=== PATIENT | female | born 1945 | race Caucasian/White ===

== ENCOUNTER 2016-08-28 12:25 | Emergency (ER) | payer OTHER, MEDICAID ==
[2016-08-28 13:14] LABS: % IMMATURE GRANULYOCYTES 0.7 % (0.0-1.1); ABSOLUTE IMMATURE GRANULOCYTES 0.05 10^3/uL (0.00-0.10); ADD DIFF? NO; ADD MORPH? NO; ADD SCAN? NO; ATYPICAL LYMPHOCYTE FLAG 20 (0-99); FRAGMENT RBC FLAG 0 (0-99); HEMATOCRIT 41.4 % (38.0-47.0); HEMOGLOBIN 14.2 g/dL (12.6-16.3); LEFT SHIFT FLG 0 (0-99); LIPEMIA HEMOLYSIS FLAG 90 (0-99); MEAN CELL HEMOGLOBIN CONCENTR. 34.3 g/dL (32.4-36.7); MEAN CELL VOLUME 81.7 fL (81.5-99.8); MEAN PLATELET VOLUME 9.9 fL (8.7-11.7); PLATELET CLUMPS FLAG 0 (0-99); PLATELET COUNT 181 10^3/uL (150-400); RED BLOOD CELL COUNT 5.07 10^6/uL (4.18-5.33); RED CELL DISTRIBUTION WIDTH 15.2 % (11.5-15.2)
[2016-08-28 13:18] LABS: ANION GAP 8 mEq/L (8-16); CALCIUM 10.4 mg/dL (8.5-10.4); CARBON DIOXIDE 30 mEq/l (22-31); CHLORIDE 99 mEq/L (97-110); GLOMERULAR FILTRATION RATE 55; GLUCOSE 113 mg/dL (70-100); POTASSIUM 4.1 mEq/L (3.5-5.2); SODIUM 137 mEq/L (134-144)
[2016-08-28 13:30] LABS: COLOR YELLOW; LEUKOCYTE ESTERASE,URINE NEGATIVE (NEGATIVE); NITRITE,URINE NEGATIVE (NEGATIVE)
--- NOTE | 2016-08-28 13:31 | CPEKG ---
Heart Rate: 88 RR Interval: 682 QRSD Interval: 94 QT Interval: 400 QTC Interval: 484 QRS [place]: 15 EKG Severity - ABNORMAL ECG - EKG Impression: ATRIAL FIBRILLATION, V-RATE 64-122 EKG Impression: ANTERIOR INFARCT, AGE INDETERMINATE Electronically Signed By: Christ Mccoy 28-Aug-2016 14:45:22
--- NOTE | 2016-08-28 13:43 | EDPHY ---
H & P Time Seen by Provider: 08/28/16 13:01 HPI/ROS: Chief complaint. High blood pressure and feeling unwell HPI. 71-year-old female tells me that she had a headache 6 days ago the last all day and has resolved and not recurred. Today she had an episode of indigestion that she describes as some discomfort in the upper abdomen and felt like she had to go to the bathroom and . However subsequently during this episode she had pain going down both arms. She was short of breath. Her symptoms lasted 2 hours and have resolved. She has had no fever or cough. She has also noticed her blood pressure has been elevated for the past week. She has a history of atrial fibrillation and her med list show she has been she takes Eliquis. She also notes that she has been taking her blood pressure medication. She has no symptoms now ROS Constitutional. no fever/chills, no weakness Eyes. no problems with vision ENT. no sore throat, no nasal drainage Cardiovascular. Possibly low anterior chest pain or upper abdominal pain that radiated to both arms Respiratory. Shortness of breath Abdominal. no abdominal pain, no nausea/vomiting, no diarrhea . no problems urinating MS. no calf pain/swelling, no neck/back pain, no joint pain Skin. no rash Lymph. no swollen glands Neuro. no headache, no dizziness, no difficulty walking or with speech Past Medical/Surgical History: Past medical history is significant atrial fibrillation, diabetes, COPD, chronic pain, hypertension, Graves disease, GERD, depression, hypothyroid Social History: Single, lives alone, nonsmoker, no alcohol Smoking Status: Former smoker Physical Exam: General Appearance: Alert well-developed female mild distress vital signs show an initial blood pressure 181/106. On repeat her blood pressure is 152/102 Eyes: Pupils equal and round no pallor or injection. ENT, Mouth: Mucous membranes are moist. Respiratory: There are no retractions, lungs are clear to auscultation. Cardiovascular: Irregularly irregular rate and rhythm Gastrointestinal: Abdomen is soft and nontender, no masses, bowel sounds normal. Neurological: Awake and alert, sensory and motor exams grossly normal. Skin: Warm and dry, no rashes. Musculoskeletal: Neck is supple nontender. Extremities 2+ edema Psychiatric: Patient is oriented X 3, there is no agitation. Constitutional: Initial Vital Signs Temperature (C) 36.8 C 08/28/16 12:25 Heart Rate 68 08/28/16 12:25 Respiratory Rate 18 08/28/16 12:25 Blood Pressure 181/106 H 08/28/16 12:25 O2 Sat (%) 94 08/28/16 12:25 O2 Delivery Mode Room Air Allergies/Adverse Reactions: RADIOACTIVE IODINE Allergy (Severe, Uncoded 02/28/15 11:16) RED SKIN lidoderm Allergy (Uncoded 12/06/15 11:26) pravastatin Allergy (Uncoded 12/06/15 11:26) Home Medications: Medication Instructions Recorded Estradiol [Estrace Vaginal (*)] 42.5 gm VG 08/28/16 FLUoxetine 08/28/16 Famotidine 08/28/16 Fluticasone Nasal [Flonase Nasal 1 sprays NASAL DAILY 08/28/16 [place] (RX)] Furosemide 08/28/16 Glucophage 500 mg (*) 08/28/16 Hydrocodone/Acetaminophen 1 each PO 08/28/16 [Hydrocodon-Acetaminophen 5-325] Klonopin 08/28/16 Levothyroxine 08/28/16 Lisinopril 08/28/16 Metformin HCl 08/28/16 Omeprazole 08/28/16 Oxycontin 08/28/16 Proair Hfa Icu (*) 08/28/16 Senna Prompt Capsule 08/28/16 Medical Decision Making - Diagnostics EKG Interpretation: EKG interpreted by me shows atrial fibrillation with left axis deviation. There are diffuse T-wave flattening and slight depression. The ventricular response is 88 There appears to be more ST depression in lead 1 and V6 than previous EKG by comparison December of 2014 Imaging: Chest x-ray interpreted by me shows mild cardiomegaly and stable fibrotic change in the left lower lobe. No pneumonia Procedures: IV normal saline, monitor ED Course/Re-evaluation: Re-evaluation at 3:30 p.m. patient is without symptoms. Due to EKG changes and the discomfort going down both arms I am concerned about cardiac involvement and have recommended admission to the patient. She declines admission wants to be treated as an outpatient. She and I discussed risks of going home and that it is Wednesday and can't be followed up until Wednesday. We discussed the benefits of staying in the hospital for further cardiac evaluation. She expresses understanding and agreement and still wishes to go home. She is encouraged to return at any point over the weekend for any further symptoms Differential Diagnosis: It is unclear of what this patient had as far as indigestion. I am certainly concerned about acute coronary syndrome and again EKG changes and history suggestive of coronary artery disease. Objective finding shows atrial fibrillation with some ST depression in lateral leads. She does have a normal troponin. I considered pneumonia as well as pancreatitis as well as GERD - Data Points Laboratory Results: Laboratory Results 08/28/16 12:30 08/28/16 12:30 08/28/16 08/28/16 08/28/16 12:40 12:30 12:00 WBC 6.95 10^3/uL (3.80-9.50) RBC 5.07 10^6/uL (4.18-5.33) Hgb 14.2 g/dL (12.6-16.3) Hct 41.4 % (38.0-47.0) MCV 81.7 fL (81.5-99.8) MCH 28.0 pg (27.9-34.1) MCHC 34.3 g/dL (32.4-36.7) RDW 15.2 % (11.5-15.2) Plt Count 181 10^3/uL (150-400) MPV 9.9 fL (8.7-11.7) Neut % (Auto) 78.8 H % (39.3-74.2) Lymph % (Auto) 8.2 L % (15.0-45.0) [place] % (Auto) 12.2 % (4.5-13.0) Eos % (Auto) 0.0 L % (0.6-7.6) Baso % (Auto) 0.1 L % (0.3-1.7) Nucleat RBC Rel Count 0.0 % (0.0-0.2) Absolute Neuts (auto) 5.47 10^3/uL (1.70-6.50) Absolute Lymphs (auto) 0.57 L 10^3/uL (1.00-3.00) Absolute Monos (auto) 0.85 H 10^3/uL (0.30-0.80) Absolute Eos (auto) 0.00 L 10^3/uL (0.03-0.40) Absolute Basos (auto) 0.01 L 10^3/uL (0.02-0.10) Absolute Nucleated RBC 0.00 10^3/uL (0-0.01) Immature Gran % 0.7 % (0.0-1.1) Immature Gran # 0.05 10^3/uL (0.00-0.10) PT 14.8 SEC (12.0-15.0) INR 1.16 (0.83-1.16) APTT 38.7 H SEC (23.0-38.0) Sodium 137 mEq/L 138 mEq/L (134-144) (134-144) Potassium 4.1 mEq/L 3.9 mEq/L (3.5-5.2) (3.5-5.2) Chloride 99 mEq/L 98 mEq/L (97-110) (97-110) Carbon Dioxide 30 mEq/l 30 mEq/l (22-31) (22-31) Anion Gap 8 mEq/L 10 mEq/L (8-16) (8-16) BUN 23 mg/dL 23 mg/dL (7-23) (7-23) Creatinine 1.0 mg/dL 1.0 mg/dL (0.6-1.0) (0.6-1.0) Estimated GFR 55 55 Glucose 113 H mg/dL 116 H mg/dL (70-100) (70-100) Calcium 10.4 mg/dL 10.3 mg/dL (8.5-10.4) (8.5-10.4) Troponin I 0.012 ng/mL (0-0.034) NT-Pro-B Natriuret Pep 1090 H pg/mL (0-125) Lipase 66.0 IU/L (23-300) Urine Color YELLOW Urine Appearance HAZY Urine pH 7.0 (5.0-7.5) Ur Specific [place] 1.005 (1.002-1.030) Urine Protein 2+ H (NEGATIVE) Urine Ketones NEGATIVE (NEGATIVE) Urine Blood NEGATIVE (NEGATIVE) Urine Nitrate NEGATIVE (NEGATIVE) Urine Bilirubin NEGATIVE (NEGATIVE) Urine Urobilinogen NEGATIVE EU (0.2-1.0) Ur Leukocyte Esterase NEGATIVE (NEGATIVE) Urine RBC 1-3 /hpf (0-3) Urine WBC 1-3 /hpf (0-3) Ur Epithelial Cells 2+ H /lpf (NONE-1+) Urine Glucose NEGATIVE (NEGATIVE) Departure - Departure Disposition: Home, Routine, Self-Care Clinical Impression: Chest pain Qualifiers: Chest pain type: unspecified Qualifier Code: (R07.9) Chest pain, unspecified Condition: Good Instructions: Chest Pain (ED) Additional Instructions: Continue regular medications. Return for any further symptoms including chest or arm discomfort, trouble breathing over the weekend. Follow up with Dr. Nowak on Wednesday without fail Referrals: Vic Nowak MD [Primary Care Provider] - 2-3 days without fail
--- NOTE | 2016-08-28 14:51 | DX ---
PA and lateral chest x-ray 1344 hours. History: Chest pain and hypertension. Generalized malaise. Findings: Comparison to 2014. Heart size remains mildly enlarged. Pulmonary vasculature is mildly prominent centrally stable in fadia earance. There are some fibrotic streaks remaining at the left lung base. There is no new consolidati on, effusion, or pneumothorax. Osseous structures are unchanged. There is stable mild accentuation an terior kyphosis midthoracic spine. Impression: 1. No active cardiopulmonary disease seen. 2. Stable mild cardiomegaly. 3. Stable fibrotic change left base.
[2016-08-28 14:52] LABS: ANION GAP 10 mEq/L (8-16); CALCIUM 10.3 mg/dL (8.5-10.4); CARBON DIOXIDE 30 mEq/l (22-31); CHLORIDE 98 mEq/L (97-110); GLOMERULAR FILTRATION RATE 55; GLUCOSE 116 mg/dL (70-100); POTASSIUM 3.9 mEq/L (3.5-5.2); SODIUM 138 mEq/L (134-144)
[2016-08-28 14:53] LABS: INR 1.16 (0.83-1.16); PROTIME(PATIENT) 14.8 SEC (12.0-15.0)
[2016-08-28 14:54] LABS: APTT 38.7 SEC (23.0-38.0)
[2016-08-28 15:04] LABS: TROPONIN I 0.012 ng/mL (0-0.034)
[2016-08-28 15:58] VITALS: BP 154/93; PULSE 69; RESP 18; TEMP 98.4; O2SAT 92
== END 2016-08-28 15:56 | disposition home or self-care (01) ==
LOC: EDUNIT#
DX: R07.9 Chest pain, unspecified (principal); J44.9 Chronic obstructive pulmonary disease, unspecified; E11.9 Type 2 diabetes mellitus without complications; Z87.891 Personal history of nicotine dependence

== ENCOUNTER → 2016-11-04 | Outpatient (CLI) | payer OTHER, MEDICAID | LOC: BHFA 15:00 | PROVIDERS: ATTEND Internal Medicine Cardiovascular Disease | DX: I48.2 Chronic atrial fibrillation (principal); I10 Essential (primary) hypertension ==

== ENCOUNTER → 2016-11-23 | Outpatient (CLI) | payer OTHER, MEDICAID | LOC: BHFA 13:30 | PROVIDERS: ATTEND Internal Medicine Cardiovascular Disease | DX: R07.9 Chest pain, unspecified (principal); R06.09 Other forms of dyspnea | CPT/HCPCS: 78452; 93017; A9500; J2785 ==

== ENCOUNTER → 2016-11-24 | Outpatient (CLI) | payer OTHER, MEDICAID | LOC: BHFA 14:45 | PROVIDERS: ATTEND Internal Medicine | DX: I48.91 Unspecified atrial fibrillation (principal) ==

== ENCOUNTER → 2017-02-03 | Outpatient (CLI) | payer OTHER, MEDICAID | LOC: FIMAGING 12:55 | PROVIDERS: ATTEND Internal Medicine | DX: M16.12 Unilateral primary osteoarthritis, left hip (principal); M79.605 Pain in left leg ==

== ENCOUNTER → 2017-02-20 | Outpatient (CLI) | payer OTHER, MEDICAID | LOC: FIMAGING 13:17 | PROVIDERS: ATTEND Internal Medicine | DX: S76.012A Strain of muscle, fascia and tendon of left hip, initial encounter (principal); S76.312A Strain of muscle, fascia and tendon of the posterior muscle group at thigh level, left thigh, initial encounter; M16.0 Bilateral primary osteoarthritis of hip; M25.452 Effusion, left hip; M76.01 Gluteal tendinitis, right hip; M51.36 Other intervertebral disc degeneration, lumbar region; M47.896 Other spondylosis, lumbar region ==

== ENCOUNTER → 2017-03-19 | Outpatient (CLI) | payer OTHER, MEDICAID ==
[~2017-03-19] MED LIST: DEPO METHYLPREDNISOLONE 40 MG/ML SDV ONE; IOPAMIDOL (ISOVUE 370) 100 ML BTL IV ONE; LIDOCAINE 1% 300 MG/30 ML SDV ONE; ROPIVACAINE HCL 150 MG/30 ML INJ ONE
== END ==
LOC: FIMAGING 13:35
PROVIDERS: ATTEND Orthopaedic Surgery
DX: M25.552 Pain in left hip (principal)
CPT/HCPCS: 20610; 77002; J1030; J2795; Q9967

== ENCOUNTER 2017-07-21 08:04 | Inpatient (IN) | payer OTHER, MEDICAID ==
[~2017-07-21 08:04] MED LIST changes: -DEPO METHYLPREDNISOLONE 40 MG/ML SDV ONE; -IOPAMIDOL (ISOVUE 370) 100 ML BTL IV ONE; -LIDOCAINE 1% 300 MG/30 ML SDV ONE; +ROPIVACAINE 0.2% 80 MG, EPINEPHrine 0.2 MG, KETOROLAC TROMETHAMINE 30 MG in SYRINGE 0 ML IU ONE; -ROPIVACAINE HCL 150 MG/30 ML INJ ONE; +TRANEXAMIC ACID 3,000 MG in NS 50 ML IRR ONE
[2017-07-21] MEDS ORDERED: ceFAZolin 2 GM/SWFI 2 GM/20 ML SYR IVP ONE (08:46)
[2017-07-21] MEDS ORDERED: DEXAMETHASONE 4 MG/ML VIAL IVP ONE (08:46)
[2017-07-21] MEDS ORDERED: FAMOTIDINE 20 MG TAB PO ONE (08:46)
[2017-07-21] MEDS ORDERED: LR 1,000 ML IV ONE (09:07)
--- NOTE | 2017-07-21 09:09 | PDANEPAE ---
ANE History of Present Illness 72 year old female w/ PMHx of A. Fib, CVA w/ impaired speech, GERD presents for left total hip replacement. ANE Past Medical History - Cardiovascular History Hx Hypertension: Yes Hx Arrhythmias: Yes Hx Chest Pain: No Hx Coronary Artery / Peripheral Vascular Disease: No Hx CHF / Valvular Disease: No Hx Palpitations: No Cardiovascular History Comment: AFIB - on Eliquis but stopped 5 days ago. Bridged with lovenox. Last dose of lovenox 07/20/17 at 4pm. - Pulmonary History Hx COPD: No Hx Asthma/Reactive Airway Disease: Yes Hx Recent Upper Respiratory Infection: No Hx Oxygen in Use at Home: No Hx Sleep Apnea: Yes Sleep Apnea Screening Result - Last Documented: Positive - Neurologic History Hx Cerebrovascular Accident: Yes Hx Seizures: No Hx Dementia: No Neurologic History Comment: SPEACH - Endocrine History Hx Diabetes: Yes Hypothyroid: No Hyperthyroid: No Obesity: no - Renal History Hx Renal Disorders: No - Liver History Hx Hepatic Disorders: No - Neurological & Psychiatric Hx Hx Neurological and Psychiatric Disorders: Yes Neurological / Psychiatric History Comment: NEUROPATHY IN FEET - Cancer History Hx Cancer: No - Congenital Disorder History Hx Congenital Disorders: No - GI History Hx Gastrointestinal Disorders: Yes Gastrointestinal History Comment: REFLUX - Other Health History Other Health History: DRY SKIN,SWOLLEN LEGS - Chronic Pain History Chronic Pain: Yes - Surgical History Prior Surgeries: bilat knee replacements ANE Review of Systems Review of systems is: negative Review of Systems: - Exercise capacity Exercise capacity: <4 METS METS (RN): 3 METS ANE Patient History - Allergies Allergies/Adverse Reactions: RADIOACTIVE IODINE Allergy (Severe, Uncoded 02/28/15 11:16) RED SKIN lidoderm Allergy (Uncoded 12/06/15 11:26) pravastatin Allergy (Uncoded 12/06/15 11:26) - Home Medications Home medications: home medication list seen and reviewed Home Medications: Albuterol [Proventil Inhaler HFA (*)] 2 puffs IH Q6HRS PRN 06/25/17 [Last Taken 07/20/17] Apixaban [Eliquis] 5 mg PO BID 06/25/17 [Last Taken 07/16/17] Aspirin [Aspirin 81mg (*)] 81 mg PO DAILY 06/25/17 [Last Taken 07/16/17] Betamethasone/Propylene Glyc [Betamethasone Dp Aug 0.05% Oin] 15 gm TP HS PRN [Last Taken 2 Weeks Ago ~07/07/17] Digoxin [Lanoxin 125 mcg (RX)] 125 mcg PO DAILY10 06/25/17 [Last Taken 07/21/17 05:00] Diltiazem HCl [Cardizem Cd] 360 mg PO DAILY 06/25/17 [Last Taken 07/21/17 05:00] Docusate Sodium [Colace 100 MG (*)] 200 mg PO DAILY 06/25/17 [Last Taken ] Estradiol [Estrace Vaginal (*)] 1 fadia VG Q3D 06/25/17 [Last Taken 07/20/17] FLUoxetine [Prozac 20 MG (*)] 60 mg PO DAILY 06/25/17 [Last Taken 07/20/17] Famotidine [Pepcid 20 MG (*)] 20 mg PO BID 06/25/17 [Last Taken 07/20/17] Fluticasone Nasal [Flonase Nasal [place] (RX)] 2 sprays NASAL BID 06/25/17 [Last Taken 07/20/17] Fluticasone/Salmeter 250/50Mcg [Advair 250/50 (*)] 1 puffs IH BID 06/25/17 [ Last Taken 07/20/17] Furosemide [Lasix 80 MG (*)] 80 mg PO BID 06/25/17 [Last Taken 07/20/17] Herbals/Supplements -Info Only 1 ea PO DAILY 06/25/17 [Last Taken 07/16/17] Hydrocodone/Acetaminophen [[place] 7.5-325 Tablet] 1 each PO Q6HRS 06/25/17 [Last Taken 1 Week Ago ~07/14/17] Lansoprazole [Prevacid] 30 mg PO DAILY 06/25/17 [Last Taken 07/20/17] Levothyroxine [Synthroid 200 mcg (*)] 200 mcg PO DAILY06 06/25/17 [Last Taken 05:00] Lisinopril [Zestril 40 mg (*)] 40 mg PO DAILY 06/25/17 [Last Taken 07/21/17 05: 00] Risedronate Sodium [Atelvia] 35 mg PO DAILY 06/25/17 [Last Taken 07/20/17] Sennosides/Docusate Sodium [Senna-S Tablet] 2 each PO DAILY PRN 06/25/17 [Last Taken 2 Days Ago ~07/19/17] Triamcinolone 0.1% [Triamcinolone 0.1% Cream (*)] 1 fadia TP BID PRN 06/25/17 [ Last Taken 2 Weeks Ago ~07/07/17] Vitamin B Complex [B Complex] 1 each PO DAILY 06/25/17 [Last Taken 07/16/17] clonazePAM [Klonopin (*)] 0.25 mg PO Q4HRS 06/25/17 [Last Taken 07/20/17] metFORMIN SR [Glucophage XR 500 mg (*)] 1,000 mg PO BIDMEAL 06/25/17 [Last Taken 07/20/17] oxyCODONE HCL [Oxycontin] 60 mg PO BID 06/25/17 [Last Taken 07/20/17] rOPINIRole HCL [Requip] 0.25 mg PO BID 06/25/17 [Last Taken 07/20/17] Abilify 07/21/17 [Last Taken 07/20/17] - NPO status NPO Status: no food or drink >8 hours - Anes Hx Anes Hx: no prior problems - Smoking Hx Smoking Status: Former smoker Marijuana use: Yes - Alcohol Use Alcohol Use: None - Family Anes Hx Family Anes Hx: neg - N/A Family Hx Anesthesia Complications: none ANE Labs/Vital Signs - Labs Result Diagrams: 07/21/17 09:28 - Vital Signs Vital Signs: reviewed preoperatively; see RN documention for details Height: 160.02 cm Weight: 63.503 kg ANE Physical Exam - Airway Neck exam: FROM Mallampati Score: Class 2 Mouth exam: normal dental/mouth exam - Pulmonary Pulmonary: no respiratory distress - Cardiovascular Cardiovascular: irregularly irregular - ASA Status ASA Status: III ANE Anesthesia Plan Total IV Anesthesia: No
[2017-07-21] MEDS ORDERED: TRANEXAMIC ACID 3,000 MG/50 ML BAG IRR ONE (09:10)
[2017-07-21] MEDS ORDERED: VANCOMYCIN 1 GM VIAL ONE (09:10)
--- NOTE | 2017-07-21 09:31 | PDHPUP ---
History & Physical Update H&P update statement: This history and physical update is based on an assessment of the patient which was completed after admission or registration (within 24 hours), but prior to the surgery/procedure. H&P update: H&P reviewed & patient examined, no change in patient's condition since H&P completed
[2017-07-21] MEDS ORDERED: MIDAZOLAM 2 MG/2 ML VIAL IVP ONE (09:55)
[2017-07-21] MEDS ORDERED: MIDAZOLAM 2 MG/2 ML VIAL ONE (10:02)
[2017-07-21] MEDS ORDERED: PROPOFOL/EMULSION 500 MG/50 ML BOTTLE IV ONE (10:03)
[2017-07-21 10:09] LABS: ANION GAP 10 mEq/L (8-16); CALCIUM 9.5 mg/dL (8.5-10.4); CARBON DIOXIDE 24 mEq/l (22-31); CHLORIDE 104 mEq/L (97-110); CREATININE 0.9 mg/dL (0.6-1.0); GLOMERULAR FILTRATION RATE > 60; GLUCOSE 119 mg/dL (70-100); POTASSIUM 4.1 mEq/L (3.5-5.2); SODIUM 138 mEq/L (134-144)
[2017-07-21] MEDS ORDERED: ROCURONIUM 50 MG/5 ML VIAL ONE ×2 (10:22→11:04)
[2017-07-21] MEDS ORDERED: fentaNYL 100 MCG/2 ML INJ ONE ×3 (10:57→12:22)
[2017-07-21] MEDS ORDERED: ESMOLOL HCL 100 MG/10 ML VIAL IV ONE (11:01)
[2017-07-21] MEDS ORDERED: HYDROmorphONE/DILAUDID 2 MG/ML INJ ONE (11:06)
[2017-07-21] MEDS ORDERED: LABETALOL HCL 5 MG/ML 20 ML MDV IVP PRN (11:11)
[2017-07-21] MEDS ORDERED: LR 500 ML IV PRN (11:11)
[2017-07-21] MEDS ORDERED: ONDANSETRON 4 MG/2 ML VIAL IVP PRN ×2 (11:11→11:51)
[2017-07-21] MEDS ORDERED: NALOXONE HCL 0.4 MG/ML INJ IVP PRN (11:11)
[2017-07-21] MEDS ORDERED: KETAMINE 100 MG/10 ML SYR ONE (11:24)
[2017-07-21] MEDS ORDERED: ONDANSETRON 4 MG/2 ML VIAL ONE ×2 (11:24→12:19)
[2017-07-21] MEDS ORDERED: BISACODYL 10 MG SUPP PR PRN (11:51)
[2017-07-21] MEDS ORDERED: MAGNESIUM HYDROXIDE 30 ML UDCUP PO PRN (11:51)
[2017-07-21] MEDS ORDERED: PROMETHAZINE HCL 25 MG/ML INJ IVP PRN (11:51)
[2017-07-21] MEDS ORDERED: METOCLOPRAMIDE 10 MG/2 ML VIAL IVP PRN (11:51)
[2017-07-21] MEDS ORDERED: POLYETHYLENE GLYCOL 3350 17 GM PKT PO PRN (11:51)
[2017-07-21] MEDS ORDERED: PROMETHAZINE HCL 25 MG SUPPR PR PRN (11:51)
[2017-07-21] MEDS ORDERED: ONDANSETRON DISINTEGRATING 4 MG TAB PO PRN (11:51)
[2017-07-21] MEDS ORDERED: diphenhydrAMINE 25 MG CAP PO PRN (11:51)
[2017-07-21] MEDS ORDERED: LACTULOSE 20 GM/30 ML UDCUP PO PRN (11:51)
[2017-07-21] MEDS ORDERED: DIPHENOXYLATE/ATROPINE LOMOTIL 1 TAB PO PRN (11:51)
--- NOTE | 2017-07-21 11:51 | POSTOPPROG ---
Post Op Note Date of Operation: 07/21/17 Surgeon: Tanner Balderrama Glue Drier Operator: simeon balderrama Anesthesiologist: dr. villalobos Anesthesia: GET(General Endotracheal) Pre-op Diagnosis: left hip OA Post-op Diagnosis: same Indication: left hip pain due to OA that failed conservative measures Procedure: L SURYA ant approach Findings: severe hip OA Inf/Abcess present in the surg proc area at time of surgery?: No EBL: Greater than 1000
[2017-07-21] MEDS ORDERED: LR 1,000 ML IV SCH (12:00)
[2017-07-21] MEDS ORDERED: HYDROmorphONE/DILAUDID 1 MG/ML INJ ONE ×2 (12:01→12:51)
[2017-07-21] MEDS: HYDROmorphONE/DILAUDID 1 MG/ML INJ IVP PRN ×5 (12:02→13:04)
[2017-07-21] MEDS: fentaNYL 100 MCG/2 ML INJ IVP PRN ×4 (12:03→12:44)
[2017-07-21] MEDS ORDERED: LORazepam 2 MG/ML INJ IVP ONE (13:11)
[2017-07-21] MEDS ORDERED: ALBUTEROL 200 PUFFS/18 GM MDI IH PRN (13:15)
[2017-07-21] MEDS ORDERED: LORazepam 2 MG/ML INJ ONE (13:19)
[2017-07-21] MEDS ORDERED: D50W 25 GM/50 ML SYR IVP PRN (13:38)
[2017-07-21 14:53] LABS: HEMATOCRIT 30.5 % (38.0-47.0); MEAN CELL HEMOGLOBIN 27.6 pg (27.9-34.1); MEAN CELL HEMOGLOBIN CONCENTR. 32.8 g/dL (32.4-36.7); MEAN CELL VOLUME 84.3 fL (81.5-99.8); RED BLOOD CELL COUNT 3.62 10^6/uL (4.18-5.33); RED CELL DISTRIBUTION WIDTH 14.1 % (11.5-15.2)
[2017-07-21] MEDS: oxyCODONE IR 5 MG TAB PO PRN ×3 (15:00→22:08)
[2017-07-21] MEDS: CYCLOBENZAPRINE 10 MG TAB PO PRN ×2 (15:01→22:34)
[2017-07-21] MEDS: clonazePAM 0.5 MG TAB PO SCH ×3 (15:05→22:16)
[2017-07-21 15:29] LABS: ANION GAP 7 mEq/L (8-16); CALCIUM 9.2 mg/dL (8.5-10.4); CARBON DIOXIDE 26 mEq/l (22-31); CHLORIDE 103 mEq/L (97-110); CREATININE 0.9 mg/dL (0.6-1.0); GLOMERULAR FILTRATION RATE > 60; GLUCOSE 185 mg/dL (70-100); POTASSIUM 4.1 mEq/L (3.5-5.2); SODIUM 136 mEq/L (134-144)
--- NOTE | 2017-07-21 15:45 | GCON ---
[f rep st] CONSULTATION DATE OF CONSULTATION: 07/21/2017 REFERRING PHYSICIAN: Francesco Ann MD REASON FOR CONSULTATION: Management of chronic medical issues. HISTORY OF PRESENT ILLNESS: A 72-year-old female with multiple comorbidities, including permanent at rial fibrillation, diabetes, chronic pain (on opioids), hypertension, and TIAs, who presented for shanel ctive left hip arthroplasty today. She had an estimated blood loss of 1 L with surgery today. She t ook her Lovenox dose last night. She currently complains of 10/10 pain in the hip. Her baseline pain at home in her knee and hip is 1 0, and usually does not get any lower than that. Currently denies any chest pain, fevers, chills, or sweats. Mild shortness of breath, which is common for her at home. No dysuria. No diarrhea. REVIEW OF SYSTEMS: I completed a 10-point review of systems, negative except as noted in HPI. PAST MEDICAL HISTORY: 1. History of Klebsiella urinary tract infection. 2. Permanent atrial fibrillation. 3. Diabetes. 4. Chronic pain, on chronic opioids. 5. Hyperlipidemia. 6. Hypertension. 7. Asthma. 8. Depression. 9. Graves', status post radioactive iodine, now hypothyroid. 10. Chronic hypoxemic respiratory failure; afternoon and night CPAP. 11. History of TIA. 12. Diverticulitis. 13. Sleep apnea. 14. Migraines. 15. Pulmonary hypertension. 16. Mild MR. PAST SURGICAL HISTORY: 1. Carpal tunnel release. 2. Colon resection secondary to diverticulitis. 3. Bilateral TKA. 4. Oophorectomy. 5. Right rotator cuff repair. SOCIAL HISTORY: Lives in independent living at [facility]. Occasional marijuana. No tobacco or al cohol. FAMILY HISTORY: Father with several heart attacks. ALLERGIES: Radioactive iodine, Lidoderm, and pravastatin. HOME MEDICATIONS: Senna, oxycodone, OxyContin 60 mg b.i.d., Atelvia 35 mg daily, [place] 7.5/325 q.6 h ours as needed (not taken for several weeks), digoxin 125 mcg daily, herbal supplement, vitamin B,, t riamcinolone cream, Requip 0.25 mg b.i.d., levothyroxine 200 mcg daily, lisinopril 40 mg daily, aspir in 81 mg daily. Proventil as needed, metformin 1000 mg b.i.d., Prevacid 30 mg daily, Lasix 80 mg marylou ly, Flonase, Prozac 60 mg a day, Pepcid 20 mg b.i.d., Estrace vaginally every 3 days, diltiazem 360 m g daily, Eliquis 5 mg twice daily (held for surgery), Klonopin 0.25 mg q.4 hours as needed, docusate, Advair, and Abilify. PHYSICAL EXAMINATION: VITAL SIGNS: Temperature 36.4 blood pressure 142/83, heart rate in the 70s, r espirations 16, 95% on room air on 2 L. GENERAL: Lying in bed, fatigued, slightly pale, but in no a cute distress. HEENT: PERRLA. EOMI. Oropharynx clear. CV: Irregularly irregular. No murmurs, g allops, or rubs. Trace pedal edema. LUNGS: Expiratory wheezing throughout. ABDOMEN: Two abdomina l hernias. Nontender with palpation. Positive bowel sounds. : No [place]. MUSCULOSKELETAL: Left hip surgical incision dressed, without hematoma. No tenderness. Moving all 4 extremities. NEURO: 2 through 12 intact. PSYCH: Alert and oriented x3. Flat affect. LABORATORY DATA: CBC and BMP pending. EKG pending. Pelvic x-ray today: Good alignment of left SURYA . ASSESSMENT AND PLAN: 1. Status post left total hip arthroplasty: Had an EBL of 1000 cc. We will check an H and H, trans fuse if hemoglobin is less than 7. 2. Pain control: Per Orthopedics. 3. Permanent atrial fibrillation: Currently rate controlled on diltiazem. Resume this. Will resum e Eliquis in the morning. 4. Diabetes: Continue metformin as well as sliding scale insulin here. 5. Chronic pain: States her pain is anywhere from 8-10 at home, so will be difficult to manage here . Will continue her OxyContin. Pain management per Orthopedics. 6. Hyperlipidemia: Allergic to statin. 7. Hypertension: Resume lisinopril if creatinine is stable. 8. Asthma: Wheezing on exam today. Add DuoNeb. 9. Depression: Continue Prozac. Need to confirm Abilify dose. 10. History of Graves disease: Status post ablation. Continue Synthroid. 11. History of transient ischemic attack: Restart Eliquis tomorrow. 12. Moderate pulmonary hypertension: No overt overload here. Will resume Lasix if creatinine stabl e. 13. Obstructive sleep apnea: CPAP. 14. Chronic hypoxemic respiratory failure: On nocturnal oxygen. 15. History of diverticulitis: Status post resection. 16. Diet: Diabetic. 17. Deep vein thrombosis prophylaxis: Sequential compression devices. Resume Eliquis per Ortho herber orrow. Thank you for this consultation. Please call if any questions. We will follow along. /[id number]/MODL
--- NOTE | 2017-07-21 16:37 | POSTANESTH ---
Post Anesthetic Evaluation Cardiovascular Status: Normal, Stable, Similar to Pre-Op Cond Respiratory Status: Normal, Stable, Similar to Pre-op Cond. Level of Consciousness/Mental Status: Can Participate in Eval, Alert and Oriented Pain Control: Adequate, Prn Tx Ordered Nausea/Vomiting Control: Adequate, Prn Tx Ordered Complications Possibly Related to Anesthesia: None Noted
--- NOTE | 2017-07-21 18:09 | CPEKG ---
Heart Rate: 66 RR Interval: 909 QRSD Interval: 90 QT Interval: 300 QTC Interval: 315 QRS [place]: -13 T Wave [place]: 174 EKG Severity - ABNORMAL ECG - EKG Impression: ATRIAL FIBRILLATION, V-RATE 56-86 EKG Impression: PROBABLE LVH WITH SECONDARY REPOL ABNRM Electronically Signed By: Boaz Lane 22-Jul-2017 13:11:52
[2017-07-21] MEDS: INSULIN LISPRO 100 UNIT/ML SC SCH (18:26)
[2017-07-21] MEDS: ceFAZolin 2 GM/DEXTROSE 100 ML IV SCH (18:27)
[2017-07-21] MEDS: metFORMIN SR 500 MG TAB PO SCH (18:32)
[2017-07-21] MEDS: FLUTICASONE/SALMETER 250/50MCG DISKUS IH SCH (21:16)
[2017-07-21] MEDS: IPRATROPIUM/ALBUTEROL 3 ML DEYVIAL IH PRN (21:16)
[2017-07-21] MEDS: oxyCODONE CR 30 MG TAB PO SCH (22:09)
[2017-07-21] MEDS: SENNOSIDES/DOCUSATE SODIUM TAB PO SCH (22:10)
[2017-07-21] MEDS: FUROSEMIDE 80 MG TAB PO SCH (22:11)
[2017-07-21] MEDS: FAMOTIDINE 20 MG TAB PO SCH (22:16)
[2017-07-21] MEDS: FLUTICASONE NASAL 120 SPRAYS/16 GM MDI EACHNARE SCH (23:15)
[2017-07-22] MEDS: clonazePAM 0.5 MG TAB PO SCH ×8 (01:00→22:37)
[2017-07-22] MEDS: oxyCODONE IR 5 MG TAB PO PRN ×5 (01:05→18:32)
[2017-07-22] MEDS: ceFAZolin 2 GM/DEXTROSE 100 ML IV SCH (01:06)
[2017-07-22 05:13] LABS: HEMATOCRIT 23.7 % (38.0-47.0); HEMOGLOBIN 7.9 g/dL (12.6-16.3)
[2017-07-22 05:28] LABS: ANION GAP 8 mEq/L (8-16); CALCIUM 8.9 mg/dL (8.5-10.4); CARBON DIOXIDE 24 mEq/l (22-31); CHLORIDE 103 mEq/L (97-110); CREATININE 1.2 mg/dL (0.6-1.0); GLOMERULAR FILTRATION RATE 44; GLUCOSE 116 mg/dL (70-100); POTASSIUM 4.6 mEq/L (3.5-5.2); SODIUM 135 mEq/L (134-144)
[2017-07-22] MEDS: LEVOTHYROXINE 200 MCG TAB PO SCH (05:42)
--- NOTE | 2017-07-22 06:14 | GOP ---
[f rep st] OPERATIVE REPORT DATE OF OPERATION: 07/21/2017 SURGEON: Francesco Ann MD RESP THER: DON Dickinson. ANESTHESIA: Spinal. PREOPERATIVE DIAGNOSIS: Left hip osteoarthritis. POSTOPERATIVE DIAGNOSIS: Left hip osteoarthritis. PROCEDURE PERFORMED: Total hip arthroplasty with x-ray. FINDINGS: ESTIMATED BLOOD LOSS: 900 mL. INDICATIONS: The patient has progressively worsening arthritis of the hip which has failed medical m anagement. The patient understands the treatment options including continued non-operative care and has selected surgical intervention. The patient has decided to undergo total hip arthroplasty via th e direct anterior approach, understanding the risks of the procedure including, but not limited to, n eurovascular injury, infection, persistent pain, component wear and loosening, deep venous thrombosis , pulmonary embolism, limb length inequality, hip instability (including dislocation), and intra-oper ative fractures. DESCRIPTION OF PROCEDURE: After proper identification of the patient including verification and conner ing the surgical site, the patient was brought to the operating room and placed in the supine positio n. All bony prominences were well padded. Anesthesia was induced without complication and intraveno us prophylactic antibiotics were administered prior to skin incision. The operative leg was placed in the Trumpf Arch table extension and the well leg in a Yellofin leg ho lder. The patient was prepped and draped in the usual sterile fashion. The C-arm was draped for int ra-operative fluoroscopy to check acetabular position, femoral component position including leg lengt h and femoral offset. Attention was then drawn to surgical exposure of the hip. An incision was made with a #10 Bard Radha r blade starting 3 cm lateral and 3 cm distal to the anterior superior iliac spine measuring 8-10 cm and coursing distally toward the greater trochanter. The skin and subcutaneous tissues were divided sharply down to the fascia jenny. The fascia jenny was incised in line with the skin incision exposing the underlying tensor fascia jenny muscle. The muscle was bluntly elevated from the fascia and the f irst extracapsular Cobra retractor was placed laterally at the junction of the superior femoral neck and greater trochanter. The lateral femoral circumflex vessels were identified, cauterized, and divi ded with the Aquamantys bipolar cautery. The deep investing fascia of the TFL was divided to allow p denise mobilization of the muscle preventing damage during the retraction. The reflected head of the rectus femoris muscle was elevated off the anterior hip capsule and a medial Cobra retractor was plac ed just proximal to the lesser trochanter. The anterior capsulotomy was made sharply from the superolateral acetabulum to the saddle junction of the superior femoral neck and greater trochanter, then coursing inferomedial towards the lesser troc hanter. The retractors were then placed in the intracapsular position for femoral neck osteotomy. C orresponding to pre-operative templating, the osteotomy was made with the oscillating saw carefully p rotecting the greater trochanter and soft tissues. The femoral head was removed from the acetabulum with a corkscrew and confirmed to be severely arthritic with exposed bone, deformity and osteophytes. Similar findings were confirmed in the acetabulum. The Arch table extension was then placed in 40 degrees external rotation. Attention was then drawn to the acetabular preparation. After placement of the anterior and posterio r Cobra retractors outside the labrum and intracapsular, the circumferential labrum was removed sharp ly. The foveal contents were then removed and hemostasis obtained with cautery. The first reamer selected was sized using the removed femoral head. Reaming began with medialization and then commenced in 2 mm increments at 45 degrees of abduction and 15 degrees of anteversion using fluoroscopic navigation. Reaming ceased 1 mm less than the definitive acetabular component and livier esponded to the pre-operative templating. The final acetabular component was inserted using fluorosc opy to achieve proper orientation yielding excellent purchase and stability in the acetabulum. The f inal acetabular liner was then placed and its seating confirmed. Attention was then turned to the femur. The Arch table extension was placed in extension and adducti on, delivering the osteotomized femoral neck into the wound. A 2-pronged femoral elevator was placed at the calcar and another at the tip of the greater trochanter. The posterolateral capsule was rele ased with cautery allowing mobilization of the femur lateral and anterior for preparation. The exter nal rotators were visualized and preserved. A curette and rongeur were used to open the starting poi nt for broaching. Serial broaching started with the #0 broach and ended with the broach that exhibit ed excellent fit in the proximal femur. A change in pitch during mallet strikes was accompanied by t he inability to advance the broach any further. The trial reduction was performed and fluoroscopic n avigation was utilized to check limb length. Adjustments were made to equalize limb length according ly. After the final trials were accepted they were removed and the wound was copiously lavaged. The femo ral component was seated to the same depth as the final broach and the femoral head was impacted onto the clean trunnion. The hip was then reduced for the final time and once more fluoroscopy was used to check that limb length equality was achieved. The wound was irrigated and closed in layers, the fascia jenny with 2-0 Quill, the subcutaneous tissue with 2-0 Quill, and the skin with Dermabond. Sterile dressings were applied. Final sharps and spon ge counts were accurate. The patient was then transferred to a hospital bed and brought [facility] the [facility] in stable condition. IMPLANTS: Accolade II size 5 at 127. Acetabular component 52 mm Tritanium. Liner is Trident X3, 32 mm. The head is a Biolox Delta 32 mm, +0. /[id number]/[id number]
[2017-07-22] MEDS: APIXABAN 5 MG TAB PO SCH ×2 (07:44→21:14)
[2017-07-22] MEDS: oxyCODONE CR 30 MG TAB PO SCH ×2 (07:45→21:12)
[2017-07-22] MEDS: metFORMIN SR 500 MG TAB PO SCH ×2 (07:45→19:23)
[2017-07-22] MEDS: CYCLOBENZAPRINE 10 MG TAB PO PRN ×2 (07:46→18:32)
[2017-07-22] MEDS: FLUoxetine 20 MG CAP PO SCH (07:46)
[2017-07-22] MEDS: SENNOSIDES/DOCUSATE SODIUM TAB PO SCH ×2 (07:47→21:12)
[2017-07-22] MEDS: ARIPiprazole 2 MG TAB PO SCH (07:48)
[2017-07-22] MEDS: FUROSEMIDE 80 MG TAB PO SCH (07:48)
[2017-07-22] MEDS: DILTIAZEM CD 180 MG CAP PO SCH ×3 (07:49→11:32)
[2017-07-22] MEDS: FAMOTIDINE 20 MG TAB PO SCH ×2 (07:52→21:13)
[2017-07-22] MEDS: FLUTICASONE NASAL 120 SPRAYS/16 GM MDI EACHNARE SCH ×2 (08:01→21:33)
[2017-07-22] MEDS: LANSOPRAZOLE SUSP 30MG/10ML UDSYR (Adult) PO SCH (08:12)
[2017-07-22] MEDS: FLUTICASONE/SALMETER 250/50MCG DISKUS IH SCH ×2 (08:17→21:34)
[2017-07-22] MEDS: IPRATROPIUM/ALBUTEROL 3 ML DEYVIAL IH PRN (08:57)
[2017-07-22] MEDS ORDERED: LISINOPRIL 40 MG TAB PO SCH (09:00)
[2017-07-22] MEDS ORDERED: DILTIAZEM HCL 360 MG PO SCH (09:00)
[2017-07-22] MEDS: INSULIN LISPRO 100 UNIT/ML SC SCH ×3 (09:00→19:23)
[2017-07-22] MEDS ORDERED: RISEDRONATE SODIUM 35 MG PO SCH (09:00)
[2017-07-22] MEDS: DIGOXIN 125 MCG TAB PO SCH (11:26)
--- NOTE | 2017-07-22 11:32 | ASMTCMCOM ---
CM Note CM Note Notes: Pt with numerous comorbidities had planned total hip, pt would like to d/c to [facility]. [facility] ran pt insurance, pt only has Medicare part B (no part A) so pt has no SNF benefit. Pt would only be able to d/c to a SNF using Medicaid. Pt does have HCBS Medicaid and receives 3 hours of care 3 times a week at [facility]. [facility] mattress spring encaser Matilde Szymanski ([phone]) is out of the office and this CM left a voicemail on the coverage line [phone] so covering mattress spring encaser can determine if pt is eligible for increased HCBS hours or respite SNF days where there is a Medicaid bed available. [facility] accepts pt for HCBS Medicaid respite days and/or [facility] ULTC 100 process. At a Medicaid facility pt would be able to access skilled therapy using Medicare Part B. Discussed options with pt who states she may want to go home rather than a SNF Medicaid bed, states in this case she would be interested in skilled HHC. Pt reports she has no friends or family to assist her at home. Yesterday PT rec SNF. OT eval pending. Dispo planning: Awaiting call back from [facility] for more information on Medicaid options, will have to updated MD and see what pt choice is. Date Signed: 07/22/2017 11:32 AM Electronically Signed By:JEROMY Stevenson
[2017-07-22 13:05] LABS: HEMATOCRIT 25.3 % (38.0-47.0); HEMOGLOBIN 8.2 g/dL (12.6-16.3)
--- NOTE | 2017-07-22 14:07 | HOSPPROG ---
Hospitalist Progress Note Assessment/Plan: #Atrial fibrillation: rate-controlled on digoxin, diltiazem. Resume Eliquis #Acute blood loss anemia: H/H this morn 7.01/12. Repeat 04/16. #Hypotension: multifactorial. Hold ACEI and Lasix. Acute blood loss, pain meds contributing #Pulm HTN: monitoring fluid status. Restart Lasix once BP improved #HTN: hold PAUL and Lasix with LUIS CARLOS and low BP #Depression: SSRI #DM: SSI #LUIS CARLOS: due to blood loss, hypotension. Hold Lasix, Lisinopril #Hypothyroidism: LT4 #Left SURYA: working with PT. Pain control per ortho #Acute on chronic pain: post-surgical pain should improved. Cont Oxycontin #Mild MR: resume Lasix once Cr normalized #DVT ppx: Eliquis Subjective: less pain in hip today. Mild lightheadedness Objective: Vital Signs Temp Pulse Resp BP Pulse Ox 36.8 C 78 12 102/49 L 91 L 07/22/17 12:00 07/22/17 12:00 07/22/17 12:00 07/22/17 12:00 07/22/17 12:00 Laboratory Results 07/22/17 12:48 07/22/17 04:49 07/21/17 07/22/17 07/23/17 05:59 05:59 05:59 Intake Total 4804 Output Total 1900 Balance 2904 - Physical Exam Constitutional: no apparent distress Eyes: PERRL Ears, Nose, Mouth, Throat: moist mucous membranes, hearing normal Cardiovascular: regular rate and rhythym, no murmur, rub, or gallop Respiratory: no respiratory distress, no rales or rhonchi Gastrointestinal: normoactive bowel sounds Genitourinary: no bladder fullness Skin: warm Musculoskeletal: other (left hip surgical incision site dressed, CDI) Neurologic: CN II-XII Intact ICD10 Worksheet Patient Problems: Problems Problem Status Onset MRSA - Methicillin resistant Staphylococcus aureus infection Active Bronchitis Acute
--- NOTE | 2017-07-22 14:37 | ASMTCMCOM ---
CM Note CM Note Notes: Guillermina [phone] with [facility] reports pt has 30 Medicaid SNF respite days, Level 1 PASRR and accepting facility required; the soonest paperwork would be ready would be Wednesday. Spoke w pt about this update, pt is not interested in a Medicaid SNF. Pt decides she wants to return to [facility] and have continued services with HCBS. Today PT rec home vs home health care vs SNF and OT rec SNF. CM will continue to follow for d/c planning. Date Signed: 07/22/2017 02:37 PM Electronically Signed By:JEROMY Stevenson
--- NOTE | 2017-07-22 19:56 | SOAPPROG ---
SOAP Progress Note Assessment/Plan: Assessment: Martin is doing ok s/p L SURYA 1) pain management: acute on chronic pain, home med oxycontin 60mg BID and hydrocodone 3-4 tabs daily. Started patient on oxycodone IR postop and morphine IV. Will d/c IV morphine as patient requests it even though she is resting comfortably. Patient will need to demonstrate good pain control without IV pain meds before d/c. 2) anemia: H/H this am, 7.9, repeat today 8.10/17. asymptomatic. continue to monitor closely. patient had more blood loss than anticipated. Patient took lovenox Wednesday afternoon instead of Wednesday as instructed. 3) VTE ppx: resume eliquis 4) d/c planning: recommend SNF placement for pain management, and managing comorbidities. Prior to surgery, patient demonstrated difficulty following directions with medications despite numerous emails and phone calls clarifying instructions by both hospital staff and Dr. Ann's office. Concern about level of assistance if patient is d/c to [facility] with Home health at this time. 5) hypotension: appreciate hospitalist assistance 6) diabetes: per hospitalist Plan: 07/22/17 19:50 07/22/17 19:57 Subjective: Martin is doing ok. c/o severe pain at rest, but next sentence will say she feels better than anticipated and that she could go home versus a SNF postop. She denies lightheadeness, SOB, chest pain and N/V. Objective: Vital Signs Temp Pulse Resp BP Pulse Ox 36.8 C 78 12 102/49 L 91 L 07/22/17 12:00 07/22/17 12:00 07/22/17 12:00 07/22/17 12:00 07/22/17 12:00 Laboratory Results 07/22/17 12:48 07/22/17 04:49 07/21/17 07/22/17 07/23/17 05:59 05:59 05:59 Intake Total 4804 500 Output Total 1900 Balance 2904 500 LLE: incision dressing is clean and dry, NVI +pf/df ICD10 Worksheet Patient Problems: Problems Problem Status Onset MRSA - Methicillin resistant Staphylococcus aureus infection Active Bronchitis Acute
[2017-07-23] MEDS: oxyCODONE IR 5 MG TAB PO PRN ×3 (03:58→15:16)
[2017-07-23 05:23] LABS: ANION GAP 10 mEq/L (8-16); CARBON DIOXIDE 23 mEq/l (22-31); CHLORIDE 102 mEq/L (97-110); CREATININE 1.6 mg/dL (0.6-1.0); GLOMERULAR FILTRATION RATE 32; GLUCOSE 118 mg/dL (70-100); HEMATOCRIT 22.4 % (38.0-47.0); HEMOGLOBIN 7.4 g/dL (12.6-16.3); POTASSIUM 4.5 mEq/L (3.5-5.2); SODIUM 135 mEq/L (134-144)
[2017-07-23] MEDS: LEVOTHYROXINE 200 MCG TAB PO SCH (05:33)
[2017-07-23] MEDS: INSULIN LISPRO 100 UNIT/ML SC SCH ×3 (07:47→18:03)
[2017-07-23] MEDS: SENNOSIDES/DOCUSATE SODIUM TAB PO SCH ×2 (08:11→21:19)
[2017-07-23] MEDS: metFORMIN SR 500 MG TAB PO SCH ×2 (08:11→18:06)
[2017-07-23] MEDS: APIXABAN 5 MG TAB PO SCH ×2 (08:13→21:18)
[2017-07-23] MEDS: FLUoxetine 20 MG CAP PO SCH (08:13)
[2017-07-23] MEDS: oxyCODONE CR 30 MG TAB PO SCH ×2 (08:14→21:19)
[2017-07-23] MEDS: clonazePAM 0.5 MG TAB PO SCH ×2 (08:15→21:18)
[2017-07-23] MEDS: ARIPiprazole 2 MG TAB PO SCH (08:16)
[2017-07-23] MEDS: FAMOTIDINE 20 MG TAB PO SCH ×2 (08:16→21:18)
[2017-07-23] MEDS: LANSOPRAZOLE SUSP 30MG/10ML UDSYR (Adult) PO SCH (08:20)
[2017-07-23] MEDS: DILTIAZEM CD 180 MG CAP PO SCH (08:48)
[2017-07-23] MEDS: FLUTICASONE/SALMETER 250/50MCG DISKUS IH SCH ×2 (08:54→21:41)
[2017-07-23] MEDS ORDERED: FLU VACC QS 2017-18 (3YR+)/PF 0.5 ML SYR (FLUARIX QUAD) IM ONE (09:34)
[2017-07-23] MEDS: FLUTICASONE NASAL 120 SPRAYS/16 GM MDI EACHNARE SCH ×2 (10:24→21:18)
[2017-07-23] MEDS: CYCLOBENZAPRINE 10 MG TAB PO PRN (10:24)
[2017-07-23] MEDS: DIGOXIN 125 MCG TAB PO SCH (10:45)
--- NOTE | 2017-07-23 16:08 | SOAPPROG ---
SOAP Progress Note Assessment/Plan: Assessment: Martin is doing ok s/p L SURYA 1) pain management: acute on chronic pain, home med oxycontin 60mg BID and hydrocodone 3-4 tabs daily. Started patient on oxycodone IR postop. patient is using home narcotic pain meds at an increased dose compared to what is prescribed. 2) anemia: H/H 7.4/22. asymptomatic. continue to monitor closely. 3) VTE ppx: resume eliquis 4) d/c planning: recommend SNF placement for pain management, and managing comorbidities. Patient is taking more narcotic pain meds than prescribed at home. Patient is not safe for d/c to home. D/c to SNF once case management has coordinated facility that can accept patient. Appreciate case management assistance. 5) hypotension: appreciate hospitalist assistance 6) diabetes: per hospitalist Plan: 07/22/17 19:50 07/22/17 19:57 07/23/17 16:04 07/23/17 16:12 Subjective: Martin was sitting comfortably in a chair. patient complains of left thigh pain. patient states if she is d/c to home that she needs more narcotic pain meds as she has used more than she was prescribed. Objective: Vital Signs Temp Pulse Resp BP Pulse Ox 36.4 C 92 16 113/60 98 07/23/17 16:00 07/23/17 11:37 07/23/17 16:00 07/23/17 16:00 07/23/17 16:00 Laboratory Results 07/23/17 04:15 07/23/17 04:15 07/22/17 07/23/17 07/24/17 05:59 05:59 05:59 Intake Total 4804 1400 Output Total 1900 400 600 Balance 2904 1000 -600 LLE: incision dressing is clean and dry ICD10 Worksheet Patient Problems: Problems Problem Status Onset MRSA - Methicillin resistant Staphylococcus aureus infection Active Bronchitis Acute
--- NOTE | 2017-07-23 17:19 | ASMTCMCOM ---
CM Note CM Note Notes: PT/OT/MD continue to recommend SNF, pt refuses to consider SNF again today; declining to meet with Britta from [facility] and Ting from [facility]. Pt states her friends at [facility] will be able to assist her but this does not address the current safety concerns. This morning Britta with [facility] states now is unable to accept pt due to Medicaid respite status per the business office, this CM asked Britta to appeal with her business office and outcome is pending. New referrals sent to [facility], [facility], [facility] and [facility]. [facility] unable to accept, [facility] IS able to accept, pending referrals are [facility] and [facility]. Although pt continues to refuse SNF, [facility] was faxed Level 1 non-triggering PASRR to process pt SNF for Medicaid respite days admission in case pt changes her mind since the Medicaid SNF process takes several days. Note for following CM: Please confirm w [facility] they can accept pt under HCBS Medicaid respite days (vs. the ULTC-100 30 day Medicaid SNF process). D/c plan of care: Return to [facility] with [facility] if continues to refuse SNF. CM will continue to communicate with potential SNFs/[facility] for SNF options should pt reconsider SNF. Date Signed: 07/23/2017 05:18 PM Electronically Signed By:JEROMY Stevenson
--- NOTE | 2017-07-23 18:21 | HOSPPROG ---
Hospitalist Progress Note Assessment/Plan: 72 yo F w/ MMI including a fib, chronic pain and continuous narcotic use and dependency presenting for elective left SURYA #Atrial fibrillation: currently rate-controlled on digoxin, diltiazem. Resumed Eliquis. #Acute blood loss anemia: H/H slightly down today 7.4/22.4 from 8.2 and 25.3, asymptomatic, will tx if hgb < 7 or hct < 21, no e/o active bleeding. Suspect this is due to post op blood loss, h/h at baseline essentially wnl. # acute hypoxic respiratory failure: o2 as low as 76 on RA but sat's in the 90s on low flow o2. No significant respiratory sxs, will get cxr in am, suspect this is largely due to atelectasis and limited mobility overall. Continue IS. Doubt PE on AC #Hypotension: largely resolved, multifactorial. Holding ACEI and Lasix. Acute blood loss, pain meds contributing. #Pulm HTN: monitoring fluid status. Restart Lasix when BP and creatinine improved # luis carlos: presumably pre renal, will hold nsaid, metformin, paul, lasix as above. Will get urine studies and check PVR as well. #HTN: hold PAUL and Lasix with LUIS CARLOS and low BP #Depression: SSRI #DM: SSI, holding metformin as above #Hypothyroidism: LT4 #Left SURYA: working with PT. Pain control per ortho #Acute on chronic pain with continuous opiate use and dependency: continues to require higher doses than her already high home dose pain medications, working on weaning #Mild MR: resume Lasix once Cr normalized #DVT ppx: Eliquis Patient new to my care. Old records reviewed and summarized as above. Subjective: no significant overnight events, patient currently feeling weak but overall better than previously Objective: Vital Signs Temp Pulse Resp BP Pulse Ox 36.4 C 92 16 113/60 98 07/23/17 16:00 07/23/17 11:37 07/23/17 16:00 07/23/17 16:00 07/23/17 16:00 Laboratory Results 07/23/17 04:15 07/23/17 04:15 07/22/17 07/23/17 07/24/17 05:59 05:59 05:59 Intake Total 4804 1400 300 Output Total 1900 400 600 Balance 2904 1000 -300 awake alert anicteric pale rrr no mrg cta b soft nt nd no cce warm dry pale oriented somnolent ICD10 Worksheet Patient Problems: Problems Problem Status Onset MRSA - Methicillin resistant Staphylococcus aureus infection Active Bronchitis Acute
[2017-07-23] MEDS ORDERED: NS 1,000 ML IV ONE (18:32)
[2017-07-24] MEDS: CYCLOBENZAPRINE 10 MG TAB PO PRN (00:14)
[2017-07-24] MEDS: oxyCODONE IR 5 MG TAB PO PRN ×3 (00:14→09:38)
[2017-07-24 05:04] LABS: % IMMATURE GRANULYOCYTES 0.6 % (0.0-1.1); ABSOLUTE IMMATURE GRANULOCYTES 0.04 10^3/uL (0.00-0.10); ADD DIFF? NO; ADD MORPH? NO; ADD SCAN? NO; ATYPICAL LYMPHOCYTE FLAG 0 (0-99); FRAGMENT RBC FLAG 0 (0-99); HEMATOCRIT 21.4 % (38.0-47.0); HEMOGLOBIN 7.2 g/dL (12.6-16.3); LEFT SHIFT FLG 0 (0-99); LIPEMIA HEMOLYSIS FLAG 80 (0-99); MEAN CELL HEMOGLOBIN 28.9 pg (27.9-34.1); MEAN CELL HEMOGLOBIN CONCENTR. 33.6 g/dL (32.4-36.7); MEAN CELL VOLUME 85.9 fL (81.5-99.8); MEAN PLATELET VOLUME 10.8 fL (8.7-11.7); PLATELET CLUMPS FLAG 0 (0-99); PLATELET COUNT 135 10^3/uL (150-400); RED BLOOD CELL COUNT 2.49 10^6/uL (4.18-5.33); RED CELL DISTRIBUTION WIDTH 14.7 % (11.5-15.2)
[2017-07-24 05:17] LABS: ANION GAP 6 mEq/L (8-16); CALCIUM 9.2 mg/dL (8.5-10.4); CARBON DIOXIDE 26 mEq/l (22-31); CHLORIDE 103 mEq/L (97-110); CREATININE 1.5 mg/dL (0.6-1.0); GLOMERULAR FILTRATION RATE 34; GLUCOSE 118 mg/dL (70-100); POTASSIUM 5.6 mEq/L (3.5-5.2); SODIUM 135 mEq/L (134-144)
[2017-07-24] MEDS: LEVOTHYROXINE 200 MCG TAB PO SCH (06:20)
[2017-07-24] MEDS: FLUTICASONE/SALMETER 250/50MCG DISKUS IH SCH ×2 (07:57→22:05)
[2017-07-24] MEDS ORDERED: ESTRADIOL VG SCH (08:00)
[2017-07-24] MEDS: FAMOTIDINE 20 MG TAB PO SCH ×2 (10:53→20:04)
[2017-07-24] MEDS: DILTIAZEM CD 180 MG CAP PO SCH (10:53)
[2017-07-24] MEDS: ARIPiprazole 2 MG TAB PO SCH (10:53)
[2017-07-24] MEDS: DIGOXIN 125 MCG TAB PO SCH (10:54)
[2017-07-24] MEDS: FLUoxetine 20 MG CAP PO SCH (10:54)
[2017-07-24] MEDS: clonazePAM 0.5 MG TAB PO SCH ×2 (10:54→20:04)
[2017-07-24] MEDS: SENNOSIDES/DOCUSATE SODIUM TAB PO SCH ×2 (10:55→20:04)
[2017-07-24] MEDS: APIXABAN 5 MG TAB PO SCH ×2 (10:55→20:04)
[2017-07-24] MEDS: INSULIN LISPRO 100 UNIT/ML SC SCH ×3 (10:57→18:22)
[2017-07-24] MEDS: FLUTICASONE NASAL 120 SPRAYS/16 GM MDI EACHNARE SCH ×2 (10:57→20:03)
[2017-07-24] MEDS: oxyCODONE CR 30 MG TAB PO SCH ×2 (11:02→20:04)
[2017-07-24] MEDS: LANSOPRAZOLE SUSP 30MG/10ML UDSYR (Adult) PO SCH (11:25)
[2017-07-24 12:02] LABS: HEMATOCRIT 25.3 % (38.0-47.0); HEMOGLOBIN 8.4 g/dL (12.6-16.3)
--- NOTE | 2017-07-24 12:11 | HOSPPROG ---
Hospitalist Progress Note Assessment/Plan: 72 yo F w/ MMI including a fib, chronic pain and continuous narcotic use and dependency presenting for elective left SURYA # Atrial fibrillation: currently rate-controlled on digoxin, diltiazem. Resumed Eliquis. # Acute blood loss anemia: H/H down again this am but on recheck had improved. Will hold off on transfusion for now. # acute hypoxic respiratory failure: o2 as low as 76 on RA but sat's in the 90s on low flow o2. Personally reviewed cxr from today notable for bilateral pleural effusions and pulmonary edema likely 2/2 chf, will give IV lasix x 1 with caution given jacinto # Hypotension: largely resolved, multifactorial. Acute blood loss, pain meds contributing. # Pulm HTN: no significant lower extremity edema, continue to monitor volume status, giving lasix given pulm edema as above # jacinto: appears pre renal by urine studies, continue to hold nsaids, metformin, acei. Giving lasix x 1 as above. # HTN: continues to be mildly low # Depression: SSRI # DM: SSI, holding metformin as above # Hypothyroidism: LT4 # Left SURYA: working with PT. Pain control per ortho # Acute on chronic pain with continuous opiate use and dependency: continues to require higher doses than her already high home dose pain medications, working on weaning # Mild MR: resume Lasix once Cr normalized # DVT ppx: Eliquis IP status, unclear if she will be able to dc home versus more likely snf, cm involved Subjective: no significant overnight events, patient states she is feeling better today, pain is improved Objective: Vital Signs Temp Pulse Resp BP Pulse Ox 36.4 C 98 16 160/96 H 98 07/24/17 08:12 07/24/17 10:54 07/24/17 08:12 07/24/17 10:54 07/24/17 08:12 Laboratory Results 07/24/17 11:55 07/24/17 04:23 07/23/17 07/24/17 07/25/17 05:59 05:59 05:59 Intake Total 1400 300 Output Total 400 600 600 Balance 1000 -300 -600 awake alert anicteric pale rrr no mrg cta b soft nt nd no cce warm dry pale oriented somnolent ICD10 Worksheet Patient Problems: Problems Problem Status Onset MRSA - Methicillin resistant Staphylococcus aureus infection Active Bronchitis Acute
[2017-07-24] MEDS ORDERED: FUROSEMIDE 20 MG/2 ML VIAL IVP ONE (15:46)
--- NOTE | 2017-07-24 21:58 | SOAPPROG ---
SOAP Progress Note Assessment/Plan: Assessment: Martin is doing ok s/p L SURYA 1) pain management: acute on chronic pain, home med oxycontin 60mg BID and hydrocodone 3-4 tabs daily. stopped oxycodone IR and restarted hydrocodone. 2) anemia: 03/12this am. patient received transfusion ordered by hospitalist. now H/H 04/16. asymptomatic. continue to monitor closely. 3) VTE ppx: resume eliquis 4) d/c planning: recommend SNF placement for pain management, and managing comorbidities. Patient is not safe for d/c to home. D/c to SNF once case management has coordinated facility that can accept patient. Patient appears agreeable to SNF. Has difficulty concentrating on conversation. Appreciate case management assistance. appreciate hospitalist assistance, but please call if you would like to transfuse in the future Plan: 07/22/17 19:50 07/22/17 19:57 07/23/17 16:04 07/23/17 16:12 07/24/17 21:55 Subjective: Martin is resting comfortably in a chair eating lunch. Denies SOB, chest pain and N/V. Denies lightheadedness. when asked about pain level, patient reports excruciating pain. Objective: Vital Signs Temp Pulse Resp BP Pulse Ox 36.3 C 68 16 126/67 H 98 07/24/17 19:59 07/24/17 19:59 07/24/17 19:59 07/24/17 19:59 07/24/17 19:59 Laboratory Results 07/24/17 11:55 07/24/17 04:23 07/23/17 07/24/17 07/25/17 05:59 05:59 05:59 Intake Total 1400 300 800 Output Total 400 600 600 Balance 1000 -300 200 LLE: incision dressing is clean and dry, LLE 2+pitting edema ICD10 Worksheet Patient Problems: Problems Problem Status Onset MRSA - Methicillin resistant Staphylococcus aureus infection Active Bronchitis Acute
[2017-07-25] MEDS ORDERED: HYDROCODONE/APAP 5/325 TAB PO SCH
[2017-07-25] MEDS ORDERED: NON-FORMULARY NEW DRUG (Hydrocodone/Acetaminophen [Norco 7.5-325 Tablet] 1 EACH) PO SCH
[2017-07-25] MEDS: HYDROCODONE/APAP 5/325 TAB PO SCH ×4 (00:31→17:43)
[2017-07-25 05:30] LABS: ANION GAP 6 mEq/L (8-16); CALCIUM 9.5 mg/dL (8.5-10.4); CARBON DIOXIDE 28 mEq/l (22-31); CHLORIDE 102 mEq/L (97-110); CREATININE 1.3 mg/dL (0.6-1.0); GLOMERULAR FILTRATION RATE 40; GLUCOSE 110 mg/dL (70-100); SODIUM 136 mEq/L (134-144)
[2017-07-25] MEDS: LEVOTHYROXINE 200 MCG TAB PO SCH (05:57)
[2017-07-25] MEDS: IPRATROPIUM/ALBUTEROL 3 ML DEYVIAL IH PRN ×2 (06:13→22:03)
[2017-07-25] MEDS: FLUTICASONE/SALMETER 250/50MCG DISKUS IH SCH ×2 (07:45→22:01)
[2017-07-25] MEDS: oxyCODONE CR 30 MG TAB PO SCH ×2 (08:24→20:39)
[2017-07-25] MEDS: APIXABAN 5 MG TAB PO SCH ×2 (08:25→20:39)
[2017-07-25] MEDS: ARIPiprazole 2 MG TAB PO SCH (08:25)
[2017-07-25] MEDS: DILTIAZEM CD 180 MG CAP PO SCH (08:25)
[2017-07-25] MEDS: SENNOSIDES/DOCUSATE SODIUM TAB PO SCH ×2 (08:25→20:39)
[2017-07-25] MEDS: LANSOPRAZOLE SUSP 30MG/10ML UDSYR (Adult) PO SCH (08:26)
[2017-07-25] MEDS: FLUoxetine 20 MG CAP PO SCH (08:26)
[2017-07-25] MEDS: FAMOTIDINE 20 MG TAB PO SCH ×2 (08:26→20:39)
[2017-07-25] MEDS: DIGOXIN 125 MCG TAB PO SCH (08:29)
[2017-07-25] MEDS: FLUTICASONE NASAL 120 SPRAYS/16 GM MDI EACHNARE SCH ×3 (08:30→20:43)
[2017-07-25] MEDS: clonazePAM 0.5 MG TAB PO SCH ×2 (08:31→20:35)
[2017-07-25] MEDS: INSULIN LISPRO 100 UNIT/ML SC SCH ×3 (08:31→17:43)
[2017-07-25 09:39] LABS: % IMMATURE GRANULYOCYTES 0.4 % (0.0-1.1); ABSOLUTE IMMATURE GRANULOCYTES 0.02 10^3/uL (0.00-0.10); ADD DIFF? NO; ADD MORPH? NO; ADD SCAN? NO; ATYPICAL LYMPHOCYTE FLAG 0 (0-99); FRAGMENT RBC FLAG 0 (0-99); HEMATOCRIT 26.1 % (38.0-47.0); HEMOGLOBIN 8.5 g/dL (12.6-16.3); LEFT SHIFT FLG 0 (0-99); LIPEMIA HEMOLYSIS FLAG 80 (0-99); MEAN CELL HEMOGLOBIN 28.1 pg (27.9-34.1); MEAN CELL HEMOGLOBIN CONCENTR. 32.6 g/dL (32.4-36.7); MEAN CELL VOLUME 86.4 fL (81.5-99.8); MEAN PLATELET VOLUME 11.2 fL (8.7-11.7); PLATELET CLUMPS FLAG 0 (0-99); PLATELET COUNT 145 10^3/uL (150-400); RED BLOOD CELL COUNT 3.02 10^6/uL (4.18-5.33); RED CELL DISTRIBUTION WIDTH 14.8 % (11.5-15.2)
--- NOTE | 2017-07-25 10:03 | ASMTCMCOM ---
CM Note CM Note Notes: Spoke with Tray at [facility]. Patient should be able to go per respite provisions via medicaid. He will call [facility] for approval tomorrow. Plan SNF. CM to follow. Date Signed: 07/25/2017 10:03 AM Electronically Signed By:Tiara Hansen RN
--- NOTE | 2017-07-25 13:27 | ECHO ---
[email or web address] [address] [address] Main: [phone] Fax: Transthoracic Echocardiogram Name: KIMBERLI PICKARD MR#: [id number] Study Date: 07/25/2017 Study Time: 11:52 AM Date of : 1945 Age: 72 year(s) Height: 160 cm (63 in.) Weight: 63.5 kg (140 lb.) BSA: 1.66 m2 Gender: Female Examination: Echo Indication: Post hip replacement, Shortness of breath, question CHF, Atrial Fibrillation Image Quality: Contrast: Requested by: Alisha Schaefer BP: 147 mmHg/91 mmHg Heart Rate: Rhythm: Atrial fibrillation Indication: Post hip replacement, Shortness of breath, question CHF, Atrial Fibrillation Procedure Staff Field Care Coordinator: Donnie Beckwith Reading Physician: Kushal Prather Requesting Provider: Conclusions: Normal size left ventricle. Normal global systolic LV function. EF is 73 %. No regional wall motion abnormality. Normal size right ventricle. Normal RV function. The left atrium is severely dilated. The right atrium is mildly dilated. The pulmonary artery pressure is moderately increased. There is less than 50% respiratory excursion. RAP 15 mmHg. Measurements: Chambers Valvular Assessment AV/MV Valvular Assessment TV/PV Normal Normal Normal Name Value Range Name Value Range Name Value Range Ao [place] (MM): 3.3 cm (2.2 cm-3.7 AV Vmax: 1.89 m/s (1 m/s-1.7 TR Vmax: 2.66 mm/s ( - ) cm) m/s) TR PGmax: 28 mmHg ( - ) IVSd (2D): 1.0 cm (0.6 cm-1.1 AV maxP mmHg ( - ) syst. PAP: 33 mmHg ( - ) cm) LVOT Vmax: 0.87 m/s (0.7 m/s-1.1 PV Vmax: 0.81 m/s (0.6 m/s-0.9 LVDd (2D): 3.8 cm (3.9 cm-5.3 m/s) m/s) cm) MV E Vmax: 1.34 m/s ( - ) PV PGmax: 3 mmHg ( - ) LVDs (2D): 2.2 cm (2.1 cm-4 cm) LVPWd (2D): 1.1 cm ( - ) LVEF (2D): 73 (>=54 %) Continued Measurements: Chambers Valvular Assessment AV/MV Valvular Assessment TV/PV Patient: KIMBERLI PICKARD Study Date: 07/25/2017 Page 1 of 2 11:52 AM Name Value Name Value Name Value LADs Lon.7 cm MV E/E' Septal: 15.60 CVP (est.): 5 mmHg LA Area: 37.4 cm2 MV E/E' Lateral: 10.60 LA Volume: 146 ml LA Volume Index: 88.0 ml/m2 Additional Vessels Name Value Inferior Vena Cava: 2.5 cm Findings: Left Ventricle: Normal size left ventricle. Mild concentric LV hypertrophy. Normal global systolic LV function. EF is 73 %. No regional wall motion abnormality. Right Ventricle: Normal size right ventricle. Normal RV function. Left Atrium: The left atrium is severely dilated. Right Atrium: The right atrium is mildly dilated. Mitral Valve: Mild mitral valve leaflet calcification is present. Mild mitral annular calcification. Mild mitral valve regurgitation is present. Aortic Valve: The aortic valve is tri-leaflet. Moderate aortic cusp calcification is present. No aortic valve stenosis is present. Tricuspid Valve: The tricuspid valve appears normal. Trivial tricuspid valve regurgitation. The pulmonary artery pressure is moderately increased. Pulmonic Valve: The pulmonic valve is normal in appearance and function. Aorta: The aorta is normal. Normal size aortic root measuring 3.3 cm. IVC: There is less than 50% respiratory excursion. RAP 15 mmHg. Pericardium: No pericardial effusion. (No Signature Object) Patient: KIMBERLI PICKARD Study Date: 07/25/2017 Page 2 of 2 11:52 AM [id number]
[2017-07-25] MEDS: CYCLOBENZAPRINE 10 MG TAB PO PRN (14:34)
[2017-07-25] MEDS: FUROSEMIDE 20 MG/2 ML VIAL IVP SCH (15:20)
--- NOTE | 2017-07-25 15:40 | HOSPPROG ---
Hospitalist Progress Note Assessment/Plan: 72 yo F w/ MMI including a fib, chronic pain and continuous narcotic use and dependency presenting for elective left SURYA # Atrial fibrillation: currently rate-controlled on digoxin, diltiazem. Resumed Eliquis. # Acute blood loss anemia: H/H down again this am but on recheck had improved. Will hold off on transfusion for now. # acute hypoxic respiratory failure: o2 as low as 76 on RA but sat's in the 90s on low flow o2, secondary to bilateral pleural effusions and pulmonary edema likely 2/2 diastolic chf (EF on echo today wnl), gave lasix x 1 yesterday and renal function improved today so will increase to 20 IV BID (at home on 80 bid but have been holding for days) # Hypotension: largely resolved, multifactorial. Acute blood loss, pain meds contributing. # Pulm HTN: now with increasing lower extremity edema, continue to monitor volume status, giving lasix given pulm edema as above # jacinto: appears pre renal by urine studies, continue to hold nsaids, metformin, acei. Improved despite lasix yesterday and will increase as above. # HTN: continues to be mildly low # Depression: SSRI # DM: SSI, holding metformin as above # Hypothyroidism: LT4 # Left SURYA: working with PT. Pain control is adequate # Acute on chronic pain with continuous opiate use and dependency: continues to require higher doses than her already high home dose pain medications, working on weaning # Mild MR: resume Lasix once Cr normalized # DVT ppx: Eliquis IP status, unclear if she will be able to dc home versus more likely snf, cm involved, patient prefers to go home--may be ready for dc in coming 1-2 days Subjective: no significant overnight events, patient currently feeling better, she feels as if she will be ready for dc home in coming days Objective: Vital Signs Temp Pulse Resp BP Pulse Ox 36.7 C 87 16 147/91 H 94 07/25/17 08:06 07/25/17 08:06 07/25/17 08:06 07/25/17 08:06 07/25/17 11:47 Laboratory Results 07/25/17 04:20 07/25/17 04:20 07/24/17 07/25/17 07/26/17 05:59 05:59 05:59 Intake Total 300 800 Output Total 600 1600 Balance -300 -800 awake alert anicteric pale rrr no mrg cta b soft nt nd no cce warm dry pale oriented somnolent - Time Spent With Patient Time Spent with Patient: greater than 35 minutes Time Spent with Patient: Greater than 35 minutes spent on this patients care, greater than 50% of time spent counseling, educating, and coordinating care regarding the above mentioned plan. ICD10 Worksheet Patient Problems: Problems Problem Status Onset MRSA - Methicillin resistant Staphylococcus aureus infection Active Bronchitis Acute
[2017-07-26 00:18] VITALS: RESP 16
[2017-07-26] MEDS: HYDROCODONE/APAP 5/325 TAB PO SCH ×3 (00:18→14:05)
[2017-07-26 05:11] LABS: % IMMATURE GRANULYOCYTES 0.6 % (0.0-1.1); ABSOLUTE IMMATURE GRANULOCYTES 0.03 10^3/uL (0.00-0.10); ADD DIFF? NO; ADD MORPH? NO; ADD SCAN? NO; ATYPICAL LYMPHOCYTE FLAG 0 (0-99); FRAGMENT RBC FLAG 0 (0-99); HEMATOCRIT 25.4 % (38.0-47.0); HEMOGLOBIN 8.3 g/dL (12.6-16.3); LEFT SHIFT FLG 0 (0-99); LIPEMIA HEMOLYSIS FLAG 80 (0-99); MEAN CELL HEMOGLOBIN 27.9 pg (27.9-34.1); MEAN CELL HEMOGLOBIN CONCENTR. 32.7 g/dL (32.4-36.7); MEAN CELL VOLUME 85.2 fL (81.5-99.8); MEAN PLATELET VOLUME 10.8 fL (8.7-11.7); PLATELET CLUMPS FLAG 10 (0-99); PLATELET COUNT 162 10^3/uL (150-400); RED BLOOD CELL COUNT 2.98 10^6/uL (4.18-5.33); RED CELL DISTRIBUTION WIDTH 14.7 % (11.5-15.2)
[2017-07-26 05:31] LABS: POTASSIUM 4.8 mEq/L (3.5-5.2)
[2017-07-26 05:32] LABS: ANION GAP 8 mEq/L (8-16); CALCIUM 9.5 mg/dL (8.5-10.4); CARBON DIOXIDE 28 mEq/l (22-31); CHLORIDE 102 mEq/L (97-110); CREATININE 1.1 mg/dL (0.6-1.0); GLOMERULAR FILTRATION RATE 49; GLUCOSE 124 mg/dL (70-100); SODIUM 138 mEq/L (134-144)
[2017-07-26] MEDS: LEVOTHYROXINE 200 MCG TAB PO SCH (05:49)
[2017-07-26 07:56] VITALS: BP 143/81; PULSE 81; TEMP 99.1; O2SAT 97
--- NOTE | 2017-07-26 08:16 | SOAPPROG ---
SOAP Progress Note Assessment/Plan: Assessment: Martin is doing ok s/p L SURYA 1) pain management: acute on chronic pain, home med oxycontin 60mg BID and hydrocodone 3-4 tabs daily. stopped oxycodone IR and restarted hydrocodone. 2) anemia: stable. asymptomatic. continue to monitor closely. 3) VTE ppx: resume eliquis 4) d/c planning: discussed D/c plans with patient. She is afraid of being "locked up" if she goes to a SNF. Dr. Ann and myself do not think patient is safe to d/c to home and highly recommend SNF. Patient wanted a promise of length of stay if she goes to a SNF and I emphasized that I couldn't make promises of duration, but that it would be for a short term basis. Appreciate case management assistance. 5) LUIS CARLOS: improving. 6) lower extremity edema: improving with MACEY hose, elevation and lasix. appreciate hospitalist assistance, believe patient should be ready for d/c today to SNF. Plan: 07/22/17 19:50 07/22/17 19:57 07/23/17 16:04 07/23/17 16:12 07/24/17 21:55 07/26/17 08:12 Subjective: patient states pain issues, but resting comfortably. discussed d/c plans and recommendations with patient Objective: Vital Signs Temp Pulse Resp BP Pulse Ox 37.3 C 81 16 143/81 H 97 07/26/17 07:51 07/26/17 07:51 07/26/17 07:51 07/26/17 07:51 07/26/17 07:51 Laboratory Results 07/26/17 04:25 07/26/17 04:25 07/25/17 07/26/17 07/27/17 05:59 05:59 05:59 Intake Total 800 2200 Output Total 1600 3050 Balance -800 -850 LLE: incision dressing is clean and dry, mild ecchymosis surrounding incision as expected, 1+ edema ICD10 Worksheet Patient Problems: Problems Problem Status Onset MRSA - Methicillin resistant Staphylococcus aureus infection Active Bronchitis Acute
[2017-07-26] MEDS: FLUTICASONE/SALMETER 250/50MCG DISKUS IH SCH (08:50)
[2017-07-26] MEDS: IPRATROPIUM/ALBUTEROL 3 ML DEYVIAL IH PRN (08:50)
[2017-07-26] MEDS: FUROSEMIDE 20 MG/2 ML VIAL IVP SCH (10:34)
[2017-07-26] MEDS: FLUoxetine 20 MG CAP PO SCH (10:35)
[2017-07-26] MEDS: DIGOXIN 125 MCG TAB PO SCH (10:36)
[2017-07-26] MEDS: ARIPiprazole 2 MG TAB PO SCH (10:36)
[2017-07-26] MEDS: APIXABAN 5 MG TAB PO SCH (10:36)
[2017-07-26] MEDS: FAMOTIDINE 20 MG TAB PO SCH (10:36)
[2017-07-26] MEDS: clonazePAM 0.5 MG TAB PO SCH (10:37)
[2017-07-26] MEDS: DILTIAZEM CD 180 MG CAP PO SCH (10:38)
[2017-07-26] MEDS: FLUTICASONE NASAL 120 SPRAYS/16 GM MDI EACHNARE SCH (10:39)
[2017-07-26] MEDS: INSULIN LISPRO 100 UNIT/ML SC SCH ×2 (10:45→14:02)
[2017-07-26] MEDS: oxyCODONE CR 30 MG TAB PO SCH (10:45)
[2017-07-26] MEDS: SENNOSIDES/DOCUSATE SODIUM TAB PO SCH (11:24)
[2017-07-26] MEDS: LANSOPRAZOLE SUSP 30MG/10ML UDSYR (Adult) PO SCH (11:51)
--- NOTE | 2017-07-26 13:29 | PDIAF ---
- Diagnosis Diagnosis: s/o L SURYA Code Status: Full Code - Medication Management Discharge Medications: Medications to Continue on Transfer Albuterol [Proventil Inhaler HFA (*)] 2 puffs IH Q6HRS PRN 06/25/17 [Last Taken 07/20/17] Apixaban [Eliquis] 5 mg PO BID 06/25/17 [Last Taken 07/16/17] Betamethasone/Propylene Glyc [Betamethasone Dp Aug 0.05% Oin] 15 gm TP HS PRN [Last Taken 2 Weeks Ago ~07/07/17] Digoxin [Lanoxin 125 mcg (RX)] 125 mcg PO DAILY10 06/25/17 [Last Taken 07/21/17 05:00] Diltiazem HCl [Cardizem Cd] 360 mg PO DAILY 06/25/17 [Last Taken 07/21/17 05:00] Docusate Sodium [Colace 100 MG (*)] 200 mg PO DAILY 06/25/17 [Last Taken ] Estradiol [Estrace Vaginal (*)] 1 fadia VG Q3D 06/25/17 [Last Taken 07/20/17] FLUoxetine [Prozac 20 MG (*)] 60 mg PO DAILY 06/25/17 [Last Taken 07/20/17] Famotidine [Pepcid 20 MG (*)] 20 mg PO BID 06/25/17 [Last Taken 07/20/17] Fluticasone Nasal [Flonase Nasal [place]] 2 sprays NASAL BID 06/25/17 [Last Taken 07/20/17] Fluticasone/Salmeter 250/50Mcg [Advair 250/50 (*)] 1 puffs IH BID 06/25/17 [ Last Taken 07/20/17] Furosemide [Lasix 80 MG (*)] 80 mg PO BID 06/25/17 [Last Taken 07/20/17] Herbals/Supplements -Info Only 1 ea PO DAILY 06/25/17 [Last Taken 07/16/17] Hydrocodone/Acetaminophen [[place]no 7.5-325 Tablet] 1 each PO Q6HRS 06/25/17 [Last Taken 1 Week Ago ~07/14/17] Lansoprazole [Prevacid] 30 mg PO DAILY 06/25/17 [Last Taken 07/20/17] Levothyroxine [Synthroid 200 mcg (*)] 200 mcg PO DAILY06 06/25/17 [Last Taken 05:00] Lisinopril [Zestril 40 mg (*)] 40 mg PO DAILY 06/25/17 [Last Taken 07/21/17 05: 00] Risedronate Sodium [Atelvia] 35 mg PO DAILY 06/25/17 [Last Taken 07/20/17] Sennosides/Docusate Sodium [Senna-S Tablet] 2 each PO DAILY PRN 06/25/17 [Last Taken 2 Days Ago ~07/19/17] Triamcinolone 0.1% [Triamcinolone 0.1% Cream (*)] 1 fadia TP BID PRN 06/25/17 [ Last Taken 2 Weeks Ago ~07/07/17] Vitamin B Complex [B Complex] 1 each PO DAILY 06/25/17 [Last Taken 07/16/17] clonazePAM [Klonopin (*)] 0.25 mg PO Q4HRS 06/25/17 [Last Taken 07/20/17] metFORMIN SR [Glucophage XR 500 mg (*)] 1,000 mg PO BIDMEAL 06/25/17 [Last Taken 07/20/17] oxyCODONE HCL [Oxycontin] 60 mg PO BID 06/25/17 [Last Taken 07/20/17] rOPINIRole HCL [Requip 0.25mg (RX)] 0.25 mg PO BID 06/25/17 [Last Taken 07/20/17 ] ARIPiprazole [Abilify 2 mg (*)] 2 mg PO DAILY 07/21/17 [Last Taken 07/20/17] clonIDINE [Catapres (*)] 0.1 mg PO BID 07/21/17 [Last Taken Unknown] Insulin Lispro [humALOG LISPRO 100 units/ml (*)] 0 unit SC TIDMEAL unit [Last Taken Unknown] Sennosides/Docusate Sodium [Senokot-S] 1 - 2 tab PO BID tab 07/26/17 [Last Taken Unknown] Discharge Medications: Refer to the Discharge Home Medication list for PRN reason. - Orders Diet Recommendation: ADA 1800 consistent carb Diet Texture: Regular Texture Diet Wound Care Instructions: incision dressing should be waterproof. may shower, but do not immerse in water. remove incision dressing in two weeks Activity/Weight Bearing Restrictions: WBAT with FWW - Follow Up Care Current Providers and Referrals: Vic Nowak MD [Primary Care Provider] - Laura Ann PA [Physician National Sales] - 08/12/17 2:00 pm
--- NOTE | 2017-07-26 19:55 | HOSPPROG ---
Hospitalist Progress Note Assessment/Plan: Assessment/Plan: 72 yo F w/ elective left SURYA c/b acute hypoxic respiratory failure 2/2 pleural effusions and acute diastolic CHF exacerbation # Atrial fibrillation: currently rate-controlled on digoxin, diltiazem. Resumed Eliquis w/o bleed # Acute blood loss anemia: H/H stable this AM at 8.3, no additional transfusion indicated # Acute hypoxic respiratory failure: o2 as low as 76% on RA w/ objective tachypnea (RR 28) and symptomatic shortness of breath, requiring supplemental o2 for stabilization, secondary to bilateral pleural effusions and acute dCHF, NOT related to or due to her hip surgery - if requiring supp o2 at discharge, order home o2 # Acute pleural effusions and acute diastolic chf exacerbation: preserved EF on echo, effusions and pulm edema on CXR, requiring IV lasix, and adjusted back to home dosage of 80mg bid at discharge given that she appears euvolemic today # Hypotension: largely resolved, multifactorial. Acute blood loss, pain meds contributing. # Pulm HTN: now with increasing lower extremity edema, continue to monitor volume status, giving lasix given pulm edema as above # luis carlos: appears hypovolemic by urine studies, peaked Cr 1.6, downtrending w/ reintroduction of lasix, OK to resume home Rx at discharge w/ outpt lab monitoring through PCP # HTN: restart home Rx at discharge # Depression: SSRI # DM: SSI, OK to restart metformin at discharge, LUIS CARLOS resolved # Hypothyroidism: LT4 # Left SURYA: worked w/ PT today, patient would likely be safest to discharge to SNF given her multiple medical comorbidities, poor insight into her care requirements and fall risk - counseled patient that the safest discharge plan is SNF, and this is consistent with the recommendations from the primary ortho service - she understands that she is a fall risk at her apt within [facility], and she demonstrates the capacity to understand that this risk can lead to a worse outcome if she does experience a fall or a complication - consequently, I believe she has decisional capacity, but she also lacks insight into the complexities and limitations of medical care, and has some unrealistic expectations of the assistance she believes she will receive at if she does encounter mobility issues - the patient was able to verbalize that she is willing to personally accept the risks associated w/ discharging home against our medical advice to discharge to SNF # Acute on chronic pain with continuous opiate use and dependency: continues to require higher doses than her already high home dose pain medications, will require additional PRN Rxt at discharge, currently on oxy CR 60 bid + hydrocodone PRN I've discussed the above with Dr. Ann, and we are both in agreement that the patient would be safest to discharge to SNF for rehab prior to returning home. That said, she has the capacity to decide to be discharged home, and further discharge arrangements are at the discretion of the primary service. Subjective: reports pain well controlled, moving bowels Objective: Vital Signs Temp Pulse Resp BP Pulse Ox 37.3 C 81 16 143/81 H 97 07/26/17 07:51 07/26/17 10:38 07/26/17 07:51 07/26/17 10:38 07/26/17 07:51 Laboratory Results 07/26/17 04:25 07/26/17 04:25 07/25/17 07/26/17 07/27/17 05:59 05:59 05:59 Intake Total 800 2200 Output Total 1600 3050 1000 Balance -800 -850 -1000 - Time Spent With Patient Time Spent with Patient: greater than 35 minutes Time Spent with Patient: Greater than 35 minutes spent on this patients care, greater than 50% of time spent counseling, educating, and coordinating care regarding the above mentioned plan. - Pending Discharge Pending Discharge Within 24 Hours: Yes Pending Discharge Date: 07/27/17 Pending Discharge Time: 11:00 - Physical Exam Constitutional: no apparent distress, chronically ill appearing, No uncomfortable Cardiovascular: regular rate and rhythym, no murmur, rub, or gallop, edema ( trace bilat LE), No tachycardia Respiratory: inspiratory crackles (faint in bases), No reduced air movement, No expiratory wheeze, No bronchial breath sounds, No respiratory distress Gastrointestinal: normoactive bowel sounds, soft, non-tender abdomen, no palpable masses, No distension Neurologic: AAOx3, sensation intact bilaterally, weakness (mild 4/5 on proximal flexion LLE) Psychiatric: not encephalopathic, anxious, flat affect, No agitated ICD10 Worksheet Patient Problems: Problems Problem Status Onset MRSA - Methicillin resistant Staphylococcus aureus infection Active Bronchitis Acute Primary localized osteoarthritis of left hip Acute
--- NOTE | 2017-07-27 09:22 | ASDISCHSUM ---
Discharge Information Plan Status:SNF Medically Cleared to Leave: Discharge Date:07/26/2017 03:31 PM D/C Disposition:Detention Facility ADT D/C Disposition:Detention Facility Projected Discharge Date:07/26/2017 03:00 PM Transportation at D/C: Discharge Delay Reason: Follow-Up Date:07/26/2017 03:00 PM Discharge Slot: Final Diagnosis: Placement Information Referral Type:*Longterm/SNF Referral ID:[id number] Provider Name:[facility] Address 1:[address] Address 2: City:[place] Selection Factors: State:[place] Patient Contact Information Contact Name:SADIESALVATORE Relationship:Cousin Address: City: [facility] [facility] Phone: State/Zip Code: Email: Financial Information Financial Class: Primary Plan Desc:MEDICARE IP PART B ONLY Primary Plan Number:[id number] Secondary Plan Desc:[place] Secondary Plan Number:[id number] Assessment Information [facility] CM Progress Note CM Note CM Note Notes: Pt with numerous comorbidities had planned total hip, pt would like to d/c to [facility]. [facility] ran pt insurance, pt only has Medicare part B (no part A) so pt has no SNF benefit. Pt would only be able to d/c to a SNF using Medicaid. Pt does have HCBS Medicaid and receives 3 hours of care 3 times a week at [facility]. [facility] case resolution specialist Matilde Szymanski ([phone]) is out of the office and this CM left a voicemail on the coverage line [phone] so covering case resolution specialist can determine if pt is eligible for increased HCBS hours or respite SNF days where there is a Medicaid bed available. [facility] accepts pt for HCBS Medicaid respite days and/or [facility] ULTC 100 process. At a Medicaid facility pt would be able to access skilled therapy using Medicare Part B. Discussed options with pt who states she may want to go home rather than a SNF Medicaid bed, states in this case she would be interested in skilled HHC. Pt reports she has no friends or family to assist her at home. Yesterday PT rec SNF. OT curt pending. Dispo planning: Awaiting call back from [facility] for more information on Medicaid options, will have to updated MD and see what pt choice is. Date Signed: 07/22/2017 11:32 AM Electronically Signed By:JEROMY Stevenson [facility] CM Progress Note CM Note CM Note Notes: Guillermina [phone] with [facility] reports pt has 30 Medicaid SNF respite days, Level 1 PASRR and accepting facility required; the soonest paperwork would be ready would be Wednesday. Spoke w pt about this update, pt is not interested in a Medicaid SNF. Pt decides she wants to return to [facility] and have continued services with HCBS. Today PT rec home vs home health care vs SNF and OT rec SNF. CM will continue to follow for d/c planning. Date Signed: 07/22/2017 02:37 PM Electronically Signed By:JEROMY Stevenson [facility] CM Progress Note CM Note CM Note Notes: PT/OT/MD continue to recommend SNF, pt refuses to consider SNF again today; declining to meet with Britta from [facility] and Ting from [facility]. Pt states her friends at [facility] will be able to assist her but this does not address the current safety concerns. This morning Britta with [facility] now is unable to accept pt due to Medicaid respite status per the business office, this CM asked Britta to appeal with her business office and outcome is pending. New referrals sent to [facility], [facility], [facility] and [facility]. [facility] unable to accept, [facility] IS able to accept, pending referrals are [facility] and [facility]. Although pt continues to refuse SNF, [facility] was faxed Level 1 non-triggering PAS to process pt SNF for Medicaid respite days admission in case pt changes her mind since the Medicaid SNF process takes several days. Note for following CM: Please confirm w [facility] they can accept pt under HCBS Medicaid respite days (vs. the ULTC-100 30 day Medicaid SNF process). D/c plan of care: Return to [facility] with [facility] if continues to refuse SNF. CM will continue to communicate with potential SNFs/ACMI for SNF options should pt reconsider SNF. Date Signed: 07/23/2017 05:18 PM Electronically Signed By:JEROMY Stevenson [facility] Progress Note CM Note CM Note Notes: Spoke with Tray at [facility]. Patient should be able to go per respite provisions via medicaid. He will call [facility] for approval tomorrow. Plan SNF. CM to follow. Date Signed: 07/25/2017 10:03 AM Electronically Signed By:Tiara Hansen RN Case Management Discharge Plan Note Case Management Discharge Discharge Order Complete? Answers: Yes Patient to Obtain Answers: Other Notes: [facility] Medications Transportation Arranged Answers: Other Notes: [facility] van Transport will Pick (Date 07/26/2017 03:00 AM & Time) Faxed Final Orders Answers: Yes Agency/Facility Transfer Answers: Yes Report Printed & Faxed to Receiving Agency Family Notified Answers: No Notes: pt contacted friend Discharge Comments Notes: Pt will dc today to [facility]; she was apprehensive but able to meet w/Dr Ann today and now agreeable. Pt is hoping for a short stay at [facility] and she is aware that she may have roommate there and that she will receive therapy there.[facility] has rec'd approval paperwork and confirmation from Beatriz nolen/LATRICIA; I also rec'd confirmation from her. Spoke w/Khushboo from [facility] and they are ready to accept. Orders/info sent through [employer] and conf rec'd. Intervention Information Intervention Type:*IM-Signed Date of Service:07/26/2017 02:28 PM Patient Type:Inpatient Staff Member:Erika Saucedo Hours: Discipline: Severity: Comment:
== END 2017-07-26 15:31 | DRG 469 ==
LOC: F3N 08:04
PROVIDERS: ADMIT Orthopaedic Surgery; ATTEND Orthopaedic Surgery
PROC: 0SRB04Z Replacement of Left Hip Joint with Ceramic on Polyethylene Synthetic Substitute, Open Approach (ICD-10-PCS; principal; 2017-07-21 10:15)
DX: M16.12 Unilateral primary osteoarthritis, left hip (principal); D62 Acute posthemorrhagic anemia; N17.9 Acute kidney failure, unspecified; I95.9 Hypotension, unspecified; J96.21 Acute and chronic respiratory failure with hypoxia; I48.2 Chronic atrial fibrillation; E11.9 Type 2 diabetes mellitus without complications; G89.29 Other chronic pain; F11.20 Opioid dependence, uncomplicated; I10 Essential (primary) hypertension; E78.5 Hyperlipidemia, unspecified; E03.9 Hypothyroidism, unspecified; G47.33 Obstructive sleep apnea (adult) (pediatric); Z86.73 Personal history of transient ischemic attack (TIA), and cerebral infarction without residual deficits; Z87.440 Personal history of urinary (tract) infections; Z96.653 Presence of artificial knee joint, bilateral
CPT/HCPCS: 97110-GP; 97116-GP; 97161-GP; 97165-GO; 97530-GP; 97535-GO; G8978-GP-CJ; G8979-GP-CI; G8987-GO-CJ; G8988-GO-CI; J0171; J0690; J1100; J1170; J1815; J1885; J1940; J2060; J2250; J2405; J2704; J2795; J3010; J3370; P9016

== ENCOUNTER 2017-12-14 14:17 | Inpatient (IN) | payer OTHER, MEDICAID ==
--- NOTE | 2017-12-14 14:42 | CPEKG ---
Heart Rate: 69 RR Interval: 870 QRSD Interval: 98 QT Interval: 408 QTC Interval: 437 QRS [place]: 22 T Wave [place]: 227 EKG Severity - ABNORMAL ECG - EKG Impression: ATRIAL FIBRILLATION EKG Impression: PROBABLE ANTEROSEPTAL INFARCT, AGE INDETERM EKG Impression: REPOL ABNRM SUGGESTS ISCHEMIA, DIFFUSE LEADS EKG Impression: LATERAL LEADS ARE ALSO INVOLVED Electronically Signed By: Alisha Carroll 15-Dec-2017 00:53:59
[2017-12-14 15:38] LABS: PLATELET COUNT 288 10^3/uL (150-400)
--- NOTE | 2017-12-14 15:58 | EDPHY ---
HPI/HX/ROS/PE/MDM Narrative: CHIEF COMPLAINT: Cough and difficulty breathing HISTORY OF PRESENT ILLNESS: The patient is a 72 y/o female with a history of congestive heart failure complaining of a cough and difficulty breathing, onset 4 days ago. She was started on BuSpar for depression nine days ago. She had surgery on her eye a few days ago and hasn't been using her CPAP since then. She normally does not use oxygen but she had low O2 at arrival (83%). Her cough has been producing wet mucus. She reports associated decrease in pedal edema. She denies chest pain or associated nausea or vomiting. She denies recent illness or any other precipitating factors. No fever, chills, chest pain, palpitations, vomiting, diarrhea, urinary complaints, headache, lightheadedness. REVIEW OF SYSTEMS: Aside from elements discussed in the HPI, a comprehensive 10-point review of systems was reviewed and is negative. PAST MEDICAL HISTORY: Congestive heart failure, asthma, eye surgery, depression, abdominal hernias, reverse colostomy for diverticulitis SOCIAL HISTORY: Lives in [place], retired, medicare patient VITAL SIGNS: Reviewed by me GENERAL: Elderly, thin, tachypneic. HEENT: Atraumatic. Eyes: No icterus, no injection. Mouth: Slightly dry mucous membranes. No erythema or lesions. Neck: supple with no adenopathy. LUNGS: Wet rales bilaterally but worse on right to about fpc up the chest, soft rhonchi. No wheezes. CARDIAC: Irregular rate and rhythm, no rubs, murmurs or gallops. ABDOMEN: Midline scar and right upper quadrant horizontal scar, all old and well healed. 20 cm abdominal wall defect with hernia to the right of midline. 10 cm abdominal wall hernia to left lower quadrant. Soft, nontender, nondistended, bowel sounds normal. BACK: No CVA tenderness. EXTREMITIES: No trauma. No edema. Range of motion is normal throughout. NEURO: Alert and oriented, grossly nonfocal. SKIN: Warm and dry, no rash. PSYCHIATRIC: Normal mentation, no agitation. ED Course: 12-LEAD EKG: Please see the full report in [facility]. My interpretation: Atrial fibrillation, diffuse T-wave inversions, concerning for ischemia The patient has a history of congestive heart failure, and atrial fibrillation and presents with a 4 day history of cough and difficulty breathing. She denies recent illness or other precipitating factors. She denies chest pain or other associated symptoms. She recently began taking BuSpar for depression with success in treating symptoms. In addition, she had eye surgery recently. Her pO2 was 83% without oxygen when she arrived, prompting her to be placed on oxygen. Plan for CBC, Chem7, BNP, troponin, lactic acid, EKG, and chest X-ray. 5:00 PM- Her X-ray shows bilateral lower lobe pneumonia. Her BNP is elevated ( 4690) compared to a January 2017 (1690) comparison. Her EKG is also concerning for ischemia. Plan for admission for continuing care. 5:20 PM- Her medications indicate that she is taking digoxin but not diuretics. Plan for a digoxin level. She will be started on diuretics, doxycycline, and ceftriaxone. Dr. Baker will be the admitting physician. She will be admitted to the stepdown unit due to her need for oxygen (5L through nasal cannula with pO2 at 92). Sepsis Evaluation Note: The patient presents to the ED with potential infection identified as pneumonia. The patient did have evidence of sepsis with [respiratory rate greater than 20,] significant oxygen demands, and [WBC greater than 12,000]. Patient did not have evidence of severe sepsis. MDM: Differential diagnosis for the patient's shortness of breath was considered including but not limited to pulmonary infectious processes, COPD exacerbation, pulmonary emboli, pulmonary edema, congestive heart failure, and cardiac causes. - Data Points Imaging Results: Imaging Impressions Chest X-Ray 12/14/17 15:44 Impression: Chronic versus recurrent dominant right lower lobe pneumonia. Residual versus recurrent left lower lobe pneumonia. Imaging: Discussed imaging studies w/ electronic court recorder Radiologist, I viewed and interpreted images myself Laboratory Results: Laboratory Results 12/14/17 14:45 12/14/17 14:45 12/14/17 12/14/17 12/14/17 16:05 14:45 14:45 WBC RBC Hgb Hct MCV MCH MCHC RDW Plt Count MPV Neut % (Auto) Lymph % (Auto) [place] % (Auto) Eos % (Auto) Baso % (Auto) Nucleat RBC Rel Count Absolute Neuts (auto) Absolute Lymphs (auto) Absolute Monos (auto) Absolute Eos (auto) Absolute Basos (auto) Absolute Nucleated RBC Immature Gran % Immature Gran # PT INR APTT VBG Lactic Acid 1.1 mmol/L mmol/L (0.7-2.1) Sodium Potassium Chloride Carbon Dioxide Anion Gap BUN Creatinine Estimated GFR Glucose Calcium Total Bilirubin 0.6 mg/dL mg/dL (0.1-1.4) Troponin I NT-Pro-B Natriuret Pep Digoxin 0.8 ng/mL ng/mL (0.8-2.0) 12/14/17 12/14/17 12/14/17 14:45 14:45 14:45 WBC RBC Hgb Hct MCV MCH MCHC RDW Plt Count MPV Neut % (Auto) Lymph % (Auto) [place] % (Auto) Eos % (Auto) Baso % (Auto) Nucleat RBC Rel Count Absolute Neuts (auto) Absolute Lymphs (auto) Absolute Monos (auto) Absolute Eos (auto) Absolute Basos (auto) Absolute Nucleated RBC Immature Gran % Immature Gran # PT 21.8 SEC H SEC (12.0-15.0) INR 1.89 H (0.83-1.16) APTT 61.9 SEC H SEC (23.0-38.0) VBG Lactic Acid Sodium 133 mEq/L L mEq/L (135-145) Potassium 4.0 mEq/L mEq/L (3.5-5.2) Chloride 94 mEq/L L mEq/L (97-110) Carbon Dioxide 25 mEq/l mEq/l (22-31) Anion Gap 14 mEq/L mEq/L (8-16) BUN 55 mg/dL H mg/dL (7-23) Creatinine 1.2 mg/dL H mg/dL (0.6-1.0) Estimated GFR 44 Glucose 108 mg/dL H mg/dL (70-100) Calcium 9.3 mg/dL mg/dL (8.5-10.4) Total Bilirubin Troponin I 0.033 ng/mL ng/mL (0.000-0.034) NT-Pro-B Natriuret Pep 4760 pg/mL H pg/mL (0-125) Digoxin 12/14/17 14:45 WBC 21.37 10^3/uL H 10^3/uL (3.80-9.50) RBC 4.75 10^6/uL 10^6/uL (4.18-5.33) Hgb 11.6 g/dL L g/dL (12.6-16.3) Hct 36.2 % L % (38.0-47.0) MCV 76.2 fL L fL (81.5-99.8) MCH 24.4 pg L pg (27.9-34.1) MCHC 32.0 g/dL L g/dL (32.4-36.7) RDW 16.2 % H % (11.5-15.2) Plt Count 288 10^3/uL 10^3/uL (150-400) MPV 10.9 fL fL (8.7-11.7) Neut % (Auto) 88.5 % H % (39.3-74.2) Lymph % (Auto) 3.6 % L % (15.0-45.0) [place] % (Auto) 6.8 % % (4.5-13.0) Eos % (Auto) 0.0 % L % (0.6-7.6) Baso % (Auto) 0.2 % L % (0.3-1.7) Nucleat RBC Rel Count 0.0 % % (0.0-0.2) Absolute Neuts (auto) 18.90 10^3/uL H 10^3/uL (1.70-6.50) Absolute Lymphs (auto) 0.78 10^3/uL L 10^3/uL (1.00-3.00) Absolute Monos (auto) 1.45 10^3/uL H 10^3/uL (0.30-0.80) Absolute Eos (auto) 0.01 10^3/uL L 10^3/uL (0.03-0.40) Absolute Basos (auto) 0.04 10^3/uL 10^3/uL (0.02-0.10) Absolute Nucleated RBC 0.00 10^3/uL 10^3/uL (0-0.01) Immature Gran % 0.9 % % (0.0-1.1) Immature Gran # 0.19 10^3/uL H 10^3/uL (0.00-0.10) PT INR APTT VBG Lactic Acid Sodium Potassium Chloride Carbon Dioxide Anion Gap BUN Creatinine Estimated GFR Glucose Calcium Total Bilirubin Troponin I NT-Pro-B Natriuret Pep Digoxin Medications Given: Albuterol/Ipratropium (Duoneb) 3 ml IH QID RICHIE Stop: 06/12/18 20:59 Last Admin: 12/14/17 21:51 Dose: 3 ml Apixaban (Eliquis) 5 mg PO BID RICHIE Stop: 06/12/18 20:59 Last Admin: 12/14/17 21:12 Dose: Not Given Clonazepam (Klonopin) 0.5 mg PO HS RICHIE Stop: 06/12/18 20:59 Last Admin: 12/14/17 21:22 Dose: 0.5 mg Clonidine (Catapres) 0.1 mg PO BID RICHIE Stop: 06/12/18 20:59 Last Admin: 12/14/17 21:14 Dose: 0.1 mg Famotidine (Pepcid) 20 mg PO BID [facility] Stop: 06/12/18 20:59 Last Admin: 12/14/17 21:14 Dose: 20 mg Oxycodone HCl (Oxycontin) 60 mg PO BID [facility] Stop: 06/12/18 20:59 Last Admin: 12/14/17 21:15 Dose: 30 mg Prednisolone Acetate (Pred Forte 1%) 1 drops LEFTEYE QID RICHIE Stop: 06/12/18 20:59 Last Admin: 12/14/17 21:16 Dose: 1 dose Prednisone (Prednisone) 60 mg PO DAILY [facility] Stop: 06/12/18 20:44 Last Admin: 12/14/17 21:19 Dose: 60 mg Senna/Docusate Sodium (Senokot-S) 1 - 2 tab PO BID RICHIE Stop: 06/12/18 20:59 Last Admin: 12/14/17 21:16 Dose: 1 tab Discontinued Medications Albuterol/Ipratropium (Duoneb) 3 ml IH Q6HRS PRN PRN Reason: Short of Breath/Dyspnea Stop: 06/12/18 19:27 Last Admin: 12/14/17 19:29 Dose: 3 ml Apixaban (Eliquis) 5 mg PO EDNOW ONE Stop: 12/14/17 21:01 Last Admin: 12/14/17 18:23 Dose: 5 mg Doxycycline Hyclate (Doxycycline Hyclate) 100 mg PO ONCE ONE PRN Reason: Protocol Stop: 12/14/17 17:48 Last Admin: 12/14/17 17:54 Dose: 100 mg Furosemide (Lasix Injection) 20 mg IVP ONCE ONE Stop: 12/14/17 17:29 Last Admin: 12/14/17 17:38 Dose: 20 mg Furosemide (Lasix Injection) 40 mg IVP ONCE ONE Stop: 12/14/17 20:36 Last Admin: 12/14/17 21:13 Dose: 40 mg Ceftriaxone Sodium/Dextrose (Rocephin 1 Gm (Premix)) 50 mls @ 100 mls/hr IV EDNOW ONE PRN Reason: Protocol Stop: 12/14/17 17:54 Last Admin: 12/14/17 17:37 Dose: 50 mls Oxycodone HCl (Oxycontin) 30 mg PO ONCE ONE Stop: 12/14/17 19:09 Last Admin: 12/14/17 19:25 Dose: 30 mg General Time Seen by Provider: 12/14/17 15:41 Initial Vital Signs: Initial Vital Signs Temperature (C) 37.0 C 12/14/17 14:25 Heart Rate 70 12/14/17 14:25 Respiratory Rate 18 12/14/17 14:25 Blood Pressure 140/76 H 12/14/17 14:25 O2 Sat (%) 83 L 12/14/17 14:25 O2 Delivery Mode Nasal Cannula O2 (L/minute) 5 Allergies/Adverse Reactions: RADIOACTIVE IODINE Allergy (Severe, Uncoded 12/14/17 14:25) RED SKIN lidoderm Allergy (Uncoded 12/14/17 14:25) pravastatin Allergy (Uncoded 12/14/17 14:25) Home Medications: Medication Instructions Recorded Albuterol [Proventil Inhaler HFA 2 puffs IH Q6HRS PRN 06/25/17 (*)] Apixaban [Eliquis] 5 mg PO BID 06/25/17 Betamethasone/Propylene Glyc 15 gm TP HS PRN 06/25/17 [Betamethasone Dp Aug 0.05% Oin] Digoxin [Lanoxin 125 mcg (RX)] 125 mcg PO DAILY10 06/25/17 Diltiazem HCl [Cardizem Cd] 360 mg PO DAILY 06/25/17 Docusate Sodium [Colace 100 MG (*)] 200 mg PO DAILY 06/25/17 Estradiol [Estrace Vaginal (*)] 1 fadia VG Q3D 06/25/17 FLUoxetine [Prozac 20 MG (*)] 60 mg PO DAILY 06/25/17 Famotidine [Pepcid 20 MG (*)] 20 mg PO BID 06/25/17 Furosemide [Lasix 80 MG (*)] 80 mg PO BID 06/25/17 Herbals/Supplements -Info Only 1 ea PO DAILY 06/25/17 Hydrocodone/Acetaminophen [[place] 1 each PO Q6HRS PRN 06/25/17 7.5-325 Tablet] Levothyroxine [Synthroid 200 mcg 200 mcg PO DAILY06 06/25/17 (*)] Lisinopril [Zestril 40 mg (*)] 40 mg PO DAILY 06/25/17 Triamcinolone 0.1% [Triamcinolone 1 fadia TP BID PRN 06/25/17 0.1% Cream (*)] Vitamin B Complex [B Complex] 1 each PO DAILY 06/25/17 clonazePAM [Klonopin (*)] 0.25 mg PO BID PRN 06/25/17 metFORMIN SR [Glucophage XR 500 mg 1,000 mg PO 0800 06/25/17 (*)] oxyCODONE HCL [Oxycontin] 60 mg PO BID 06/25/17 ARIPiprazole [Abilify 2 mg (*)] 2 mg PO DAILY 07/21/17 clonIDINE [Catapres (*)] 0.1 mg PO BID 07/21/17 Sennosides/Docusate Sodium 1 - 2 tab PO BID tab 07/26/17 [Senokot-S] Loratadine [Claritin 10 mg] 10 mg PO DAILY 12/14/17 buPROPion SR [Wellbutrin 100mg SR 100 mg PO DAILY 12/14/17 (*)] clonazePAM [Klonopin (*)] 0.5 mg PO HS 12/14/17 prednisoLONE ACET 1% [Pred Forte 1 drops LEFTEYE QID 12/14/17 1% (*)] Departure - Departure Disposition: [facility] Clinical Impression: Cough, Shortness of breath Pneumonia Qualifiers: Pneumonia type: due to unspecified organism Laterality: bilateral Lung location : lower lobe of lung Qualified Code(s): J18.1 - Lobar pneumonia, unspecified organism CHF (congestive heart failure) Qualifiers: Heart failure type: unspecified Heart failure chronicity: acute on chronic Qualified Code(s): I50.9 - Heart failure, unspecified Condition: Serious Report Scribed for: Alisha Carroll Report Scribed by: Lara Tarango Date of Report: 12/14/17 Time of Report: 16:44 Physician Review and Approval Statement: Portions of this note were transcribed by a medical doctor md. I personally performed a history, physical exam, medical decision making, and confirmed accuracy of information the transcribed note.
[2017-12-14] MEDS ORDERED: FUROSEMIDE 20 MG/2 ML VIAL IVP ONE (17:28)
[2017-12-14 17:36] LABS: INR 1.89 (0.83-1.16); PROTIME(PATIENT) 21.8 SEC (12.0-15.0)
[2017-12-14] MEDS ORDERED: DOXYCYCLINE HYCLATE 100 MG CAP/TAB PO ONE (17:47)
[2017-12-14] MEDS ORDERED: DOXYCYCLINE HYCLATE 100 MG CAP/TAB ONE (17:52)
[2017-12-14] MEDS ORDERED: oxyCODONE CR 30 MG TAB PO ONE (19:08)
[2017-12-14] MEDS ORDERED: IPRATROPIUM/ALBUTEROL 3 ML DEYVIAL ONE (19:27)
[2017-12-14] MEDS ORDERED: IPRATROPIUM/ALBUTEROL 3 ML DEYVIAL IH PRN (19:28)
[2017-12-14] MEDS ORDERED: ONDANSETRON 4 MG/2 ML VIAL IVP PRN (20:22)
[2017-12-14] MEDS ORDERED: ONDANSETRON DISINTEGRATING 4 MG TAB PO PRN (20:22)
[2017-12-14] MEDS ORDERED: ACETAMINOPHEN 325 MG TAB PO PRN (20:22)
[2017-12-14] MEDS ORDERED: ALBUTEROL 60 PUFFS/8 GM MDI IH PRN (20:32)
[2017-12-14] MEDS ORDERED: HYDROCODONE/APAP 5/325 TAB PO PRN (20:32)
[2017-12-14] MEDS ORDERED: BETAMETHASONE AUGMENTED 0.05% TP PRN (20:32)
[2017-12-14] MEDS ORDERED: TRIAMCINOLONE 0.1% 15 GM CRTUBE TP PRN (20:32)
[2017-12-14] MEDS ORDERED: clonazePAM 0.5 MG TAB PO PRN (20:32)
[2017-12-14] MEDS ORDERED: FUROSEMIDE 40 MG/4 ML VIAL IVP ONE (20:35)
[2017-12-14] MEDS ORDERED: APIXABAN 5 MG TAB PO ONE (21:00)
[2017-12-14] MEDS: APIXABAN 5 MG TAB PO SCH (21:12)
[2017-12-14] MEDS ORDERED: D50W 25 GM/50 ML SYR IVP PRN (21:12)
[2017-12-14] MEDS: FAMOTIDINE 20 MG TAB PO SCH (21:14)
[2017-12-14] MEDS: oxyCODONE CR 30 MG TAB PO SCH (21:15)
[2017-12-14] MEDS: prednisoLONE ACET 1% 5 ML OPHT.BTL LEFTEYE SCH (21:16)
[2017-12-14] MEDS: SENNOSIDES/DOCUSATE SODIUM TAB PO SCH (21:16)
[2017-12-14] MEDS: predniSONE 20 MG TAB PO SCH (21:19)
[2017-12-14] MEDS: clonazePAM 0.5 MG TAB PO SCH (21:22)
[2017-12-14] MEDS: IPRATROPIUM/ALBUTEROL 3 ML DEYVIAL IH SCH (21:51)
--- NOTE | 2017-12-14 21:52 | GHP ---
[f rep st] HISTORY AND PHYSICAL DATE OF ADMISSION: 12/14/2017 HISTORY OF PRESENT ILLNESS: The patient is a pleasant 72-year-old female with a history of pulmonary hypertension, atrial fibrillation, who presents with increased work of breathing. She had an outpat ient glaucoma surgery done yesterday at [facility]. She was feeling well prior to that. To day, she reports she came to the emergency department, complaining she states she had cough and diffi culty breathing starting 4 days ago. She was started on BuSpar for depression and anxiety 9 days ago . She has not been using her CPAP since . She denies increased lower extremity swelling. She denies orthopnea. Her cough has been productive of a yellow/mckeon mucus. She has not had fever o r chills. She takes Lasix at home. REVIEW OF SYSTEMS: A complete 10-point review of systems conducted and negative except as noted in t he HPI. PAST MEDICAL HISTORY: 1. Atrial fibrillation on Eliquis, digoxin, diltiazem. 2. Diabetes. 3. Obstructive sleep apnea. 4. Chronic pain on continuous narcotics. 5. Hypertension. 6. Asthma. 7. Depression. 8. History of Graves disease. 9. She had a recent hip surgery. ALLERGIES: Radioactive iodine, sounds like she must have had a thyroid ablation, as well as Lidoderm and pravastatin. MEDICATIONS: Home medications are furosemide, metformin, albuterol, apixaban, aripiprazole, bupropio n, clonazepam, clonidine, digoxin, docusate, estradiol cream, famotidine, fluoxetine, hydrocodone, le vothyroxine, loratadine, oxycodone 60 b.i.d., prednisolone eye drops, senna, docusate, triamcinolone cream, vitamin B complex. SOCIAL HISTORY: No tobacco, no alcohol. Originally from [place]. FAMILY HISTORY: Parents . PHYSICAL EXAMINATION: VITAL SIGNS: Temp 37, blood pressure 140/76, pulse 70, breathing 18 times a m inute, 83% on room air. GENERAL: No acute distress. Increased work of breathing with rhonchorous br eath sounds. HEENT: Sclerae anicteric. Oropharynx clear. Eye exam is normal. LUNGS: Rhonchorous with increased work of breathing and wheezing bilaterally. There are diffuse crackles. HEART: S1, S2. Regular. There is JVD at the clavicle sitting at 45 degrees. ABDOMEN: Round, but soft, nonten irene, nondistended. LOWER EXTREMITIES: Show trace edema bilaterally. SKIN: Without rash. NEUROLOGI C: Exam is nonfocal. LABORATORY DATA: White count is 21, above her baseline. Hematocrit 36, MCV is 76, which is low for her. INR is 1.9. Venous lactate 1.1. Sodium 133, potassium 4.0, chloride 95, bicarb 25, BUN 55, cr eatinine 1.2. These numbers are bit low for her. BNP is 4760. Troponin 0.33. Bilirubin 0.6. UA is unremarkable. Tox screen: Digoxin level 0.8. Chest x-ray interpreted by me: Right lower lobe pneu monia. EKG shows sinus at 69 with normal axis and intervals. There is some T-wave inversion in 1, S T-depression in L, T-wave inversion in V5, V6. The lateral T-wave changes are not new compared with EKG of a couple years ago. I discussed the case Dr. Alisha Carroll. ASSESSMENT/PLAN: A 72-year-old female presents with increased work of breathing, wheezing, elevated BNP. 1. Acute hypoxemic respiratory failure. The patient has a viral syndrome as micro respiratory panel grew out human rhinovirus/enterovirus. She has a focal infiltrate. She was started on ceftriaxone and doxycycline. She also has significant bronchospasm and increased work of breathing so I will giv e her some scheduled DuoNebs and prednisone. 2. Volume status. The patient has elevated BUN and creatinine, but she also has an elevated BNP far higher than previous values. She is 4700. No other values are really much higher than 1100. I thi nk this is consistent with the acute on chronic pulmonary hypertension from a pulmonary process and/o r volume overload. JVD is noted as is lower extremity swelling. She has Lasix at home. Also noted is her elevated BUN and creatinine. She received some Lasix in the emergency department, had minimal urine output. I will give her 40 mg IV Lasix and follow. 3. Elevated BUN and creatinine as above. 4. Diabetes. Hold her metformin and put her on sliding scale. 5. Atrial fibrillation. Continue her medications. She is currently in sinus. 6. Recent eye surgery. We will use caution with bilevel support as this can raise intra-ocular pres sure. She had surgery which they poked a hole in her iris with the laser, so it is a relatively smal l surgery. It is noted that she is still on anticoagulation. 7. Prophylaxis: Therapeutically on anticoagulation. 8. Code: Full. 9. Disposition: Step-down status. /[id number]/MODL
[2017-12-15 05:45] LABS: PLATELET COUNT 212 10^3/uL (150-400)
[2017-12-15] MEDS: LEVOTHYROXINE 200 MCG TAB PO SCH (05:50)
[2017-12-15] MEDS: prednisoLONE ACET 1% 5 ML OPHT.BTL LEFTEYE SCH ×4 (05:51→21:40)
[2017-12-15] MEDS: IPRATROPIUM/ALBUTEROL 3 ML DEYVIAL IH SCH ×4 (06:13→21:09)
--- NOTE | 2017-12-15 07:12 | HOSPPROG ---
Hospitalist Progress Note Assessment/Plan: DIAGNOSES: -acute hypoxemic resp failure -acute R side CHF exacerbation -viral resp illness with human metapneumovirus; high suspicion for secondary bacterial pneumonia with elevated procalcitonin -new iron deficiency anemia, microcytic * Will need to begin replacement therapy for this * Also she should be assessed eventually when respirations are stable for the cause of this -VICENTA and pulmonary HTN * She stopped using her CPAP at home a couple days ago because she was worried that her mask would get into her I * high risk of this being worsened by her ongoing narcotic use particularly if not able to use cpap or bipap for eye -also hx of Asthma * Some wheezing now and likely has some asthma exacerbation -recent glaucoma surgery 2 days ago -Depression and anxiety, recently started on new med for these -DM2 on oral meds * Sugars in reasonable range so far but will need to watch closely particularly with her dose of steroid -chronic pain syndrome, chronic daily use of high-dose prescribed narcotics, oxycodone 120 mg daily * Very concerning with her history of sleep apnea * Hard to determine how often she uses her CPAP at home; at 1 point she told me that her machine was not working but on further discussion she admitted that she was worried about using it now because the mask might poke her in the I and she just had glaucoma procedure 2 days ago -HTN on medication -hx graves dz PLANS: -given the high procalcitonin will continue antibiotics for her pneumonia; follow cultures -continue bronchodilators and steroid -contact bili solution due to her metapneumo virus -continue lasix -I have asked our respiratory therapist to try and work with of right jauregui see if we can find something she is willing to wear here and use auto titrating device that she does not know her settings at home -minimize narcotic here, and would recommend attempting to wean off those in future as outpt due to VICENTA and pulmonary hypertension -begin iron supplements, will use IV due to recent data showing ineffectiveness of oral iron in chf patients -will need outpt gi w/u for iron defic once resp stable -follow sugars closely Seen by me on multidisciplinary rounds in addition hospitalist rounds today I reviewed in detail with Dr. 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, my review: Sinus rhythm 600 mL of net diuresis overnight Exam: alert oriented, somewhat depressed affect skin warm dry color ok resps mildly labored lungs severely and diffusely bronchitic BSs with expiratory wheeze heart regular, no murmur audible but breath sounds are very loud heart tones very quiet abd soft nondistended nontender, bowel sounds present limbs warm, still with edema though less than yesterday iv site ok Laboratory data: White blood cell count remains elevated 10,000 but is notably lower than yesterday Hemoglobin is down lower at 10.3 and remains microcytic which is new for her Creatinine unchanged at 1.2, electrolytes good Procalcitonin elevated at 1.55 Objective: Vital Signs Temp Pulse Resp BP Pulse Ox 37.2 C 88 18 129/63 H 94 12/15/17 00:00 12/15/17 06:17 12/15/17 06:17 12/15/17 04:00 12/15/17 04:00 Microbiology 12/14/17 17:45 Respiratory Panel (PCR) - Final Nasal, Sinus - Swab Human Rhinovirus/Enterovirus Laboratory Results 12/15/17 05:38 12/15/17 05:38 12/14/17 12/15/17 12/16/17 06:59 06:59 06:59 Intake Total 400 Output Total 1000 Balance -600 PT 21.8 SEC (12.0-15.0) H 12/14/17 14:45 INR 1.89 (0.83-1.16) H 12/14/17 14:45 - Time Spent With Patient Time Spent with Patient: greater than 35 minutes Time Spent with Patient: Greater than 35 minutes spent on this patients care, greater than 50% of time spent counseling, educating, and coordinating care regarding the above mentioned plan. ICD10 Worksheet Patient Problems: Problems Problem Status Onset CHF (congestive heart failure) Acute Cough Acute Pneumonia Acute Shortness of breath Acute chronic disease mgmt/transitional care Acute MRSA - Methicillin resistant Staphylococcus aureus infection Active Bronchitis Acute Primary localized osteoarthritis of left hip Acute
[2017-12-15] MEDS: INSULIN LISPRO 100 UNIT/ML SC SCH ×3 (07:56→17:57)
[2017-12-15] MEDS ORDERED: Herbals/Supplements -Info Only PO SCH (09:00)
[2017-12-15] MEDS: LISINOPRIL 40 MG TAB PO SCH (09:12)
[2017-12-15] MEDS: DILTIAZEM CD 180 MG CAP PO SCH (09:12)
[2017-12-15] MEDS: DOCUSATE SODIUM 100 MG CAP PO SCH (09:12)
[2017-12-15] MEDS: oxyCODONE CR 30 MG TAB PO SCH ×2 (09:12→21:38)
[2017-12-15] MEDS: predniSONE 20 MG TAB PO SCH (09:12)
[2017-12-15] MEDS: ARIPiprazole 2 MG TAB PO SCH (09:13)
[2017-12-15] MEDS: APIXABAN 5 MG TAB PO SCH ×2 (09:13→21:38)
[2017-12-15] MEDS: FAMOTIDINE 20 MG TAB PO SCH ×2 (09:13→21:38)
[2017-12-15] MEDS: CETIRIZINE 10 MG TAB PO SCH (09:13)
[2017-12-15] MEDS: VITAMIN B COMPLEX 1 EA CAP/TAB PO SCH (09:13)
[2017-12-15] MEDS: FLUoxetine 20 MG CAP PO SCH (09:13)
[2017-12-15] MEDS: DIGOXIN 125 MCG TAB PO SCH (09:13)
[2017-12-15] MEDS: SENNOSIDES/DOCUSATE SODIUM TAB PO SCH ×2 (09:14→21:38)
[2017-12-15] MEDS: DOXYCYCLINE INJ 100 MG in NS 250 ML IV SCH ×2 (09:37→21:38)
[2017-12-15] MEDS: buPROPion SR 100 MG TAB PO SCH (09:37)
--- NOTE | 2017-12-15 10:58 | WOCRNPDOC ---
[facility] Advanced Assessment Note - Skin Integrity Problem, Advanced Assess Perianal Dermatitis Dressing Type: Open to Air Erin Wound Tissue: Erythema, Weeping, Denuded Wound Bed Constitution: Red/Helix - Non Granular Tissue Site Measurement - Head-to-Toe Length X Width X Depth (cm): 8x10x0.1 Skin Integrity Problem Comment: No pressure, but moderate incontinence associated dermatitis with epithelial loss. Treat with MAD cream BID and keep area PAYAM. Discussed plan with patient and educated her on IAD cause and treatment. Kailyn MANCIA and Sirena ALEJANDRA in room. Wound care will sign off.
--- NOTE | 2017-12-15 11:54 | ASMTCASEMG ---
Living Arrangements What is your living Answers: Alone arrangement? Who do you live with? Type Of Residence What kind of residence do Answers: Apartment you live in? Discharge Plan Comments Coordination Status Comments Notes: Patient is a 72yo single female who was admitted for acute hypoxic respiratory failure, elevated BUN and creatinine levels, AFIB, recent eye surgery. Patient has a complicated medical picture with diabetes, afib, obstructive sleep apnea, hypertension, asthma, depression, chronic pain, and a hx of Graves disease. Therapies were ordered. PT recommends home care. Awaiting OT recommendations. Patient does live alone in a 4th story apartment , independent living. D/C plan TBD. CM will follow. Date Signed: 12/15/2017 11:53 AM Electronically Signed By:Sarai Forte LCSW
--- NOTE | 2017-12-15 14:33 | PDMN ---
Medical Necessity Medical necessity: est los>2mn for acute hypoxemic resp failure w/viral syndrome and focal infiltrate, bronchospasm and increased work of breathing, acute on chronic pulmonary htn r/t pulmonary process and/or volume overload, elevated BUN/creat; comorbid DM. AFIB, and recent eye surgery; admit for IV abx , nebs, prednisone, and IV Lasix; per order and H&P 12/14/17
--- NOTE | 2017-12-15 16:51 | GHP ---
[f rep st] HISTORY AND PHYSICAL DATE OF ADMISSION: 12/14/2017 REFERRING PHYSICIAN: Dharmesh Villanueva MD PULMONARY/CRITICAL CARE CONSULTATION REASON FOR REFERRAL: Evaluation and management of viral pneumonia. HISTORY OF PRESENT ILLNESS: The patient is a 72-year-old woman with a history of pulmonary hypertens ion, atrial fibrillation, and sleep apnea who was in her usual state of good health when about 4 days ago she started to have a cough and some increased dyspnea. The cough was productive of some yellow sputum. She denies any fevers or chills. Because of the increased dyspnea, she presented to the em ergency department last night, where she was found to be hypoxemic with an oxygen saturation of 83% o n room air. Chest x-ray suggested pneumonia. She was admitted to the hospital on empiric antibiotic s. She was also felt to be a bit fluid overloaded, so was diuresed. She states now her breathing fe els a little bit better, but she is still fairly dyspneic. She denies any chest pain, and has minima l cough. PAST MEDICAL AND SURGICAL HISTORY: 1. Atrial fibrillation, chronic. She is on Eliquis, digoxin, and diltiazem. 2. Diabetes. 3. Obstructive sleep apnea. The patient states that this was diagnosed years ago. She is on CPAP w ith oxygen. She has not had any followup for this in years and does not really have a doctor who is following it. 4. Hypertension. 5. History of asthma. 6. Depression. 7. Graves disease. 8. Outpatient glaucoma surgery on her right eye 2 days ago. MEDICATIONS: At time of admission include furosemide, metformin, albuterol, apixaban, aripiprazole, bupropion, clonazepam, clonidine, digoxin, famotidine, fluoxetine, hydrocodone, levothyroxine, lorata dine, oxycodone, prednisolone eyedrops, triamcinolone cream. ALLERGIES: Lidoderm and pravastatin. SOCIAL HISTORY: The patient denies smoking or alcohol. FAMILY HISTORY: Unremarkable. REVIEW OF SYSTEMS: A 10-point review of systems adds nothing to the History of Present Illness. PHYSICAL EXAMINATION: GENERAL: The patient is awake and alert. VITAL SIGNS: Her blood pressure is 141/66 with a heart rate of 93. She is afebrile. Oxygen saturations are 94% on 5 L. HEENT: Normo cephalic and atraumatic. No icterus. NECK: No JVD. Trachea is midline. CHEST: A few rales in th e right base. CARDIAC: Irregularly irregular without murmur. ABDOMEN: Soft, nontender. Bowel manuel nds are present. EXTREMITIES: No clubbing, cyanosis, or edema. NEUROLOGIC: The patient is awake a nd alert. There are no gross motor or sensory deficits. LABORATORY DATA: White blood count is 10.1, down from 21.4. Her hemoglobin is 10.3, down from 11.6. Her MCV is 76.6, platelet count is 212. An INR is 1.9. Chemistry group is remarkable for a creati nine of 1.2 with a BUN of 50. Glucose is 265. Iron is low at 19, and a total iron-binding capacity is also low at 254. BNP is 3230, down from 4760. Procalcitonin is 1.55. Lactate is 1.1. A chest x-ray shows a right lower lobe infiltrate and possible effusion. Images were reviewed by me. A blood culture is negative and respiratory panel is positive for rhinovirus/enterovirus. ASSESSMENT: Viral pneumonia. The patient presented with hypoxemia, pulmonary infiltrate, and PCR po sitive for enterovirus/rhinovirus. She also has a mildly elevated procalcitonin, but a normal lactat e. She has had hypoxemia, but her oxygen needs have been stable/somewhat improved over the last 24 h ours. Part of this could be due to the Lasix that was given by Dr. Baker. She also may have a comp onent of chronic congestive heart failure with the elevated BNP. Congestive heart failure. This is suggested by the chest x-ray findings, as well as the elevated BNP with a history of chronic atrial fibrillation. She has received a dose of Lasix and her BNP has com e down a bit. Obstructive sleep apnea. The severity of this is unknown. She usually uses continuous positive airw ay pressure and oxygen, but has not used this for a few days because of her eye surgery and concern t hat the mass could irritate her eye. It is not known whether her current settings are effective, as she has not had any recent followup. Microcytic anemia. This may be due to chronic blood loss and is currently stable, but will need outp atient followup. RECOMMENDATIONS: 1. Continue empiric antibiotics with ceftriaxone and doxycycline. 2. Hold on Lasix currently, reconsider depending on her apparent fluid status and renal function. 3. Diet and activity, as tolerated. 4. Follow hemoglobin. 5. The patient will need outpatient followup of her sleep apnea. I can arrange to see her in follow up in my office. /[id number]/MODL
[2017-12-15] MEDS: LIDO/ZINC OX/CLOTRIMAZOLE (MAD) 116 GM CREAM TP SCH ×2 (18:37→21:40)
[2017-12-15] MEDS: clonazePAM 0.5 MG TAB PO SCH (21:39)
[2017-12-16] MEDS: IPRATROPIUM/ALBUTEROL 3 ML DEYVIAL IH SCH ×4 (05:09→21:19)
[2017-12-16] MEDS: prednisoLONE ACET 1% 5 ML OPHT.BTL LEFTEYE SCH ×4 (05:30→20:42)
[2017-12-16] MEDS: LEVOTHYROXINE 200 MCG TAB PO SCH (05:30)
[2017-12-16 05:46] LABS: PLATELET COUNT 306 10^3/uL (150-400)
[2017-12-16] MEDS: DOCUSATE SODIUM 100 MG CAP PO SCH (09:47)
[2017-12-16] MEDS: VITAMIN B COMPLEX 1 EA CAP/TAB PO SCH (09:47)
[2017-12-16] MEDS: FAMOTIDINE 20 MG TAB PO SCH ×2 (09:47→20:37)
[2017-12-16] MEDS: oxyCODONE CR 30 MG TAB PO SCH ×2 (09:47→20:42)
[2017-12-16] MEDS: FLUoxetine 20 MG CAP PO SCH (09:47)
[2017-12-16] MEDS: SENNOSIDES/DOCUSATE SODIUM TAB PO SCH ×2 (09:47→20:41)
[2017-12-16] MEDS: DIGOXIN 125 MCG TAB PO SCH (09:47)
[2017-12-16] MEDS: DILTIAZEM CD 180 MG CAP PO SCH (09:47)
[2017-12-16] MEDS: CETIRIZINE 10 MG TAB PO SCH (09:48)
[2017-12-16] MEDS: APIXABAN 5 MG TAB PO SCH ×2 (09:48→20:38)
[2017-12-16] MEDS: predniSONE 20 MG TAB PO SCH (09:48)
[2017-12-16] MEDS: LISINOPRIL 40 MG TAB PO SCH (09:48)
[2017-12-16] MEDS: ARIPiprazole 2 MG TAB PO SCH (09:48)
[2017-12-16] MEDS: INSULIN LISPRO 100 UNIT/ML SC SCH ×3 (10:04→17:37)
[2017-12-16] MEDS: DOXYCYCLINE INJ 100 MG in NS 250 ML IV SCH ×2 (10:04→20:38)
[2017-12-16] MEDS: buPROPion SR 100 MG TAB PO SCH (10:30)
[2017-12-16] MEDS: FLUTICASONE/SALMETER 250/50MCG DISKUS IH SCH ×2 (11:21→21:19)
--- NOTE | 2017-12-16 15:08 | ECHO ---
[email or web address] [address] Main: [phone] Fax: Transthoracic Echocardiogram Name: KIMBERLI PICKARD MR#: [id number] Study Date: 12/15/2017 Study Time: 08:48 AM Date of : 1945 Age: 72 year(s) Height: 162.6 cm (64 in.) Weight: 60.78 kg (134 lb.) BSA: 1.65 m2 Gender: Female Examination: Echo Indication: CHF/ Image Quality: Contrast: Requested by: Sudeep Baker BP: 164 mmHg/66 mmHg Heart Rate: Rhythm: Indication: CHF/ Procedure Staff Equity Manager: Roseline Magallon RDCS Reading Physician: Orestes Goldberg MD Requesting Provider: Conclusions: Normal size left ventricle. Mild concentric LV hypertrophy. Normal global systolic LV function. The ejection fraction is estimated to be 65-70 %. The left atrium is moderately dilated. An agitated saline study was performed and was negative for intracardiac shunting. The right atrium is mildly dilated. Moderate mitral annular calcification. Mild mitral valve regurgitation is present. Moderate aortic cusp calcification is present. AV max PG is 17mmHG. AV mean PG is 8mmHG.. Mild tricuspid regurgitation is present. The pulmonary artery pressure is mild to moderately increased. No pericardial effusion. Measurements: Chambers Valvular Assessment AV/MV Valvular Assessment TV/PV Normal Normal Normal Name Value Range Name Value Range Name Value Range Ao Carolin (MM): 3.8 cm (2.2 cm-3.7 AV Vmax: 2.08 m/s (1 m/s-1.7 TR Vmax: 3.23 mm/s ( - ) cm) m/s) TR PGmax: 42 mmHg ( - ) IVSd (2D): 1.2 cm (0.6 cm-1.1 AV maxP mmHg ( - ) syst. PAP: 47 mmHg ( - ) cm) AV meanP mmHg ( - ) LVDd (2D): 3.8 cm (3.9 cm-5.3 LVOT Vmax: 0.98 m/s (0.7 m/s-1.1 cm) m/s) LVDs (2D): 2.5 cm (2.1 cm-4 SHYANNE (Vmax): 1.5 cm2 ( - ) cm) SHYANNE (VTI): 1.8 cm ( - ) LVPWd (2D): 0.5 cm ( - ) MV E Vmax: 1.00 m/s ( - ) LVOTd 2.0 cm 2.0 cm mm MV A Vmax: 0.47 m/s ( - ) LVEF (MOD4): 72 % (>=55 %) MV E/A: 2.13 ( - ) Patient: KIMBERLI PICKARD Study Date: 12/15/2017 Page 1 of 2 08:48 AM EF Range: 65-70 % Continued Measurements: Chambers Valvular Assessment AV/MV Valvular Assessment TV/PV Name Value Name Value Name Value LADs: 4.5 cm MV E/E' Septal: 13.30 CVP (est.): 5 mmHg LADs Lon.6 cm MV E/E' Lateral: 9.30 LA Area: 34.0 cm2 Additional Vessels Name Value Inferior Vena Cava: 2.3 cm Findings: Left Ventricle: Normal size left ventricle. Mild concentric LV hypertrophy. Normal global systolic LV function. The ejection fraction is estimated to be 65-70 %. No regional wall motion abnormality. Normal diastolic LV function. Right Ventricle: Normal size right ventricle. Left Atrium: The left atrium is moderately dilated. An agitated saline study was performed and was negative for intracardiac shunting. Right Atrium: The right atrium is mildly dilated. Mitral Valve: Moderate mitral annular calcification. Mild mitral valve regurgitation is present. Aortic Valve: Moderate aortic cusp calcification is present. AV max PG is 17mmHG. AV mean PG is 8mmHG.. Tricuspid Valve: The tricuspid valve is normal in appearance and function. Mild tricuspid regurgitation is present. The pulmonary artery pressure is mild to moderately increased. Pulmonic Valve: The pulmonic valve is normal in appearance and function. Aorta: The aorta is normal. Pericardium: No pericardial effusion. (No Signature Object) Patient: KIMBERLI PICKARD Study Date: 12/15/2017 Page 2 of 2 08:48 AM [id number]
[2017-12-16] MEDS: LIDO/ZINC OX/CLOTRIMAZOLE (MAD) 116 GM CREAM TP SCH ×2 (15:32→20:43)
--- NOTE | 2017-12-16 15:48 | PDINTPN ---
[facility] Progress Note Assessment/Plan: Assessment: Viral Pneumonia: Due to enterovirus. Afebrile. O2 needs stable. CXR looks better. On CTX for possible bacterial superinfection. Possible CHF: Suggested by elevated BNP, infiltrates. Iron Deficiency anemia: Hx asthma: No wheezing. On Advair, prednisone. VICENTA: On CPAP, but no follow-up. Plan: Fe replacement per Dr. Villanueva. Repeat Lasix, recheck BNP tomorrow. Will start to reduce prednisone Continue CTX Possibly transfer to floor. Outpatient follow-up of VICENTA. 12/16/17 15:54 Subjective: Feels breathing is a bit better. Still a sensation of cough, can't expectoration. Appetite good. Objective: Vital Signs Temp Pulse Resp BP Pulse Ox 36.4 C 93 19 121/102 H 93 12/16/17 12:00 12/16/17 12:00 12/16/17 12:00 12/16/17 12:00 12/16/17 12:00 Laboratory Results 12/16/17 05:25 12/16/17 05:25 12/15/17 12/16/17 12/17/17 05:59 05:59 05:59 Intake Total 400 1861 Output Total 1000 Balance -600 1861 PT 21.8 SEC (12.0-15.0) H 12/14/17 14:45 INR 1.89 (0.83-1.16) H 12/14/17 14:45 CXR: Improved RLL. Images reviewed by me. Physical Exam - Physical Exam General Appearance: alert, no apparent distress EENT: normal ENT inspection Neck: normal inspection Respiratory: crackles, rhonchi (right base) Cardiac/Chest: irregularly irregular, No edema Abdomen: normal bowel sounds, non-tender Skin: normal color, warm/dry Extremities: normal inspection Neuro/Psych: alert, normal mood/affect, oriented x 3 ICD10 Worksheet Patient Problems: Problems Problem Status Onset CHF (congestive heart failure) Acute Cough Acute Pneumonia Acute Shortness of breath Acute chronic disease mgmt/transitional care Acute MRSA - Methicillin resistant Staphylococcus aureus infection Active Bronchitis Acute Primary localized osteoarthritis of left hip Acute
[2017-12-16] MEDS ORDERED: FUROSEMIDE 20 MG/2 ML VIAL IVP ONE (15:56)
--- NOTE | 2017-12-16 16:23 | HOSPPROG ---
Hospitalist Progress Note Assessment/Plan: DIAGNOSES: -acute hypoxemic resp failure -acute R side CHF exacerbation -viral resp illness with human metapneumovirus; high suspicion for secondary bacterial pneumonia with elevated procalcitonin -chronic iron deficiency anemia, currently with microcytic anemia despite oral iron at home; this will aggravate her right-sided heart failure * Will need to begin IV replacement therapy for this * She has had GI assessments in the past without a specific cause found, taking iron replacement orally at home for years -VICENTA and pulmonary HTN * She stopped using her CPAP at home a couple days ago because she was worried that her mask would get into her I * high risk of this being worsened by her ongoing narcotic use particularly if not able to use cpap or bipap for eye -also hx of Asthma * Some wheezing now, suspect acute asthma exacerbation contributing to her current illness -recent glaucoma surgery 2 days ago -Depression and anxiety, recently started on new antidepressant med for these -DM2 on oral meds * Sugars in reasonable range so far but will need to watch closely particularly with her dose of steroid -chronic pain syndrome, chronic daily use of high-dose prescribed narcotics, oxycodone 120 mg daily * Very concerning with her history of sleep apnea * Hard to determine how often she uses her CPAP at home; at 1 point she told me that her machine was not working but on further discussion she admitted that she was worried about using it now because the mask might poke her in the I and she just had glaucoma procedure 2 days ago -chronic stable paroxysmal atrial fibrillation, rate controlled at this time -HTN on medication -hx graves dz PLANS: -given the high procalcitonin will continue antibiotics for her pneumonia; follow cultures -continue bronchodilators and steroid -contact bili solution due to her metapneumo virus -continue lasix -I have asked our respiratory therapist to try and work with of right jauregui see if we can find something she is willing to wear here and use auto titrating device that she does not know her settings at home -minimize narcotic here, and would recommend attempting to wean off those in future as outpt due to VICENTA and pulmonary hypertension -begin iron supplements, will use IV due to recent data showing ineffectiveness of oral iron in chf patients -will need outpt gi w/u for iron defic once resp stable -follow sugars closely Seen by me on multidisciplinary rounds in addition hospitalist rounds today I reviewed in detail with Dr. Jaime Cool today SUBJECTIVE: Little change in shortness of breath from yesterday Feels she is in a better mood today, still some cough No fevers Appetite okay OBJECTIVE Vitals reviewed: So far vitals stable without fever Child Center Assistant, my review: Rate controlled AFib Still requiring significant oxygen Exam: alert oriented, somewhat depressed affect skin warm dry color ok resps remain labored lungs still with diffuse wheezing and rhonchi heart irregular at this time abd soft nondistended nontender, bowel sounds present limbs warm, still with edema though less than yesterday iv site ok Laboratory data: White blood cell count further elevated 17,000 today, possibly due to steroid Hemoglobin is stable at 10.3 and remains microcytic Creatinine slightly improved 1.1, electrolytes good Chest x-ray done today, my review of images: She has some improvement in infiltrates in the lower lobes particularly right lower lobe compared to previous x-ray, some atelectasis is present Microbiology data: Rhino virus found on respiratory pathogen panel Blood cultures negative so far Objective: Vital Signs Temp Pulse Resp BP Pulse Ox 36.4 C 71 15 121/102 H 93 12/16/17 12:00 12/16/17 15:53 12/16/17 15:53 12/16/17 12:00 12/16/17 15:53 Laboratory Results 12/16/17 05:25 12/16/17 05:25 12/15/17 12/16/17 12/17/17 06:59 06:59 06:59 Intake Total 400 1861 Output Total 1000 Balance -600 1861 PT 21.8 SEC (12.0-15.0) H 12/14/17 14:45 INR 1.89 (0.83-1.16) H 12/14/17 14:45 - Time Spent With Patient Time Spent with Patient: greater than 35 minutes Time Spent with Patient: Greater than 35 minutes spent on this patients care, greater than 50% of time spent counseling, educating, and coordinating care regarding the above mentioned plan. ICD10 Worksheet Patient Problems: Problems Problem Status Onset CHF (congestive heart failure) Acute Cough Acute Pneumonia Acute Shortness of breath Acute chronic disease mgmt/transitional care Acute MRSA - Methicillin resistant Staphylococcus aureus infection Active Bronchitis Acute Primary localized osteoarthritis of left hip Acute
[2017-12-16] MEDS: clonazePAM 0.5 MG TAB PO SCH (20:37)
[2017-12-16] MEDS: FLUTICASONE NASAL 120 SPRAYS/16 GM MDI EACHNARE SCH (20:43)
[2017-12-17] MEDS: IPRATROPIUM/ALBUTEROL 3 ML DEYVIAL IH SCH ×4 (05:51→21:16)
[2017-12-17] MEDS: prednisoLONE ACET 1% 5 ML OPHT.BTL LEFTEYE SCH ×4 (06:06→20:00)
[2017-12-17] MEDS: LEVOTHYROXINE 200 MCG TAB PO SCH (06:06)
[2017-12-17] MEDS: SENNOSIDES/DOCUSATE SODIUM TAB PO SCH ×2 (09:03→20:01)
[2017-12-17] MEDS: oxyCODONE CR 30 MG TAB PO SCH ×2 (09:04→20:01)
[2017-12-17] MEDS: FAMOTIDINE 20 MG TAB PO SCH ×2 (09:04→20:02)
[2017-12-17] MEDS: FLUoxetine 20 MG CAP PO SCH (09:04)
[2017-12-17] MEDS: predniSONE 20 MG TAB PO SCH (09:04)
[2017-12-17] MEDS: APIXABAN 5 MG TAB PO SCH ×2 (09:04→20:01)
[2017-12-17] MEDS: buPROPion SR 100 MG TAB PO SCH (09:04)
[2017-12-17] MEDS: ARIPiprazole 2 MG TAB PO SCH (09:05)
[2017-12-17] MEDS: VITAMIN B COMPLEX 1 EA CAP/TAB PO SCH (09:05)
[2017-12-17] MEDS: DILTIAZEM CD 180 MG CAP PO SCH (09:05)
[2017-12-17] MEDS: LISINOPRIL 40 MG TAB PO SCH (09:05)
[2017-12-17] MEDS: DIGOXIN 125 MCG TAB PO SCH (09:05)
[2017-12-17] MEDS: CETIRIZINE 10 MG TAB PO SCH (09:06)
[2017-12-17] MEDS: LIDO/ZINC OX/CLOTRIMAZOLE (MAD) 116 GM CREAM TP SCH ×2 (09:09→20:11)
[2017-12-17] MEDS: FLUTICASONE NASAL 120 SPRAYS/16 GM MDI EACHNARE SCH ×2 (09:10→19:58)
[2017-12-17] MEDS: INSULIN LISPRO 100 UNIT/ML SC SCH ×3 (09:11→18:15)
[2017-12-17] MEDS: DOCUSATE SODIUM 100 MG CAP PO SCH (09:13)
[2017-12-17] MEDS: DOXYCYCLINE INJ 100 MG in NS 250 ML IV SCH (09:14)
[2017-12-17] MEDS: FLUTICASONE/SALMETER 250/50MCG DISKUS IH SCH ×2 (10:51→21:17)
[2017-12-17] MEDS: ESTRADIOL 42.5 GM CRTUBE VG SCH (12:16)
--- NOTE | 2017-12-17 18:08 | HOSPPROG ---
Hospitalist Progress Note Assessment/Plan: DIAGNOSES: -acute hypoxemic resp failure * Very gradual improvement so far, remains quite debilitated by this part of her illness -acute R side CHF exacerbation * Significantly better with diuresis so far -viral resp illness with human metapneumovirus; high suspicion for secondary bacterial pneumonia with elevated procalcitonin -new issue today severe hypertension onset this evening * Has had some very mild elevations in blood pressures prior to this but nothing like current numbers; no uncontrolled pain or other obvious cause * Will recheck and 0.5 hr, may need to add additional blood pressure medicine -chronic iron deficiency anemia, currently with microcytic anemia despite oral iron at home; this will aggravate her right-sided heart failure * Will need to begin IV replacement therapy for this * She has had GI assessments in the past without a specific cause found, taking iron replacement orally at home for years -VICENTA and pulmonary HTN * She stopped using her CPAP at home a couple days ago because she was worried that her mask would get into her I * high risk of this being worsened by her ongoing narcotic use particularly if not able to use cpap or bipap for eye -also hx of Asthma * Some wheezing now, suspect acute asthma exacerbation contributing to her current illness -recent glaucoma surgery 2 days ago -Depression and anxiety, recently started on new antidepressant med for these -DM2 on oral meds * Sugars in reasonable range so far but will need to watch closely particularly with her dose of steroid -chronic pain syndrome, chronic daily use of high-dose prescribed narcotics, oxycodone 120 mg daily * Very concerning with her history of sleep apnea * Hard to determine how often she uses her CPAP at home; at 1 point she told me that her machine was not working but on further discussion she admitted that she was worried about using it now because the mask might poke her in the I and she just had glaucoma procedure 2 days ago -chronic stable paroxysmal atrial fibrillation, rate controlled at this time -HTN on medication -hx graves dz PLANS: -recheck blood pressure half an hour than decide on potentially adding further treatment for that -given the high procalcitonin will continue antibiotics for her pneumonia; follow cultures -continue bronchodilators and steroid -contact bili solution due to her metapneumo virus -continue lasix -I have asked our respiratory therapist to try and work with CPAP mask see if we can find something she is willing to wear here and use auto titrating device that she does not know her settings at home -repeat chest x-ray Morning -in addition to current sliding scale insulin will add some standing orders for pre meal insulin schedule doses help with postprandial sugars, further adjustments as indicated -minimize narcotic here, and would recommend attempting to wean off those in future as outpt due to VICENTA and pulmonary hypertension -continue iron supplements, will use IV due to recent data showing ineffectiveness of oral iron in chf patients -continue to attempt to increase mobility as able Seen by me on multidisciplinary rounds in addition hospitalist rounds today I reviewed in detail with Dr. Jaime Cool today SUBJECTIVE: Today she admits to a slight improvement in shortness of breath but still short of breath at rest with walking has to stop every few feet with oxygen on Cough is better, no chest pain No fevers Appetite okay OBJECTIVE Vitals reviewed: Overnight last night and early today there was some occasional very mild hypertension. At this moment she has a diastolic recording of 117 with systolic and high 160s, vitals otherwise unchanged with no fever at this time Acute Care Physician, my review: Rate controlled AFib Still requiring significant oxygen Exam: alert oriented, affect a bit less depressed at this point skin warm dry color ok resps remain mildly labored lungs still with diffuse wheezing and rhonchi little change from yesterday heart irregular at this time abd soft nondistended nontender, bowel sounds present limbs warm, still with edema though less than yesterday iv site ok Laboratory data: Creatinine stable BUN actually improved but today Blood sugars quite variable now with morning sugars as low as 118 and some of the postprandial numbers as high as 300s, likely related to steroid Microbiology data: Rhino virus found on respiratory pathogen panel Blood cultures negative so far Objective: Vital Signs Temp Pulse Resp BP Pulse Ox 36.6 C 82 18 167/113 H 94 12/17/17 17:30 12/17/17 17:30 12/17/17 17:30 12/17/17 17:30 12/17/17 17:30 Laboratory Results 12/16/17 05:25 12/17/17 06:00 12/16/17 12/17/17 12/18/17 06:59 06:59 06:59 Intake Total 1861 2300 Balance 1861 2300 PT 21.8 SEC (12.0-15.0) H 12/14/17 14:45 INR 1.89 (0.83-1.16) H 12/14/17 14:45 - Time Spent With Patient Time Spent with Patient: greater than 35 minutes Time Spent with Patient: Greater than 35 minutes spent on this patients care, greater than 50% of time spent counseling, educating, and coordinating care regarding the above mentioned plan. ICD10 Worksheet Patient Problems: Problems Problem Status Onset CHF (congestive heart failure) Acute Cough Acute Pneumonia Acute Shortness of breath Acute chronic disease mgmt/transitional care Acute MRSA - Methicillin resistant Staphylococcus aureus infection Active Bronchitis Acute Primary localized osteoarthritis of left hip Acute
[2017-12-17] MEDS: DOXYCYCLINE HYCLATE 100 MG CAP/TAB PO SCH (20:02)
[2017-12-17] MEDS: clonazePAM 0.5 MG TAB PO SCH (20:02)
[2017-12-17] MEDS ORDERED: INSULIN LISPRO 100 UNIT/ML SC ONE (22:30)
[2017-12-18] MEDS: IPRATROPIUM/ALBUTEROL 3 ML DEYVIAL IH SCH ×4 (04:55→21:15)
[2017-12-18] MEDS: FLUTICASONE/SALMETER 250/50MCG DISKUS IH SCH ×2 (05:03→21:16)
[2017-12-18] MEDS: prednisoLONE ACET 1% 5 ML OPHT.BTL LEFTEYE SCH ×4 (05:39→19:45)
[2017-12-18] MEDS: LEVOTHYROXINE 200 MCG TAB PO SCH (05:39)
[2017-12-18] MEDS: FAMOTIDINE 20 MG TAB PO SCH ×2 (07:38→19:46)
[2017-12-18] MEDS: DOXYCYCLINE HYCLATE 100 MG CAP/TAB PO SCH ×2 (07:38→19:48)
[2017-12-18] MEDS: DILTIAZEM CD 180 MG CAP PO SCH (07:38)
[2017-12-18] MEDS: FLUoxetine 20 MG CAP PO SCH (07:38)
[2017-12-18] MEDS: oxyCODONE CR 30 MG TAB PO SCH ×2 (07:39→19:46)
[2017-12-18] MEDS: APIXABAN 5 MG TAB PO SCH ×2 (07:39→19:48)
[2017-12-18] MEDS: DOCUSATE SODIUM 100 MG CAP PO SCH (07:39)
[2017-12-18] MEDS: SENNOSIDES/DOCUSATE SODIUM TAB PO SCH ×2 (07:39→19:47)
[2017-12-18] MEDS: predniSONE 20 MG TAB PO SCH (07:40)
[2017-12-18] MEDS: CETIRIZINE 10 MG TAB PO SCH (07:40)
[2017-12-18] MEDS: VITAMIN B COMPLEX 1 EA CAP/TAB PO SCH (07:40)
[2017-12-18] MEDS: LISINOPRIL 40 MG TAB PO SCH (07:40)
[2017-12-18] MEDS: INSULIN LISPRO 100 UNIT/ML SC SCH ×5 (07:41→18:48)
[2017-12-18] MEDS: FLUTICASONE NASAL 120 SPRAYS/16 GM MDI EACHNARE SCH ×2 (07:41→19:45)
[2017-12-18] MEDS: buPROPion SR 100 MG TAB PO SCH (07:41)
[2017-12-18] MEDS: LIDO/ZINC OX/CLOTRIMAZOLE (MAD) 116 GM CREAM TP SCH ×2 (07:42→19:54)
[2017-12-18] MEDS: ARIPiprazole 2 MG TAB PO SCH (08:39)
[2017-12-18] MEDS: SODIUM FERRIC GLUCONAT/SUCROSE 125 MG in NS 100 ML IV SCH (08:39)
[2017-12-18] MEDS: DIGOXIN 125 MCG TAB PO SCH (12:28)
--- NOTE | 2017-12-18 16:00 | ASMTCMCOM ---
CM Note CM Note Notes: Spoke w/pt, she lives at [facility]. PT/OT recommend home care, pt states she has an RN from [facility] that comes for medication management. CM faxed referral to add PT/OT. DC Plan: Home care/ [facility] (RN/PT/OT) Date Signed: 12/18/2017 04:00 PM Electronically Signed By:Nola Grove RN
[2017-12-18] MEDS ORDERED: INSULIN LISPRO 100 UNIT/ML SC SCH (17:23)
--- NOTE | 2017-12-18 18:41 | HOSPPROG ---
Hospitalist Progress Note Assessment/Plan: DIAGNOSES: -acute hypoxemic resp failure * Very gradual improvement so far, remains quite debilitated by this part of her illness -acute R side CHF exacerbation * Significantly better with diuresis so far -viral resp illness with human metapneumovirus; high suspicion for secondary bacterial pneumonia with elevated procalcitonin -new issue today severe hypertension onset this evening * Has had some very mild elevations in blood pressures prior to this but nothing like current numbers; no uncontrolled pain or other obvious cause * Will recheck and 0.5 hr, may need to add additional blood pressure medicine -chronic iron deficiency anemia, currently with microcytic anemia despite oral iron at home; this will aggravate her right-sided heart failure * Will need to begin IV replacement therapy for this * She has had GI assessments in the past without a specific cause found, taking iron replacement orally at home for years -VICENTA and pulmonary HTN * She stopped using her CPAP at home a couple days ago because she was worried that her mask would get into her I * high risk of this being worsened by her ongoing narcotic use particularly if not able to use cpap or bipap for eye -also hx of Asthma * Some wheezing now, suspect acute asthma exacerbation contributing to her current illness -recent glaucoma surgery 2 days ago -Depression and anxiety, recently started on new antidepressant med for these -DM2 on oral meds * Sugars in reasonable range so far but will need to watch closely particularly with her dose of steroid -chronic pain syndrome, chronic daily use of high-dose prescribed narcotics, oxycodone 120 mg daily * Very concerning with her history of sleep apnea * Hard to determine how often she uses her CPAP at home; at 1 point she told me that her machine was not working but on further discussion she admitted that she was worried about using it now because the mask might poke her in the I and she just had glaucoma procedure 2 days ago -chronic stable paroxysmal atrial fibrillation, rate controlled at this time -HTN on medication -hx graves dz PLANS: -continue current antibiotics, bronchodilators, steroid -continue to increase ambulation as able -have increased her pre meal insulin further (she was declining a lot of the new pre meal insulin orders that I placed yesterday so far but I have reviewed this with her and she is accepting of our my recommendation that at this point) -continue usual chronic treatments for AFib at this time -has had 2 doses of IV iron, will continue oral iron -repeat labs in the morning -continue DVT prophylaxis SUBJECTIVE: Still extremely limited ambulation due to her dyspnea, perhaps feeling like she gets the bed Avante easier breath overall today Cough is better, no chest pain No fevers Appetite okay OBJECTIVE Vitals reviewed: Still some intermittent mild hypertension and some intermittent mild tachycardia, no fever Digital Advertising Specialist, my review: Rate controlled AFib Still requiring significant oxygen Exam: alert oriented, affect a bit less depressed at this point skin warm dry color ok resps remain mildly labored lungs moving air notably better today than yesterday but still with a prolonged expiration and some diffuse expiratory wheeze heart irregular at this time abd soft nondistended nontender, bowel sounds present limbs warm, still with edema though less than yesterday iv site ok Laboratory data: Creatinine stable BUN actually improved but today Blood sugars still good at fasting a.m. But still fairly high postprandial; she has been declining they recommended increasing meal insulin doses so far Microbiology data: Rhino virus found on respiratory pathogen panel Blood cultures negative so far, still preliminary status Chest x-ray done today, reviewed by me my interpretation: Little change, currently mostly showing hyperexpansion, some persisting bibasilar acute density of infiltrate, some atelectasis and probably some old scar Objective: Vital Signs Temp Pulse Resp BP Pulse Ox 36.4 C 71 16 162/91 H 95 12/18/17 15:38 12/18/17 16:37 12/18/17 16:37 12/18/17 15:38 12/18/17 16:37 Laboratory Results 12/16/17 05:25 12/17/17 06:00 12/17/17 12/18/17 12/19/17 06:59 06:59 06:59 Intake Total 2300 55 Balance 2300 55 PT 21.8 SEC (12.0-15.0) H 12/14/17 14:45 INR 1.89 (0.83-1.16) H 12/14/17 14:45 - Time Spent With Patient Time Spent with Patient: greater than 35 minutes Time Spent with Patient: Greater than 35 minutes spent on this patients care, greater than 50% of time spent counseling, educating, and coordinating care regarding the above mentioned plan. ICD10 Worksheet Patient Problems: Problems Problem Status Onset CHF (congestive heart failure) Acute Cough Acute Pneumonia Acute Shortness of breath Acute chronic disease mgmt/transitional care Acute MRSA - Methicillin resistant Staphylococcus aureus infection Active Bronchitis Acute Primary localized osteoarthritis of left hip Acute
[2017-12-18] MEDS: clonazePAM 0.5 MG TAB PO SCH (19:49)
[2017-12-19] MEDS: IPRATROPIUM/ALBUTEROL 3 ML DEYVIAL IH SCH ×4 (05:15→21:06)
[2017-12-19] MEDS: prednisoLONE ACET 1% 5 ML OPHT.BTL LEFTEYE SCH ×4 (05:16→19:34)
[2017-12-19] MEDS: LEVOTHYROXINE 200 MCG TAB PO SCH (05:16)
[2017-12-19] MEDS: FLUoxetine 20 MG CAP PO SCH (07:35)
[2017-12-19] MEDS: ARIPiprazole 2 MG TAB PO SCH (07:36)
[2017-12-19] MEDS: CETIRIZINE 10 MG TAB PO SCH (07:36)
[2017-12-19] MEDS: LISINOPRIL 40 MG TAB PO SCH (07:36)
[2017-12-19] MEDS: SENNOSIDES/DOCUSATE SODIUM TAB PO SCH ×2 (07:36→19:36)
[2017-12-19] MEDS: VITAMIN B COMPLEX 1 EA CAP/TAB PO SCH (07:36)
[2017-12-19] MEDS: DOXYCYCLINE HYCLATE 100 MG CAP/TAB PO SCH ×2 (07:36→19:37)
[2017-12-19] MEDS: oxyCODONE CR 30 MG TAB PO SCH ×2 (07:36→19:35)
[2017-12-19] MEDS: APIXABAN 5 MG TAB PO SCH ×2 (07:36→19:35)
[2017-12-19] MEDS: DILTIAZEM CD 180 MG CAP PO SCH (07:37)
[2017-12-19] MEDS: buPROPion SR 100 MG TAB PO SCH (07:37)
[2017-12-19] MEDS: DOCUSATE SODIUM 100 MG CAP PO SCH (07:37)
[2017-12-19] MEDS: FAMOTIDINE 20 MG TAB PO SCH ×2 (07:37→19:37)
[2017-12-19] MEDS: predniSONE 20 MG TAB PO SCH (07:37)
[2017-12-19] MEDS: INSULIN LISPRO 100 UNIT/ML SC SCH ×6 (07:38→17:32)
[2017-12-19] MEDS: LIDO/ZINC OX/CLOTRIMAZOLE (MAD) 116 GM CREAM TP SCH ×2 (07:39→19:37)
[2017-12-19] MEDS: FLUTICASONE NASAL 120 SPRAYS/16 GM MDI EACHNARE SCH ×2 (07:40→23:04)
--- NOTE | 2017-12-19 09:45 | WOCRNPDOC ---
WOCRN Advanced Assessment Note - Skin Integrity Problem, Advanced Assess Right Upper Thigh Dressing Type: Telfa, Other Other Dressing Type: Medipore tape Dressing Description: Clean/Dry, Intact Exudate Amount: None Integumentary Issue Intervention: Visualized Under Dressing Erin Wound Tissue: Intact Erin Wound Swelling: None Wound Bed Color: Brown Wound Bed Constitution: Scab Site Odor: None Site Measurement - Head-to-Toe Length X Width X Depth (cm): 0.4cmx0.7cmx scab Skin Integrity Problem Comment: Discrete scab noted to R upper thigh, no swelling or exudate observed. per patient, this is a biopsy site. Will have nursing apply Silvasorb and Allevyn to protect site. No need for wound care to follow this patient ongoing. Please reconsult as needed. Right First Toe Dressing Type: Other Other Dressing Type: Medipore tape Dressing Description: Clean/Dry, Intact Exudate Amount: None Integumentary Issue Intervention: Dressing Removed Erin Wound Tissue: Calloused Erin Wound Swelling: None Wound Bed Color: Brown Wound Bed Constitution: Scab Site Odor: None Site Measurement - Head-to-Toe Length X Width X Depth (cm): [id number] Skin Integrity Problem Comment: Intact scab noted to medial aspect of R great toe. Per patient this is also a biopsy site. Calloused skin periwound, otherwise no swelling or erythema. Will have nursing apply Povidone Iodine swab BID to keep scab intact/dry. No need for wound care to follow this patient ongoing. Please reconsult as needed.
[2017-12-19] MEDS: SODIUM FERRIC GLUCONAT/SUCROSE 125 MG in NS 100 ML IV SCH (09:47)
[2017-12-19] MEDS: FLUTICASONE/SALMETER 250/50MCG DISKUS IH SCH ×2 (10:26→19:37)
--- NOTE | 2017-12-19 10:33 | HOSPPROG ---
Hospitalist Progress Note Assessment/Plan: Patient is a 72-year-old female with a history of pulmonary hypertension, atrial fibrillation who presented the emergency room with increased work of breathing. Prior to admission she had a glaucoma surgery performed [facility] and had been feeling well prior to that. She also is complaining of cough that started 4 days prior to being admitted she has a CPAP at home in which she had not been using. Today is my 1st encounter with the patient. Chart reviewed. * acute hypoxemic respiratory failure -reviewed her most current chest xray *acute right sided heart failure -lasix resumed at half dose of home dose to see how she does * leukocytosis -likely elevation in white blood cell count due to prednisone * upper respiratory viral illness -noted to have human metapneumovirus -with an elevated procalcitonin there is a high suspicion she has a bacterial pneumonia -continue antibiotics * hypertension -bp elevated this morning * iron deficiency anemia -has been given IV iron * obstructive sleep apnea and pulmonary hypertension -she has stopped using her CPAP, it is important she continue this * asthma history * depression and anxiety -started on a new antidepressant * diabetes type 2 on oral medications -now added on insulin * chronic pain syndrome on high-dose narcotics, oxycodone 120 mg daily -this is concerning because this likely affects her breathing at night * chronic paroxysmal atrial fibrillation, rate controlled * history of Graves disease *Plan: patient lives alone, had an aid that helped her, but the patient isn't sure she is still available. Doubtful if Martin can give herself insulin. Will ask ST to do a cognitive evaluation Subjective: Martin is feeling tired and weak. Objective: Vital Signs Temp Pulse Resp BP Pulse Ox 36.9 C 80 20 166/98 H 98 12/19/17 07:24 12/19/17 09:29 12/19/17 07:24 12/19/17 09:29 12/19/17 07:24 Laboratory Results 12/16/17 05:25 12/17/17 06:00 12/18/17 12/19/17 12/20/17 05:59 05:59 05:59 Intake Total 55 Balance 55 PT 21.8 SEC (12.0-15.0) H 12/14/17 14:45 INR 1.89 (0.83-1.16) H 12/14/17 14:45 - Physical Exam Constitutional: not in pain, chronically ill appearing Eyes: PERRL Ears, Nose, Mouth, Throat: hearing normal Cardiovascular: regular rate and rhythym, edema (bilateral lower extremity) Respiratory: reduced air movement, rhonchi Gastrointestinal: normoactive bowel sounds, distension (abdomen) Skin: warm Musculoskeletal: generalized weakness Neurologic: AAOx3 Psychiatric: interacting appropriately, poor insight ICD10 Worksheet Patient Problems: Problems Problem Status Onset CHF (congestive heart failure) Acute Cough Acute Pneumonia Acute Shortness of breath Acute chronic disease mgmt/transitional care Acute MRSA - Methicillin resistant Staphylococcus aureus infection Active Bronchitis Acute Primary localized osteoarthritis of left hip Acute
[2017-12-19] MEDS: DIGOXIN 125 MCG TAB PO SCH (10:56)
[2017-12-19] MEDS: POLYETHYLENE GLYCOL 3350 17 GM PKT PO PRN ×2 (17:31→17:33)
[2017-12-19] MEDS: clonazePAM 0.5 MG TAB PO SCH (19:37)
[2017-12-20] MEDS: IPRATROPIUM/ALBUTEROL 3 ML DEYVIAL IH SCH ×4 (04:32→21:01)
[2017-12-20] MEDS: LEVOTHYROXINE 200 MCG TAB PO SCH (05:02)
[2017-12-20] MEDS: prednisoLONE ACET 1% 5 ML OPHT.BTL LEFTEYE SCH ×4 (05:02→22:34)
[2017-12-20 05:11] LABS: PLATELET COUNT 234 10^3/uL (150-400)
[2017-12-20] MEDS: INSULIN LISPRO 100 UNIT/ML SC SCH ×6 (08:18→17:11)
[2017-12-20] MEDS: oxyCODONE CR 30 MG TAB PO SCH ×2 (08:19→22:31)
[2017-12-20] MEDS: LISINOPRIL 40 MG TAB PO SCH (08:20)
[2017-12-20] MEDS: SENNOSIDES/DOCUSATE SODIUM TAB PO SCH ×2 (08:20→22:32)
[2017-12-20] MEDS: ARIPiprazole 2 MG TAB PO SCH (08:21)
[2017-12-20] MEDS: FLUoxetine 20 MG CAP PO SCH (08:21)
[2017-12-20] MEDS: APIXABAN 5 MG TAB PO SCH ×2 (08:21→22:32)
[2017-12-20] MEDS: DOCUSATE SODIUM 100 MG CAP PO SCH (08:22)
[2017-12-20] MEDS: predniSONE 20 MG TAB PO SCH (08:23)
[2017-12-20] MEDS: DOXYCYCLINE HYCLATE 100 MG CAP/TAB PO SCH ×2 (08:24→22:32)
[2017-12-20] MEDS: FUROSEMIDE 40 MG TAB PO SCH ×3 (08:25→22:38)
[2017-12-20] MEDS: DILTIAZEM CD 180 MG CAP PO SCH (08:25)
[2017-12-20] MEDS: VITAMIN B COMPLEX 1 EA CAP/TAB PO SCH (08:25)
[2017-12-20] MEDS: CETIRIZINE 10 MG TAB PO SCH (08:25)
[2017-12-20] MEDS: buPROPion SR 100 MG TAB PO SCH (08:26)
[2017-12-20] MEDS: LIDO/ZINC OX/CLOTRIMAZOLE (MAD) 116 GM CREAM TP SCH ×2 (08:40→22:35)
[2017-12-20] MEDS: FLUTICASONE NASAL 120 SPRAYS/16 GM MDI EACHNARE SCH ×2 (08:40→22:38)
[2017-12-20] MEDS: FAMOTIDINE 20 MG TAB PO SCH ×2 (08:41→22:32)
[2017-12-20] MEDS: FLUTICASONE/SALMETER 250/50MCG DISKUS IH SCH ×3 (09:00→21:03)
[2017-12-20] MEDS: SODIUM FERRIC GLUCONAT/SUCROSE 125 MG in NS 100 ML IV SCH (11:10)
[2017-12-20] MEDS: DIGOXIN 125 MCG TAB PO SCH (11:10)
[2017-12-20] MEDS: ESTRADIOL 42.5 GM CRTUBE VG SCH ×2 (11:11→17:04)
--- NOTE | 2017-12-20 14:00 | HOSPPROG ---
Hospitalist Progress Note Assessment/Plan: Patient is a 72-year-old female with a history of pulmonary hypertension, atrial fibrillation who presented the emergency room with increased work of breathing. Prior to admission she had a glaucoma surgery performed [facility] and had been feeling well prior to that. She also is complaining of cough that started 4 days prior to being admitted she has a CPAP at home in which she had not been using. * acute hypoxemic respiratory failure -reviewed her most current chest xray *acute right sided heart failure -lasix resumed -full dose of 80 mg bid to start tomorrow * leukocytosis -likely elevation in white blood cell count due to prednisone * upper respiratory viral illness -noted to have human metapneumovirus -with an elevated procalcitonin there is a high suspicion she has a bacterial pneumonia -has received full treatment w abx, dc today * hypertension -bp better but has been very high during her stay -spoke with her PCP, Dr Nowak. He would like a manager games to see her, she has had a elevated PTH of 250, has seen Dr Rowe in the past/spoke w nephrology and will see her during her stay * iron deficiency anemia -has been given IV iron * obstructive sleep apnea and pulmonary hypertension -she has stopped using her CPAP, it is important she continue this * asthma history * depression and anxiety -started on a new antidepressant -better * diabetes type 2 on oral medications -now added on insulin -will decrease prednisone -patient says she will not take insulin at home * chronic pain syndrome on high-dose narcotics, oxycodone 120 mg daily -this is concerning because this likely affects her breathing at night * chronic paroxysmal atrial fibrillation, rate controlled * history of Graves disease *Plan: reviewed speech therapy notes, appreciate their involvement. Appreciate nephrology seeing Martin. Martin said she will not go to a SNF and will only return home, Will try to optimize her medically prior to dc. Suspect, she will be discharged later this week. Subjective: Martin is feeling better today Objective: Vital Signs Temp Pulse Resp BP Pulse Ox 36.5 C 78 18 136/91 H 95 12/20/17 11:34 12/20/17 11:34 12/20/17 11:34 12/20/17 11:34 12/20/17 11:34 Microbiology 12/14/17 17:45 Blood Culture - Final Blood Laboratory Results 12/20/17 04:45 12/20/17 04:45 12/19/17 12/20/17 12/21/17 05:59 05:59 05:59 Intake Total 1000 Balance 1000 PT 21.8 SEC (12.0-15.0) H 12/14/17 14:45 INR 1.89 (0.83-1.16) H 12/14/17 14:45 - Physical Exam Constitutional: appears nourished, not in pain, chronically ill appearing Eyes: PERRL Ears, Nose, Mouth, Throat: hearing normal Cardiovascular: regular rate and rhythym Respiratory: no respiratory distress, no rales or rhonchi, reduced air movement Gastrointestinal: other (large and rounded, patient wouldn't let me evaluate her abdomen; says she has hernia's ) Skin: warm, No normal color (pale) Musculoskeletal: generalized weakness Neurologic: AAOx3 Psychiatric: interacting appropriately ICD10 Worksheet Patient Problems: Problems Problem Status Onset CHF (congestive heart failure) Acute Cough Acute Pneumonia Acute Shortness of breath Acute chronic disease mgmt/transitional care Acute MRSA - Methicillin resistant Staphylococcus aureus infection Active Bronchitis Acute Primary localized osteoarthritis of left hip Acute
[2017-12-20] MEDS: clonazePAM 0.5 MG TAB PO SCH (22:31)
[2017-12-21] MEDS: LEVOTHYROXINE 200 MCG TAB PO SCH (05:03)
[2017-12-21] MEDS: IPRATROPIUM/ALBUTEROL 3 ML DEYVIAL IH SCH ×4 (05:14→20:52)
[2017-12-21] MEDS: FLUTICASONE NASAL 120 SPRAYS/16 GM MDI EACHNARE SCH ×2 (05:25→19:39)
[2017-12-21] MEDS: prednisoLONE ACET 1% 5 ML OPHT.BTL LEFTEYE SCH ×4 (05:25→19:40)
[2017-12-21] MEDS: INSULIN LISPRO 100 UNIT/ML SC SCH ×6 (08:03→18:26)
[2017-12-21] MEDS: oxyCODONE CR 30 MG TAB PO SCH ×2 (08:30→19:34)
[2017-12-21] MEDS: SENNOSIDES/DOCUSATE SODIUM TAB PO SCH ×2 (08:31→19:34)
[2017-12-21] MEDS: buPROPion SR 100 MG TAB PO SCH (08:31)
[2017-12-21] MEDS: DOCUSATE SODIUM 100 MG CAP PO SCH (08:31)
[2017-12-21] MEDS: APIXABAN 5 MG TAB PO SCH ×2 (08:33→19:32)
[2017-12-21] MEDS: FAMOTIDINE 20 MG TAB PO SCH ×2 (08:33→19:34)
[2017-12-21] MEDS: LISINOPRIL 40 MG TAB PO SCH (08:33)
[2017-12-21] MEDS: VITAMIN B COMPLEX 1 EA CAP/TAB PO SCH (08:33)
[2017-12-21] MEDS: ARIPiprazole 2 MG TAB PO SCH (08:33)
[2017-12-21] MEDS: FUROSEMIDE 40 MG TAB PO SCH ×2 (08:33→13:56)
[2017-12-21] MEDS: DIGOXIN 125 MCG TAB PO SCH ×2 (08:33→08:40)
[2017-12-21] MEDS: predniSONE 20 MG TAB PO SCH (08:33)
[2017-12-21] MEDS: CETIRIZINE 10 MG TAB PO SCH (08:34)
[2017-12-21] MEDS: FLUoxetine 20 MG CAP PO SCH (08:34)
[2017-12-21] MEDS: LIDO/ZINC OX/CLOTRIMAZOLE (MAD) 116 GM CREAM TP SCH ×2 (08:42→19:39)
[2017-12-21] MEDS: DILTIAZEM CD 180 MG CAP PO SCH (08:42)
--- NOTE | 2017-12-21 09:17 | PDCONSULT ---
Loan Processing Supervisor Note: Nephrology Consult Note CC: Shortness of breath HPI: The patient is a 72 y/o F with a known h/o pulmonary HTN, atrial fibrillation,and chronic pain syndrome who presented to the ED on 12/14/17 for shortness of breath and cough. She was recently treated for PNA and had an outpatient surgery for glaucoma. She also c/o increased LE edema as well. She admits to not wearing her CPAP for sleep apnea. She was treated with increased doses of lasix and has improved throughout her hospitalization, however continues to have high BP's into the 200's systolic. Today, the patient states that she began to have extremely uncontrolled BP's about 1 year ago when she needed a hip replacement and was in a tremendous amount of pain. She saw Dr. Montez Rowe, sound printer, 4 years ago for some proteinuria, thought to be 2/ 2 to her pre-DM state, and she now takes metformin. She started lasix in July per cardiology and felt like it was working well initially and then stopped working. She has no issues with urination that she is aware. PMH: Atrial fibrillation, diabetes, VICENTA, chronic pain syndrome, HTN, asthma, depression, h/o Graves disease Allergies: Radioactive iodine, pravastatin, lidoderm Meds: Reviewed OCT. Social Hx: No use of ETOH or tobacco products. Family Hx: No h/o renal disease. Objective: Temp Pulse Resp BP Pulse Ox 36.4 C 73 20 186/87 H 92 12/21/17 07:40 12/21/17 07:40 12/21/17 07:40 12/21/17 07:40 12/21/17 07:40 O2 (L/minute) 2 Physical Exam: General: Ill-appearing, pale HEENT: EOMI, no trauma, MMM Neck: Supple, no thyromegaly Resp: Poor inspiratory effort, no wheezing, no crackles CV: Irregular, soft murmur, no rub Abdomen: Distended, hernia present, +BS Ext: 2-3+ edema to thighs Neuro: Non-focal Skin: No rashes noted Psych: Alert and oriented, appropriate, cooperative, somewhat depressed mood Labs: WBC 13.62 10^3/uL (3.80-9.50) H 12/20/17 04:45 RBC 3.78 10^6/uL (4.18-5.33) L 12/20/17 04:45 Hgb 9.1 g/dL (12.6-16.3) L 12/20/17 04:45 Hct 29.3 % (38.0-47.0) L 12/20/17 04:45 MCV 77.5 fL (81.5-99.8) L 12/20/17 04:45 MCH 24.1 pg (27.9-34.1) L 12/20/17 04:45 MCHC 31.1 g/dL (32.4-36.7) L 12/20/17 04:45 RDW 15.4 % (11.5-15.2) H 12/20/17 04:45 Plt Count 234 10^3/uL (150-400) 12/20/17 04:45 MPV 9.9 fL (8.7-11.7) 12/20/17 04:45 Neut % (Auto) Not Reported 12/20/17 04:45 Lymph % (Auto) Not Reported 12/20/17 04:45 [place] % (Auto) Not Reported 12/20/17 04:45 Eos % (Auto) Not Reported 12/20/17 04:45 Baso % (Auto) Not Reported 12/20/17 04:45 Nucleat RBC Rel Count 0.0 % (0.0-0.2) 12/20/17 04:45 Absolute Neuts (auto) Not Reported 12/20/17 04:45 Absolute Lymphs (auto) Not Reported 12/20/17 04:45 Absolute Monos (auto) Not Reported 12/20/17 04:45 Absolute Eos (auto) Not Reported 12/20/17 04:45 Absolute Basos (auto) Not Reported 12/20/17 04:45 Absolute Nucleated RBC 0.00 10^3/uL (0-0.01) 12/20/17 04:45 Immature Gran % Not Reported 12/20/17 04:45 Seg Neutrophils % 83 % 12/20/17 04:45 Band Neutrophils % 2 % 12/20/17 04:45 Lymphocytes % 6 % 12/20/17 04:45 Monocytes % 6 % 12/20/17 04:45 Metamyelocytes % 2 % 12/20/17 04:45 Myelocytes % 1 % 12/20/17 04:45 Immature Gran # Not Reported 12/20/17 04:45 Absolute Seg Neuts 11.30 10^/uL (1.70-6.50) H 12/20/17 04:45 Absolute Band Neuts 0.27 10^3/uL (0.00-0.70) 12/20/17 04:45 Absolute Lymphocytes 0.82 10^3/uL (1.00-3.00) L 12/20/17 04:45 Absolute Monocytes 0.82 10^3/uL (0.30-0.80) H 12/20/17 04:45 Absolute Metamyelocyte 0.27 10^3/mL (0.00-0.00) H 12/20/17 04:45 Absolute Myelocytes 0.14 10^3/mL (0.00-0.00) H 12/20/17 04:45 RBC/WBC/PLT Morphology NORMAL (NORMAL) 12/16/17 05:25 Toxic Granulation PRESENT H 12/20/17 04:45 Platelet Estimate ADEQUATE (ADEQ) 12/20/17 04:45 Hypochromasia 1+ H 12/20/17 04:45 Basophilic Stippling 1+ H 12/20/17 04:45 Microcytic Cells 1+ H 12/20/17 04:45 Smear Review By Roxanne PETERSEN MD 12/20/17 04:45 PT 21.8 SEC (12.0-15.0) H 12/14/17 14:45 INR 1.89 (0.83-1.16) H 12/14/17 14:45 APTT 61.9 SEC (23.0-38.0) H 12/14/17 14:45 VBG Lactic Acid 1.1 mmol/L (0.7-2.1) 12/14/17 16:05 Sodium 135 mEq/L (135-145) 12/20/17 04:45 Potassium 4.8 mEq/L (3.5-5.2) 12/20/17 04:45 Chloride 105 mEq/L (97-110) 12/20/17 04:45 Carbon Dioxide 27 mEq/l (22-31) 12/20/17 04:45 Anion Gap 3 mEq/L (8-16) L 12/20/17 04:45 BUN 27 mg/dL (7-23) H 12/20/17 04:45 Creatinine 0.8 mg/dL (0.6-1.0) 12/20/17 04:45 Estimated GFR > 60 12/20/17 04:45 Glucose 98 mg/dL (70-100) 12/20/17 04:45 POC Glucose 108 mg/dL (70-100) H 12/21/17 07:47 Calcium 9.2 mg/dL (8.5-10.4) 12/20/17 04:45 Iron 19.0 mcg/dL (37.0-170.0) L 12/15/17 05:38 TIBC 254 ug/dL (260-490) L 12/15/17 05:38 Iron Saturation 8 % (20-55) L 12/15/17 05:38 Ferritin 58.1 ng/mL (6.2-264.0) 12/15/17 05:38 Total Bilirubin 0.6 mg/dL (0.1-1.4) 12/14/17 14:45 Troponin I 0.023 ng/mL (0.000-0.034) 12/14/17 21:05 NT-Pro-B Natriuret Pep 4500 pg/mL (0-125) H 12/20/17 04:45 Procalcitonin 1.55 ng/mL (0.02-0.10) H 12/15/17 05:38 Urine Color YELLOW 12/14/17 22:20 Urine Appearance CLEAR 12/14/17 22:20 Urine pH 6.0 (5.0-7.5) 12/14/17 22:20 Ur Specific [place] 1.011 (1.002-1.030) 12/14/17 22:20 Urine Protein 2+ (NEGATIVE) H 12/14/17 22:20 Urine Ketones NEGATIVE (NEGATIVE) 12/14/17 22:20 Urine Blood NEGATIVE (NEGATIVE) 12/14/17 22:20 Urine Nitrate NEGATIVE (NEGATIVE) 12/14/17 22:20 Urine Bilirubin NEGATIVE (NEGATIVE) 12/14/17 22:20 Urine Urobilinogen NEGATIVE EU (0.2-1.0) 12/14/17 22:20 Ur Leukocyte Esterase NEGATIVE (NEGATIVE) 12/14/17 22:20 Urine RBC 1-3 /hpf (0-3) 12/14/17 22:20 Urine WBC 1-3 /hpf (0-3) 12/14/17 22:20 Ur Epithelial Cells TRACE /lpf (NONE-1+) 12/14/17 22:20 Urine Mucus TRACE /lpf (NONE-1+) 12/14/17 22:20 Urine Glucose NEGATIVE (NEGATIVE) 12/14/17 22:20 Digoxin 0.8 ng/mL (0.8-2.0) 12/14/17 14:45 Imaging: No renal US noted in system. A/P: The patient is a 72 y/o F with multiple medical issues who presented with SOB 2/2 to recent PNA, volume overload and uncontrolled HTN despite being on several medications. Etiology most likely pulmonary HTN with right sided CHF 2/ 2 to VICENTA. BP's appear controlled at times and may also have some rebound HTN 2/ 2 to use of clonidine vs other secondary causes as below. -currently on lasix 40mg, diltiazem 360mg, lasix 80mg BID, and clonidine .1mg BID -ordered renal US with doppler to screen for ADRIANNA -obtain renin:tri (not on BB) -consider adding metolazone to lasix as patient refuses to increase dose -monitor I/O's -consider weaning off clonidine -consider changing CCB to amlodipine as patient is already on digoxin for rate control -will quantify amount of proteinuria -will arrange f/u with Dr. Rowe as outpatient -please contact if further questions, #[phone]
[2017-12-21] MEDS: SODIUM FERRIC GLUCONAT/SUCROSE 125 MG in NS 100 ML IV SCH (10:18)
[2017-12-21] MEDS: FLUTICASONE/SALMETER 250/50MCG DISKUS IH SCH ×2 (10:39→19:39)
[2017-12-21] MEDS ORDERED: TRIAMCINOLONE 0.1% 15 GM CRTUBE TP PRN (11:00)
[2017-12-21] MEDS ORDERED: clonazePAM 0.5 MG TAB PO PRN (11:00)
--- NOTE | 2017-12-21 12:26 | ASMTCMCOM ---
CM Note CM Note Notes: CM spoke w/ Zayra, RN regarding d/c POC. Pt will have a renal ultrasound today. Pt is refusing SNF. Pt will d/c with [facility]. CM to follow. Plan: [facility]; PT, OT, RN Date Signed: 12/21/2017 12:26 PM Electronically Signed By:CRISTIAN Ascencio
--- NOTE | 2017-12-21 16:39 | HOSPPROG ---
Hospitalist Progress Note Assessment/Plan: Patient is a 72-year-old female with a history of pulmonary hypertension, atrial fibrillation who presented the emergency room with increased work of breathing. Prior to admission she had a glaucoma surgery performed [facility] and had been feeling well prior to that. She also is complaining of cough that started 4 days prior to being admitted she has a CPAP at home in which she had not been using. * acute hypoxemic respiratory failure -reviewed her most current chest xray *acute right sided heart failure -lasix resumed -full dose of 80 mg bid resumed, but patient wants to only take 40 mg bid * leukocytosis -likely elevation in white blood cell count due to prednisone * upper respiratory viral illness -noted to have human metapneumovirus -with an elevated procalcitonin there is a high suspicion she has a bacterial pneumonia -has received full treatment w abx * hypertension -bp better but has been very high during her stay -appreciate nephrology seeing her * iron deficiency anemia -has been given IV iron * obstructive sleep apnea and pulmonary hypertension -she has stopped using her CPAP, it is important she continue this * asthma history * depression and anxiety -started on a new antidepressant -better * diabetes type 2 on oral medications -now added on insulin -will decrease prednisone -patient says she will not take insulin at home * chronic pain syndrome on high-dose narcotics, oxycodone 120 mg daily -this is concerning because this likely affects her breathing at night * chronic paroxysmal atrial fibrillation, rate controlled * history of Graves disease -TSH is 0.067 *Plan: reivewed care w nephrology, to get an ultrasound to further evaluate. Subjective: Martin feels tired, has no complaints. Objective: Vital Signs Temp Pulse Resp BP Pulse Ox 36.8 C 76 16 162/82 H 97 12/21/17 16:00 12/21/17 16:00 12/21/17 16:00 12/21/17 16:00 12/21/17 16:00 Laboratory Results 12/20/17 04:45 12/20/17 04:45 12/20/17 12/21/17 12/22/17 05:59 05:59 05:59 Intake Total 1000 240 Balance 1000 240 PT 21.8 SEC (12.0-15.0) H 12/14/17 14:45 INR 1.89 (0.83-1.16) H 12/14/17 14:45 - Physical Exam Constitutional: appears nourished, not in pain, chronically ill appearing Eyes: PERRL Ears, Nose, Mouth, Throat: hearing normal Cardiovascular: regular rate and rhythym Respiratory: no respiratory distress Gastrointestinal: other (abdomen large and round) Skin: warm Musculoskeletal: generalized weakness Neurologic: AAOx3 Psychiatric: interacting appropriately, poor insight ICD10 Worksheet Patient Problems: Problems Problem Status Onset CHF (congestive heart failure) Acute Cough Acute Pneumonia Acute Shortness of breath Acute chronic disease mgmt/transitional care Acute MRSA - Methicillin resistant Staphylococcus aureus infection Active Bronchitis Acute Primary localized osteoarthritis of left hip Acute
[2017-12-21] MEDS: clonazePAM 0.5 MG TAB PO SCH (19:33)
[2017-12-22] MEDS: prednisoLONE ACET 1% 5 ML OPHT.BTL LEFTEYE SCH ×4 (05:36→21:00)
[2017-12-22] MEDS: LEVOTHYROXINE 200 MCG TAB PO SCH (05:36)
[2017-12-22] MEDS: IPRATROPIUM/ALBUTEROL 3 ML DEYVIAL IH SCH ×4 (05:40→21:12)
[2017-12-22] MEDS: FLUTICASONE/SALMETER 250/50MCG DISKUS IH SCH ×4 (05:43→21:23)
[2017-12-22] MEDS: DOCUSATE SODIUM 100 MG CAP PO SCH (07:26)
[2017-12-22] MEDS: SENNOSIDES/DOCUSATE SODIUM TAB PO SCH ×2 (07:26→20:58)
[2017-12-22] MEDS: DILTIAZEM CD 180 MG CAP PO SCH (07:27)
[2017-12-22] MEDS: FLUoxetine 20 MG CAP PO SCH (07:28)
[2017-12-22] MEDS: FAMOTIDINE 20 MG TAB PO SCH ×2 (07:29→20:57)
[2017-12-22] MEDS: APIXABAN 5 MG TAB PO SCH ×2 (07:29→20:58)
[2017-12-22] MEDS: FUROSEMIDE 40 MG TAB PO SCH ×2 (07:30→15:09)
[2017-12-22] MEDS: ARIPiprazole 2 MG TAB PO SCH (07:30)
[2017-12-22] MEDS: predniSONE 20 MG TAB PO SCH ×2 (07:31→10:28)
[2017-12-22] MEDS: CETIRIZINE 10 MG TAB PO SCH (07:31)
[2017-12-22] MEDS: VITAMIN B COMPLEX 1 EA CAP/TAB PO SCH (07:31)
[2017-12-22] MEDS: LISINOPRIL 40 MG TAB PO SCH (07:31)
[2017-12-22] MEDS: buPROPion SR 100 MG TAB PO SCH (07:32)
[2017-12-22] MEDS: METOLAZONE 2.5 MG TAB PO SCH (07:33)
[2017-12-22] MEDS: FLUTICASONE NASAL 120 SPRAYS/16 GM MDI EACHNARE SCH (07:36)
[2017-12-22] MEDS: INSULIN LISPRO 100 UNIT/ML SC SCH ×6 (07:36→18:13)
[2017-12-22] MEDS: SODIUM FERRIC GLUCONAT/SUCROSE 125 MG in NS 100 ML IV SCH (07:37)
[2017-12-22] MEDS: oxyCODONE CR 30 MG TAB PO SCH ×2 (07:49→20:56)
--- NOTE | 2017-12-22 08:31 | SOAPPROG ---
SOAP Progress Note Assessment/Plan: Assessment: #malignant HTN -renal u/s with dopplers NOT suggestive ADRIANNA -currently on lasix 80mg po bid, metolazone 2.5mg po daily, diltiazem 360mg po daily, clonidine 0.1mg po bid, lisinopril 40mg po daily -needs to use CPAP for VICENTA- I reviewed this with her and willing to try a smaller mask (was worried about recent eye surgery) -BP now running 150s-170s-- needs gradual lowering over next few weeks to ensure no loss autoregulation -has significant volume component likely pulm HTN/proteinuria realted and needs continued diuresis (lasix/metolazone), low Na diet, CPAP, compression stockings. I think this is most important issue to address first. Could then add hydralazine as next step. Would likely avoid norvasc given risk edema and while I would like to stop diltiazem in favor of labetalol, I think she would do better with once daily dosing of meds for compliance issues (and needs rate control for A fib). Minoxidil option but reflex tachycardia issue and would need bblocker which not clear she would do-- we can address if above regimen not successful. We can also consider adding in aldactone as well. -will check labs today - need to follow daily lytes given diuresis #proteinuria -suspect DM related- will check SPEP -continue lisinopril #rhinovirus #VICENTA, pulm HTN #A fib #aneia #DM2- sugars higher with presdnisone and tapering off I discussed with hospitalist Alda Garcia MD [facility] pager [phone] 12/22/17 09:46 Subjective: Feels ok- denies sob. Notes BP high for a long time- can run ~180s at home. Worried about her kidneys and nervous about diuretics- I reviewed this with her. Has not been using CPAP as was afraid mask would hurt her eye with surgery - willing to try smaller mask with RT tonight. Thinks "leg squeezers" helped. No n/v. Reviewed BP meds with her. Reviewed renal us results with her. Objective: Vital Signs Temp Pulse Resp BP Pulse Ox 36.8 C 76 15 174/96 H 99 12/22/17 07:41 12/22/17 07:41 12/22/17 07:41 12/22/17 07:41 12/22/17 07:41 Laboratory Results 12/20/17 04:45 12/20/17 04:45 12/21/17 12/22/17 12/23/17 05:59 05:59 05:59 Intake Total 240 500 Output Total 1000 Balance 240 -500 PT 21.8 SEC (12.0-15.0) H 12/14/17 14:45 INR 1.89 (0.83-1.16) H 12/14/17 14:45 Physical Exam - Physical Exam General Appearance: alert, no apparent distress, other (on O2 by NC, chronically ill) EENT: other (mmm) Neck: supple Cardiac/Chest: regular rate, rhythm Skin: warm/dry Extremities: other (++edema bilat le) Neuro/Psych: alert, oriented x 3 ICD10 Worksheet Patient Problems: Problems Problem Status Onset CHF (congestive heart failure) Acute Cough Acute Pneumonia Acute Shortness of breath Acute chronic disease mgmt/transitional care Acute MRSA - Methicillin resistant Staphylococcus aureus infection Active Bronchitis Acute Primary localized osteoarthritis of left hip Acute
--- NOTE | 2017-12-22 10:27 | HOSPPROG ---
Hospitalist Progress Note Assessment/Plan: Patient is a 72-year-old female with a history of pulmonary hypertension, atrial fibrillation who presented the emergency room with increased work of breathing. Prior to admission she had a glaucoma surgery performed [facility] and had been feeling well prior to that. She also is complaining of cough that started 4 days prior to being admitted she has a CPAP at home in which she had not been using. * acute hypoxemic respiratory failure -reviewed her most current chest xray *acute right sided heart failure -lasix resumed -full dose of 80 mg bid resumed * leukocytosis -likely elevation in white blood cell count due to prednisone * upper respiratory viral illness -noted to have human metapneumovirus -with an elevated procalcitonin there is a high suspicion she has a bacterial pneumonia -has received full treatment w abx * hypertension -bp better but has been very high during her stay -appreciate nephrology seeing her * iron deficiency anemia -has been given IV iron, dc after today * obstructive sleep apnea and pulmonary hypertension -she has stopped using her CPAP/she had eye surgery and it was causing pain to her left eye -have asked nursing to notify RT that she gets her oxygen equipment from [employer]-asked if they could refit her with a new mask she could wear * asthma history * depression and anxiety -started on a new antidepressant -better * diabetes type 2 on oral medications -now added on insulin -will decrease prednisone (starting prednisone 10 mg in the morning, this can be weaned off over next several days) -patient says she will not take insulin at home * chronic pain syndrome on high-dose narcotics, oxycodone 120 mg daily -this is concerning because this likely affects her breathing at night * chronic paroxysmal atrial fibrillation, rate controlled * history of Graves disease -TSH is 0.067 *Plan: reviewed care w nephrology, really appreciate their involvement, she needs more diuresis, Metolazone has been added to her regimen. She use to have a helper 3 days a week, no longer does. CM to look into this. She is refusing any SNF, she is ambulating well in the room. Subjective: Martin is feeling better today. Objective: Vital Signs Temp Pulse Resp BP Pulse Ox 36.8 C 76 15 174/96 H 99 12/22/17 07:41 12/22/17 07:41 12/22/17 07:41 12/22/17 07:41 12/22/17 07:41 Laboratory Results 12/20/17 04:45 12/21/17 12/22/17 12/23/17 05:59 05:59 05:59 Intake Total 240 500 140 Output Total 1000 700 Balance 240 -500 -560 PT 21.8 SEC (12.0-15.0) H 12/14/17 14:45 INR 1.89 (0.83-1.16) H 12/14/17 14:45 - Physical Exam Constitutional: appears nourished, not in pain, chronically ill appearing Eyes: PERRL Ears, Nose, Mouth, Throat: hearing normal Cardiovascular: regular rate and rhythym Respiratory: no respiratory distress, reduced air movement Gastrointestinal: normoactive bowel sounds, other (abd large rounded, has a large hernia) Skin: warm, No normal color (pale) Musculoskeletal: full muscle strength Neurologic: AAOx3 Psychiatric: interacting appropriately ICD10 Worksheet Patient Problems: Problems Problem Status Onset CHF (congestive heart failure) Acute Cough Acute Pneumonia Acute Shortness of breath Acute chronic disease mgmt/transitional care Acute MRSA - Methicillin resistant Staphylococcus aureus infection Active Bronchitis Acute Primary localized osteoarthritis of left hip Acute
[2017-12-22] MEDS: LIDO/ZINC OX/CLOTRIMAZOLE (MAD) 116 GM CREAM TP SCH ×2 (10:31→21:00)
--- NOTE | 2017-12-22 14:37 | ASMTCMCOM ---
CM Note CM Note Notes: Spoke with MANUFA[employer]ING [employer]ANT MANAGER, pt states the gal she had through [facility] has left town. She was there 3hrs/day 3 days/week, CM called [facility] ([phone]) and they are already planning on replacing that caregiver. CM inquired if they can increase the number of days that the pt gets care at least for the first week since she is a bit deconditioned from being in the hospital but CM needs to go through [facility]. Pt has a vision care associate Matilde Szymanski [phone], CM spoke with Fortino and she does not think that will be an issue but needs to speak with pt first to get consent. DC Plan: Home care/[facility] + [facility] [place] Date Signed: 12/22/2017 02:37 PM Electronically Signed By:Nola Grove RN
[2017-12-22] MEDS: clonazePAM 0.5 MG TAB PO SCH (20:56)
[2017-12-22] MEDS: POLYETHYLENE GLYCOL 3350 17 GM PKT PO PRN (21:14)
[2017-12-23] MEDS: FLUTICASONE NASAL 120 SPRAYS/16 GM MDI EACHNARE SCH ×3 (02:36→20:09)
[2017-12-23] MEDS: LEVOTHYROXINE 200 MCG TAB PO SCH (05:43)
[2017-12-23] MEDS: prednisoLONE ACET 1% 5 ML OPHT.BTL LEFTEYE SCH ×4 (05:43→20:09)
[2017-12-23] MEDS: IPRATROPIUM/ALBUTEROL 3 ML DEYVIAL IH SCH ×4 (05:50→20:42)
[2017-12-23] MEDS: FLUTICASONE/SALMETER 250/50MCG DISKUS IH SCH ×2 (05:51→20:43)
[2017-12-23] MEDS: buPROPion SR 100 MG TAB PO SCH (07:44)
[2017-12-23] MEDS: DILTIAZEM CD 180 MG CAP PO SCH (07:44)
[2017-12-23] MEDS: DOCUSATE SODIUM 100 MG CAP PO SCH (07:45)
[2017-12-23] MEDS: ARIPiprazole 2 MG TAB PO SCH (07:46)
[2017-12-23] MEDS: SENNOSIDES/DOCUSATE SODIUM TAB PO SCH ×2 (07:46→20:09)
[2017-12-23] MEDS: FLUoxetine 20 MG CAP PO SCH (07:47)
[2017-12-23] MEDS: VITAMIN B COMPLEX 1 EA CAP/TAB PO SCH (07:47)
[2017-12-23] MEDS: FAMOTIDINE 20 MG TAB PO SCH (07:47)
[2017-12-23] MEDS: APIXABAN 5 MG TAB PO SCH ×2 (07:48→20:09)
[2017-12-23] MEDS: CETIRIZINE 10 MG TAB PO SCH (07:48)
[2017-12-23] MEDS: oxyCODONE CR 30 MG TAB PO SCH ×2 (07:49→20:08)
[2017-12-23] MEDS: FUROSEMIDE 40 MG TAB PO SCH ×2 (07:49→14:12)
[2017-12-23] MEDS: predniSONE 20 MG TAB PO SCH (07:50)
[2017-12-23] MEDS: METOLAZONE 2.5 MG TAB PO SCH (07:51)
[2017-12-23] MEDS: LIDO/ZINC OX/CLOTRIMAZOLE (MAD) 116 GM CREAM TP SCH ×2 (07:51→20:09)
[2017-12-23] MEDS: LISINOPRIL 40 MG TAB PO SCH (07:51)
[2017-12-23] MEDS: INSULIN LISPRO 100 UNIT/ML SC SCH ×6 (07:53→18:08)
[2017-12-23] MEDS: ESTRADIOL 42.5 GM CRTUBE VG SCH (07:56)
--- NOTE | 2017-12-23 09:54 | SOAPPROG ---
SOAP Progress Note Assessment/Plan: Assessment/Plan: HTN: uncontrolled but improved overall, likely contributed to by volume overload. - Will continue current meds. - Will continue diuresis with Lasix and metolazone for now. Hypervolemia: in setting of CHF, pulmonary HTN and VICENTA, also has proteinuria. - Will continue Lasix and metolazone for now. - Will continue to monitor electrolytes closely. Proteinuria: likely secondary to DM, on full dose RAAS blockade. - SPEP pending. - Will plan to f/u as outpatient. Metabolic alkalosis: likely a contraction alkalosis from diuretics. - Will monitor for now. - Will consider changing diuretic regimen tomorrow to include acetazolamide if worsens. Subjective: No acute events overnight. Pt notes she has a headache this morning. Her breathing is improved overall but still feels a bit congested. Her swelling is improving although still present. Objective: Vital Signs Temp Pulse Resp BP Pulse Ox 36.6 C 77 20 173/100 H 98 12/23/17 08:00 12/23/17 08:00 12/23/17 08:00 12/23/17 08:00 12/23/17 08:00 Laboratory Results 12/20/17 04:45 12/23/17 04:35 12/22/17 12/23/17 12/24/17 05:59 05:59 05:59 Intake Total 500 1340 Output Total 1000 2850 Balance -500 -1510 PT 21.8 SEC (12.0-15.0) H 12/14/17 14:45 INR 1.89 (0.83-1.16) H 12/14/17 14:45 Eyes: EOMI, PERRL OP: Clear CV: RRR Resp: CTA bilat, nonlabored respirations on NC Abd: Soft, NT Ext: +2 edema BLE Neuro: CN II-XII grossly intact, no asterixis Psych: cooperative, appropriate mood and affect ICD10 Worksheet Patient Problems: Problems Problem Status Onset CHF (congestive heart failure) Acute Cough Acute Pneumonia Acute Shortness of breath Acute chronic disease mgmt/transitional care Acute MRSA - Methicillin resistant Staphylococcus aureus infection Active Bronchitis Acute Primary localized osteoarthritis of left hip Acute
[2017-12-23] MEDS: DIGOXIN 125 MCG TAB PO SCH (11:00)
--- NOTE | 2017-12-23 13:24 | HOSPPROG ---
Hospitalist Progress Note Assessment/Plan: Patient is a 72-year-old female with a history of pulmonary hypertension, atrial fibrillation who presented the emergency room with increased work of breathing. Prior to admission she had a glaucoma surgery performed [facility] and had been feeling well prior to that. She also is complaining of cough that started 4 days prior to being admitted she has a CPAP at home in which she had not been using. First encounter, chart reviewed. D/W CM. * acute hypoxemic respiratory failure -resolved -reviewed her most current chest xray *acute right sided heart failure -cont diuretics -lasix resumed -full dose of 80 mg bid resumed * leukocytosis -likely elevation in white blood cell count due to prednisone * upper respiratory viral illness -noted to have human metapneumovirus -with an elevated procalcitonin there is a high suspicion she has a bacterial pneumonia -has received full treatment w abx * hypertension -bp better but has been very high during her stay -appreciate nephrology seeing her * iron deficiency anemia -has been given IV iron * obstructive sleep apnea and pulmonary hypertension -she has stopped using her CPAP/she had eye surgery and it was causing pain to her left eye -RT to get her oxygen equipment from [facility]-asked if they could refit her with a new mask she could wear * asthma history * depression and anxiety -started on a new antidepressant -stable * diabetes type 2 on oral medications -now on insulin -will decrease prednisone 5mg (starting prednisone 10 mg in the morning, this can be weaned off over next several days) -patient says she will not take insulin at home * chronic pain syndrome on high-dose narcotics, oxycodone 120 mg daily -this is concerning because this likely affects her breathing at night * chronic paroxysmal atrial fibrillation, rate controlled * history of Graves disease -TSH is 0.067 *Plan: reviewed care w CM, really appreciate their involvement, cont diuresis, Metolazone has been added to her regimen. She use to have a helper 3 days a week, no longer does. She is refusing any SNF, she is ambulating well in the room. Subjective: Feels a bit weak. Breathing better. No pain currently. Objective: Vital Signs Temp Pulse Resp BP Pulse Ox 36.5 C 82 16 138/94 H 92 12/23/17 10:48 12/23/17 11:48 12/23/17 11:48 12/23/17 10:48 12/23/17 11:48 Laboratory Results 12/20/17 04:45 12/23/17 04:35 12/22/17 12/23/17 12/24/17 05:59 05:59 05:59 Intake Total 500 1340 Output Total 1000 2850 Balance -500 -1510 PT 21.8 SEC (12.0-15.0) H 12/14/17 14:45 INR 1.89 (0.83-1.16) H 12/14/17 14:45 - Physical Exam Constitutional: appears nourished, not in pain, chronically ill appearing Eyes: PERRL, anicteric sclera, EOMI Ears, Nose, Mouth, Throat: moist mucous membranes, hearing normal, ears appear normal Cardiovascular: regular rate and rhythym, No JVD, No edema Respiratory: no respiratory distress, no rales or rhonchi, reduced air movement Gastrointestinal: normoactive bowel sounds, soft, non-tender abdomen, No ascites Skin: warm, normal color, No mottled Musculoskeletal: normal joint ROM, no joint effusions, generalized weakness Neurologic: AAOx3 Psychiatric: not anxious, not encephalopathic, poor insight, poor judgement, poor memory ICD10 Worksheet Patient Problems: Problems Problem Status Onset chronic disease mgmt/transitional care Acute Pneumonia Acute CHF (congestive heart failure) Acute Cough Acute Shortness of breath Acute Primary localized osteoarthritis of left hip Acute MRSA - Methicillin resistant Staphylococcus aureus infection Active Bronchitis Acute
[2017-12-23] MEDS: clonazePAM 0.5 MG TAB PO SCH (20:08)
[2017-12-24] MEDS: LEVOTHYROXINE 200 MCG TAB PO SCH (05:00)
[2017-12-24] MEDS: IPRATROPIUM/ALBUTEROL 3 ML DEYVIAL IH SCH ×4 (06:15→21:44)
[2017-12-24] MEDS: prednisoLONE ACET 1% 5 ML OPHT.BTL LEFTEYE SCH ×4 (06:21→20:11)
[2017-12-24] MEDS: ARIPiprazole 2 MG TAB PO SCH (07:21)
[2017-12-24] MEDS: APIXABAN 5 MG TAB PO SCH ×2 (07:21→19:38)
[2017-12-24] MEDS: oxyCODONE CR 30 MG TAB PO SCH ×2 (07:21→19:38)
[2017-12-24] MEDS: SENNOSIDES/DOCUSATE SODIUM TAB PO SCH ×2 (07:22→19:39)
[2017-12-24] MEDS: predniSONE 5 MG TAB PO SCH (07:22)
[2017-12-24] MEDS: buPROPion SR 100 MG TAB PO SCH (07:23)
[2017-12-24] MEDS: DOCUSATE SODIUM 100 MG CAP PO SCH (07:24)
[2017-12-24] MEDS: FAMOTIDINE 20 MG TAB PO SCH (07:25)
[2017-12-24] MEDS: DILTIAZEM CD 180 MG CAP PO SCH (07:25)
[2017-12-24] MEDS: FUROSEMIDE 40 MG TAB PO SCH ×2 (07:26→15:53)
[2017-12-24] MEDS: CETIRIZINE 10 MG TAB PO SCH (07:26)
[2017-12-24] MEDS: METOLAZONE 2.5 MG TAB PO SCH (07:27)
[2017-12-24] MEDS: VITAMIN B COMPLEX 1 EA CAP/TAB PO SCH (07:27)
[2017-12-24] MEDS: LISINOPRIL 40 MG TAB PO SCH (07:27)
[2017-12-24] MEDS: FLUoxetine 20 MG CAP PO SCH (07:28)
[2017-12-24] MEDS: FLUTICASONE NASAL 120 SPRAYS/16 GM MDI EACHNARE SCH ×2 (07:29→20:11)
[2017-12-24] MEDS: LIDO/ZINC OX/CLOTRIMAZOLE (MAD) 116 GM CREAM TP SCH ×2 (07:30→20:13)
[2017-12-24] MEDS: INSULIN LISPRO 100 UNIT/ML SC SCH ×7 (07:54→18:31)
--- NOTE | 2017-12-24 09:37 | SOAPPROG ---
SOAP Progress Note Assessment/Plan: Assessment/Plan: HTN: uncontrolled but improved overall, likely contributed to by volume overload. - Will continue current meds. - Pt will need f/u with Dr. Rowe as outpatient, will arrange. Hypervolemia: in setting of CHF, pulmonary HTN and VICENTA, also has proteinuria. - Will continue Lasix and metolazone for now. - Will await labs this am before adjusting regimen. Proteinuria: likely secondary to DM, on full dose RAAS blockade. - SPEP pending. - Will plan to f/u as outpatient. Metabolic alkalosis: likely a contraction alkalosis from diuretics. - Will recheck labs today. - Will consider changing diuretic regimen to include acetazolamide if worsens. Subjective: No acute events overnight. Pt states her breathing is better but feels a bit congested with walking. She is working on cutting down her fluid intake. Objective: Vital Signs Temp Pulse Resp BP Pulse Ox 36.4 C 83 17 165/101 H 93 12/24/17 07:40 12/24/17 08:42 12/24/17 07:40 12/24/17 07:40 12/24/17 08:42 Laboratory Results 12/20/17 04:45 12/23/17 04:35 12/23/17 12/24/17 12/25/17 05:59 05:59 05:59 Intake Total 1340 450 Output Total 2850 1700 Balance -1510 -1250 PT 21.8 SEC (12.0-15.0) H 12/14/17 14:45 INR 1.89 (0.83-1.16) H 12/14/17 14:45 General: alert and oriented, no acute distress Eyes; EOMI, PERRL OP: Clear CV: RRR Resp: nonlabored respirations on NC Abd: Soft, NT/ND Ext: +2 edema BLE Neuro: CN II-XII grossly intact, no asterixis Psych: cooperative ICD10 Worksheet Patient Problems: Problems Problem Status Onset CHF (congestive heart failure) Acute Cough Acute Pneumonia Acute Shortness of breath Acute chronic disease mgmt/transitional care Acute MRSA - Methicillin resistant Staphylococcus aureus infection Active Bronchitis Acute Primary localized osteoarthritis of left hip Acute
[2017-12-24] MEDS: FLUTICASONE/SALMETER 250/50MCG DISKUS IH SCH ×2 (10:17→19:41)
[2017-12-24] MEDS: DIGOXIN 125 MCG TAB PO SCH (10:53)
--- NOTE | 2017-12-24 12:33 | HOSPPROG ---
Hospitalist Progress Note Assessment/Plan: Patient is a 72-year-old female with a history of pulmonary hypertension, atrial fibrillation who presented the emergency room with increased work of breathing. Prior to admission she had a glaucoma surgery performed [facility] and had been feeling well prior to that. She also is complaining of cough that started 4 days prior to being admitted she has a CPAP at home in which she had not been using. D/W Dr Bashir. * acute hypoxemic respiratory failure -resolved *acute right sided heart failure -cont diuretics - Would continue current dose of Lasix. - Would continue metolazone daily for another 4 days and then hold until labs reevaluated. - Would have BMP checked by PCP early next week. -lasix resumed - -full dose of 80 mg bid resumed * leukocytosis -likely elevation in white blood cell count due to prednisone * upper respiratory viral illness -noted to have human metapneumovirus -with an elevated procalcitonin there is a high suspicion she has a bacterial pneumonia -has received full treatment w abx * hypertension -bp better but has been very high during her stay -appreciate nephrology seeing her * iron deficiency anemia -has been given IV iron * obstructive sleep apnea and pulmonary hypertension -she has stopped using her CPAP/she had eye surgery and it was causing pain to her left eye -RT to get her oxygen equipment from [facility]-asked if they could refit her with a new mask she could wear * asthma history * depression and anxiety -started on a new antidepressant -stable * diabetes type 2 on oral medications -now on insulin -will decrease prednisone 5mg (starting prednisone 10 mg in the morning, this can be weaned off over next several days) -patient says she will not take insulin at home * chronic pain syndrome on high-dose narcotics, oxycodone 120 mg daily -this is concerning because this likely affects her breathing at night * chronic paroxysmal atrial fibrillation, rate controlled * history of Graves disease -TSH is 0.067 *Plan: reviewed care w CM, really appreciate their involvement, cont diuresis, Metolazone She use to have a helper 3 days a week, no longer does. She is refusing any SNF, she is ambulating well in the room. Plan for DC home in am with significant help Subjective: Up walking. Feels unable to go home. Objective: Vital Signs Temp Pulse Resp BP Pulse Ox 36.7 C 79 14 122/80 H 93 05/04/18 11:01 12/24/17 11:01 12/24/17 11:01 12/24/17 11:01 12/24/17 11:01 Laboratory Results 12/20/17 04:45 12/24/17 09:35 12/23/17 12/24/17 12/25/17 05:59 05:59 05:59 Intake Total 1340 450 Output Total 2850 1700 Balance -1510 -1250 PT 21.8 SEC (12.0-15.0) H 12/14/17 14:45 INR 1.89 (0.83-1.16) H 12/14/17 14:45 - Physical Exam Constitutional: appears nourished, chronically ill appearing Eyes: PERRL, anicteric sclera Ears, Nose, Mouth, Throat: moist mucous membranes, hearing normal, ears appear normal Cardiovascular: edema, No JVD Respiratory: no respiratory distress, no rales or rhonchi Gastrointestinal: No tenderness, No ascites Skin: warm, normal color Musculoskeletal: normal joint ROM, no joint effusions, generalized weakness Psychiatric: anxious, poor insight, poor judgement, poor memory ICD10 Worksheet Patient Problems: Problems Problem Status Onset chronic disease mgmt/transitional care Acute Pneumonia Acute CHF (congestive heart failure) Acute Cough Acute Shortness of breath Acute Primary localized osteoarthritis of left hip Acute MRSA - Methicillin resistant Staphylococcus aureus infection Active Bronchitis Acute
--- NOTE | 2017-12-24 15:41 | ASMTCMCOM ---
CM Note CM Note Notes: Met with pt regarding discharge plan, pt very anxious. CM arranged for [facility] caregiver Obdulia Luna [phone], be at pt's home at [facility] at 1:30-4:30pm. And a home health RN with [facility] will go on Wednesday. Spoke with Matilde Szymanski and LATRICIA, that pt will dc home on Wednesday. CM also left pt with brochure for [facility], she states she goes to the [facility] once a day for meals. CM to arrange transport through [facility]Medicaid WC transport. Pt continues to perseverate over CPAP mask that does not fit correctly, CM left message with Michelle Peters at [facility] and her PCP's office for them to look into it as well. DC Plan: Home care/ [facility] + [facility] Date Signed: 12/24/2017 03:40 PM Electronically Signed By:Nola Grove RN
--- NOTE | 2017-12-24 17:20 | ASMTCMCOM ---
CM Note CM Note Notes: Spoke w/RN, pt called [facility], they need an RX for Nasal Pillows- something not so close to eyes. Fax number . Pt stating she won't go until she has them which won't be until Wednesday. Date Signed: 12/24/2017 05:19 PM Electronically Signed By:Nola Grove RN
[2017-12-24] MEDS: clonazePAM 0.5 MG TAB PO SCH (19:38)
[2017-12-25] MEDS: LEVOTHYROXINE 200 MCG TAB PO SCH (05:02)
[2017-12-25] MEDS: prednisoLONE ACET 1% 5 ML OPHT.BTL LEFTEYE SCH ×2 (05:02→12:17)
[2017-12-25] MEDS: IPRATROPIUM/ALBUTEROL 3 ML DEYVIAL IH SCH ×2 (05:58→09:41)
[2017-12-25] MEDS: FLUoxetine 20 MG CAP PO SCH (07:26)
[2017-12-25] MEDS: oxyCODONE CR 30 MG TAB PO SCH (07:27)
[2017-12-25] MEDS: DILTIAZEM CD 180 MG CAP PO SCH (07:28)
[2017-12-25] MEDS: buPROPion SR 100 MG TAB PO SCH (07:28)
[2017-12-25] MEDS: METOLAZONE 2.5 MG TAB PO SCH (07:28)
[2017-12-25] MEDS: LISINOPRIL 40 MG TAB PO SCH (07:31)
[2017-12-25] MEDS: FUROSEMIDE 40 MG TAB PO SCH (07:31)
[2017-12-25] MEDS: VITAMIN B COMPLEX 1 EA CAP/TAB PO SCH (07:32)
[2017-12-25] MEDS: SENNOSIDES/DOCUSATE SODIUM TAB PO SCH (07:32)
[2017-12-25] MEDS: DOCUSATE SODIUM 100 MG CAP PO SCH (07:32)
[2017-12-25] MEDS: CETIRIZINE 10 MG TAB PO SCH (07:33)
[2017-12-25] MEDS: predniSONE 5 MG TAB PO SCH (07:33)
[2017-12-25] MEDS: APIXABAN 5 MG TAB PO SCH (07:33)
[2017-12-25] MEDS: ARIPiprazole 2 MG TAB PO SCH (07:34)
[2017-12-25] MEDS: FAMOTIDINE 20 MG TAB PO SCH (07:34)
[2017-12-25] MEDS: LIDO/ZINC OX/CLOTRIMAZOLE (MAD) 116 GM CREAM TP SCH (07:37)
[2017-12-25] MEDS: FLUTICASONE NASAL 120 SPRAYS/16 GM MDI EACHNARE SCH (07:37)
[2017-12-25] MEDS: INSULIN LISPRO 100 UNIT/ML SC SCH ×4 (08:46→12:33)
[2017-12-25] MEDS: FLUTICASONE/SALMETER 250/50MCG DISKUS IH SCH (09:41)
--- NOTE | 2017-12-25 09:41 | PDIAF ---
- Diagnosis Diagnosis: pna Code Status: Full Code - Medication Management Discharge Medications: Medications to Continue on Transfer Albuterol [Proventil Inhaler HFA (*)] 2 puffs IH Q6HRS PRN 06/25/17 [Last Taken 07/20/17] Apixaban [Eliquis] 5 mg PO BID 06/25/17 [Last Taken 12/14/17] Betamethasone/Propylene Glyc [Betamethasone Dp Aug 0.05% Oin] 15 gm TP HS PRN [Last Taken 2 Weeks Ago ~07/07/17] Digoxin [Lanoxin 125 mcg (RX)] 125 mcg PO DAILY10 06/25/17 [Last Taken 07/21/17 05:00] Diltiazem HCl [Cardizem Cd] 360 mg PO DAILY 06/25/17 [Last Taken 07/21/17 05:00] Docusate Sodium [Colace 100 MG (*)] 200 mg PO DAILY 06/25/17 [Last Taken ] Estradiol [Estrace Vaginal (*)] 1 fadia VG Q3D 06/25/17 [Last Taken 07/20/17] FLUoxetine [Prozac 20 MG (*)] 60 mg PO DAILY 06/25/17 [Last Taken 07/20/17] Famotidine [Pepcid 20 MG (*)] 20 mg PO BID 06/25/17 [Last Taken 07/20/17] Furosemide [Lasix 80 MG (*)] 80 mg PO BID 06/25/17 [Last Taken 07/20/17] Levothyroxine [Synthroid 200 mcg (*)] 200 mcg PO DAILY06 06/25/17 [Last Taken 05:00] Lisinopril [Zestril 40 mg (*)] 40 mg PO DAILY 06/25/17 [Last Taken 07/21/17 05: 00] Triamcinolone 0.1% [Triamcinolone 0.1% Cream (*)] 1 fadia TP BID PRN 06/25/17 [ Last Taken 2 Weeks Ago ~07/07/17] Vitamin B Complex [B Complex] 1 each PO DAILY 06/25/17 [Last Taken 07/16/17] clonazePAM [Klonopin (*)] 0.25 mg PO BID PRN 06/25/17 [Last Taken 07/20/17] metFORMIN SR [Glucophage XR 500 mg (*)] 1,000 mg PO 0800 06/25/17 [Last Taken ] oxyCODONE HCL [Oxycontin] 60 mg PO BID 06/25/17 [Last Taken 07/20/17] ARIPiprazole [Abilify 2 mg (*)] 2 mg PO DAILY 07/21/17 [Last Taken 07/20/17] clonIDINE [Catapres (*)] 0.1 mg PO BID 07/21/17 [Last Taken Unknown] Sennosides/Docusate Sodium [Senokot-S] 1 - 2 tab PO BID tab 07/26/17 [Last Taken Unknown] Loratadine [Claritin 10 mg] 10 mg PO DAILY 12/14/17 [Last Taken Unknown] buPROPion SR [Wellbutrin 100mg SR (*)] 100 mg PO DAILY 12/14/17 [Last Taken ] clonazePAM [Klonopin (*)] 0.5 mg PO HS 12/14/17 [Last Taken Unknown] prednisoLONE ACET 1% [Pred Forte 1% (*)] 1 drops LEFTEYE QID 12/14/17 [Last Taken 12/14/17] Advair 250/50 (*) 1 inh IH BID 12/16/17 [Last Taken Unknown] Acetaminophen [Tylenol 325mg (*)] 650 mg PO Q4HRS PRN tab 12/25/17 [Last Taken Unknown] Metolazone [Zaroxolyn] 2.5 mg PO DAILY #5 tab 12/25/17 [Last Taken Unknown] Polyethylene Glycol 3350 [Miralax 17 gm (*)] 17 gm PO BID PRN pkt 12/25/17 [ Last Taken Unknown] Discharge Medications: Refer to the Discharge Home Medication list for PRN reason. PICC Care - Routine: N/A - Orders Services needed: Home Care, Registered Nurse, Physical Therapy, Occupational Therapy Home Care Face to Face: I certify that this patient was under my care and that I had the required [id number] encounter meeting the encounter requirements on the discharge day. My findings support the fact that the patient is homebound as defined in Home Care Face to Face Continued: CMS Chapter 7 Medicare Benefits Manual 30.1.1 , The condition of the patient is such that there exists a normal inability to leave home and consequently, leaving home would require a considerable and taxing effort. Isolation Type: Droplet Isolation Diet Recommendation: no restrictions on diet - Labs/Radiology BMP Date: 12/29/17 - Follow Up Care Current Providers and Referrals: Vic Nowak MD [Primary Care Provider] - As per Instructions
[2017-12-25] MEDS: DIGOXIN 125 MCG TAB PO SCH (10:33)
[2017-12-25 11:41] VITALS: BP 117/74
--- NOTE | 2017-12-25 15:55 | GDS ---
[f rep st] DISCHARGE SUMMARY DISCHARGE DIAGNOSES: 1. Acute hypoxemic respiratory failure. 2. Acute right-sided heart failure. 3. Leukocytosis. 4. Upper respiratory viral illness. 5. Hypertension. 6. Iron-deficiency anemia. 7. Obstructive sleep apnea. 8. Asthma. 9. Depression with anxiety. 10. Diabetes type 2. 11. Chronic pain. 12. Chronic paroxysmal atrial fibrillation. CONSULTATIONS: Nephrology. STUDIES AND PROCEDURES DONE: Echocardiogram, abdominal ultrasound. PHYSICAL EXAM: GENERAL: The patient is alert. VITAL SIGNS: Afebrile at 37, pulse is 97, respirato ry rate 14, blood pressure is 117/74. She is saturating 95% on room air. I have seen and evaluated the patient on the day of discharge. HOSPITAL COURSE: 1. The patient is a 72-year-old female who presented to the hospital with shortness of breath. She was evaluated and diagnosed with acute hypoxemic respiratory failure. This is multifactorial and has resolved. 2. Acute right-sided heart failure. Diuretics have been initiated during this hospitalization. She was consulted on by Pulmonology as well as Nephrology. Her laboratory values remained stable, and s he is responding well to diuretic. She will continue diuretics in the outpatient setting. 3. Leukocytosis. This is in the setting of prednisone and is stable. 4. Human metapneumovirus. She has been treated with antibiotic therapy for suspected bilateral pneu monia. 5. Hypertension. Her blood pressure is still mildly elevated but improved since her admission to [facility]. This will be managed by her primary care physician. 6. Iron-deficiency anemia. She did receive IV iron during this hospital course and has been transit ioned to oral iron. 7. Obstructive sleep apnea with pulmonary hypertension. The patient has a history of use of CPAP. She has not been recently using her CPAP. We have contacted her [employer], who will provide her fittin g, as well as other needed mechanisms, for her CPAP. 8. Asthma history. 9. Depression, anxiety. Her medications have been continued. 10. Diabetes type 2. Medications are continued. 11. Chronic pain syndrome. 12. Chronic paroxysmal atrial fibrillation. 13. Graves disease. DISPOSITION: The patient will be discharged home with significant home health care. Case Management has worked diligently with this patient's disposition. She will follow up with her primary care ilda guerrier, Dr. Chi Nowak, as well as her college sports assistant, Dr. Montez Rowe. There are no pending alexia dies. DISCHARGE MEDICATIONS: Please refer to EMR form. I spent greater than 35 minutes in the care, coord ination, and management of this patient's disposition. /[id number]/MODL
--- NOTE | 2017-12-25 17:10 | ASDISCHSUM ---
Discharge Information Plan Status:Home with Home Health Medically Cleared to Leave: Discharge Date:12/25/2017 01:31 PM CM D/C Disposition: ADT D/C Disposition:[id number] Projected Discharge Date:12/25/2017 11:00 AM Transportation at D/C: Discharge Delay Reason: Follow-Up Date:12/25/2017 11:00 AM Discharge Slot: Final Diagnosis: Placement Information Referral Type:*Home Health Care Services Referral ID:[id number] Provider Name:[facility] Address 1:[address] Phone Number: Address 2: Fax Number: City:[place] Selection Factors: State:[place] Patient Contact Information Contact Name:REA Relationship:Cousin Address: City: [facility] Phone: [facility] Code: Email: Financial Information Financial Class:Medicare Primary Plan Desc:MEDICARE IP PART B ONLY Primary Plan Number:[id number] Secondary Plan Desc:[place] Secondary Plan Number:[id number] Assessment Information [facility] Initial CM Assessment Living Arrangements What is your living Answers: Alone arrangement? Who do you live with? Type Of Residence What kind of residence do Answers: Apartment you live in? Discharge Plan Comments Coordination Status Comments Notes: Patient is a 72yo single female who was admitted for acute hypoxic respiratory failure, elevated BUN and creatinine levels, AFIB, recent eye surgery. Patient has a complicated medical picture with diabetes, afib, obstructive sleep apnea, hypertension, asthma, depression, chronic pain, and a hx of Graves disease. Therapies were ordered. PT recommends home care. Awaiting OT recommendations. Patient does live alone in a 4th story apartment , independent living. D/C plan TBD. CM will follow. Date Signed: 12/15/2017 11:53 AM Electronically Signed By:Sarai Forte LCSW [facility] CM Progress Note CM Note CM Note Notes: Spoke w/pt, she lives at [facility]. PT/OT recommend home care, pt states she has an RN from [facility] that comes for medication management. CM faxed referral to add PT/OT. DC Plan: Home care/ [facility] (RN/PT/OT) Date Signed: 12/18/2017 04:00 PM Electronically Signed By:Nola Grove RN [facility] Progress Note CM Note CM Note Notes: CM spoke w/ Zayra, RN regarding d/c POC. Pt will have a renal ultrasound today. Pt is refusing SNF. Pt will d/c with [facility]. CM to follow. Plan: [facility]; PT OT, RN Date Signed: 12/21/2017 12:26 PM Electronically Signed By:CRISTIAN Ascencio [facility] CM Progress Note CM Note CM Note Notes: Spoke with [employer], pt states the gal she had through [facility] has left town. She was there 3hrs/day 3 days/week, CM called [facility] ([phone]) and they are already planning on replacing that caregiver. CM inquired if they can increase the number of days that the pt gets care at least for the first week since she is a bit deconditioned from being in the hospital but CM needs to go through [facility]. Pt has a health care facility administrator Matilde Szymanski [phone], CM spoke with [facility] and she does not think that will be an issue but needs to speak with pt first to get consent. DC Plan: Home care/[facility] + [facility] Date Signed: 12/22/2017 02:37 PM Electronically Signed By:Nola Grove RN [facility] CM Progress Note CM Note CM Note Notes: Met with pt regarding discharge plan, pt very anxious. CM arranged for [facility] caregiver Obdulia Luna [phone], be at pt's home at [facility] at 1:30-4:30pm. And a home health RN with [facility] will go on Wednesday. Spoke with Matilde Szymanski and [facility], that pt will dc home on Wednesday. CM also left pt with brochure for [facility], she states she goes to the [facility] [employer] once a day for meals. CM to arrange transport through [facility]/Medicaid WC transport. Pt continues to perseverate over CPAP mask that does not fit correctly, CM left message with Michelle Peters at [facility] and her PCP's office for them to look into it as well. DC Plan: Home care/ [facility] + [facility] Date Signed: 12/24/2017 03:40 PM Electronically Signed By:Nola Grove RN [facility] CM Progress Note CM Note CM Note Notes: Spoke w/RN, pt called [facility], they need an RX for Nasal Pillows- something not so close to eyes. Fax number . Pt stating she won't go until she has them which won't be until Wednesday. Date Signed: 12/24/2017 05:19 PM Electronically Signed By:Nola Grove RN Intervention Information Intervention Type:*IM-Signed Date of Service:12/24/2017 12:01 PM Patient Type:Inpatient Staff Member:Erika Saucedo Hours: Discipline: Severity: Comment:
== END 2017-12-25 13:31 | disposition home health service (06) | DRG 193 ==
LOC: F2N 20:19 → F3E 12-17 17:22
PROVIDERS: ADMIT Internal Medicine; ATTEND Internal Medicine
DX: J12.3 Human metapneumovirus pneumonia (principal); J96.01 Acute respiratory failure with hypoxia; J45.901 Unspecified asthma with (acute) exacerbation; I11.0 Hypertensive heart disease with heart failure; I50.811 Acute right heart failure; D50.9 Iron deficiency anemia, unspecified; G47.33 Obstructive sleep apnea (adult) (pediatric); F41.8 Other specified anxiety disorders; E11.9 Type 2 diabetes mellitus without complications; G89.4 Chronic pain syndrome; I48.2 Chronic atrial fibrillation; I48.0 Paroxysmal atrial fibrillation; I27.20 Pulmonary hypertension, unspecified; E05.00 Thyrotoxicosis with diffuse goiter without thyrotoxic crisis or storm; L30.9 Dermatitis, unspecified; Z79.01 Long term (current) use of anticoagulants; Z79.84 Long term (current) use of oral hypoglycemic drugs
CPT/HCPCS: 82088-90; 84244-90; 92523-GN; 96365; 97112-GP; 97116-GP; 97161-GP; 97166-GO; 97530-GO; 97530-GP; 97535-GO; G8978-GP-CI; G8979-GP-CI; G8987-GO-CJ; G8988-GO-CI; G8989-GO-CI; G9165-GN-CI; G9166-GN-CH; J0696; J1815; J1940; J2916; J7512

== ENCOUNTER 2018-01-02 20:14 | Inpatient (IN) | payer OTHER, MEDICAID ==
[2018-01-02] MEDS ORDERED: IPRATROPIUM/ALBUTEROL 3 ML DEYVIAL ONE (20:25)
--- NOTE | 2018-01-02 20:25 | CPEKG ---
Heart Rate: 60 RR Interval: 1000 QRSD Interval: 98 QT Interval: 420 QTC Interval: 420 QRS Midkiff: -2 T Wave Midkiff: 166 EKG Severity - ABNORMAL ECG - EKG Impression: ATRIAL FIBRILLATION EKG Impression: LVH WITH SECONDARY REPOLARIZATION ABNORMALITY Electronically Signed By: Kishor Higuera 02-Jan-2018 21:42:22
--- NOTE | 2018-01-02 20:25 | EDPHY ---
H & P Time Seen by Provider: 01/02/18 20:26 HPI/ROS: HPI: This is a 72-year-old female who presents with Chief Complaint: Shortness of breath Location: Chest Quality: Dyspnea Duration: Weeks Signs and Symptoms: + shortness of breath at rest, + shortness of breath on exertion, no cough, no chest pain, no palpitations, + mild chronic lower extremity edema, no wheezing, no orthopnea, no paroxysmal nocturnal dyspnea, no fever, no injury/trauma, no hemoptysis, no carpal pedal spasms Timing: Chronic Severity: Moderate Context: Patient presents from an assisted living center with complaints of shortness of breath at rest and on exertion has not improved since her discharge from the hospital on 12/25/2017. She was admitted for acute hypoxic respiratory failure secondary to acute right-sided heart failure, bilateral pneumonia secondary to human metapneumovirus, obstructive sleep apnea with pulmonary hypertension wear CPAP at night, chronic pain syndrome on chronic narcotic, chronic paroxysmal atrial fibrillation on Eliquis, asthma. Patient denies any fever/chest pain/lower extremity edema above her baseline/wheezing. Patient reports that she has been compliant with her medications including Lasix 80 mg twice daily and Eliquis. Patient reports that she has not used her inhaler today. She also reports that she has not had a bowel movement in several days and feels like she has impacted. Denies any nausea/vomiting/ abdominal pain. She does report abdominal bloating. At the end of the interview patient reports that she was in the hospital for 13 days recently and the nurses were so nice to her and she really enjoyed her stay. Modifying Factors: Regular home medication Comment: ROS: see HPI Constitutional: No fever, no chills, no weight loss Eyes: No blurred vision Respiratory: + shortness of breath, no cough Cardiovascular: No chest pain, no palpitations, no lower extremity edema Gastrointestinal: No nausea, no vomiting, no diarrhea Genitourinary: No dysuria Extremities: No myalgias Neurologic: No weakness, no numbness Skin: No rashes Hematologic: No bruising, no bleeding MEDICAL/SURGICAL/SOCIAL HISTORY: Medical/surgical history: Afib, DM, asthma, renal failure, hernias, bilat knee replacements, bilat carpal tunnel repair, Grave's disease, HTN, GERD, depression ,hypothyroidism Social history: Lives in assisted living facility. Retired. CONSTITUTIONAL: Chronically ill-appearing elderly white female, awake and alert , no obvious distress HEENT: Atraumatic and normocephalic, PERRL, EOMI. Nares patent; no rhinorrhea; no nasal mucosal edema. Tympanic membranes clear. Oropharynx clear, no exudate and moist pink mucosa. Airway patent. No lymphadenopathy. No meningismus. Cardiovascular: Normal S1/S2, regular rate, regular rhythm, without murmur rub or gallop. PULMONARY/CHEST: Symmetrical and nontender. Clear to auscultation bilaterally. Good air movement. No accessory muscle usage. ABDOMEN: Soft, nondistended, nontender, no rebound, no guarding, no peritoneal signs, no masses or organomegaly. No CVAT. Hypoactive bowel sounds heard x4. EXTREMITIES: 2/2 pulses, strength 5/5, no deformities, no clubbing, no cyanosis or edema. NEUROLOGICAL: no focal neuro deficits. GCS 15. SKIN: Warm and dry, no erythema. no rash. Good capillary refill. Source: Patient, Old records Exam Limitations: No limitations - Personal History Tetanus Vaccine Date: >10 YRS - Medical/Surgical History Hx Asthma: Yes Hx Chronic Respiratory Disease: No Hx Diabetes: Yes Hx Cardiac Disease: Yes Hx Renal Disease: Yes Hx Cirrhosis: No Hx Alcoholism: No Hx HIV/AIDS: No Hx Splenectomy or Spleen Trauma: No Other PMH: Afib, DM, asthma, renal failure, hernias, bilat knee replacements, bilat carpal tunnel repair, Grave's disease, HTN, GERD, depression, hypothyroidism, - Social History Smoking Status: Former smoker Constitutional: Initial Vital Signs Temperature (C) 36.6 C 01/02/18 20:16 Heart Rate 61 01/02/18 20:16 Respiratory Rate 16 01/02/18 20:16 Blood Pressure 117/65 01/02/18 20:16 O2 Sat (%) 93 01/02/18 20:16 Allergies/Adverse Reactions: RADIOACTIVE IODINE Allergy (Severe, Uncoded 12/14/17 14:25) RED SKIN lidoderm Allergy (Uncoded 12/14/17 14:25) pravastatin Allergy (Uncoded 12/14/17 14:25) Home Medications: Medication Instructions Recorded Albuterol [Proventil Inhaler HFA 2 puffs IH Q6HRS PRN 06/25/17 (*)] Apixaban [Eliquis] 5 mg PO BID 06/25/17 Betamethasone/Propylene Glyc 15 gm TP HS PRN 06/25/17 [Betamethasone Dp Aug 0.05% Oin] Digoxin [Lanoxin 125 mcg (RX)] 125 mcg PO DAILY10 06/25/17 Diltiazem HCl [Cardizem Cd] 360 mg PO DAILY 06/25/17 Docusate Sodium [Colace 100 MG (*)] 200 mg PO DAILY 06/25/17 Estradiol [Estrace Vaginal (*)] 1 fadia VG Q3D 06/25/17 FLUoxetine [Prozac 20 MG (*)] 60 mg PO DAILY 06/25/17 Famotidine [Pepcid 20 MG (*)] 20 mg PO BID 06/25/17 Furosemide [Lasix 80 MG (*)] 80 mg PO BID 06/25/17 Levothyroxine [Synthroid 200 mcg 200 mcg PO DAILY06 06/25/17 (*)] Lisinopril [Zestril 40 mg (*)] 40 mg PO DAILY 06/25/17 Triamcinolone 0.1% [Triamcinolone 1 fadia TP BID PRN 06/25/17 0.1% Cream (*)] Vitamin B Complex [B Complex] 1 each PO DAILY 06/25/17 clonazePAM [Klonopin (*)] 0.25 mg PO BID PRN 06/25/17 metFORMIN SR [Glucophage XR 500 mg 1,000 mg PO 0800 06/25/17 (*)] oxyCODONE HCL [Oxycontin] 60 mg PO BID 06/25/17 ARIPiprazole [Abilify 2 mg (*)] 2 mg PO DAILY 07/21/17 clonIDINE [Catapres (*)] 0.1 mg PO BID 07/21/17 Sennosides/Docusate Sodium 1 - 2 tab PO BID tab 07/26/17 [Senokot-S] Loratadine [Claritin 10 mg] 10 mg PO DAILY 12/14/17 buPROPion SR [Wellbutrin 100mg SR 100 mg PO DAILY 12/14/17 (*)] clonazePAM [Klonopin (*)] 0.5 mg PO HS 12/14/17 prednisoLONE ACET 1% [Pred Forte 1 drops LEFTEYE QID 12/14/17 1% (*)] Advair 250/50 (*) 1 inh IH BID 12/16/17 Acetaminophen [Tylenol 325mg (*)] 650 mg PO Q4HRS PRN tab 12/25/17 Ipratropium/Albuterol [Duoneb (*)] 3 ml IH TID #20 deyvial 12/25/17 Metolazone [Zaroxolyn] 2.5 mg PO DAILY #5 tab 12/25/17 Polyethylene Glycol 3350 [Miralax 17 gm PO BID PRN pkt 12/25/17 17 gm (*)] Medical Decision Making - Diagnostics Imaging Results: Imaging Impressions Chest X-Ray 01/02/18 00:00 Impression: 1. Stable mild cardiomegaly, with no evidence of congestive heart failure. 2. Mild peribronchial thickening, and interval resolution of right middle lobe and right lower lobe atelectasis/infiltrates, with some minimal residual linear diskoid subsegmental atelectasis versus linear scar in the left midlung. Abdomen X-Ray 01/02/18 20:25 Impression: Moderate constipation/obstipation. ED Course/Re-evaluation: Vital signs reviewed upon arrival. O2 sats 91-93% on room air. EKG shows chronic AFib; rate controlled; t wave depression Labs, chest x-ray two view and abdominal upright ordered Given DuoNeb and glycerin suppository. Labs reviewed. H&H 10.9/34.5-improved from prior hospitalization value. BUN/ creatinine is 95/2.3. Last creatinine was 0.9 on 12/25/2017. Patient clearly has acute kidney injury secondary to diuretic use. Acute abdomen series shows: 1. Stable mild cardiomegaly, with no evidence of congestive heart failure. 2. Mild peribronchial thickening, and interval resolution of right middle lobe and right lower lobe atelectasis/infiltrates, with some minimal residual linear diskoid subsegmental atelectasis versus linear scar in the left midlung. Moderate constipation/obstipation. 2124: ED decision to consult for admission for acute kidney injury secondary to diuresis. Spoke with hospitalist, Dr. Baker, who kindly agrees to admit patient for further care. This patient was seen under the supervision of my secondary supervising physician. I evaluated care for this patient independently. Discussed this patient with Dr. Higuera who did not see the patient. Differential Diagnosis: Shortness of breath including but not limited to pulmonary infectious process, COPD, asthma, pulmonary embolus and congestive heart failure. - Data Points Laboratory Results: Laboratory Results 01/02/18 20:25 01/02/18 20:25 01/02/18 01/02/18 01/02/18 20:25 20:25 20:25 WBC 7.99 10^3/uL 10^3/uL (3.80-9.50) RBC 4.29 10^6/uL 10^6/uL (4.18-5.33) Hgb 10.9 g/dL L g/dL (12.6-16.3) Hct 34.5 % L % (38.0-47.0) MCV 80.4 fL L fL (81.5-99.8) MCH 25.4 pg L pg (27.9-34.1) MCHC 31.6 g/dL L g/dL (32.4-36.7) RDW 18.3 % H % (11.5-15.2) Plt Count 223 10^3/uL 10^3/uL (150-400) MPV 10.5 fL fL (8.7-11.7) Neut % (Auto) 82.1 % H % (39.3-74.2) Lymph % (Auto) 7.5 % L % (15.0-45.0) [place] % (Auto) 9.5 % % (4.5-13.0) Eos % (Auto) 0.0 % L % (0.6-7.6) Baso % (Auto) 0.0 % L % (0.3-1.7) Nucleat RBC Rel Count 0.0 % % (0.0-0.2) Absolute Neuts (auto) 6.56 10^3/uL H 10^3/uL (1.70-6.50) Absolute Lymphs (auto) 0.60 10^3/uL L 10^3/uL (1.00-3.00) Absolute Monos (auto) 0.76 10^3/uL 10^3/uL (0.30-0.80) Absolute Eos (auto) 0.00 10^3/uL L 10^3/uL (0.03-0.40) Absolute Basos (auto) 0.00 10^3/uL L 10^3/uL (0.02-0.10) Absolute Nucleated RBC 0.00 10^3/uL 10^3/uL (0-0.01) Immature Gran % 0.9 % % (0.0-1.1) Immature Gran # 0.07 10^3/uL 10^3/uL (0.00-0.10) Sodium 132 mEq/L L mEq/L (135-145) Potassium 3.6 mEq/L mEq/L (3.5-5.2) Chloride 89 mEq/L L mEq/L (97-110) Carbon Dioxide 31 mEq/l mEq/l (22-31) Anion Gap 12 mEq/L mEq/L (8-16) BUN 95 mg/dL H mg/dL (7-23) Creatinine 2.3 mg/dL H mg/dL (0.6-1.0) Estimated GFR 21 Glucose 120 mg/dL H mg/dL (70-100) Calcium 9.3 mg/dL mg/dL (8.5-10.4) Troponin I 0.026 ng/mL ng/mL (0.000-0.034) NT-Pro-B Natriuret Pep 3740 pg/mL H pg/mL (0-125) Digoxin 1.3 ng/mL ng/mL (0.8-2.0) Departure - Departure Disposition: [facility] In[facility] Acute Clinical Impression: Acute kidney injury Diuretics causing adverse effect in therapeutic use Qualifiers: Encounter type: initial encounter Qualified Code(s): T50.2X5A - Adverse effect of carbonic-anhydrase inhibitors, benzothiadiazides and other diuretics, initial encounter Condition: Fair
[2018-01-02] MEDS ORDERED: GLYCERIN ADULT 1 EACH SUPP PR ONE (20:31)
[2018-01-02 20:37] LABS: PLATELET COUNT 223 10^3/uL (150-400)
[2018-01-02] MEDS ORDERED: NS 500 ML IV ONE (21:12)
[2018-01-02] MEDS ORDERED: ACETAMINOPHEN 325 MG TAB PO PRN (22:16)
[2018-01-02] MEDS ORDERED: ONDANSETRON DISINTEGRATING 4 MG TAB PO PRN (22:16)
[2018-01-02] MEDS ORDERED: ONDANSETRON 4 MG/2 ML VIAL IVP PRN (22:16)
[2018-01-02] MEDS ORDERED: ALBUTEROL 60 PUFFS/8 GM MDI IH PRN (22:19)
--- NOTE | 2018-01-02 22:43 | PDGENHP ---
History and Physical - Chief Complaint SOB, fatigue - History of Present Illness 72 yo F w/ dCHF, AF, asthma, HTN, chronic pain, and depression presents with SOB and fatigue. Patient was recently discharged from the hospital after treatment for CHF exacerbation and asthma exacerbation 2/2 metapneumovirus pneumonia. She was discharged on 12/25 on furosemide 80 mg PO BID and metolazone 2.5 mg MWF. She saw her PCP on but states that no blood work was obtained and the same dose of diuretics was continued. She presents today with ongoing, mild SOB and fatigue. In the ED she was found to have a significant LUIS CARLOS so she is being admitted for further management of this. History Information - Allergies/Home Medication List Allergies/Adverse Reactions: RADIOACTIVE IODINE Allergy (Severe, Uncoded 12/14/17 14:25) RED SKIN lidoderm Allergy (Uncoded 12/14/17 14:25) pravastatin Allergy (Uncoded 12/14/17 14:25) Home Medications: Albuterol [Proventil Inhaler HFA (*)] 2 puffs IH Q6HRS PRN 06/25/17 [Last Taken 07/20/17] Apixaban [Eliquis] 5 mg PO BID 06/25/17 [Last Taken 12/14/17] Betamethasone/Propylene Glyc [Betamethasone Dp Aug 0.05% Oin] 15 gm TP HS PRN [Last Taken 2 Weeks Ago ~07/07/17] Digoxin [Lanoxin 125 mcg (RX)] 125 mcg PO DAILY10 06/25/17 [Last Taken 07/21/17 05:00] Diltiazem HCl [Cardizem Cd] 360 mg PO DAILY 06/25/17 [Last Taken 07/21/17 05:00] Docusate Sodium [Colace 100 MG (*)] 200 mg PO DAILY 06/25/17 [Last Taken ] FLUoxetine [Prozac 20 MG (*)] 60 mg PO DAILY 06/25/17 [Last Taken 07/20/17] Famotidine [Pepcid 20 MG (*)] 20 mg PO BID 06/25/17 [Last Taken 07/20/17] Furosemide [Lasix 80 MG (*)] 80 mg PO BID 06/25/17 [Last Taken 07/20/17] Levothyroxine [Synthroid 200 mcg (*)] 200 mcg PO DAILY06 06/25/17 [Last Taken 05:00] Lisinopril [Zestril 40 mg (*)] 40 mg PO DAILY 06/25/17 [Last Taken 07/21/17 05: 00] Triamcinolone 0.1% [Triamcinolone 0.1% Cream (*)] 1 fadia TP BID PRN 06/25/17 [ Last Taken 2 Weeks Ago ~07/07/17] Vitamin B Complex [B Complex] 1 each PO DAILY 06/25/17 [Last Taken 07/16/17] clonazePAM [Klonopin (*)] 0.25 mg PO BID PRN 06/25/17 [Last Taken 07/20/17] oxyCODONE HCL [Oxycontin] 60 mg PO BID 06/25/17 [Last Taken 07/20/17] ARIPiprazole [Abilify 2 mg (*)] 2 mg PO DAILY 07/21/17 [Last Taken 07/20/17] clonIDINE [Catapres (*)] 0.1 mg PO BID 07/21/17 [Last Taken Unknown] Loratadine [Claritin 10 mg] 10 mg PO DAILY 12/14/17 [Last Taken Unknown] buPROPion SR [Wellbutrin 100mg SR (*)] 100 mg PO DAILY 12/14/17 [Last Taken ] clonazePAM [Klonopin (*)] 0.5 mg PO HS 12/14/17 [Last Taken Unknown] prednisoLONE ACET 1% [Pred Forte 1% (*)] 1 drops LEFTEYE QID 12/14/17 [Last Taken 12/14/17] Estrogens,Conjugated [Premarin Vaginal (*)] 1 fadia VG Q3D 01/02/18 [Last Taken Unknown] Fluticasone/Salmeter 250/50Mcg [Advair 250/50 (*)] 1 puffs IH BID 01/02/18 [ Last Taken Unknown] Ipratropium/Albuterol [Duoneb (*)] 3 ml IH TID PRN 01/02/18 [Last Taken Unknown] Metolazone [Zaroxolyn] 2.5 mg PO MWF 01/02/18 [Last Taken Unknown] metFORMIN HCL [Metformin HCl] 500 mg PO BID 01/02/18 [Last Taken Unknown] I have personally reviewed and updated: family history, medical history - Past Medical History atrial fibrillation, asthma, CHF, diabetes type 2, hypertension Additional medical history: Depression. Chronic pain - Surgical History Additional surgical history: Hip surgery - Family History Positive for: cancer - Social History Smoking Status: Former smoker Review of Systems Review of Systems: ROS: 10pt was reviewed & negative except for what was stated in HPI & below Physical Exam Physical Exam: Temp Pulse Resp BP Pulse Ox 36.6 C 62 16 134/62 H 95 01/02/18 20:16 01/02/18 21:45 01/02/18 21:45 01/02/18 21:45 01/02/18 21:45 Constitutional: no apparent distress, chronically ill appearing Eyes: PERRL, EOMI Ears, Nose, Mouth, Throat: moist mucous membranes, no oral mucosal ulcers Cardiovascular: regular rate and rhythym, systolic murmur, JVD (JVP visible at clavicle while sitting upright), edema (1+ b/l [place]) Respiratory: no respiratory distress, expiratory wheeze (Mild, diffuse) Gastrointestinal: normoactive bowel sounds, soft, non-tender abdomen Skin: warm, normal color Musculoskeletal: full muscle strength, no muscle tenderness Neurologic: AAOx3, CN II-XII Intact Psychiatric: interacting appropriately, not anxious, flat affect Lab Data & Imaging Review 01/02/18 20:25 01/02/18 20:25 WBC 7.99 10^3/uL (3.80-9.50) 01/02/18 20:25 RBC 4.29 10^6/uL (4.18-5.33) 01/02/18 20:25 Hgb 10.9 g/dL (12.6-16.3) L 01/02/18 20:25 Hct 34.5 % (38.0-47.0) L 01/02/18 20:25 MCV 80.4 fL (81.5-99.8) L 01/02/18 20:25 MCH 25.4 pg (27.9-34.1) L 01/02/18 20:25 MCHC 31.6 g/dL (32.4-36.7) L 01/02/18 20:25 RDW 18.3 % (11.5-15.2) H 01/02/18 20:25 Plt Count 223 10^3/uL (150-400) 01/02/18 20: MPV 10.5 fL (8.7-11.7) 01/02/18 20:25 Neut % (Auto) 82.1 % (39.3-74.2) H 01/02/18 20:25 Lymph % (Auto) 7.5 % (15.0-45.0) L 01/02/18 20:25 [place] % (Auto) 9.5 % (4.5-13.0) 01/02/18 20:25 Eos % (Auto) 0.0 % (0.6-7.6) L 01/02/18 20: Baso % (Auto) 0.0 % (0.3-1.7) L 01/02/18 20: Nucleat RBC Rel Count 0.0 % (0.0-0.2) 01/02/18 20: Absolute Neuts (auto) 6.56 10^3/uL (1.70-6.50) H 01/02/18 20:25 Absolute Lymphs (auto) 0.60 10^3/uL (1.00-3.00) L 01/02/18 20: Absolute Monos (auto) 0.76 10^3/uL (0.30-0.80) 01/02/18 20: Absolute Eos (auto) 0.00 10^3/uL (0.03-0.40) L 01/02/18 20: Absolute Basos (auto) 0.00 10^3/uL (0.02-0.10) L 01/02/18 20:25 Absolute Nucleated RBC 0.00 10^3/uL (0-0.01) 01/02/18: Immature Gran % 0.9 % (0.0-1.1) 01/02/18 20: Immature Gran # 0.07 10^3/uL (0.00-0.10) 01/02/18 20:25 Sodium 132 mEq/L (135-145) L 01/02/18 20:25 Potassium 3.6 mEq/L (3.5-5.2) 01/02/18 20:25 Chloride 89 mEq/L (97-110) L 01/02/18 20:25 Carbon Dioxide 31 mEq/l (22-31) 01/02/18 20:25 Anion Gap 12 mEq/L (8-16) 01/02/18 20:25 BUN 95 mg/dL (7-23) H 01/02/18 20:25 Creatinine 2.3 mg/dL (0.6-1.0) H 01/02/18 20:25 Estimated GFR 21 01/02/18 20:25 Glucose 120 mg/dL (70-100) H 01/02/18 20:25 Calcium 9.3 mg/dL (8.5-10.4) 01/02/18 20:25 Troponin I 0.026 ng/mL (0.000-0.034) 01/02/18 20:25 NT-Pro-B Natriuret Pep 3740 pg/mL (0-125) H 01/02/18 20:25 Digoxin 1.3 ng/mL (0.8-2.0) 01/02/18 20:25 Imaging Review: Imaging Impressions Chest X-Ray 01/02/18 00:00 Impression: 1. Stable mild cardiomegaly, with no evidence of congestive heart failure. 2. Mild peribronchial thickening, and interval resolution of right middle lobe and right lower lobe atelectasis/infiltrates, with some minimal residual linear diskoid subsegmental atelectasis versus linear scar in the left midlung. Abdomen X-Ray 01/02/18 20:25 Impression: Moderate constipation/obstipation. Visualized and Interpreted Chest x-ray results: Yes Chest X-Ray results: no infiltrate Visualized and Interpreted EKG results: Yes EKG Interpretation: Positive for: other (Afib, HR 60) Assessment & Plan Assessment: 72 yo F w dCHF, AF, HTN, asthma, chronic pain and depression presents with LUIS CARLOS 2 /2 high dose diuretics. Plan: 1. LUIS CARLOS - Presumed pre-renal azotemia in the setting of high dose diuretic therapy. She saw her PCP a few days prior to presentation but labs were not checked at that time. - S/p 500 mL NS, recheck BMP in the AM - Hold diuretics, PAUL, and metformin for now - Renally dose medications, avoid nephrotoxins 2. dCHF - Recently discharged after treatment for exacerbation. Her volume exam is improved from prior although she still has some LE edema, which she states is much less than before. She was discharged on furosemide 80 mg PO BID and metolazone 2.5 mg MWF. CXR shows no e/o pulmonary edema; BNP decreased compared to prior. - Hold diuretics for now noting above - Would restart lower dose after LUIS CARLOS resolves - Cardiac diet, daily weights, monitor I/Os 3. AF - On diltiazem, digoxin, and apixaban as an outpatient. Digoxin level within therapeutic range on admission at 1.3. ECG in rate controlled AF. - Continue rate control agents - I will dose reduce apixaban for now to 2.5 mg PO BID noting decreased GFR 4. HTN - On clonidine and lisinopril as outpatient. - Will hold lisinopril noting LUIS CARLOS - May require PRN agents if BP becomes elevated 5. T2DM - On metformin as outpatient; will hold this noting LUIS CARLOS and manage with sensitive scale SSI. 6. Asthma - I suspect her previous exacerbation has not completely resolved as she still displays some mild wheezing and subjective dyspnea. - Continue home inhalers - Albuterol and Duonebs available PRN - Will hold off on steroids for now noting coexisting DM 7. VICENTA - On nighttime CPAP 8. Chronic pain - Continue Oxycontin 60 mg PO BID. 9. Depression, anxiety - On multiple medications for this 10. Polypharmacy - On many centrally acting medications currently, high risk for adverse outcome. Diet - Cardiac Ppx - apixaban Code - Full Dispo - Admit under inpatient status
[2018-01-03] MEDS ORDERED: APIXABAN 5 MG TAB PO SCH (00:15)
[2018-01-03] MEDS: APIXABAN 5 MG TAB PO SCH ×2 (00:25→08:23)
[2018-01-03] MEDS: clonazePAM 0.5 MG TAB PO PRN ×2 (00:26→21:59)
[2018-01-03] MEDS: LEVOTHYROXINE 200 MCG TAB PO SCH (04:39)
[2018-01-03 05:09] LABS: PLATELET COUNT 192 10^3/uL (150-400)
[2018-01-03] MEDS: INSULIN LISPRO 100 UNIT/ML SC SCH ×3 (08:22→18:28)
[2018-01-03] MEDS: FLUoxetine 20 MG CAP PO SCH (08:24)
[2018-01-03] MEDS: DIGOXIN 125 MCG TAB PO SCH (08:24)
[2018-01-03] MEDS: ARIPiprazole 2 MG TAB PO SCH (08:24)
[2018-01-03] MEDS: buPROPion SR 100 MG TAB PO SCH (08:24)
[2018-01-03] MEDS: DILTIAZEM CD 180 MG CAP PO SCH (08:24)
[2018-01-03] MEDS: CETIRIZINE 10 MG TAB PO SCH (08:24)
[2018-01-03] MEDS: DOCUSATE SODIUM 100 MG CAP PO SCH (08:25)
[2018-01-03] MEDS: oxyCODONE CR 30 MG TAB PO SCH ×2 (08:25→22:05)
--- NOTE | 2018-01-03 08:53 | PDMN ---
Medical Necessity Medical necessity: Pt meets IP criteria per MD; est los >2 mn for eval/tx of acute kidney injury in the setting of high dose diuretic therapy; admit for further monitoring, med management & therapy; hx recent hospitalization for CHF exacerbation & pneumonia, AFIB, HTN, asthma, diabetes; per H&P & order 01/02/18
[2018-01-03] MEDS ORDERED: NON-FORMULARY NEW DRUG (Oxycodone Hcl [Oxycontin] 60 MG) PO SCH (09:00)
[2018-01-03] MEDS ORDERED: FAMOTIDINE 20 MG TAB PO SCH (09:00)
[2018-01-03] MEDS ORDERED: DILTIAZEM HCL 360 MG PO SCH (09:00)
[2018-01-03] MEDS ORDERED: NON-FORMULARY NEW DRUG (Loratadine [Claritin 10 Mg] 10 MG) PO SCH (09:00)
--- NOTE | 2018-01-03 10:02 | HOSPPROG ---
Hospitalist Progress Note Assessment/Plan: Martin Morgan is a 72-year-old female who has a history of diastolic congestive heart failure, atrial fibrillation, asthma, hypertension and chronic pain who presented with shortness of breath and fatigue. She was recently discharged for CHF exacerbation and asthma exacerbation. Today is my 1st encounter with the patient on this admission. Chart reviewed. * acute kidney injury -most likely pre renal azotemia in the setting of high-dose diuretics -renal function improved after getting fluids -will hold diuretics for now -avoid nephrotoxins * diastolic congestive heart failure -she usually is on furosemide 80 mg p.o. Twice daily and metolazone 2.5 mg Wednesday -BMP is improved -has ongoing lower extremity edema -get daily weights * atrial fibrillation -Eliquis dose decreased due to acute kidney injury * hypokalemia -will add potassium protocol * anemia * hypertension -lisinopril on hold due to the acute kidney injury -on clonidine -on her last admission it was difficult to control her blood pressure * type 2 diabetes -metformin on hold due to her acute kidney injury -on sliding scale * asthma -albuterol and duo nebs p.r.n. -had been on steroids on her last admission which caused uncontrolled glucoses * obstructive sleep apnea -CPAP * chronic pain -on OxyContin 60 mg twice daily * depression and anxiety * polypharmacy *plan: hold diuretic, recheck her labs in the morning. Will need diuretics resumed once kidney function improves. Suspect she needs a higher level of care. Subjective: Martin is feeling better today. Objective: Vital Signs Temp Pulse Resp BP Pulse Ox 37.1 C 65 18 135/84 H 97 01/03/18 07:14 01/03/18 08:24 01/03/18 07:14 01/03/18 08:24 01/03/18 07:14 Laboratory Results 01/03/18 04:38 01/03/18 04:38 01/02/18 01/03/18 01/04/18 05:59 05:59 05:59 Intake Total 100 Output Total 900 Balance 100 -900 - Physical Exam Constitutional: appears nourished, chronically ill appearing Eyes: PERRL Ears, Nose, Mouth, Throat: hearing normal Cardiovascular: regular rate and rhythym, edema (lower ext swelling is improved compared to when I cared for her earlier this month) Respiratory: no respiratory distress, expiratory wheeze Gastrointestinal: normoactive bowel sounds, other (large and round) Skin: warm, No normal color (pale) Musculoskeletal: generalized weakness Neurologic: AAOx3 Psychiatric: interacting appropriately ICD10 Worksheet Patient Problems: Problems Problem Status Onset Acute kidney injury Acute Diuretics causing adverse effect in therapeutic use Acute MRSA - Methicillin resistant Staphylococcus aureus infection Active Bronchitis Acute CHF (congestive heart failure) Acute Cough Acute Pneumonia Acute Primary localized osteoarthritis of left hip Acute Shortness of breath Acute chronic disease mgmt/transitional care Acute
[2018-01-03] MEDS ORDERED: PROTOCOL POTASSIUM 1 DOSE MISC PRN (10:09)
[2018-01-03] MEDS: FLUTICASONE/SALMETER 250/50MCG DISKUS IH SCH ×2 (10:13→21:40)
[2018-01-03] MEDS: IPRATROPIUM/ALBUTEROL 3 ML DEYVIAL IH PRN ×2 (10:13→21:40)
--- NOTE | 2018-01-03 14:39 | ASMTCMCOM ---
CM Note CM Note Notes: CM spoke w/ Guillermina, RN regarding d/c POC. CM met w/ pt for dispo planning. Pt reports that she is current w/ [facility] and has a CM, through [employer] (Matilde Szymanski, P#: [phone]). CM left pt a msg and requested a call back. Pt reports that she is also current w/ [facility]. Updates sent to [facility]. Pt is agreeable for CM to make a referral to [facility]. CM left a msg w/ Estephanie at [facility]. CM to follow. Plan: Celestine Navas, [facility] and [facility] outreach Date Signed: 01/03/2018 02:38 PM Electronically Signed By:CRISTIAN Ascencio
[2018-01-03] MEDS ORDERED: POTASSIUM CL 20 MEQ TAB PO ONE (15:00)
[2018-01-03] MEDS: APIXABAN 2.5 MG TAB PO SCH (22:05)
[2018-01-04] MEDS ORDERED: POTASSIUM CL 10 MEQ TAB PO ONE ×4 (01:10→20:15)
[2018-01-04] MEDS: LEVOTHYROXINE 200 MCG TAB PO SCH (05:17)
[2018-01-04] MEDS: oxyCODONE CR 30 MG TAB PO SCH ×2 (08:39→20:29)
[2018-01-04] MEDS: INSULIN LISPRO 100 UNIT/ML SC SCH ×3 (08:39→17:55)
[2018-01-04] MEDS: FLUoxetine 20 MG CAP PO SCH (08:40)
[2018-01-04] MEDS: DILTIAZEM CD 180 MG CAP PO SCH (08:40)
[2018-01-04] MEDS: APIXABAN 2.5 MG TAB PO SCH ×2 (08:41→20:29)
[2018-01-04] MEDS: CETIRIZINE 10 MG TAB PO SCH (08:41)
[2018-01-04] MEDS: buPROPion SR 100 MG TAB PO SCH (08:41)
[2018-01-04] MEDS: FAMOTIDINE 20 MG TAB PO SCH (08:42)
[2018-01-04] MEDS: ARIPiprazole 2 MG TAB PO SCH (08:42)
[2018-01-04] MEDS: DOCUSATE SODIUM 100 MG CAP PO SCH (08:42)
--- NOTE | 2018-01-04 08:46 | HOSPPROG ---
Hospitalist Progress Note Assessment/Plan: Martin Morgan is a 72-year-old female who has a history of diastolic congestive heart failure, atrial fibrillation, asthma, hypertension and chronic pain who presented with shortness of breath and fatigue. She was recently discharged for CHF exacerbation and asthma exacerbation. * acute kidney injury,improving -most likely pre renal azotemia in the setting of high-dose diuretics -renal function improved after getting fluids -will hold diuretics for now -avoid nephrotoxins * diastolic congestive heart failure -she usually is on furosemide 80 mg p.o. Twice daily and metolazone 2.5 mg Wednesday -BMP is improved -has ongoing lower extremity edema -get daily weights * atrial fibrillation -Eliquis dose decreased due to acute kidney injury * hypokalemia -will add potassium protocol * anemia * hypertension -lisinopril on hold due to the acute kidney injury -on clonidine -on her last admission it was difficult to control her blood pressure, on this admission has been well managed even w holding ACEI and diuretics * type 2 diabetes -metformin on hold due to her acute kidney injury -on sliding scale * asthma -albuterol and duo nebs p.r.n. -had been on steroids on her last admission which caused uncontrolled glucoses * obstructive sleep apnea -CPAP * chronic pain -on OxyContin 60 mg twice daily * depression and anxiety * polypharmacy *plan: Reviewed with Matrin my concern of sending her home, she needs close monitoring of her heart failure along with kidney function. She is willing to consider a SNF but had a poor experience at one. CM to talk with her and discuss her options. Subjective: Martin has no complaints. Objective: Vital Signs Temp Pulse Resp BP Pulse Ox 36.3 C 58 L 18 124/83 H 99 01/04/18 08:00 01/04/18 08:00 01/04/18 08:00 01/04/18 08:00 01/04/18 08:00 Laboratory Results 01/03/18 04:38 01/04/18 04:55 01/03/18 01/04/18 01/05/18 05:59 05:59 05:59 Intake Total 100 855 Output Total 2200 650 Balance 100 -1345 -650 - Physical Exam Constitutional: appears nourished, not in pain, chronically ill appearing Eyes: PERRL Ears, Nose, Mouth, Throat: hearing normal Cardiovascular: regular rate and rhythym Respiratory: no respiratory distress, reduced air movement, expiratory wheeze Skin: warm Musculoskeletal: generalized weakness Neurologic: AAOx3 Psychiatric: interacting appropriately, not anxious ICD10 Worksheet Patient Problems: Problems Problem Status Onset Acute kidney injury Acute Diuretics causing adverse effect in therapeutic use Acute MRSA - Methicillin resistant Staphylococcus aureus infection Active Bronchitis Acute CHF (congestive heart failure) Acute Cough Acute Pneumonia Acute Primary localized osteoarthritis of left hip Acute Shortness of breath Acute chronic disease mgmt/transitional care Acute
[2018-01-04] MEDS ORDERED: LACTULOSE 20 GM/30 ML UDCUP PO PRN (09:38)
[2018-01-04] MEDS ORDERED: BISACODYL 10 MG SUPP PR PRN (09:38)
[2018-01-04] MEDS: DIGOXIN 125 MCG TAB PO SCH (10:00)
[2018-01-04] MEDS: POLYETHYLENE GLYCOL 3350 17 GM PKT PO SCH (10:01)
[2018-01-04] MEDS: FLUTICASONE/SALMETER 250/50MCG DISKUS IH SCH ×2 (10:10→20:43)
[2018-01-04] MEDS: IPRATROPIUM/ALBUTEROL 3 ML DEYVIAL IH PRN ×2 (10:11→20:43)
--- NOTE | 2018-01-04 17:15 | ASMTCMCOM ---
CM Note CM Note Notes: CM spoke w/ Julieta V/[employer] and Melba RN regarding d/c POC. OT is recommending home w/ HC. OT is also recommending that pt transitions to a AL. CM met w/ pt and pts friend for dispo planning. CM informed pt of OTs recommendations. Pt is not interested in transitioning to AL. Pt is open to the idea of going to SNF. Pt would like a referral made to [facility], [facility], [facility] and [facility]. CM completed non triggering PASRR. CM to communicate to pt once SNFs have accepted. CM to follow. Plan: TBD Date Signed: 01/04/2018 03:13 PM Electronically Signed By:CRISTIAN Ascencio
[2018-01-04] MEDS: SENNOSIDES/DOCUSATE SODIUM TAB PO SCH (20:29)
[2018-01-04] MEDS ORDERED: POTASSIUM CL 20 MEQ TAB PO ONE (20:30)
[2018-01-05] MEDS: LEVOTHYROXINE 200 MCG TAB PO SCH (05:18)
[2018-01-05] MEDS: FLUoxetine 20 MG CAP PO SCH (08:23)
[2018-01-05] MEDS: oxyCODONE CR 30 MG TAB PO SCH ×2 (08:23→21:00)
[2018-01-05] MEDS: buPROPion SR 100 MG TAB PO SCH (08:24)
[2018-01-05] MEDS: CETIRIZINE 10 MG TAB PO SCH (08:28)
[2018-01-05] MEDS: APIXABAN 2.5 MG TAB PO SCH ×2 (08:28→21:01)
[2018-01-05] MEDS: ARIPiprazole 2 MG TAB PO SCH (08:28)
[2018-01-05] MEDS: FAMOTIDINE 20 MG TAB PO SCH (08:28)
[2018-01-05] MEDS: DOCUSATE SODIUM 100 MG CAP PO SCH (08:28)
[2018-01-05] MEDS: DILTIAZEM CD 180 MG CAP PO SCH (08:28)
[2018-01-05] MEDS: DIGOXIN 125 MCG TAB PO SCH (08:29)
[2018-01-05] MEDS: SENNOSIDES/DOCUSATE SODIUM TAB PO SCH ×2 (08:29→21:00)
[2018-01-05] MEDS: NS 500 ML IV ONE ×2 (08:29→09:06)
[2018-01-05] MEDS: INSULIN LISPRO 100 UNIT/ML SC SCH ×3 (09:02→18:30)
[2018-01-05] MEDS: POLYETHYLENE GLYCOL 3350 17 GM PKT PO SCH ×2 (09:06→12:45)
[2018-01-05] MEDS: FLUTICASONE/SALMETER 250/50MCG DISKUS IH SCH ×2 (10:45→20:24)
[2018-01-05] MEDS: IPRATROPIUM/ALBUTEROL 3 ML DEYVIAL IH PRN ×2 (10:46→20:24)
--- NOTE | 2018-01-05 12:59 | HOSPPROG ---
Hospitalist Progress Note Assessment/Plan: Martin Morgan is a 72-year-old female who has a history of diastolic congestive heart failure, atrial fibrillation, asthma, hypertension and chronic pain who presented with shortness of breath and fatigue. She was recently discharged for CHF exacerbation and asthma exacerbation. * acute kidney injury,improving -most likely pre renal azotemia in the setting of high-dose diuretics -renal function improved after getting fluids -will hold diuretics for now -avoid nephrotoxins * diastolic congestive heart failure -she usually is on furosemide 80 mg p.o. Twice daily and metolazone 2.5 mg Wednesday (all on hold for now) -BMP is improved -has ongoing lower extremity edema which is increasing today, ordered PAUL wrap -get daily weights * atrial fibrillation -Eliquis dose decreased due to acute kidney injury * hypokalemia -will add potassium protocol * anemia *hyponatremia -will follow * hypertension -lisinopril on hold due to the acute kidney injury -on clonidine -on her last admission it was difficult to control her blood pressure, on this admission has been well managed even w holding ACEI and diuretics * type 2 diabetes -metformin on hold due to her acute kidney injury -on sliding scale * asthma -albuterol and duo nebs p.r.n. -had been on steroids on her last admission which caused uncontrolled glucoses * obstructive sleep apnea -CPAP * chronic pain -on OxyContin 60 mg twice daily * depression and anxiety * polypharmacy *constipation -bowel protocol -soap suds enema today *plan: she is willing to go to a SNF for closer monitoring and could go to [facility]. Because of her coverage with Medicare, needs a 30 day commitment. Martin to further decide, suspect she will be re-admitted soon after dc if she goes home. She will need diuretics resumed once creat improves, would recommend half the dose of Lasix and resume metolazone. Subjective: Martin is c/o being constipated. Objective: Vital Signs Temp Pulse Resp BP Pulse Ox 36.6 C 81 16 148/93 H 92 01/04/18 22:00 01/05/18 10:46 01/05/18 10:46 01/05/18 08:00 01/05/18 10:46 Laboratory Results 01/03/18 04:38 01/05/18 04:49 01/04/18 01/05/18 01/06/18 05:59 05:59 05:59 Intake Total 857 6473 Output Total 4519 146 Balance -1345 1246 - Physical Exam Constitutional: not in pain, chronically ill appearing Eyes: PERRL Ears, Nose, Mouth, Throat: hearing normal Cardiovascular: regular rate and rhythym Respiratory: no respiratory distress, expiratory wheeze Skin: warm, No normal color (pale) Musculoskeletal: generalized weakness Neurologic: AAOx3 Psychiatric: interacting appropriately ICD10 Worksheet Patient Problems: Problems Problem Status Onset Acute kidney injury Acute Diuretics causing adverse effect in therapeutic use Acute MRSA - Methicillin resistant Staphylococcus aureus infection Active Bronchitis Acute CHF (congestive heart failure) Acute Cough Acute Pneumonia Acute Primary localized osteoarthritis of left hip Acute Shortness of breath Acute chronic disease mgmt/transitional care Acute
--- NOTE | 2018-01-05 16:20 | ASMTCMCOM ---
CM Note CM Note Notes: Chart reviewed for discharge planning purposes. Patient has been accepted to [facility]. Attempted to see patient and discuss the circumstances of a discharge to SNF requiring she stay for 30 days. She is unable to converse with me and she is indisposed at present. CM to follow. Plan: Potential dc to [facility] Date Signed: 01/05/2018 04:20 PM Electronically Signed By:Tiara Hansen RN
[2018-01-05] MEDS: clonazePAM 0.5 MG TAB PO PRN (21:07)
[2018-01-06] MEDS: IPRATROPIUM/ALBUTEROL 3 ML DEYVIAL IH PRN ×3 (02:02→21:01)
[2018-01-06] MEDS: LEVOTHYROXINE 200 MCG TAB PO SCH (07:44)
[2018-01-06] MEDS: buPROPion SR 100 MG TAB PO SCH (07:58)
[2018-01-06] MEDS: FLUoxetine 20 MG CAP PO SCH (07:58)
[2018-01-06] MEDS: oxyCODONE CR 30 MG TAB PO SCH ×2 (07:59→20:33)
[2018-01-06] MEDS: DOCUSATE SODIUM 100 MG CAP PO SCH (08:02)
[2018-01-06] MEDS: POLYETHYLENE GLYCOL 3350 17 GM PKT PO SCH (08:02)
[2018-01-06] MEDS: SENNOSIDES/DOCUSATE SODIUM TAB PO SCH ×2 (08:03→20:32)
[2018-01-06] MEDS: APIXABAN 2.5 MG TAB PO SCH ×2 (08:03→20:33)
[2018-01-06] MEDS: FAMOTIDINE 20 MG TAB PO SCH (08:03)
[2018-01-06] MEDS: ARIPiprazole 2 MG TAB PO SCH (08:03)
[2018-01-06] MEDS: DILTIAZEM CD 180 MG CAP PO SCH (08:03)
[2018-01-06] MEDS: CETIRIZINE 10 MG TAB PO SCH (08:03)
[2018-01-06] MEDS: INSULIN LISPRO 100 UNIT/ML SC SCH ×3 (08:11→18:01)
[2018-01-06] MEDS: FLUTICASONE/SALMETER 250/50MCG DISKUS IH SCH ×2 (10:02→21:01)
[2018-01-06] MEDS: DIGOXIN 125 MCG TAB PO SCH (10:47)
[2018-01-06] MEDS: clonazePAM 0.5 MG TAB PO PRN ×2 (12:37→20:32)
--- NOTE | 2018-01-06 14:12 | HOSPPROG ---
Hospitalist Progress Note Assessment/Plan: Martin Morgan is a 72-year-old female who has a history of diastolic congestive heart failure, atrial fibrillation, asthma, hypertension and chronic pain who presented with shortness of breath and fatigue. She was recently discharged for CHF exacerbation and asthma exacerbation. * acute kidney injury,improving -most likely pre renal azotemia in the setting of high-dose diuretics -renal function improved after getting fluids -will hold diuretics for now -avoid nephrotoxins * diastolic congestive heart failure -she usually is on furosemide 80 mg p.o. Twice daily and metolazone 2.5 mg Wednesday (all on hold for now) -BMP is improved -has ongoing lower extremity edema which is increasing today, ordered PAUL wrap -get daily weights * atrial fibrillation -Eliquis dose decreased due to acute kidney injury * hypokalemia -will add potassium protocol * anemia *hyponatremia -will follow * hypertension -lisinopril on hold due to the acute kidney injury -on clonidine -on her last admission it was difficult to control her blood pressure, on this admission has been well managed even w holding ACEI and diuretics * type 2 diabetes -metformin on hold due to her acute kidney injury -on sliding scale * asthma -albuterol and duo nebs p.r.n. -had been on steroids on her last admission which caused uncontrolled glucoses * obstructive sleep apnea -CPAP * chronic pain -on OxyContin 60 mg twice daily * depression and anxiety * polypharmacy *constipation -bowel protocol *plan: she is willing to go to a SNF for closer monitoring and could go to [facility]. Because of her coverage with Medicare, needs a 30 day commitment. Martin to further decide, suspect she will be re-admitted soon after dc if she goes home. She will need diuretics resumed once creat improves, would recommend half the dose of Lasix and resume metolazone. Subjective: Up in chair. Feels better today. No pain. Objective: Vital Signs Temp Pulse Resp BP Pulse Ox 36.7 C 67 12 159/98 H 96 01/06/18 08:00 01/06/18 12:49 01/06/18 08:00 01/06/18 12:49 01/06/18 08:00 Laboratory Results 01/03/18 04:38 01/06/18 04:50 0501/06/18 01/07/18 05:59 05:59 05:59 Intake Total 1896 100 Output Total 650 1100 Balance 1246 -1000 - Physical Exam Constitutional: appears nourished, chronically ill appearing Eyes: PERRL, anicteric sclera, EOMI Ears, Nose, Mouth, Throat: moist mucous membranes, hearing normal, ears appear normal Cardiovascular: No JVD, No edema Respiratory: no respiratory distress, reduced air movement Gastrointestinal: No tenderness, No ascites Skin: warm, normal color, No mottled Musculoskeletal: normal joint ROM, no joint effusions, generalized weakness Psychiatric: poor insight, poor judgement, poor memory, No thought process linear ICD10 Worksheet Patient Problems: Problems Problem Status Onset Acute kidney injury Acute Diuretics causing adverse effect in therapeutic use Acute chronic disease mgmt/transitional care Acute Pneumonia Acute CHF (congestive heart failure) Acute Cough Acute Shortness of breath Acute Primary localized osteoarthritis of left hip Acute MRSA - Methicillin resistant Staphylococcus aureus infection Active Bronchitis Acute
--- NOTE | 2018-01-06 14:28 | ASMTCMCOM ---
CM Note CM Note Notes: CM spoke w/pt re dc to snf, pt lives at [facility] and receives services through [facility] and [facility] but is increasingly unable to care for self, pt agreed to snf. She understands it will be about 25 days that she needs to stay there. Britta from will come in am to speak with pt. DC Plan: SNF Date Signed: 01/06/2018 02:27 PM Electronically Signed By:Nola Grove RN
[2018-01-07] MEDS: LEVOTHYROXINE 200 MCG TAB PO SCH (05:01)
[2018-01-07] MEDS: CETIRIZINE 10 MG TAB PO SCH (08:06)
[2018-01-07] MEDS: oxyCODONE CR 30 MG TAB PO SCH (08:06)
[2018-01-07] MEDS: DILTIAZEM CD 180 MG CAP PO SCH (08:06)
[2018-01-07] MEDS: buPROPion SR 100 MG TAB PO SCH (08:07)
[2018-01-07] MEDS: FLUoxetine 20 MG CAP PO SCH (08:07)
[2018-01-07] MEDS: ARIPiprazole 2 MG TAB PO SCH (08:07)
[2018-01-07] MEDS: APIXABAN 2.5 MG TAB PO SCH (08:08)
[2018-01-07] MEDS: FAMOTIDINE 20 MG TAB PO SCH (08:08)
[2018-01-07] MEDS: POLYETHYLENE GLYCOL 3350 17 GM PKT PO SCH (08:10)
[2018-01-07] MEDS: INSULIN LISPRO 100 UNIT/ML SC SCH ×2 (08:10→12:46)
[2018-01-07] MEDS: DOCUSATE SODIUM 100 MG CAP PO SCH (08:10)
[2018-01-07] MEDS: SENNOSIDES/DOCUSATE SODIUM TAB PO SCH (08:15)
[2018-01-07] MEDS: DIGOXIN 125 MCG TAB PO SCH (08:37)
[2018-01-07 08:44] VITALS: BP 140/86
--- NOTE | 2018-01-07 09:58 | PDIAF ---
- Diagnosis Diagnosis: weakness Code Status: Full Code - Medication Management Discharge Medications: Medications to Continue on Transfer Albuterol [Proventil Inhaler HFA (*)] 2 puffs IH Q6HRS PRN 06/25/17 [Last Taken 07/20/17] Apixaban [Eliquis] 5 mg PO BID 06/25/17 [Last Taken 12/14/17] Betamethasone/Propylene Glyc [Betamethasone Dp Aug 0.05% Oin] 15 gm TP HS PRN [Last Taken 2 Weeks Ago ~07/07/17] Digoxin [Lanoxin 125 mcg (RX)] 125 mcg PO DAILY10 06/25/17 [Last Taken 07/21/17 05:00] Diltiazem HCl [Cardizem Cd] 360 mg PO DAILY 06/25/17 [Last Taken 07/21/17 05:00] Docusate Sodium [Colace 100 MG (*)] 200 mg PO DAILY 06/25/17 [Last Taken ] FLUoxetine [Prozac 20 MG (*)] 60 mg PO DAILY 06/25/17 [Last Taken 07/20/17] Famotidine [Pepcid 20 MG (*)] 20 mg PO BID 06/25/17 [Last Taken 07/20/17] Furosemide [Lasix 80 MG (*)] 80 mg PO BID 06/25/17 [Last Taken 07/20/17] Levothyroxine [Synthroid 200 mcg (*)] 200 mcg PO DAILY06 06/25/17 [Last Taken 05:00] Triamcinolone 0.1% [Triamcinolone 0.1% Cream (*)] 1 fadia TP BID PRN 06/25/17 [ Last Taken 2 Weeks Ago ~07/07/17] Vitamin B Complex [B Complex] 1 each PO DAILY 06/25/17 [Last Taken 07/16/17] clonazePAM [Klonopin (*)] 0.25 mg PO BID PRN 06/25/17 [Last Taken 07/20/17] oxyCODONE HCL [Oxycontin] 60 mg PO BID 06/25/17 [Last Taken 07/20/17] ARIPiprazole [Abilify 2 mg (*)] 2 mg PO DAILY 11/29/17 [Last Taken 07/20/17] clonIDINE [Catapres (*)] 0.1 mg PO BID 07/21/17 [Last Taken Unknown] Sennosides/Docusate Sodium [Senokot-S] 1 - 2 tab PO BID tab 07/26/17 [Last Taken Unknown] Loratadine [Claritin 10 mg] 10 mg PO DAILY 12/14/17 [Last Taken Unknown] buPROPion SR [Wellbutrin 100mg SR (*)] 100 mg PO DAILY 12/14/17 [Last Taken ] prednisoLONE ACET 1% [Pred Forte 1% (*)] 1 drops LEFTEYE QID 12/14/17 [Last Taken 12/14/17] Polyethylene Glycol 3350 [Miralax 17 gm (*)] 17 gm PO BID PRN pkt 12/25/17 [ Last Taken Unknown] Estrogens,Conjugated [Premarin Vaginal (*)] 1 fadia VG Q3D 01/02/18 [Last Taken Unknown] Fluticasone/Salmeter 250/50Mcg [Advair 250/50 (*)] 1 puffs IH BID 01/02/18 [ Last Taken Unknown] Ipratropium/Albuterol [Duoneb (*)] 3 ml IH TID PRN 01/02/18 [Last Taken Unknown] Metolazone [Zaroxolyn] 2.5 mg PO MWF 01/02/18 [Last Taken Unknown] metFORMIN HCL [Metformin HCl] 500 mg PO BID 01/02/18 [Last Taken Unknown] Acetaminophen [Tylenol 325mg (*)] 650 mg PO Q4HRS PRN tab 01/07/18 [Last Taken Unknown] Discharge Medications: Refer to the Discharge Home Medication list for PRN reason. PICC Care - Routine: N/A - Orders Services needed: Registered Nurse, Physical Therapy, Occupational Therapy Isolation Type: None Diet Recommendation: no restrictions on diet - Labs/Radiology CMP Date: 01/11/18 - Follow Up Care Current Providers and Referrals: Vic Nowak MD [Primary Care Provider] -
--- NOTE | 2018-01-07 10:34 | ASMTLACE ---
LACE Length of stay for Answers: 4-6 days current admission Acuity / Level of Answers: Yes Care: Did the patient have an inpatient admission? Comorbidities - select Answers: Congestive heart failure all that apply Diabetes (uncontrolled or controlled) Opioid dependence / Chronic pain Other Notes: HTN # of Emergency department Answers: 1-2 visits in the last 6 months Social determinants Answers: Mental health diagnosis (anxiety, depression, pers onality disorders, etc.) Score: 19 Date Signed: 01/07/2018 10:33 AM Electronically Signed By:Nola Grove RN
--- NOTE | 2018-01-07 11:10 | PDIAF ---
- Diagnosis Diagnosis: weakness Code Status: Full Code - Medication Management Discharge Medications: Medications to Continue on Transfer Albuterol [Proventil Inhaler HFA (*)] 2 puffs IH Q6HRS PRN 06/25/17 [Last Taken 07/20/17] Apixaban [Eliquis] 5 mg PO BID 06/25/17 [Last Taken 12/14/17] Betamethasone/Propylene Glyc [Betamethasone Dp Aug 0.05% Oin] 15 gm TP HS PRN [Last Taken 2 Weeks Ago ~07/07/17] Digoxin [Lanoxin 125 mcg (RX)] 125 mcg PO DAILY10 06/25/17 [Last Taken 07/21/17 05:00] Diltiazem HCl [Cardizem Cd] 360 mg PO DAILY 06/25/17 [Last Taken 07/21/17 05:00] Docusate Sodium [Colace 100 MG (*)] 200 mg PO DAILY 06/25/17 [Last Taken ] FLUoxetine [Prozac 20 MG (*)] 60 mg PO DAILY 06/25/17 [Last Taken 07/20/17] Famotidine [Pepcid 20 MG (*)] 20 mg PO BID 06/25/17 [Last Taken 07/20/17] Furosemide [Lasix 80 MG (*)] 80 mg PO BID 06/25/17 [Last Taken 07/20/17] Levothyroxine [Synthroid 200 mcg (*)] 200 mcg PO DAILY06 06/25/17 [Last Taken 05:00] Triamcinolone 0.1% [Triamcinolone 0.1% Cream (*)] 1 fadia TP BID PRN 06/25/17 [ Last Taken 2 Weeks Ago ~07/07/17] Vitamin B Complex [B Complex] 1 each PO DAILY 06/25/17 [Last Taken 07/16/17] clonazePAM [Klonopin (*)] 0.25 mg PO BID PRN 06/25/17 [Last Taken 07/20/17] oxyCODONE HCL [Oxycontin] 60 mg PO BID 06/25/17 [Last Taken 07/20/17] ARIPiprazole [Abilify 2 mg (*)] 2 mg PO DAILY 11/29/17 [Last Taken 07/20/17] clonIDINE [Catapres (*)] 0.1 mg PO BID 07/21/17 [Last Taken Unknown] Sennosides/Docusate Sodium [Senokot-S] 1 - 2 tab PO BID tab 07/26/17 [Last Taken Unknown] Loratadine [Claritin 10 mg] 10 mg PO DAILY 12/14/17 [Last Taken Unknown] buPROPion SR [Wellbutrin 100mg SR (*)] 100 mg PO DAILY 12/14/17 [Last Taken ] prednisoLONE ACET 1% [Pred Forte 1% (*)] 1 drops LEFTEYE QID 12/14/17 [Last Taken 12/14/17] Polyethylene Glycol 3350 [Miralax 17 gm (*)] 17 gm PO BID PRN pkt 12/25/17 [ Last Taken Unknown] Estrogens,Conjugated [Premarin Vaginal (*)] 1 fadia VG Q3D 01/02/18 [Last Taken Unknown] Fluticasone/Salmeter 250/50Mcg [Advair 250/50 (*)] 1 puffs IH BID 01/02/18 [ Last Taken Unknown] Ipratropium/Albuterol [Duoneb (*)] 3 ml IH TID PRN 01/02/18 [Last Taken Unknown] Metolazone [Zaroxolyn] 2.5 mg PO MWF 01/02/18 [Last Taken Unknown] metFORMIN HCL [Metformin HCl] 500 mg PO BID 01/02/18 [Last Taken Unknown] Acetaminophen [Tylenol 325mg (*)] 650 mg PO Q4HRS PRN tab 01/07/18 [Last Taken Unknown] Discharge Medications: Refer to the Discharge Home Medication list for PRN reason. PICC Care - Routine: N/A - Orders Services needed: Home Care, Registered Nurse, Certified Solution Architect, Master Child Welfare Assistant, Physical Therapy, Occupational Therapy, Speech Language Pathologist Home Care Face to Face: I certify that this patient was under my care and that I had the required taat-cr-bidl encounter meeting the encounter requirements on the discharge day. My findings support the fact that the patient is homebound as defined in Home Care Face to Face Continued: CMS Chapter 7 Medicare Benefits Manual 30.1.1 , The condition of the patient is such that there exists a normal inability to leave home and consequently, leaving home would require a considerable and taxing effort. Isolation Type: None Diet Recommendation: no restrictions on diet - Labs/Radiology CMP Date: 01/11/18 - Follow Up Care Current Providers and Referrals: Vic Nowak MD [Primary Care Provider] -
[2018-01-07] MEDS: FLUTICASONE/SALMETER 250/50MCG DISKUS IH SCH (12:45)
--- NOTE | 2018-01-07 13:11 | ASMTCMCOM ---
CM Note CM Note Notes: Spoke w/pt this morning after Britta from [facility] here to speak with pt. Pt now states she will not go because she can't stay the 30 days required. SALOMÓN went in with Britta to discuss the matter with pt and to address concerns. Pt remains firm in her decision to not go to SNF. Pt is medically stable for discharge and will go home with current homecare services with [facility]. RN came to tell CM that pt was getting anxious and refusing to leave. CM went in with RN to talk to pt. Again CM and RN discussed the safest discharge was for her to go to rehab. The patient went on to express she couldn't because last time she went to SNF it was a terrible experience and she wouldn't go again. Pt also resistant to dc home w/homecare. CM and RN presented pt with choice and she agreed to dc home w/homecare and caregiver agencies. Then, RN came to tell CM that pt had talked with her home health RN July, and that July told pt that it was not true that she would have to stay 30 days. SALOMÓN callled home care agency and spoke with Emma and told her to educate RN on pt's insurance. She has Medicare part B only and Medicaid. Home health RN called SALOMÓN and said that patient was in a rehab in [place] after a hip surgery and she did not have to stay 30 days. SALOMÓN spoke with Altagracia who then relayed to RN that pt does not have rehab benefits under Medicare and will need to go to SNF under Medicaid and its requirements. SALOMÓN called [facility] where pt had been in July and spoke w/Khushboo, she states pt was there under her Medicaid benefit for 2 days and chose to leave. Discharge Plan: SALOMÓN confirmed with Noa at [facility] that Obdulia will come Wednesday at 10am and Eve (RN) from [facility] will see her Wednesday afternoon. Transportation back to pt's home arranged by BENNETT/Jordan at 12:30 Date Signed: 01/07/2018 01:10 PM Electronically Signed By:Nola Grove RN
--- NOTE | 2018-01-07 13:53 | GDS ---
[f rep st] DISCHARGE SUMMARY DISCHARGE DIAGNOSES: 1. Acute kidney injury. 2. Diastolic congestive heart failure. 3. Atrial fibrillation. 4. Hypokalemia. 5. Anemia. 6. Hypernatremia. 7. Hypertension. 8. Diabetes mellitus type 2. 9. Asthma. 10. Obstructive sleep apnea. 11. Chronic pain. 12. Depression, anxiety. 13. Polypharmacy. 14. Constipation. PHYSICAL EXAM: GENERAL: The patient is alert. VITAL SIGNS: Afebrile at 36.8, pulse 61, respirator y rate is 18, blood pressure is 140/86. She is saturating 96% on room air. I have seen and evaluated the patient on the day of discharge. HOSPITAL COURSE: The patient is a 72-year-old female who has recently been and out of the hospital s everal times as she is unable to really manage and care for herself. She is admitted the hospital an d evaluated and diagnosed with: 1. Acute kidney injury. This is in the setting of dehydration and diuretic use. The patient's diur etics will need to be continued to be adjusted. Her Lasix has been decreased from 80 mg twice daily to 40 mg twice daily, and she will follow up in the outpatient setting. 2. Diastolic congestive heart failure. Her condition is stable at this time. Her lisinopril has be en discontinued during this hospitalization and may need to be re-initiated in the outpatient setting . 3. Atrial fibrillation. She is rate controlled and on Eliquis. This dose has been decreased second coy to the patient's renal function. 4. Hypokalemia. Her potassium has been replaced. 5. Anemia. This is stable. 6. Hypernatremia. This is in the setting of hypovolemia and has improved. 7. Hypertension. Her blood pressure is well managed and her lisinopril will not be re-initiated. 8. Diabetes mellitus type 2. Metformin has been re-initiated prior to disposition. 9. Asthma. This is stable. 10. Obstructive sleep apnea. She has a CPAP. 11. Chronic pain. Her OxyContin has not been adjusted during this hospital course. She is taking 6 0 mg twice daily. 12. Depression and anxiety. She is at her baseline. 13. Polypharmacy. 14. Constipation. Bowel protocol as been initiated. DISPOSITION: The patient was initially intended to go to [facility] for further rehabilitation and m anagement. Physical therapy as well as occupational therapy feel that is appropriate for her to go t snf facility for rehab, however, the patient is refusing at this time in the light that she has to stay there for 30 days. She understands that it is unsafe for her to go home. However, she is making this choice. While she does have depression and anxiety she is not incompetent and rem ains to have decisional capacity at this time. I have expressed to her that it is our best recommend ation that she go to [facility] for rehabilitation, however, she is refusing. [facility] and [facility]. I have discussed this with Case Management. TIME SPENT WITH PATIENT: I have spent greater than 35 minutes in the care, coordination, and managem ent of this patient's complicated disposition. /[id number]/MODL
--- NOTE | 2018-01-07 14:03 | ASDISCHSUM ---
Discharge Information Plan Status:Home with Home Health Medically Cleared to Leave: Discharge Date:01/07/2018 01:07 PM CM D/C Disposition:Home Health Service ADT D/C Disposition:Home Health Service Projected Discharge Date:01/07/2018 11:00 AM Transportation at D/C:ALS/BLS Discharge Delay Reason: Follow-Up Date:01/07/2018 11:00 AM Discharge Slot: Final Diagnosis: Placement Information Referral Type:*Home Health Care Services Referral ID:[id number] Provider Name:[facility] Address 1:[address] Phone Number: Address 2: Fax Number: City:[place] Selection Factors: State:[place] Referral Type:*[facility]/SNF Referral ID:[id number] Provider Name: Address 1: Phone Number: Address 2: Fax Number: City: Selection Factors: State: Patient Contact Information Contact Name:LISSTORO Relationship:Cousin Address: City: Alternate Phone: State/Zip Code: Email: Financial Information Financial Class:Medicare Primary Plan Desc:MEDICARE IP PART B ONLY Primary Plan Number:[id number] Secondary Plan Desc:MEDICAID HEALTH FIRST [place] IP Secondary Plan Number:[id number] Assessment Information LACE LACE Length of stay for Answers: 4-6 days current admission Acuity / Level of Answers: Yes Care: Did the patient have an inpatient admission? Comorbidities - select Answers: Congestive heart failure all that apply Diabetes (uncontrolled or controlled) Opioid dependence / Chronic pain Other Notes: HTN # of Emergency department Answers: 1-2 visits in the last 6 months Social determinants Answers: Mental health diagnosis (anxiety, depression, pers onality disorders, etc.) Score: 19 Date Signed: 01/07/2018 10:33 AM Electronically Signed By:Nola Grove RN [facility] CM Progress Note CM Note CM Note Notes: CM spoke w/ BLANCHE Sarmiento regarding d/c POC. CM met w/ pt for dispo planning. Pt reports that she is current w/ [facility] and has a CM, through [facility] Medicaid (Matilde Stephon, P#: [phone]). CM left pt a msg and requested a call back. Pt reports that she is also current w/ [facility]. Updates sent to [facility]. Pt is agreeable for CM to make a referral to [facility]. CM left a msg w/ Estephanie at [facility]. CM to follow. Plan: [facility], [facility] and [facility] outreach Date Signed: 01/03/2018 02:38 PM Electronically Signed By:CRISTIAN Ascencio [facility] Progress Note CM Note CM Note Notes: CM spoke w/ KINSEY Rendon and BLANCHE Reilly regarding d/c POC. OT is recommending home w/ HC. OT is also recommending that pt transitions to a AL. CM met w/ pt and pts friend for dispo planning. CM informed pt of OTs recommendations. Pt is not interested in transitioning to AL. Pt is open to the idea of going to SNF. Pt would like a referral made to [facility], [facility] and [facility]. CM completed non triggering PASRR. CM to communicate to pt once SNFs have accepted. CM to follow. Plan: TBD Date Signed: 01/04/2018 03:13 PM Electronically Signed By:CRISTIAN Ascencio [facility] CM Progress Note CM Note CM Note Notes: Chart reviewed for discharge planning purposes. Patient has been accepted to [facility]. Attempted to see patient and discuss the circumstances of a discharge to SNF requiring she stay for 30 days. She is unable to converse with me and she is indisposed at present. CM to follow. Plan: Potential dc to [facility] Date Signed: 01/05/2018 04:20 PM Electronically Signed By:Tiara Hansen RN [facility] CM Progress Note CM Note CM Note Notes: CM spoke w/pt re dc to snf, pt lives at [facility] and receives services through [facility] but is increasingly unable to care for self, pt agreed to snf. She understands it will be about 25 days that she needs to stay there. Britta from will come in am to speak with pt. DC Plan: SNF Date Signed: 01/06/2018 02:27 PM Electronically Signed By:Nola Grove RN [facility] CM Progress Note CM Note CM Note Notes: Spoke w/pt this morning after Britta from [facility] here to speak with pt. Pt now states she will not go because she can't stay the 30 days required. CM went in with Britta to discuss the matter with pt and to address concerns. Pt remains firm in her decision to not go to SNF. Pt is medically stable for discharge and will go home with current homecare services with [facility]. RN came to tell CM that pt was getting anxious and refusing to leave. CM went in with RN to talk to pt. Again CM and RN discussed the safest discharge was for her to go to rehab. The patient went on to express she couldn't because last time she went to SNF it was a terrible experience and she wouldn't go again. Pt also resistant to dc home w/homecare. CM and RN presented pt with choice and she agreed to dc home w/homecare and caregiver agencies. Then, RN came to tell CM that pt had talked with her home health RN July, and that July told pt that it was not true that she would have to stay 30 days. CM callled home care agency and spoke with Emma and told her to educate RN on pt's insurance. She has Medicare part B only and Medicaid. Home health RN called and said that patient was in a rehab in [place] after a hip surgery and she did not have to stay 30 days. SALOMÓN spoke with Altagracia who then relayed to RN that pt does not have rehab benefits under Medicare and will need to go to SNF under Medicaid and its requirements. SALOMÓN called [facility] where pt had been in July and spoke w/Khushboo, she states pt was there under her Medicaid benefit for 2 days and chose to leave. Discharge Plan: SALOMÓN confirmed with Noa at [facility] that Obdulia will come Wednesday at 10am and Eve (RN) from [facility] will see her Wednesday afternoon. Transportation back to pt's home arranged by BENNETT/Jordan at 12:30 Date Signed: 01/07/2018 01:10 PM Electronically Signed By:Nola Grove RN Intervention Information
== END 2018-01-07 13:07 | disposition home health service (06) | DRG 683 ==
LOC: EDUNIT# → F3E 22:06
PROVIDERS: ADMIT Internal Medicine; ATTEND Internal Medicine
DX: N17.9 Acute kidney failure, unspecified (principal); E87.1 Hypo-osmolality and hyponatremia; T50.2X5A Adverse effect of carbonic-anhydrase inhibitors, benzothiadiazides and other diuretics, initial encounter; E87.6 Hypokalemia; G47.33 Obstructive sleep apnea (adult) (pediatric); I48.0 Paroxysmal atrial fibrillation; I50.30 Unspecified diastolic (congestive) heart failure; E11.9 Type 2 diabetes mellitus without complications; I10 Essential (primary) hypertension; G89.29 Other chronic pain; K59.00 Constipation, unspecified; J45.909 Unspecified asthma, uncomplicated; Z87.01 Personal history of pneumonia (recurrent); Z79.01 Long term (current) use of anticoagulants; Z87.891 Personal history of nicotine dependence
CPT/HCPCS: 97161-GP; 97165-GO; 97530-GO; 97535-GO; G8978-GP-CJ; G8979-GP-CI; G8987-GO-CJ; G8988-GO-CI; G8988-GO-CJ; G8989-GO-CI; J1815

== ENCOUNTER 2018-02-02 22:47 | Emergency (ER) | payer OTHER, MEDICAID ==
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
[2018-02-02 23:38] LABS: PLATELET COUNT 227 10^3/uL (150-400)
[2018-02-02 23:47] LABS: INR 1.36 (0.83-1.16); PROTIME(PATIENT) 16.9 SEC (12.0-15.0)
[2018-02-03 01:13] VITALS: BP 171/84
== END 2018-02-03 01:13 | disposition home or self-care (01) ==
LOC: EDUNIT#
DX: S00.93XA Contusion of unspecified part of head, initial encounter (principal); I11.0 Hypertensive heart disease with heart failure; I50.9 Heart failure, unspecified; E11.9 Type 2 diabetes mellitus without complications; J45.909 Unspecified asthma, uncomplicated; Z87.891 Personal history of nicotine dependence; Z79.01 Long term (current) use of anticoagulants; V40.1XXA Car passenger injured in collision with pedestrian or animal in nontraffic accident, initial encounter; Y92.410 Unspecified street and highway as the place of occurrence of the external cause; Y99.8 Other external cause status; Y93.89 Activity, other specified
CPT/HCPCS: G0390; L0172

== ENCOUNTER 2018-02-05 13:31 | Inpatient (IN) | payer OTHER, MEDICAID ==
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
[2018-02-05] MEDS ORDERED: HYDROCODONE/APAP 5/325 TAB PO ONE (13:46)
--- NOTE | 2018-02-05 13:51 | CPEKG ---
Heart Rate: 41 RR Interval: 1463 QRSD Interval: 112 QT Interval: 468 QTC Interval: 387 QRS [place]: 20 T Wave [place]: 190 EKG Severity - ABNORMAL ECG - EKG Impression: ATRIAL FIBRILLATION EKG Impression: NONSPECIFIC INTRAVENTRICULAR CONDUCTION DELAY EKG Impression: PROBABLE LVH WITH SECONDARY REPOL ABNRM Electronically Signed By: Alisha Carroll 05-Feb-2018 21:10:28
[2018-02-05 14:17] LABS: PLATELET COUNT 227 10^3/uL (150-400)
[2018-02-05] MEDS ORDERED: ALBUTEROL 60 PUFFS/8 GM MDI IH PRN (15:56)
[2018-02-05] MEDS ORDERED: BETAMETHASONE AUGMENTED 0.05% TP PRN (15:56)
[2018-02-05] MEDS ORDERED: TRIAMCINOLONE 0.1% 15 GM CRTUBE TP PRN (15:56)
[2018-02-05] MEDS ORDERED: prednisoLONE ACET 1% 5 ML OPHT.BTL LEFTEYE SCH (16:00)
[2018-02-05] MEDS ORDERED: ACETAMINOPHEN 325 MG TAB PO PRN (16:01)
[2018-02-05] MEDS ORDERED: ONDANSETRON 4 MG/2 ML VIAL IVP PRN (16:01)
[2018-02-05] MEDS ORDERED: ONDANSETRON DISINTEGRATING 4 MG TAB PO PRN (16:01)
[2018-02-05] MEDS ORDERED: D50W 25 GM/50 ML SYR IVP PRN (16:02)
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
--- NOTE | 2018-02-05 16:32 | ASMTLACE ---
MCKENNA Acuity / Level of Answers: No Care: Did the patient have an inpatient admission? Comorbidities - select Answers: Congestive heart failure all that apply History of falls # of Emergency department Answers: 3-4 visits in the last 6 months Social determinants Answers: Mental health diagnosis (anxiety, depression, pers onality disorders, etc.) Score: 11 Date Signed: 02/05/2018 04:31 PM Electronically Signed By:Lauren Reed RN
--- NOTE | 2018-02-05 17:05 | GHP ---
[f rep st] HISTORY AND PHYSICAL DATE OF ADMISSION: 02/05/2018 CHIEF COMPLAINT: Fall. HISTORY OF PRESENT ILLNESS: This is a 72-year-old female, with a history of diastolic CHF, who presents with a fall. She tells me that she woke up not feeling quite normal this morning. She describes this as a "different level of consciousness." She went out to lunch, then tripped over an irregularity in the linoleum and fell on her left side. She did not lose consciousness or have any other preceding symptoms. On her last admission, she was treated for overdiuresis, and her Lasix was decreased. She had presented with an acute kidney injury. Her creatinine had almost normalized on discharge. She weighs herself daily and tells me that her weights have not been changing. In the emergency department, she was found to be in atrial fibrillation, with rates around 40 beats per minute. She is on digoxin as well as diltiazem; however, she has not changed these doses any time recently. She denies any chest pain or shortness of breath. PAST MEDICAL/SURGICAL HISTORY: 1. Diastolic CHF. 2. Atrial fibrillation. 3. Hypertension. 4. Diabetes mellitus, type 2. 5. Asthma. 6. VICENTA, on CPAP. 7. Chronic pain, on continuous narcotics. 8. Depression. 9. Anxiety. MEDICATIONS: Please see medication reconciliation. ALLERGIES: 1. Iodine. 2. Lidoderm. 3. Pravastatin. SOCIAL HISTORY: She lives at home. She does not drink or smoke. FAMILY HISTORY: She tells me that multiple family members have coronary artery disease. REVIEW OF SYSTEMS: A 10-point review of systems was conducted and is negative, except per HPI. PHYSICAL EXAMINATION: VITAL SIGNS: Blood pressure 153/67, heart rate 45, respiration rate 15, saturating 97% on 2L, temperature 36.6. GENERAL: The patient is a pleasant female who is resting comfortably, in no acute distress. HEENT: Normocephalic, atraumatic. CARDIOVASCULAR: Bradycardic and irregularly irregular. There is a 2/6 systolic murmur. She has 1+ bilateral lower extremity edema. PULMONARY: Lungs clear to auscultation bilaterally. ABDOMEN: Soft, nontender, nondistended. SKIN: No rash. GENITOURINARY: No Mendoza. NEUROLOGIC: Alert and oriented x3. She is moving all extremities. PSYCHIATRIC: Flat affect. LABORATORY STUDIES/DATA: Basic metabolic panel shows a BUN of 59, creatinine of 1.0. Troponin is 0.04. TSH is pending. Digoxin level is 1.6. Hemoglobin is 11.4. This is her baseline. White count is 7.9. Platelets are 227,000. DATA: 1. I discussed this with Dr. Carroll. We will admit to the PCU. 2. I personally viewed and interpreted her electrocardiogram. This shows atrial fibrillation. Her rate on this is 41. She has ST depression in I, II, and L, as well as V5 and V6. This is unchanged from her prior. 3. CT of her chest shows no acute post-traumatic sequelae. 4. Cervical spine CT scan shows no acute fracture. She does have some degenerative changes. IMPRESSION AND PLAN: 1. Fall. I suspect that this is mechanical; however, I cannot rule out that this was caused by her bradycardia. She has no post-traumatic sequelae identified. 2. Bradycardia. She is significantly slower than she has been in the past. She has no reported changes to her diltiazem as well as her digoxin. She has a home nurse who fills her medications for her. Dr. Hu with cardiology has been consulted. Her blood pressure is currently stable, and she seems to be mentating at her baseline. I think it is reasonable to monitor her on telemetry , and hold digoxin as well as diltiazem. Further management will depend on her response to these measures. I will trend troponins as well. 3. Diastolic congestive heart failure. I will continue her diuretics. I believe that she is probably at her baseline. 4. Atrial fibrillation. She is anticoagulated on Eliquis. Continue this. Her rate is bradycardic now. We will hold her rate control medications. 5. Hypertension. Continue her metolazone and furosemide. 6. Hypothyroid. Check her TSH. 7. Diabetes mellitus. Follow her sugars and give her low-dose sliding-scale insulin. 8. Chronic pain, on continuous narcotics. Continue oxycodone. 9. Depression and anxiety. Continue Abilify, Wellbutrin, and Prozac. CODE STATUS: She would like to be FULL CODE. /[id number]/MODL MTDD
[2018-02-05] MEDS ORDERED: HYDROmorphONE/DILAUDID 1 MG/ML INJ IVP PRN (17:18)
[2018-02-05] MEDS: oxyCODONE IR 5 MG TAB PO PRN ×2 (17:59→19:00)
[2018-02-05] MEDS: INSULIN LISPRO 100 UNIT/ML SC SCH (18:22)
[2018-02-05] MEDS: HYDROCODONE/APAP 5/325 TAB PO PRN (19:56)
[2018-02-05] MEDS: clonazePAM 0.5 MG TAB PO PRN (19:56)
[2018-02-05] MEDS: APIXABAN 5 MG TAB PO SCH (19:56)
[2018-02-05] MEDS: IPRATROPIUM/ALBUTEROL 3 ML DEYVIAL IH PRN (20:54)
[2018-02-05] MEDS: FLUTICASONE/SALMETER 250/50MCG DISKUS IH SCH (20:55)
[2018-02-05] MEDS ORDERED: FUROSEMIDE 40 MG TAB PO SCH (21:00)
[2018-02-05] MEDS: FAMOTIDINE 20 MG TAB PO SCH (21:49)
[2018-02-05] MEDS: SENNOSIDES/DOCUSATE SODIUM TAB PO SCH (21:49)
[2018-02-05] MEDS: oxyCODONE CR 30 MG TAB PO SCH (21:49)
[2018-02-06] MEDS: oxyCODONE IR 5 MG TAB PO PRN ×5 (00:37→19:19)
[2018-02-06 04:42] LABS: PLATELET COUNT 229 10^3/uL (150-400)
[2018-02-06] MEDS: LEVOTHYROXINE 200 MCG TAB PO SCH (05:31)
[2018-02-06] MEDS: clonazePAM 0.5 MG TAB PO PRN (05:37)
[2018-02-06] MEDS: oxyCODONE CR 30 MG TAB PO SCH ×2 (08:14→21:10)
[2018-02-06] MEDS: VITAMIN B COMPLEX 1 EA CAP/TAB PO SCH (08:15)
[2018-02-06] MEDS: DOCUSATE SODIUM 100 MG CAP PO SCH (08:15)
[2018-02-06] MEDS: FLUoxetine 20 MG CAP PO SCH (08:15)
[2018-02-06] MEDS: APIXABAN 5 MG TAB PO SCH ×2 (08:15→21:09)
[2018-02-06] MEDS: buPROPion SR 100 MG TAB PO SCH (08:15)
[2018-02-06] MEDS: ARIPiprazole 2 MG TAB PO SCH (08:15)
[2018-02-06] MEDS: FUROSEMIDE 40 MG TAB PO SCH (08:15)
[2018-02-06] MEDS: FAMOTIDINE 20 MG TAB PO SCH ×2 (08:15→21:09)
[2018-02-06] MEDS: SENNOSIDES/DOCUSATE SODIUM TAB PO SCH ×2 (08:16→21:11)
[2018-02-06] MEDS: CETIRIZINE 10 MG TAB PO SCH (08:16)
[2018-02-06] MEDS: INSULIN LISPRO 100 UNIT/ML SC SCH ×3 (08:23→18:07)
[2018-02-06] MEDS ORDERED: VITAMIN B COMPLEX 1 EA CAP/TAB PO SCH (09:00)
[2018-02-06] MEDS: IPRATROPIUM/ALBUTEROL 3 ML DEYVIAL IH PRN (09:19)
[2018-02-06] MEDS: FLUTICASONE/SALMETER 250/50MCG DISKUS IH SCH ×2 (09:20→21:58)
--- NOTE | 2018-02-06 13:43 | HOSPPROG ---
Hospitalist Progress Note Assessment/Plan: 72 yo F with hx of afib, d CHf presenting s/p fall with slow a fib on arrival # fall: mechanical versus related to symptomatic bradycardia as next # bradycardia: appears to be slow a fib on ecg, reviewed ecg findings with cardiology who will consult, rate has improved overnight, continue to monitor on tele # chest pain: patient states it is better than yesterday but still present, reproducible with palpation, trops have been mildly elevated but flat, ecg as above, cardiology consult pending # chronic diastolic chf: appears euvolemic on exam # chronic issues: htn, hypothyroid # DM2: SSI, not on glucose controlling meds at home # chronic pain with continuous opiate use and dependency: at home on oxycontin 60 bid, will continue, pain out of control likely due to same # RAD: without e/o acute exacerbation, continue op BD regimen # psych issues: continue wellbutrin/abilify # IP status, will need > 48 hours for eval/mgmt of above Patient new to my care. Old records reviewed and summarized as above. Subjective: no significant overnight events, patient continues to complain of chest pain as well as left arm pain, she states it is improved from yesterday but still severe, does not want me to place my stethoscope on her chest Objective: Vital Signs Temp Pulse Resp BP Pulse Ox 36.8 C 85 20 185/113 H 92 02/06/18 11:18 02/06/18 11:18 02/06/18 11:18 02/06/18 11:18 02/06/18 11:18 Laboratory Results 02/06/18 03:50 02/06/18 03:50 02/05/18 02/06/18 02/07/18 05:59 05:59 05:59 Intake Total 650 Balance 650 awake alert nad anicteric op clear irreg irreg no mrg cta b soft nt nd no cce warm dry well perfused oriented anxious ICD10 Worksheet Patient Problems: Problems Problem Status Onset Afib Acute Bradycardia Acute CHF (congestive heart failure) Acute Fall Acute MRSA - Methicillin resistant Staphylococcus aureus infection Active Acute kidney injury Acute Bronchitis Acute Cough Acute Diuretics causing adverse effect in therapeutic use Acute Pneumonia Acute Primary localized osteoarthritis of left hip Acute Shortness of breath Acute chronic disease mgmt/transitional care Acute
--- NOTE | 2018-02-06 14:55 | PDMN ---
Medical Necessity Medical necessity: C/M review: est.> 2 MN LOS for eval and TX of acute bradycardia - appears to be slow atrial fibrillation on EKG, cheat pain - improved overnight but still present, left arm pain, requiring planned Cardiology consult, ongoing cardiac monitoring, pulse oximetry, acute inpt PT/OT , comorbid history of fall just prior to this admission - mechanical versus related to symptomatic bradycardia, chronic diastolic CHF, chronic - hypertension, hypothyroidism, type 2 diabetes, chronic pain with continuous opiate use and dependency, reactive airway disease, psych issues per 02/06/2018 Hospitalist progress note.
--- NOTE | 2018-02-06 18:30 | GCON ---
[f rep st] CONSULTATION REASON FOR CONSULT: Bradycardia. HISTORY OF PRESENT ILLNESS: This is a 72-year-old female with past history of diastolic heart failure, who presents with a fall. She woke up in the morning not feeling well, and had different level of consciousness. She went to lunch, and tripped over an irregular linoleum and fell on her left side. She did not lose consciousness. She did not have lightheadedness, dizziness, no nausea, vomiting preceding or after the fall. She did not have excessive diaphoresis. She has been on digoxin and diltiazem. Last admission, there was a fluctuation of her kidney levels, but since then it has been normal. She denies any chest pain, shortness of breath. PAST MEDICAL HISTORY: Diastolic heart failure. Atrial fibrillation. Hypertension. Diabetes type 2. Asthma. Obstructive sleep apnea, on CPAP. Chronic pain, on continuous narcotics. Depression, anxiety. MEDICATIONS: Medication list evaluated. ALLERGIES: Iodine, Lidoderm, statin. SOCIAL HISTORY: Lives at home. Does not drink or smoke. FAMILY HISTORY: Noncontributory. REVIEW OF SYSTEMS: Other than above, is negative. PHYSICAL EXAMINATION: VITAL SIGNS: Blood pressure at the time of my evaluation was 186/106, pulse of 77, heart rate 70, respiratory rate 15, saturation 97%. GENERAL: Patient is a pleasant female, resting comfortably in no acute distress. HEENT: Normocephalic, atraumatic. CHEST: Good air entry, bilaterally equal. No rales, rhonchi, rub. HEART: S1, S2 irregular. No S3. Systolic ejection murmur noted. ABDOMEN: Soft, nontender. No guarding or rigidity. Bowel sounds present. EXTREMITIES: No edema. No clubbing. LABORATORY STUDIES: Show creatinine of 1, BUN of 59. Troponin negative. EKG shows AFib. Previous EKG shows AFib with slow ventricular response. Current EKG shows AFib with normal ventricular response. IMPRESSION AND PLAN: 1. This is a 72-year-old female with atrial fibrillation, who is on Eliquis, who was on Diltiazem and digoxin. It appears that there was excessive accumulation of that leading to bradycardia. However, the patient's fall does not appear to be related to this, since she did not lose consciousness. However , at current point in time she is better off without the use of digoxin and calcium channel radha. If her heart rate goes up significantly (above 100bpm) , we can consider other alternatives. However, digoxin would not be the choice of atrioventricular holden agent in her case. 2. Hypertension: Continue metolazone and Lasix. However, she may need angiotensin-converting enzyme inhibitor in the future if her blood pressure continues to remain this high. 3. Diastolic heart failure: She is currently euvolemic, and no changes are needed. Thank you for letting us participate in the patient's care. Feel free to call us for questions. /[id number]/MODL MTDD
[2018-02-07] MEDS: HYDROCODONE/APAP 5/325 TAB PO PRN (01:10)
[2018-02-07] MEDS: clonazePAM 0.5 MG TAB PO PRN (02:14)
[2018-02-07] MEDS: LEVOTHYROXINE 200 MCG TAB PO SCH (07:02)
[2018-02-07] MEDS: oxyCODONE IR 5 MG TAB PO PRN ×2 (07:25→12:41)
[2018-02-07] MEDS: INSULIN LISPRO 100 UNIT/ML SC SCH ×2 (07:56→12:44)
[2018-02-07] MEDS ORDERED: METOLAZONE 2.5 MG TAB PO SCH (08:00)
[2018-02-07] MEDS: FLUTICASONE/SALMETER 250/50MCG DISKUS IH SCH (08:33)
[2018-02-07] MEDS: oxyCODONE CR 30 MG TAB PO SCH (08:52)
[2018-02-07] MEDS: buPROPion SR 100 MG TAB PO SCH (08:52)
[2018-02-07] MEDS: FAMOTIDINE 20 MG TAB PO SCH (08:52)
[2018-02-07] MEDS: CETIRIZINE 10 MG TAB PO SCH (08:53)
[2018-02-07] MEDS: VITAMIN B COMPLEX 1 EA CAP/TAB PO SCH (08:53)
[2018-02-07] MEDS: SENNOSIDES/DOCUSATE SODIUM TAB PO SCH (08:53)
[2018-02-07] MEDS: FUROSEMIDE 40 MG TAB PO SCH (08:53)
[2018-02-07] MEDS: FLUoxetine 20 MG CAP PO SCH (08:53)
[2018-02-07] MEDS: APIXABAN 5 MG TAB PO SCH (08:53)
[2018-02-07] MEDS: DOCUSATE SODIUM 100 MG CAP PO SCH (08:53)
[2018-02-07] MEDS: ARIPiprazole 2 MG TAB PO SCH (08:53)
[2018-02-07] MEDS ORDERED: LISINOPRIL 10 MG TAB PO SCH (09:00)
--- NOTE | 2018-02-07 09:25 | HOSPPROG ---
Hospitalist Progress Note Assessment/Plan: 72 yo F with hx of afib, d CHf presenting s/p fall with slow a fib on arrival # fall: mechanical versus related to symptomatic bradycardia as next # bradycardia: appears to be slow a fib on ecg, reviewed ecg findings with cardiology who will consult, rate has improved overnight, continue to monitor on tele # chest pain: patient states it is better than yesterday but still present, reproducible with palpation, trops have been mildly elevated but flat, ecg as above, cardiology consult pending # chronic diastolic chf: appears euvolemic on exam # chronic issues: htn, hypothyroid # DM2: SSI, not on glucose controlling meds at home # chronic pain with continuous opiate use and dependency: at home on oxycontin 60 bid, will continue, pain out of control likely due to same # RAD: without e/o acute exacerbation, continue op BD regimen # psych issues: continue wellbutrin/abilify # IP status, will need > 48 hours for eval/mgmt of above Patient new to my care. Old records reviewed and summarized as above. Objective: Vital Signs Temp Pulse Resp BP Pulse Ox 36.6 C 68 14 185/99 H 90 L 02/07/18 07:35 02/07/18 07:35 02/07/18 07:35 02/07/18 07:35 02/07/18 07:35 02/06/18 02/07/18 02/08/18 05:59 05:59 05:59 Intake Total 1170 Balance 1170 ICD10 Worksheet Patient Problems: Problems Problem Status Onset Acute kidney injury Acute Diuretics causing adverse effect in therapeutic use Acute Bradycardia Acute Afib Acute Fall Acute chronic disease mgmt/transitional care Acute Pneumonia Acute CHF (congestive heart failure) Acute Cough Acute Shortness of breath Acute Primary localized osteoarthritis of left hip Acute MRSA - Methicillin resistant Staphylococcus aureus infection Active Bronchitis Acute
[2018-02-07 11:38] VITALS: BP 158/89
--- NOTE | 2018-02-07 12:04 | PDIAF ---
- Diagnosis Code Status: Full Code - Medication Management Discharge Medications: Medications to Continue on Transfer Albuterol [Proventil Inhaler HFA (*)] 2 puffs IH Q6HRS PRN 06/25/17 [Last Taken 07/20/17] Apixaban [Eliquis] 5 mg PO BID 06/25/17 [Last Taken 12/14/17] Betamethasone/Propylene Glyc [Betamethasone Dp Aug 0.05% Oin] 15 gm TP HS PRN [Last Taken 2 Weeks Ago ~07/07/17] Docusate Sodium [Colace 100 MG (*)] 200 mg PO DAILY 06/25/17 [Last Taken ] FLUoxetine [Prozac 20 MG (*)] 60 mg PO DAILY 06/25/17 [Last Taken 07/20/17] Famotidine [Pepcid 20 MG (*)] 20 mg PO BID 06/25/17 [Last Taken 07/20/17] Levothyroxine [Synthroid 200 mcg (*)] 200 mcg PO DAILY06 06/25/17 [Last Taken 05:00] Triamcinolone 0.1% [Triamcinolone 0.1% Cream (*)] 1 fadia TP BID PRN 06/25/17 [ Last Taken 2 Weeks Ago ~07/07/17] Vitamin B Complex [B Complex] 1 each PO DAILY 06/25/17 [Last Taken 07/16/17] clonazePAM [Klonopin (*)] 0.25 mg PO BID PRN 06/25/17 [Last Taken 07/20/17] oxyCODONE HCL [Oxycontin] 60 mg PO BID 06/25/17 [Last Taken 07/20/17] ARIPiprazole [Abilify 2 mg (*)] 2 mg PO DAILY 07/21/17 [Last Taken 07/20/17] clonIDINE [Catapres (*)] 0.1 mg PO DAILY 07/21/17 [Last Taken Unknown] Sennosides/Docusate Sodium [Senokot-S] 1 - 2 tab PO BID tab 07/26/17 [Last Taken Unknown] Loratadine [Claritin 10 mg] 10 mg PO DAILY 12/14/17 [Last Taken Unknown] buPROPion SR [Wellbutrin 100mg SR (*)] 100 mg PO DAILY 12/14/17 [Last Taken ] Estrogens,Conjugated [Premarin Vaginal (*)] 1 fadia VG Q3D 01/02/18 [Last Taken Unknown] Fluticasone/Salmeter 250/50Mcg [Advair 250/50 (*)] 1 puffs IH BID 01/02/18 [ Last Taken Unknown] Ipratropium/Albuterol [Duoneb (*)] 3 ml IH TID PRN 01/02/18 [Last Taken Unknown] Metolazone [Zaroxolyn] 2.5 mg PO MWF 01/02/18 [Last Taken Unknown] Acetaminophen [Tylenol 325mg (*)] 650 mg PO Q4HRS PRN tab 01/07/18 [Last Taken Unknown] Furosemide [Lasix 40 MG (*)] 80 mg PO DAILY 02/05/18 [Last Taken Unknown] Lisinopril [Zestril 10 mg (*)] 10 mg PO DAILY #30 tab 02/07/18 [Last Taken Unknown] Discharge Medications: Refer to the Discharge Home Medication list for PRN reason. - Orders Services needed: Home Care, Registered Nurse, Physical Therapy, Occupational Therapy Home Care Face to Face: I certify that this patient was under my care and that I had the required [id number] encounter meeting the encounter requirements on the discharge day. My findings support the fact that the patient is homebound as defined in Home Care Face to Face Continued: CMS Chapter 7 Medicare Benefits Manual 30.1.1 , The condition of the patient is such that there exists a normal inability to leave home and consequently, leaving home would require a considerable and taxing effort. Isolation Type: None - Follow Up Care Current Providers and Referrals: Vic Nowak MD [Primary Care Provider] - As per Instructions Nir Siddiqui MD [Medical Doctor] -
[2018-02-08] MEDS ORDERED: ESTROGENS,CONJUGATED 30 GM CRTUBE VG SCH (08:00)
--- NOTE | 2018-02-08 10:41 | ASDISCHSUM ---
Discharge Information Plan Status:Home with Home Health Medically Cleared to Leave:02/07/2018 Discharge Date:02/07/2018 02:24 PM CM D/C Disposition:Home Health Service ADT D/C Disposition:Home Health Service Projected Discharge Date:02/07/2018 11:00 AM Transportation at D/C: Discharge Delay Reason: Follow-Up Date:02/07/2018 11:00 AM Discharge Slot: Final Diagnosis: Placement Information Referral Type:*Home Health Care Services Referral ID:[id number] Provider Name:[facility] Address 1:[address] Phone Number: Address 2: Fax Number: City:[place] Selection Factors: State:[place] Patient Contact Information Contact Name:REA Relationship:Cousin Address: City: [facility] Phone: [facility] Code: Email: Financial Information Financial Class:Medicare Primary Plan Desc:MEDICARE IP PART B ONLY Primary Plan Number:[id number] Secondary Plan Desc:MED[place] Secondary Plan Number:[id number] Assessment Information [facility] CM Progress Note CM Note CM Note Notes: Pt presented to the ED via EMS from [facility] where she lives in Independent Living. Pt had a mechanical fall after tripping on an uneven surface and landing on her left side. Pt was not using her walker at the time. Pt also stated she hit her left cheek and left knee. Pt admitted for chest contusion, bradycardia, a-fib. Pt d/c'd from [facility] 01/07/18. Pt had refused to go to a SNF (even though she was accepted at [facility]) at the time because she wouldn't stay the required amount of days. Pt also remains resistant to transferring to Assisted Living. Pt has also been to [facility] in the past but had an unpleasant experience and left after 2 days. Spoke w/pt and she states she has an RN from [facility] ([phone]) 1x/week to help fill up her medication dispenser and take her vitals. Pt also still receives assistance through [facility] ([phone]). Pt states she receives PT/OT through Legelena at the facility. Pt's CM through [facility] is Matildeabbie Szymanski ([phone]) and pt states she keeps in contact with her regularly. Pt had been referred to [facility] during last admission but patient states she never heard from [facility]. Pt's PCP is Dr Nowak at [facility] ([phone]) and pt mentioned she has been contacted by their RN Correctional Counselor, Beryl De Dios ([phone]). This CM offered to contact any friends/family but pt declined, stating "I don't have anybody." We talked about a friend, Chelsea, who is listed on her emergency contact (in addition to pt's cousin, Kieran) and patient still did not want anyone contacted at this time. This CM notified KIRSTEN, . [facility] and [facility] of pt admission. If pt still resistant to SNF placement, anticipate pt to DC home and resume skilled and non-skilled HHC services and continue PT/OT w/Jacob. CM to follow. Date Signed: 02/05/2018 04:20 PM Electronically Signed By:Lauren Reed RN LACE LACE Acuity / Level of Answers: No Care: Did the patient have an inpatient admission? Comorbidities - select Answers: Congestive heart failure all that apply History of falls # of Emergency department Answers: 3-4 visits in the last 6 months Social determinants Answers: Mental health diagnosis (anxiety, depression, pers onality disorders, etc.) Score: 11 Date Signed: 02/05/2018 04:31 PM Electronically Signed By:Lauren Reed RN Case Management Discharge Plan Note Case Management Discharge Discharge Order Complete? Answers: Yes Patient to Obtain Answers: Independently Medications Faxed Final Orders Answers: Yes Agency/Facility Transfer Answers: Yes Report Printed & Faxed to Receiving Agency Discharge Comments Notes: 02/07/2018 Case Management Note Faxed discharge orders to [facility]. Notified Matilde Szymanski at [facility] of d/c. Notified [facility] of d/c. Pt to resume all previously arranged services. See previous CM note for detals. Referred to [facility]. Date Signed: 02/07/2018 01:00 PM Electronically Signed By:Lisa Keys RN Intervention Information Intervention Type:Post Acute Communication Date of Service:02/05/2018 04:34 PM Patient Type:Observation Staff Member:BLANCHE Reed Sharon Hours:0.5 Discipline:Air Brush Operator Severity: Comment: Intervention Type:*PACHECO-Signed Date of Service:02/05/2018 04:36 PM Patient Type:Observation Staff Member:BLANCHE Reed Sharon Hours:0.25 Discipline:Air Brush Operator Severity: Comment:JUNIOR completed; copy provided to pt; o riginal to be placed in pt's chart. Intervention Type:*Occurence 72 Date of Service:02/08/2018 09:41 AM Patient Type:Inpatient Staff Member:BLANCHE Guy, Suzi Hours: Discipline: Severity: Comment:
== END 2018-02-07 14:24 | disposition home health service (06) | DRG 309 ==
LOC: EDUNIT# → F2W 16:05 → OBSVTOIN 02-06 13:52
PROVIDERS: ADMIT Student in an Organized Health Care Education/Training Program; ATTEND Student in an Organized Health Care Education/Training Program
DX: R00.1 Bradycardia, unspecified (principal); I11.0 Hypertensive heart disease with heart failure; I50.32 Chronic diastolic (congestive) heart failure; F11.20 Opioid dependence, uncomplicated; I48.91 Unspecified atrial fibrillation; W01.0XXA Fall on same level from slipping, tripping and stumbling without subsequent striking against object, initial encounter; E11.9 Type 2 diabetes mellitus without complications; J45.909 Unspecified asthma, uncomplicated; G47.33 Obstructive sleep apnea (adult) (pediatric); G89.29 Other chronic pain; E03.9 Hypothyroidism, unspecified; F41.8 Other specified anxiety disorders; Z79.01 Long term (current) use of anticoagulants
CPT/HCPCS: 84484-PO; 97116-GP; 97161-GP; 97165-GO; 97535-GO; G0378; G8978-GP-CI; G8978-GP-CJ; G8979-GP-CI; G8980-GP-CI; G8987-GO-CI; G8988-GO-CI

== ENCOUNTER → 2018-05-16 | Outpatient (CLI) | payer OTHER, MEDICAID | LOC: FIMAGING 11:06 | PROVIDERS: ATTEND Physician Assistant | DX: I51.7 Cardiomegaly (principal); M51.34 Other intervertebral disc degeneration, thoracic region; R22.40 Localized swelling, mass and lump, unspecified lower limb ==

== ENCOUNTER 2018-05-21 12:19 | Inpatient (IN) | payer OTHER, MEDICAID ==
--- NOTE | 2018-05-21 12:39 | EDPHY ---
HPI/HX/ROS/PE/MDM Narrative: CHIEF COMPLAINT: Dizziness, took extra diltiazem HISTORY OF PRESENT ILLNESS: The patient is a 73 y/o female with a history of diabetes, atrial fibrillation, and graves disease complaining of dizziness and difficulty focusing after taking an extra diltiazem this morning. She recently started taking diltiazem 4 days ago. She has a nurse that sorts her medicine into a dispensing machine but the nurse hasn't come since she began taking diltiazem. She awoke this morning and took a single diltiazem. She took another diltiazem when her machine dispensed her morning medications. She now feels that the room is spinning and she might faint. She has intermittent shortness of breath she feels is likely related to anxiety. She reports chest pain yesterday and took a marijuana edible before going to bed. She denies any recent falls or hitting her head. She got into an argument with her son yesterday and is upset by that. No fever, chills, palpitations, vomiting, diarrhea, urinary complaints, headache. REVIEW OF SYSTEMS: Aside from elements discussed in the HPI, a comprehensive 10-point review of systems was reviewed and is negative. 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 Heart rate in the 60s. GENERAL: Well-developed, well-nourished, somnolent but easily arousable. No respiratory distress. HEENT: Atraumatic. Eyes: 3mm pupil bilaterally. No icterus, no injection. Mouth : moist mucous membranes. No erythema or lesions. Neck: supple with no adenopathy. LUNGS: Clear to auscultation bilaterally, no wheezes, rhonchi or rales. CARDIAC: Irregularly irregular, no rubs, murmurs or gallops. ABDOMEN: Soft, nontender, nondistended, bowel sounds normal. Abdomen swollen but benign. BACK: No CVA tenderness. EXTREMITIES: No trauma. No edema. Range of motion is normal throughout. NEURO: Alert and oriented, grossly nonfocal. SKIN: Warm and dry, no rash. PSYCHIATRIC: Normal mentation, no agitation. ED Course: The patient presents with dizziness, fatigue, and difficulty concentrating after taking an extra diltiazem this morning. She also took a marijuana edible last night be fore bed. She was admitted here in January for slow atrial fibrillation. At that time, she was taken of of diltiazem and digoxin and was not supposed to go on them again unless her rate was over 100. EMS confirmed that she was missing a dose of diltiazem. On exam she is somnolent but easily arousable. Her rate was 61. Four days ago, she was directed to start taking diltiazem again. Patient states that her primary care physician had notice tachycardia and that that is why the diltiazem was restarted. Plan for EKG, head CT, CBC, basic metabolic panel, lipase, liver function and troponin. CT scan negative for acute processes. CBC unremarkable. Basic metabolic panel concerning for BUN at 107 and creatinine at 2.5. This is higher than she has previously documented. Troponin is negative. 2:00 PM - She continues to be somnolent and slightly bradycardic. She will be admitted for further treatment of unintentional overdose, renal insufficiency. Dr. Waldron will be the admitting physician. MDM: Differential diagnosis of the patient's dizziness was considered including but not limited to peripheral and central causes of vertigo, cardiac arrhythmias, cardiac ischemia, electrolyte disturbances, medication overdose, neurologic causes, orthostatic causes including dehydration, and blood loss. - Data Points Imaging Results: Imaging Impressions Chest X-Ray 05/21/18 13:19 Impression: 1. Cardiomegaly. 2. No definite congestive heart failure or pneumonia. Imaging: I viewed and interpreted images myself Laboratory Results: Laboratory Results 05/21/18 12:20 05/21/18 12:20 05/21/18 05/21/18 05/21/18 12:27 12:20 12:20 WBC 8.19 10^3/uL 10^3/uL (3.80-9.50) RBC 4.65 10^6/uL 10^6/uL (4.18-5.33) Hgb 11.1 g/dL L g/dL (12.6-16.3) Hct 36.2 % L % (38.0-47.0) MCV 77.8 fL L fL (81.5-99.8) MCH 23.9 pg L pg (27.9-34.1) MCHC 30.7 g/dL L g/dL (32.4-36.7) RDW 14.6 % % (11.5-15.2) Plt Count 248 10^3/uL 10^3/uL (150-400) MPV 11.2 fL fL (8.7-11.7) Neut % (Auto) 79.7 % H % (39.3-74.2) Lymph % (Auto) 7.9 % L % (15.0-45.0) [place] % (Auto) 11.8 % % (4.5-13.0) Eos % (Auto) 0.0 % L % (0.6-7.6) Baso % (Auto) 0.0 % L % (0.3-1.7) Nucleat RBC Rel Count 0.0 % % (0.0-0.2) Absolute Neuts (auto) 6.52 10^3/uL H 10^3/uL (1.70-6.50) Absolute Lymphs (auto) 0.65 10^3/uL L 10^3/uL (1.00-3.00) Absolute Monos (auto) 0.97 10^3/uL H 10^3/uL (0.30-0.80) Absolute Eos (auto) 0.00 10^3/uL L 10^3/uL (0.03-0.40) Absolute Basos (auto) 0.00 10^3/uL L 10^3/uL (0.02-0.10) Absolute Nucleated RBC 0.00 10^3/uL 10^3/uL (0-0.01) Immature Gran % 0.6 % % (0.0-1.1) Immature Gran # 0.05 10^3/uL 10^3/uL (0.00-0.10) Sodium 134 mEq/L L mEq/L (135-145) Potassium 3.9 mEq/L mEq/L (3.3-5.0) Chloride 95 mEq/L L mEq/L (97-110) Carbon Dioxide 26 mEq/l mEq/l (22-31) Anion Gap 13 mEq/L mEq/L (8-16) BUN 107 mg/dL H* mg/dL (7-23) Creatinine 2.5 mg/dL H mg/dL (0.6-1.0) Estimated GFR 19 Glucose 148 mg/dL H mg/dL (70-100) Calcium 10.0 mg/dL mg/dL (8.5-10.4) Total Bilirubin 0.3 mg/dL mg/dL (0.1-1.4) Conjugated Bilirubin 0.2 mg/dL mg/dL (0.0-0.5) Unconjugated Bilirubin 0.1 mg/dL mg/dL (0.0-1.1) AST 53 IU/L H IU/L (14-46) ALT 47 IU/L IU/L (9-52) Alkaline Phosphatase 72 IU/L IU/L (38-126) POC Troponin I 0.05 ng/mL ng/mL (0.00-0.08) Troponin I 0.021 ng/mL ng/mL (0.000-0.034) Total Protein 6.6 g/dL g/dL (6.3-8.2) Albumin 3.8 g/dL g/dL (3.5-5.0) Lipase 106 IU/L IU/L (23-300) Medications Given: Discontinued Medications Sodium Chloride (Ns) 1,000 mls @ 0 mls/hr IV ONCE ONE; Wide Open PRN Reason: Protocol Stop: 05/21/18 13:21 Last Admin: 05/21/18 13:45 Dose: 1,000 mls Point of Care Test Results: Chemistry 05/21/18 12:27 POC Troponin I 0.05 ng/mL ng/mL (0.00-0.08) General Initial Vital Signs: Initial Vital Signs Temperature (C) 36.5 C 05/21/18 12:24 Heart Rate 71 05/21/18 12:24 Respiratory Rate 18 05/21/18 12:24 Blood Pressure 96/56 L 05/21/18 12:24 O2 Sat (%) 93 05/21/18 12:24 O2 Delivery Mode Room Air Allergies/Adverse Reactions: RADIOACTIVE IODINE Allergy (Severe, Uncoded 02/05/18 13:43) RED SKIN lidoderm Allergy (Uncoded 02/05/18 13:43) pravastatin Allergy (Uncoded 02/05/18 13:43) Home Medications: Medication Instructions Recorded Albuterol [Proventil Inhaler HFA 2 puffs IH Q6HRS PRN 06/25/17 (*)] Apixaban [Eliquis] 5 mg PO BID 06/25/17 Betamethasone/Propylene Glyc 15 gm TP HS PRN 06/25/17 [Betamethasone Dp Aug 0.05% Oin] Docusate Sodium [Colace 100 MG (*)] 200 mg PO DAILY 06/25/17 FLUoxetine [Prozac 20 MG (*)] 40 mg PO DAILY 06/25/17 Famotidine [Pepcid 20 MG (*)] 20 mg PO BID 06/25/17 Levothyroxine [Synthroid 200 mcg 200 mcg PO DAILY06 06/25/17 (*)] Triamcinolone 0.1% [Triamcinolone 1 fadia TP BID PRN 06/25/17 0.1% Cream (*)] Vitamin B Complex [B Complex] 1 each PO DAILY 06/25/17 clonazePAM [Klonopin (*)] 0.25 mg PO BID PRN 06/25/17 oxyCODONE HCL [Oxycontin] 60 mg PO BID 06/25/17 ARIPiprazole [Abilify 2 mg (*)] 2 mg PO DAILY 07/21/17 clonIDINE [Catapres (*)] 0.1 mg PO DAILY 07/21/17 Loratadine [Claritin 10 mg] 10 mg PO DAILY PRN 12/14/17 Estrogens,Conjugated [Premarin 1 fadia VG Q3D 01/02/18 Vaginal (*)] Fluticasone/Salmeter 250/50Mcg 1 puffs IH BID 01/02/18 [Advair 250/50 (*)] Ipratropium/Albuterol [Duoneb (*)] 3 ml IH TID PRN 01/02/18 Metolazone [Zaroxolyn] 2.5 mg PO MWF@06 01/02/18 Acetaminophen [Tylenol 325mg (*)] 650 mg PO Q4HRS PRN tab 01/07/18 Furosemide [Lasix 40 MG (*)] 80 mg PO DAILY 02/05/18 Lisinopril [Zestril 10 mg (*)] 10 mg PO DAILY #30 tab 02/07/18 Diltiazem HCl [Cartia XT 240mg] 240 mg PO DAILY 05/21/18 Hydrocodone/Acetaminophen [[place] 1 each PO Q6 PRN 05/21/18 7.5-325 Tablet] Nystatin [Nyamyc] 1 fadia TP BID PRN 05/21/18 Sennosides/Docusate Sodium 1 - 2 tab PO BID PRN 05/21/18 [Senokot-S] buPROPion XL [Wellbutrin Xl] 450 mg PO DAILY 05/21/18 metFORMIN HCL [Glucophage 500 mg 500 mg PO BIDMEAL 05/21/18 (*)] Departure - Departure Disposition: [facility] Inpatient Acute Clinical Impression: Acute renal insufficiency, diltiazem toxicity, Somnolence, daytime, Bradycardia Condition: Fair Report Scribed for: Alisha Carroll Report Scribed by: Lara Tarango Date of Report: 05/21/18 Time of Report: 12:42 Physician Review and Approval Statement: Portions of this note were transcribed by a medical transcription. I personally performed a history, physical exam, medical decision making, and confirmed accuracy of information the transcribed note.
[2018-05-21] MEDS ORDERED: NS 1,000 ML IV ONE (13:20)
[2018-05-21 13:38] LABS: PLATELET COUNT 248 10^3/uL (150-400)
[2018-05-21] MEDS ORDERED: ACETAMINOPHEN 325 MG TAB PO PRN (14:19)
[2018-05-21] MEDS ORDERED: ONDANSETRON 4 MG/2 ML VIAL IVP PRN (14:19)
[2018-05-21] MEDS ORDERED: ONDANSETRON DISINTEGRATING 4 MG TAB PO PRN (14:19)
[2018-05-21] MEDS ORDERED: NS 1,000 ML IV SCH (14:30)
--- NOTE | 2018-05-21 15:18 | PDGENHP ---
History and Physical - Chief Complaint Dizziness - History of Present Illness Martin Morgan is a 73 yo F with a PMHx of A Fib, Depression, COPD, CHF, HTN, CKD who presents to [facility] for evaluation of dizziness. She reports that she took an extra dose of diltiazem this morning and began to feel lightheaded and dizzy. She felt that the room was spinning and she may pass out. She recently restarted the diltiazem 4 days ago after her PCP restarted her on it. She was admitted previously to [facility] for slow A Fib when this medication who discontinued. She denies any falls or LOC. She also denies any chest pain, shortness of breath, f/c, d/c, n/v. She reports that her legs have been less swollen lately with Lasix and Metolazone which her PCP manages. She reports that she has not had decreased urination recently but does have increased urination with her diuretic medication. History Information - Allergies/Home Medication List Allergies/Adverse Reactions: RADIOACTIVE IODINE Allergy (Severe, Uncoded 02/05/18 13:43) RED SKIN lidoderm Allergy (Uncoded 02/05/18 13:43) pravastatin Allergy (Uncoded 02/05/18 13:43) Home Medications: Albuterol [Proventil Inhaler HFA (*)] 2 puffs IH Q6HRS PRN 06/25/17 [Last Taken 07/20/17] Apixaban [Eliquis] 5 mg PO BID 06/25/17 [Last Taken 12/14/17] Betamethasone/Propylene Glyc [Betamethasone Dp Aug 0.05% Oin] 15 gm TP HS PRN [Last Taken 2 Weeks Ago ~07/07/17] Docusate Sodium [Colace 100 MG (*)] 200 mg PO DAILY 06/25/17 [Last Taken ] FLUoxetine [Prozac 20 MG (*)] 60 mg PO DAILY 06/25/17 [Last Taken 07/20/17] Famotidine [Pepcid 20 MG (*)] 20 mg PO BID 06/25/17 [Last Taken 07/20/17] Levothyroxine [Synthroid 200 mcg (*)] 200 mcg PO DAILY06 06/25/17 [Last Taken 05:00] Triamcinolone 0.1% [Triamcinolone 0.1% Cream (*)] 1 fadia TP BID PRN 06/25/17 [ Last Taken 2 Weeks Ago ~07/07/17] Vitamin B Complex [B Complex] 1 each PO DAILY 06/25/17 [Last Taken 07/16/17] clonazePAM [Klonopin (*)] 0.25 mg PO BID PRN 06/25/17 [Last Taken 07/20/17] oxyCODONE HCL [Oxycontin] 60 mg PO BID 06/25/17 [Last Taken 07/20/17] ARIPiprazole [Abilify 2 mg (*)] 2 mg PO DAILY 07/21/17 [Last Taken 07/20/17] clonIDINE [Catapres (*)] 0.1 mg PO DAILY 07/21/17 [Last Taken Unknown] Loratadine [Claritin 10 mg] 10 mg PO DAILY 12/14/17 [Last Taken Unknown] Estrogens,Conjugated [Premarin Vaginal (*)] 1 fadia VG Q3D 01/02/18 [Last Taken Unknown] Fluticasone/Salmeter 250/50Mcg [Advair 250/50 (*)] 1 puffs IH BID 01/02/18 [ Last Taken Unknown] Ipratropium/Albuterol [Duoneb (*)] 3 ml IH TID PRN 01/02/18 [Last Taken Unknown] Metolazone [Zaroxolyn] 2.5 mg PO MWF 01/02/18 [Last Taken Unknown] Furosemide [Lasix 40 MG (*)] 80 mg PO DAILY 02/05/18 [Last Taken Unknown] Diltiazem HCl [Cartia XT 240mg] 240 mg PO DAILY 05/21/18 [Last Taken 05/21/18] Hydrocodone/Acetaminophen [[place] 7.5-325 Tablet] 1 each PO 05/21/18 [Last Taken Unknown] Nystatin [Nyamyc] 1 fadia TP BID 05/21/18 [Last Taken Unknown] buPROPion XL [Wellbutrin Xl] 150 mg PO DAILY 05/21/18 [Last Taken Unknown] metFORMIN HCL [Glucophage 500 mg (*)] 500 mg PO BIDMEAL 05/21/18 [Last Taken Unknown] I have personally reviewed and updated: family history, medical history, social history, surgical history - Past Medical History atrial fibrillation, asthma, CHF, diabetes type 2, hypertension Additional medical history: Depression. Chronic pain - Surgical History Additional surgical history: Hip surgery - Family History Positive for: cancer - Social History Smoking Status: Former smoker Review of Systems Review of Systems: ROS: 10pt was reviewed & negative except for what was stated in HPI & below Physical Exam Physical Exam: Temp Pulse Resp BP Pulse Ox 36.7 C 71 14 119/69 95 05/21/18 15:05/21/18 15:05/21/18 15:05/21/18 15:05/21/18 15:09 Constitutional: no apparent distress Eyes: PERRL Ears, Nose, Mouth, Throat: moist mucous membranes Cardiovascular: irregularly irregular, edema Respiratory: no respiratory distress, clear to auscultation Gastrointestinal: soft, non-tender abdomen Genitourinary: no bladder tenderness Skin: warm, erythema Musculoskeletal: no muscle tenderness Neurologic: AAOx3 Psychiatric: interacting appropriately Lab Data & Imaging Review 05/21/18 12:20 05/21/18 12:20 WBC 8.19 10^3/uL (3.80-9.50) 05/21/18 12:20 RBC 4.65 10^6/uL (4.18-5.33) 05/21/18 12:20 Hgb 11.1 g/dL (12.6-16.3) L 05/21/18 12:20 Hct 36.2 % (38.0-47.0) L 05/21/18 12:20 MCV 77.8 fL (81.5-99.8) L 05/21/18 12:20 MCH 23.9 pg (27.9-34.1) L 05/21/18 12:20 MCHC 30.7 g/dL (32.4-36.7) L 05/21/18 12:20 RDW 14.6 % (11.5-15.2) 05/21/18 12:20 Plt Count 248 10^3/uL (150-400) 05/21/18 12:20 MPV 11.2 fL (8.7-11.7) 05/21/18 12:20 Neut % (Auto) 79.7 % (39.3-74.2) H 05/21/18 12:20 Lymph % (Auto) 7.9 % (15.0-45.0) L 05/21/18 12:20 [place] % (Auto) 11.8 % (4.5-13.0) 05/21/18 12:20 Eos % (Auto) 0.0 % (0.6-7.6) L 05/21/18 12:20 Baso % (Auto) 0.0 % (0.3-1.7) L 05/21/18 12:20 Nucleat RBC Rel Count 0.0 % (0.0-0.2) 05/21/18 12:20 Absolute Neuts (auto) 6.52 10^3/uL (1.70-6.50) H 05/21/18 12:20 Absolute Lymphs (auto) 0.65 10^3/uL (1.00-3.00) L 05/21/18 12:20 Absolute Monos (auto) 0.97 10^3/uL (0.30-0.80) H 05/21/18 12:20 Absolute Eos (auto) 0.00 10^3/uL (0.03-0.40) L 05/21/18 12:20 Absolute Basos (auto) 0.00 10^3/uL (0.02-0.10) L 05/21/18 12:20 Absolute Nucleated RBC 0.00 10^3/uL (0-0.01) 05/21/18 12:20 Immature Gran % 0.6 % (0.0-1.1) 05/21/18 12:20 Immature Gran # 0.05 10^3/uL (0.00-0.10) 05/21/18 12:20 Sodium 134 mEq/L (135-145) L 05/21/18 12:20 Potassium 3.9 mEq/L (3.3-5.0) 05/21/18 12:20 Chloride 95 mEq/L (97-110) L 05/21/18 12:20 Carbon Dioxide 26 mEq/l (22-31) 05/21/18 12:20 Anion Gap 13 mEq/L (8-16) 05/21/18 12:20 BUN 107 mg/dL (7-23) H* 05/21/18 12:20 Creatinine 2.5 mg/dL (0.6-1.0) H 05/21/18 12:20 Estimated GFR 19 05/21/18 12:20 Glucose 148 mg/dL (70-100) H 05/21/18 12:20 Calcium 10.0 mg/dL (8.5-10.4) 05/21/18 12:20 Total Bilirubin 0.3 mg/dL (0.1-1.4) 05/21/18 12:20 Conjugated Bilirubin 0.2 mg/dL (0.0-0.5) 05/21/18 12:20 Unconjugated Bilirubin 0.1 mg/dL (0.0-1.1) 05/21/18 12:20 AST 53 IU/L (14-46) H 05/21/18 12:20 ALT 47 IU/L (9-52) 05/21/18 12:20 Alkaline Phosphatase 72 IU/L (38-126) 05/21/18 12:20 POC Troponin I 0.05 ng/mL (0.00-0.08) 05/21/18 12:27 Troponin I 0.021 ng/mL (0.000-0.034) 05/21/18 12:20 Total Protein 6.6 g/dL (6.3-8.2) 05/21/18 12:20 Albumin 3.8 g/dL (3.5-5.0) 05/21/18 12:20 Lipase 106 IU/L (23-300) 05/21/18 12:20 Visualized and Interpreted Chest x-ray results: Yes Chest X-Ray results: no infiltrate Visualized and Interpreted EKG results: Yes EKG additional interpertation: A fib, hr 60s Assessment & Plan Assessment: Acute renal insufficiency (Acute) - BUN/Cr 107/2.5 on admission, appears Cr 1.7 05/16, 1.2 in 01/2018 - Does not appear fluid overloaded, electrolytes WNL - Will order urine studies including UA, FEUrea - Ordered Renal U/S - Will hold Lisinopril in setting of LUIS CARLOS - Continue hold home Lasix 80 mg, Metolazone for now - S/p 1 L NS in ED, will hold off on further IVF - Consider Nephrology consult in the AM if not improving Bradycardia (Acute) - 2/2 to extra dose of diltiazem this morning - HR 60's, BP low normal - Will hold Diltiazem for now - Continue to monitor on telemetry overnight CHF - Does not appear fluid overloaded on exam, CXR negative for edema - Will hold home Lasix and Metolazone for now, restart as tolerated A Fib - Management of bradycardia as above - Continue Elaquis - May restart diltiazem at lower dose prior to d/c COPD - Continue home Advair, Duonebs - No active exacerbation Depression - Continue home Wellbutrin, Abilify Hypothyroidism - Continue home Synthroid T2DM - Will hold home Metformin - Ordered SSI as IP FEN: PRN, s/p 1 L NS in ED CODE: FULL PPx: Home Elaquis Dispo: Admit to Medicine, pending clinical course
[2018-05-21] MEDS ORDERED: D50W 25 GM/50 ML SYR IVP PRN (15:33)
[2018-05-21] MEDS ORDERED: ALBUTEROL 60 PUFFS/8 GM MDI IH PRN (16:29)
[2018-05-21] MEDS ORDERED: BETAMETHASONE AUGMENTED 0.05% TP PRN (16:29)
[2018-05-21] MEDS: INSULIN LISPRO 100 UNIT/ML SC SCH (18:13)
[2018-05-21] MEDS ORDERED: HYDROCODONE/APAP 10/325 TAB PO PRN (19:11)
--- NOTE | 2018-05-21 19:58 | CPEKG ---
Test Reason : OPEN Blood Pressure : / mmHG Vent. Rate : 061 BPM Atrial Rate : 000 BPM P-R Int : 059 ms QRS Dur : 105 ms QT Int : 435 ms P-R-T Axes : 000 -07 021 degrees QTc Int : 439 ms Atrial fibrillation Left ventricular hypertrophy Anterior Q waves, possibly due to LVH Confirmed by Alisha Carroll ([id number]) on 05/21/2018 7:58:08 PM Referred By: Confirmed By:Alisha Carroll
[2018-05-21] MEDS: FLUTICASONE/SALMETER 250/50MCG DISKUS IH SCH (20:59)
[2018-05-21] MEDS: FAMOTIDINE 20 MG TAB PO SCH (20:59)
[2018-05-21] MEDS: APIXABAN 5 MG TAB PO SCH (20:59)
[2018-05-21] MEDS: clonazePAM 0.5 MG TAB PO PRN (21:06)
[2018-05-22] MEDS: LEVOTHYROXINE 200 MCG TAB PO SCH (06:12)
[2018-05-22] MEDS ORDERED: SENNOSIDES/DOCUSATE SODIUM TAB PO PRN (08:40)
[2018-05-22] MEDS ORDERED: TRIAMCINOLONE 0.1% 15 GM CRTUBE TP PRN (08:40)
[2018-05-22] MEDS ORDERED: IPRATROPIUM/ALBUTEROL 3 ML DEYVIAL IH PRN (08:40)
[2018-05-22] MEDS ORDERED: CETIRIZINE 10 MG TAB PO PRN (09:00)
[2018-05-22] MEDS: FLUTICASONE/SALMETER 250/50MCG DISKUS IH SCH ×2 (09:18→22:00)
[2018-05-22] MEDS: FAMOTIDINE 20 MG TAB PO SCH ×2 (09:41→21:01)
[2018-05-22] MEDS: DOCUSATE SODIUM 100 MG CAP PO SCH (09:41)
[2018-05-22] MEDS: oxyCODONE CR 30 MG TAB PO SCH ×2 (09:41→21:01)
[2018-05-22] MEDS: VITAMIN B COMPLEX 1 EA CAP/TAB PO SCH (09:41)
[2018-05-22] MEDS: FLUoxetine 20 MG CAP PO SCH (09:41)
[2018-05-22] MEDS: APIXABAN 5 MG TAB PO SCH (09:41)
[2018-05-22] MEDS: buPROPion XL 150 MG TAB PO SCH (09:42)
[2018-05-22] MEDS: ARIPiprazole 2 MG TAB PO SCH (09:42)
--- NOTE | 2018-05-22 09:50 | PDMN ---
Medical Necessity Medical necessity: Change to IP, as of 05/21/18, per & MCG [id number]; los >2 mn for ongoing management of acute renal insufficiency w/BUN of 107, Cr of 2.5, bradycardia & dizziness; admit for further workup/monitoring, possible Nephrology consult, med management & therapies; hx AFIB on AC, CHF, COPD, CKD, diabetes
[2018-05-22] MEDS: INSULIN LISPRO 100 UNIT/ML SC SCH ×3 (10:38→18:21)
--- NOTE | 2018-05-22 12:23 | HOSPPROG ---
Hospitalist Progress Note Assessment/Plan: 73-year-old with a history of AFib on Eliquis, depression and diastolic heart failure with chronic kidney disease presents for dizziness. She admits to taking an extra dose of diltiazem on the day of admission and began to feel lightheaded and dizzy. She has a history of AFib/sick sinus syndrome while on diltiazem and digoxin. Because of elevated AFib rates in the clinic her PCP did resume the diltiazem at a lower dose but not the digoxin. # dizziness likely related to her extra dose of diltiazem and anxiety. Symptoms resolved # acute on chronic renal failure. Recently increased doses of metolazone for edema, will give 1 L of fluid and then repeat creatinine in the a.m.. Given her edema I will resume her Lasix but hold the metolazone for now. * Resume Lasix * Follow-up creatinine * Consider resuming metolazone depending on her stay fluid status tomorrow * Recheck echocardiogram in a.m. # AFib with tachycardia. Likely contributing to her fluid overload. * Continue Dilt at a lower dose from previous * Monitor heart rate at rest and with exertion * If continues to have tachycardia on the diltiazem would consider follow-up with Cardiology. She was supposed to do this after her January hospitalization but never did follow-up. I reviewed Dr. Lagos is note from that hospitalization * Continue Eliquis at low dose given her renal function and weight # diastolic CHF with normal EF in November of this year. Repeat echo in a.m. # depression and anxiety, severe recent stresses related to relationship with her son and her birthday. * Continue medications # history of COPD # hypertension # chronic pain # back pain and left arm pain, with negative troponins. Will cycle troponins and follow. Given 2 days duration of her back pain and negative troponin makes likelihood of cardiac cause low Subjective: Patient new to me and chart reviewed. Feels pretty good but heart rate keeps increasing with any exertion. Feels bloated and swollen Objective: Vital Signs Temp Pulse Resp BP Pulse Ox 36.8 C 86 16 121/75 H 96 05/22/18 11:46 05/22/18 11:46 05/22/18 11:46 05/22/18 11:46 05/22/18 11:46 Laboratory Results 05/22/18 03:34 05/21/18 05/22/18 05/23/18 05:59 05:59 05:59 Intake Total 50 Output Total 1100 Balance 50 -1100 - Physical Exam Constitutional: chronically ill appearing, uncomfortable Eyes: PERRL, anicteric sclera Cardiovascular: irregularly irregular, tachycardia, edema Respiratory: no respiratory distress, clear to auscultation Gastrointestinal: soft, non-tender abdomen Genitourinary: no bladder fullness Skin: warm Musculoskeletal: generalized weakness Neurologic: AAOx3 Psychiatric: interacting appropriately ICD10 Worksheet Patient Problems: Problems Problem Status Onset Acute kidney injury Acute Diuretics causing adverse effect in therapeutic use Acute Bradycardia Acute Afib Acute Fall Acute Acute renal insufficiency Acute Somnolence, daytime Acute chronic disease mgmt/transitional care Acute Pneumonia Acute CHF (congestive heart failure) Acute Cough Acute Shortness of breath Acute Primary localized osteoarthritis of left hip Acute MRSA - Methicillin resistant Staphylococcus aureus infection Active Bronchitis Acute
--- NOTE | 2018-05-22 14:06 | ASMTCMCOM ---
CM Note CM Note Notes: Pt reviewed in rounds, she was admitted for dizziness after accidentally taking a second dose of diltiazem. Pt lives at [facility], she is independent with her ADLs, PT/OT recommend home. She has and RN who fills a medication machine. No needs anticipated, pt will dc back to [facility] when medically stable, CM available for any changes. DC Plan: Independent Date Signed: 05/22/2018 02:05 PM Electronically Signed By:Nola Grove RN
[2018-05-22] MEDS: FUROSEMIDE 40 MG TAB PO SCH (14:10)
[2018-05-22] MEDS: DILTIAZEM XR 240 MG CAP PO SCH (14:11)
[2018-05-22] MEDS: APIXABAN 2.5 MG TAB PO SCH (21:01)
[2018-05-22] MEDS: clonazePAM 0.5 MG TAB PO PRN (21:06)
[2018-05-23] MEDS: LEVOTHYROXINE 200 MCG TAB PO SCH (06:28)
[2018-05-23] MEDS: INSULIN LISPRO 100 UNIT/ML SC SCH ×2 (07:52→12:13)
[2018-05-23] MEDS: FLUoxetine 20 MG CAP PO SCH (08:01)
[2018-05-23] MEDS: DOCUSATE SODIUM 100 MG CAP PO SCH (08:02)
[2018-05-23] MEDS: buPROPion XL 150 MG TAB PO SCH (08:02)
[2018-05-23] MEDS: FUROSEMIDE 40 MG TAB PO SCH (08:02)
[2018-05-23] MEDS: FAMOTIDINE 20 MG TAB PO SCH (08:02)
[2018-05-23] MEDS: ARIPiprazole 2 MG TAB PO SCH (08:03)
[2018-05-23] MEDS: APIXABAN 2.5 MG TAB PO SCH (08:03)
[2018-05-23] MEDS: oxyCODONE CR 30 MG TAB PO SCH (08:03)
[2018-05-23] MEDS: DILTIAZEM XR 240 MG CAP PO SCH (08:03)
[2018-05-23] MEDS: VITAMIN B COMPLEX 1 EA CAP/TAB PO SCH (08:03)
[2018-05-23] MEDS: FLUTICASONE/SALMETER 250/50MCG DISKUS IH SCH (08:17)
--- NOTE | 2018-05-23 09:13 | CPEKG ---
Test Reason : OPEN Blood Pressure : / mmHG Vent. Rate : 089 BPM Atrial Rate : 000 BPM P-R Int : 201 ms QRS Dur : 101 ms QT Int : 372 ms P-R-T Axes : 000 026 053 degrees QTc Int : 453 ms Atrial fibrillation Anterior infarct, old Minimal ST depression, lateral leads When compared with ECG of minimal lateral ST depression now noted Confirmed by Kacey Dutta ([id number]) on 05/23/2018 9:13:10 AM Referred By: Confirmed By:Kacey Dutta
--- NOTE | 2018-05-23 11:47 | ECHO ---
[email or web address] [address] [address] Main: [phone] Fax: Transthoracic Echocardiogram Name: KIMBERLI PICKARD MR#: [id number] Study Date: 05/23/2018 Study Time: 07:35 AM Date of : 1945 Age: 73 year(s) Height: 157.5 cm (62 in.) Weight: 61.69 kg (136 lb.) BSA: 1.62 m2 Gender: Female Examination: Echo Indication: Chest Pain, edema Image Quality: Adequate Contrast: Requested by: Cherise Dalton BP: 121 mmHg/75 mmHg Heart Rate: Rhythm: Indication: Chest Pain, edema Procedure Staff Fisher Trot Line: Carina Butcher RDCS Reading Physician: Mohit Alvarado MD Requesting Provider: Conclusions: Normal size left ventricle. Normal global systolic LV function. The ejection fraction is visually estimated to be 60 %. No regional wall motion abnormality. The left atrium is severely dilated. The right atrium is moderately dilated. Mild mitral valve leaflet calcification is present. Mild mitral valve regurgitation is present. Moderate aortic cusp calcification is present. Mild aortic valve regurgitation is present. Mild to moderate tricuspid valve regurgitation. The pulmonary artery pressure is mildly increased. Right ventricular systolic pressure measures 44mmHg. Trivial pericardial effusion. The rhythm is atrial fibrillation.. Measurements: Chambers Valvular Assessment AV/MV Valvular Assessment TV/PV Normal Normal Normal Name Value Range Name Value Range Name Value Range Ao Carolin (2D): 2.9 cm (1.4 cm-2.6 AV Vmax: 1.45 m/s (1 m/s-1.7 TR Vmax: 3.11 mm/s ( - ) cm) m/s) TR PGmax: 39 mmHg ( - ) IVSd (2D): 1.3 cm (0.6 cm-1.1 AV maxP mmHg ( - ) syst. PAP: 44 mmHg ( - ) cm) AV meanP mmHg ( - ) PV Vmax: 0.91 m/s (0.6 m/s-0.9 LVDd (2D): 4.5 cm (3.9 cm-5.3 SHYANNE (VTI): 3.0 cm ( - ) m/s) cm) MV E Vmax: 0.92 m/s ( - ) PV PGmax: 3 mmHg ( - ) LVDs (2D): 3.3 cm (2.1 cm-4 MV PHT: 0.050 s ( - ) cm) MVA (PHT): 4.4 s ( - ) LVPWd (2D): 1.2 cm ( - ) LVOTd 2.3 cm 2.3 cm mm Patient: KIMBERLI PICKARD Study Date: 05/23/2018 Page 1 of 3 07:35 AM LVEF (BP): 53 % (>=55 %) Visual EF: 60 % RVDd(2D): 4.0 cm (1.9 cm-3.8 cmmm) Continued Measurements: Chambers Valvular Assessment AV/MV Valvular Assessment TV/PV Name Value Name Value Name Value LADs: 4.7 cm MV DecTime: 165 m/s CVP (est.): 5 mmHg LADs Lon.6 cm MV E' Septal: 0.09 m/s LA Area: 41.6 cm2 MV E/E' Septal: 10.40 LA Volume: 175 ml MV E/E' Lateral: 7.00 LA Volume Index: 108.0 ml/m2 RA Area: 26.5 cm2 Additional Vessels Name Value Ao Ascendin.5 cm Inferior Vena Cava: 1.3 cm Findings: Left Ventricle: Normal size left ventricle. No LV hypertrophy. Normal global systolic LV function. The ejection fraction is visually estimated to be 60 %. No regional wall motion abnormality. Unable to grade diastolic dysfunction due to a fib. Right Ventricle: Normal size right ventricle. Normal RV function. Left Atrium: The left atrium is severely dilated. Negative bubble study performed 12/15/2017. Right Atrium: The right atrium is moderately dilated. Mitral Valve: The mitral valve is normal in appearance and function. Mild mitral valve leaflet calcification is present. Mild mitral valve regurgitation is present. No mitral stenosis is present. Aortic Valve: The aortic valve is tri-leaflet. Moderate aortic cusp calcification is present. Mild aortic valve regurgitation is present. No aortic valve stenosis is present. Tricuspid Valve: The tricuspid valve is normal in appearance and function. Mild to moderate tricuspid valve regurgitation. The pulmonary artery pressure is mildly increased. Right ventricular systolic pressure measures 44mmHg. Pulmonic Valve: The pulmonic valve is normal in appearance and function. Mild pulmonic valve regurgitation is noted. Aorta: The aorta is normal. Normal size aortic root measuring 2.9 cm. Normal size ascending aorta measuring 3.5 cm. IVC: The IVC is normal sized. Pericardium: Trivial pericardial effusion. There is pericardial fat. Exam Comments: The rhythm is atrial fibrillation.. (No Signature Object) Patient: KIMBERLI PICKARD Study Date: 05/23/2018 Page 2 of 3 07:35 AM Patient: KIMBERLI PICKARD Study Date: 05/23/2018 Page 3 of 3 07:35 AM [id number]
[2018-05-23 11:50] VITALS: BP 121/62
--- NOTE | 2018-05-23 12:28 | ASMTLACE ---
LACE Length of stay for Answers: 1 day current admission Acuity / Level of Answers: Yes Care: Did the patient have an inpatient admission? Comorbidities - select Answers: Diabetes (uncontrolled or all that apply controlled) Other Notes: Atrial Fibrillation # of Emergency department Answers: 1-2 visits in the last 6 months Score: 7 Date Signed: 05/23/2018 12:27 PM Electronically Signed By:Lisa Keys RN
--- NOTE | 2018-05-23 12:49 | GDS ---
DIAGNOSES: 1. Atrial fibrillation with tachycardia. 2. Acute on chronic renal failure, back at baseline at the time of discharge, likely secondary from diuresis. 3. Dizziness related to extra dose of diltiazem and anxiety. 4. Diastolic heart failure with normal ejection fraction on recent echo. 5. Depression and anxiety. 6. History of chronic obstructive pulmonary disease. 7. Hypertension. 8. Chronic pain. PROCEDURES DONE: 1. Echocardiogram with normal EF, essentially unchanged from previous. 2. Head CT showing nothing acute. 3. Renal ultrasound, showing no hydro. HOSPITAL COURSE: The patient is a 73-year-old admitted after taking an extra dose of diltiazem. She became dizzy and came into the emergency department, where she was admitted with mild renal insuffic iency and swelling. She was given a bolus of IV fluids, and her diuretics were held, and over the co urse of her hospitalization, her kidney function came back to baseline with a creatinine of 1.7. Her dizziness resolved after the initial night's stay when the diltiazem was out of her system. I did r esume diltiazem at the dose of 260, which she was on as an outpatient. Her atrial fibrillation rate was not well controlled on this. She typically was 90-100 at rest and 120-130 with activity. I disc ussed this with Cardiology, and they recommended increasing her dose slightly, so I will increase it to 300 mg daily and have her follow up with [facility]. They can adjust her rate-controlled medic ations at that time. Of note, she was bradycardic previously on both diltiazem at 360 and digoxin. She otherwise feels well and wants to go home. Her swelling is stable, and her breathing is good. CONDITION ON DISCHARGE: Good. VITAL SIGNS: Heart rate is anywhere from 70-84 at rest, up to 120-13 0 with any exertion, blood pressure 121/62. She is 94% on room air. DISCHARGE MEDICATIONS: Please see discharge medication form. I did increase her diltiazem to 300 mg daily. I continued her on her usual Lasix dose and decreased her metolazone to 2.5 weekly instead o f twice a week (she was on Mondays, Wednesdays, Fridays for a week prior to admission with elevation of her creatinine). FOLLOWUP INSTRUCTION: She is to follow up with [facility] Rico or Dr. Nowak within a week for hosp ital followup. I also made her an appointment at [facility] on June 01 at 115. She needs to f ollow up at [facility]. Total time spent with patient on day of discharge and coordination of care is 35 minutes. /[id number]/MODL
--- NOTE | 2018-05-23 13:30 | PDIAF ---
- Diagnosis Diagnosis: afib Code Status: Full Code - Medication Management Discharge Medications: Medications to Continue on Transfer Albuterol [Proventil Inhaler HFA (*)] 2 puffs IH Q6HRS PRN 06/25/17 [Last Taken 07/20/17] Apixaban [Eliquis] 5 mg PO BID 06/25/17 [Last Taken 05/21/18 09:00] Betamethasone/Propylene Glyc [Betamethasone Dp Aug 0.05% Oin] 15 gm TP HS PRN [Last Taken 2 Weeks Ago ~07/07/17] Docusate Sodium [Colace 100 MG (*)] 200 mg PO DAILY 06/25/17 [Last Taken ] FLUoxetine [Prozac 20 MG (*)] 40 mg PO DAILY 06/25/17 [Last Taken 07/20/17] Famotidine [Pepcid 20 MG (*)] 20 mg PO BID 06/25/17 [Last Taken 05/21/18 09:00] Levothyroxine [Synthroid 200 mcg (*)] 200 mcg PO DAILY06 06/25/17 [Last Taken ] Triamcinolone 0.1% [Triamcinolone 0.1% Cream (*)] 1 fadia TP BID PRN 06/25/17 [ Last Taken 2 Weeks Ago ~07/07/17] Vitamin B Complex [B Complex] 1 each PO DAILY 06/25/17 [Last Taken 05/21/18] clonazePAM [Klonopin (*)] 0.25 mg PO BID PRN 06/25/17 [Last Taken 07/20/17] oxyCODONE HCL [Oxycontin] 60 mg PO BID 06/25/17 [Last Taken 05/21/18 09:00] ARIPiprazole [Abilify 2 mg (*)] 2 mg PO DAILY 07/21/17 [Last Taken 05/21/18] clonIDINE [Catapres (*)] 0.1 mg PO DAILY 07/21/17 [Last Taken 05/21/18] Loratadine [Claritin 10 mg] 10 mg PO DAILY PRN 12/14/17 [Last Taken Unknown] Estrogens,Conjugated [Premarin Vaginal (*)] 1 fadia VG Q3D 01/02/18 [Last Taken Unknown] Fluticasone/Salmeter 250/50Mcg [Advair 250/50 (*)] 1 puffs IH BID 01/02/18 [ Last Taken 05/21/18] Ipratropium/Albuterol [Duoneb (*)] 3 ml IH TID PRN 01/02/18 [Last Taken Unknown] Acetaminophen [Tylenol 325mg (*)] 650 mg PO Q4HRS PRN tab 01/07/18 [Last Taken Unknown] Furosemide [Lasix 40 MG (*)] 80 mg PO DAILY 02/05/18 [Last Taken 05/21/18] Lisinopril [Zestril 10 mg (*)] 10 mg PO DAILY #30 tab 02/07/18 [Last Taken 05/21] Hydrocodone/Acetaminophen [Astoria 7.5-325 Tablet] 1 each PO Q6 PRN 05/21/18 [ Last Taken Unknown] Nystatin [Nyamyc] 1 fadia TP BID PRN 05/21/18 [Last Taken Unknown] Sennosides/Docusate Sodium [Senokot-S] 1 - 2 tab PO BID PRN 05/21/18 [Last Taken 05/21/18 09:00] buPROPion XL [Wellbutrin 150mg XL] 450 mg PO DAILY 05/21/18 [Last Taken 05/21/18 ] metFORMIN HCL [Glucophage 500 mg (*)] 500 mg PO BIDMEAL 05/21/18 [Last Taken 09:00] Diltiazem HCl [Diltiazem 24Hr Cd] 300 mg PO DAILY #30 cap.er.24h 05/23/18 [Last Taken Unknown] Metolazone [Zaroxolyn] 2.5 mg PO MO #1 tab 05/23/18 [Last Taken Unknown] Discharge Medications: Refer to the Discharge Home Medication list for PRN reason. - Orders Services needed: Home Care, Registered Nurse Home Care Face to Face: I certify that this patient was under my care and that I had the required [id number] encounter meeting the encounter requirements on the discharge day. My findings support the fact that the patient is homebound as defined in Home Care Face to Face Continued: CMS Chapter 7 Medicare Benefits Manual 30.1.1 , The condition of the patient is such that there exists a normal inability to leave home and consequently, leaving home would require a considerable and taxing effort. Isolation Type: None Diet Recommendation: cardiac -low fat low salt Additional Instructions: Follow up with [facility] Rico or Dr. Nowak in a week Follow up with [facility] as scheduled. - Follow Up Care Current Providers and Referrals: Lexy Culp CNP [Certified Nurse Practioner] - 06/01/18 1:15 pm Patient,NotPresent [Unknown] - As per Instructions
--- NOTE | 2018-05-23 14:08 | ASMTDCNOTE ---
Case Management Discharge Discharge Order Complete? Answers: Yes Patient to Obtain Answers: Independently Medications Transportation Arranged Answers: Taxi - Self Pay Discharge Comments Notes: 05/23/2018 Case Management Note Pt to discharge back to [facility]. RN will resume medication management. Pt plans to resume assistance from [employer]. Pt self paying for taxi transport back to [place]. Date Signed: 05/23/2018 02:08 PM Electronically Signed By:Lisa Keys RN
--- NOTE | 2018-05-23 14:09 | ASDISCHSUM ---
Discharge Information Plan Status:Home with No Needs Medically Cleared to Leave:05/23/2018 Discharge Date:05/23/2018 02:07 PM D/C Disposition:Home, Routine, Self-Care ADT D/C Disposition:HHSNOTBCH Projected Discharge Date:05/23/2018 11:00 AM Transportation at D/C: Discharge Delay Reason: Follow-Up Date:05/23/2018 11:00 AM Discharge Slot: Final Diagnosis: Placement Information Referral Type:Assisted Living Residence Referral ID:[id number] Provider Name: Address 1: Phone Number: Address 2: Fax Number: City: Selection Factors: State: Patient Contact Information Contact Name:REA Relationship:Cousin Address: City: [facility] Phone: [facility] Code: Email: Financial Information Financial Class:Medicare Primary Plan Desc:MEDICARE IP PART B ONLY Primary Plan Number:[id number] Secondary Plan Desc:MEDICAID [place] Secondary Plan Number:[id number] Assessment Information LACE LACE Length of stay for Answers: 1 day current admission Acuity / Level of Answers: Yes Care: Did the patient have an inpatient admission? Comorbidities - select Answers: Diabetes (uncontrolled or all that apply controlled) Other Notes: Atrial Fibrillation # of Emergency department Answers: 1-2 visits in the last 6 months Score: 7 Date Signed: 05/23/2018 12:27 PM Electronically Signed By:Lisa Keys RN [facility] Progress Note CM Note CM Note Notes: Pt reviewed in rounds, she was admitted for dizziness after accidentally taking a second dose of diltiazem. Pt lives at [facility], she is independent with her ADLs, PT/OT recommend home. She has and RN who fills a medication machine. No needs anticipated, pt will dc back to [facility] when medically stable, CM available for any changes. DC Plan: Independent Date Signed: 05/22/2018 02:05 PM Electronically Signed By:Nola Grove RN Case Management Discharge Plan Note Case Management Discharge Discharge Order Complete? Answers: Yes Patient to Obtain Answers: Independently Medications Transportation Arranged Answers: Taxi - Self Pay Discharge Comments Notes: 05/23/2018 Case Management Note Pt to discharge back to [facility]. RN will resume medication management. Pt plans to resume assistance from [employer]. Pt self paying for taxi transport back to [place]. Date Signed: 05/23/2018 02:08 PM Electronically Signed By:Lisa Keys RN Intervention Information
== END 2018-05-23 14:07 | disposition home health service (06) | DRG 918 ==
LOC: EDUNIT# → OBSVTOIN 16:32 → F2W 16:35
PROVIDERS: ADMIT Internal Medicine; ATTEND Internal Medicine
DX: T46.1X1A Poisoning by calcium-channel blockers, accidental (unintentional), initial encounter (principal); R42 Dizziness and giddiness; N17.9 Acute kidney failure, unspecified; I13.0 Hypertensive heart and chronic kidney disease with heart failure and stage 1 through stage 4 chronic kidney disease, or unspecified chronic kidney disease; N18.9 Chronic kidney disease, unspecified; E11.22 Type 2 diabetes mellitus with diabetic chronic kidney disease; I50.30 Unspecified diastolic (congestive) heart failure; G89.29 Other chronic pain; J44.9 Chronic obstructive pulmonary disease, unspecified; I48.91 Unspecified atrial fibrillation; E07.9 Disorder of thyroid, unspecified; F41.9 Anxiety disorder, unspecified; Z87.891 Personal history of nicotine dependence
CPT/HCPCS: 84484-PO; 97116-GP; 97161-GP; 97165-GO; G8978-GP-CI; G8979-GP-CI; G8980-GP-CI; G8987-GO-CI; G8988-GO-CI; G8989-GO-CI; J2405

== ENCOUNTER → 2018-06-01 | Outpatient (CLI) | payer OTHER, MEDICAID | LOC: BHFA 13:15 | PROVIDERS: ATTEND Nurse Practitioner Adult Health | DX: I48.91 Unspecified atrial fibrillation (principal); I50.9 Heart failure, unspecified ==

== ENCOUNTER 2018-07-06 06:06 | Day surgery (SDC) | payer OTHER, MEDICAID ==
[2018-07-06] MEDS ORDERED: NS 1,000 ML IV SCH (06:57)
[2018-07-06] MEDS ORDERED: DIAZEPAM 5 MG TAB PO ONE (06:57)
[2018-07-06] MEDS ORDERED: NITROGLYCERIN 0.4 MG BTL SL PRN (06:57)
[2018-07-06] MEDS ORDERED: ACETAMINOPHEN 325 MG TAB PO PRN (06:57)
[2018-07-06 08:15] LABS: PLATELET COUNT 251 10^3/uL (150-400)
[2018-07-06 08:24] LABS: INR 1.11 (0.83-1.16); PROTIME(PATIENT) 14.5 SEC (12.0-15.0)
--- NOTE | 2018-07-06 08:44 | PDHPUP ---
History & Physical Update H&P update statement: This history and physical update is based on an assessment of the patient which was completed after admission or registration (within 24 hours), but prior to the surgery/procedure. H&P update: H&P reviewed & patient examined, no change in patient's condition since H&P completed (has gained 2lbs despite PO diuretic increase and still has YEAGER and leg edema.)
--- NOTE | 2018-07-06 08:45 | PDPROPOC ---
Sedation Plan of Care Sedation Plan of Care: mental status noted, patient educated of risks, benefits , alternatives, patient can tolerate sedation ASA Classification: ASA 3 Planned drugs: fentanyl, midazolam Mallampati Score: Class 2 Mallampati Reference Image: Patient passed 3-3-2 rule?: Yes
[2018-07-06] MEDS ORDERED: LIDOCAINE 1% 300 MG/30 ML SDV ONE ×2 (08:56→09:26)
[2018-07-06] MEDS ORDERED: MIDAZOLAM 2 MG/2 ML VIAL ONE (08:56)
[2018-07-06] MEDS ORDERED: fentaNYL 100 MCG/2 ML INJ ONE (08:56)
[2018-07-06] MEDS ORDERED: IOPAMIDOL (ISOVUE-370) 150 ML BTL IV ONE (08:57)
--- NOTE | 2018-07-06 09:58 | PDDXCAT ---
Diagnostic Cath Note - . Date: 07/06/18 Dairy Consultant: Other (salas rudolph) Indication: other (advanced diastolic CHF and CRI. YEAGER and edema.) - Procedure Access: left groin Procedure: right heart catheterization, other (RV biopsies x 3 off RV septum.) - Materials Right Heart Cath size: 7F Right Heart Cath materials: PWP catheter - Findings-Right Heart Catheterization RA: 8 RV: 37/0 PA: 39/17 (28) PAOP: 14 AO: 108/70 CO: 3.1 CI: 1.9 Complications: none Estimated blood loss: <50ml Closure method: manual pressure Assessment: chronic severe diastolic CHF, Compensated PCWP. Low CO/CI. Plan: 1)decrease diuretics slightly. 2)restart Eliquis tomorrow. 3)await RV biopsy final reports. Patient Problems: Problems Problem Status Onset 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
[2018-07-06] MEDS ORDERED: OXYCODONE/APAP 5/325 TAB PO PRN (10:07)
[2018-07-06] MEDS ORDERED: ONDANSETRON 4 MG/2 ML VIAL IVP PRN (10:07)
[2018-07-06] MEDS ORDERED: ATROPINE SULFATE 1 MG/10 ML SYR IVP PRN (10:07)
[2018-07-06] MEDS ORDERED: HYDROCODONE/APAP 5/325 TAB PO PRN (10:07)
--- NOTE | 2018-07-06 10:59 | CPIP ---
DATE OF PROCEDURE: 07/06/2018 PROCEDURE PERFORMED: Right heart catheterization via the right femoral vein with monitoring Welch-Staci z catheter hemodynamics and right ventricle biopsies x3 off the right ventricular septum. INDICATIONS: Severe diastolic heart failure and worsening renal insufficiency with dyspnea on exerti on and edema. CONSENT: Signed. Risks, benefits, and alternatives discussed with patient. She wishes to proceed. MEDICATIONS USED DURING PROCEDURE: Versed 1 mg IV, fentanyl 25 mcg IV, and 7 cc of 1% lidocaine. TECHNICAL DIFFICULTIES: None. DESCRIPTION OF PROCEDURE: The patient was brought to the collaborating supervising physician. After sterile prepping of the [facility] groin and adequate sedation, an 8-Martiniquais sheath was easily placed in the right femoral vein. A m onitoring Welch-Brain catheter was advanced through the right heart chambers into the left pulmonary ar durga for hemodynamic assessment. After this, the Welch-Brain catheter was removed and a long J-wire wa s inserted, and the 8-Martiniquais sheath was exchanged for an ajk-wo-apuvi biopsy sheath. The biopsy mackey th was advanced with Welch-Brain catheter support into the right ventricular apex. RV biopsies x3 were done under fluoroscopic and RV pressure guidance. The patient tolerated the procedure well. At the end of the case, the RV bioptome and [id number]-om-[id number] sheaths were removed with manual hemostasis. RIGHT HEART HEMODYNAMICS: The mean RA was 8, RV 37/0, PA pressure 39/17, with a mean pulmonary arter y pressure of 28. The mean pulmonary capillary wedge pressure was 14. The estimated arterial satura tion on room air was 95% and measured PA saturation 61.5%. The calculated cardiac output and cardiac index by Fabrice method were 3.1 and 1.9 L/minute respectively. RV biopsies x3 were taken along the right ventricular septum and were good sample quality. Pathology is pending at time of dictation. COMPLICATIONS: None. In particular, fluoroscopy at the end of the case demonstrated no change in he art size to suggest a rapidly accumulating pericardial effusion and no evidence of pneumothoraces. FINAL IMPRESSIONS: 1. Upper limits of normal pulmonary artery pressures. 2. Compensated pulmonary capillary wedge pressure. 3. Low cardiac output and cardiac index. 4. Right ventricle biopsies performed and final results pending. Note: The patient's home Demadex dose will be decreased from 100 mg each morning to 80 mg per day. She will resume her Eliquis tomorrow morning and follow up in Cardiology Clinic in 2 weeks to go over the biopsy results. /[id number]/MODL
== END 2018-07-06 13:12 | disposition home or self-care (01) ==
LOC: FCATH 06:06
PROVIDERS: ATTEND Internal Medicine Cardiovascular Disease
PROC: 02B Heart and Great Vessels, Excision (ICD-10-PCS; principal; 2018-07-06)
PROC: 4A023N6 Measurement of Cardiac Sampling and Pressure, Right Heart, Percutaneous Approach (ICD-10-PCS; principal; 2018-07-06)
DX: I13.0 Hypertensive heart and chronic kidney disease with heart failure and stage 1 through stage 4 chronic kidney disease, or unspecified chronic kidney disease (principal); I50.32 Chronic diastolic (congestive) heart failure; E11.22 Type 2 diabetes mellitus with diabetic chronic kidney disease; N18.9 Chronic kidney disease, unspecified; I48.2 Chronic atrial fibrillation; E78.00 Pure hypercholesterolemia, unspecified; G47.33 Obstructive sleep apnea (adult) (pediatric); I27.20 Pulmonary hypertension, unspecified; Z86.73 Personal history of transient ischemic attack (TIA), and cerebral infarction without residual deficits; Z79.01 Long term (current) use of anticoagulants
CPT/HCPCS: J1644; J2250; J3010; Q9967

== ENCOUNTER 2018-09-23 10:29 | Inpatient (IN) | payer OTHER, MEDICAID ==
--- NOTE | 2018-09-23 10:38 | EDPHY ---
H & P Time Seen by Provider: 09/23/18 10:36 HPI/ROS: CHIEF COMPLAINT: Hip injury HISTORY OF PRESENT ILLNESS: Patient says she lost her balance or slipped at home just before arrival. She was brought in by EMS after having sustained a left hip injury and unable to walk. Left hip pain started just after the fall, no syncope, worse with movement. She thinks she hit her head but does not have a headache right now. Denies weakness or numbness in the left foot. She has had a left hip replacement she says about a year ago. She received 60 mg IV ketamine in the field. REVIEW OF SYSTEMS: Eye: no change in vision ENT: no sore throat Cardiac: no chest pain or syncope Pulmonary: no cough or SOB Abdomen: no vomiting, diarrhea, abdominal pain Musculoskeletal: No back or neck pain Skin: no rash Neuro: no headache Constitutional: no fever : no urinary symptoms A comprehensive 10 point review of systems is otherwise negative aside from elements mentioned in the history of present illness. PAST MEDICAL HISTORY: Left hip replacement, AFib on Eliquis Social history: Not currently smoking General Appearance: Alert and conversant, cooperative. Eyes: No scleral icterus. ENT, Mouth: Normal mucous membranes. Respiratory: Normal respiratory effort, breath sounds equal, lungs are clear to auscultation. Cardiovascular: Regular rate and rhythm. Gastrointestinal: Abdomen is soft and non tender. Neurological: Alert, face symmetric, normal motor and sensory in extremities. Skin: No laceration or abrasion. Musculoskeletal: No midline spinal tenderness. Left hip has pain with rotation , no other extremity tenderness or deformity. Psychiatric: Not agitated. Emergency Department course/MDM: Head CT for head trauma anticoagulated on Eliquis, left hip x-ray. The labs reviewed and elevated BUN and creatinine. Likely needs IV fluids. Does not have cervical spine injury clinically. Negative head CT for trauma per Dr. Magaña. Admission for evaluation of acute kidney injury. Smoking Status: Former smoker Constitutional: Initial Vital Signs Temperature (C) 36.6 C 09/23/18 10:38 Heart Rate 77 09/23/18 10:38 Respiratory Rate 16 09/23/18 10:38 Blood Pressure 99/75 L 09/23/18 10:38 O2 Sat (%) 93 09/23/18 10:38 O2 Delivery Mode Room Air Allergies/Adverse Reactions: iodine Allergy (Severe, Verified 07/02/18 09:29) GRAVES DISEASE/RED SKIN lidocaine [From Lidoderm] Allergy (Verified 07/02/18 09:36) Rash pravastatin Allergy (Verified 07/02/18 09:36) CAN'T WALK Home Medications: Medication Instructions Recorded Albuterol [Proventil Inhaler HFA 2 puffs IH Q6HRS PRN 06/25/17 (*)] Betamethasone/Propylene Glyc 15 gm TP HS PRN 06/25/17 [Betamethasone Dp Aug 0.05% Oin] Docusate Sodium [Colace 100 MG (*)] 200 mg PO HS PRN 06/25/17 FLUoxetine [Prozac 20 MG (*)] 20 mg PO DAILY 06/25/17 Famotidine [Pepcid 20 MG (*)] 20 mg PO BID 06/25/17 Levothyroxine [Synthroid 200 mcg 200 mcg PO DAILY06 06/25/17 (*)] Triamcinolone 0.1% [Triamcinolone 1 fadia TP BID PRN 06/25/17 0.1% Cream (*)] clonazePAM [Klonopin (*)] 0.5 mg PO HS 06/25/17 ARIPiprazole [Abilify 2 mg (*)] 2 mg PO DAILY 07/21/17 clonIDINE [Catapres (*)] 0.1 mg PO HS 07/21/17 Loratadine [Claritin 10 mg] 10 mg PO DAILY 12/14/17 Fluticasone/Salmeter 250/50Mcg 1 puffs IH BID 01/02/18 [Advair 250/50 (*)] Ipratropium/Albuterol [Duoneb (*)] 3 ml IH TID 01/02/18 Acetaminophen [Tylenol 325mg (*)] 650 mg PO Q4HRS PRN tab 01/07/18 Hydrocodone/Acetaminophen [[place] 1 each PO Q6 PRN 05/21/18 7.5-325 Tablet] buPROPion XL [Wellbutrin 150mg XL] 150 mg PO DAILY 05/21/18 Aspirin EC [Aspirin EC 81 mg (*)] 81 mg PO DAILY 07/02/18 Bupropion HCl [Wellbutrin Xl] 300 mg PO DAILY 07/02/18 Calcium Citrate W/Vit D [Citracal 315 mg PO DAILY 07/02/18 + D (OTC)] Ergocalciferol [Vitamin D2 (*)] 50,000 unit PO MO 07/02/18 Estradiol [Estrace Vaginal (*)] 1 fadia VG Q3D 07/02/18 Herbals/Supplements -Info Only 1 ea PO DAILY 07/02/18 Metolazone [Zaroxolyn] 2.5 mg PO Q2D PRN 07/02/18 Polyethylene Glycol 3350 [Miralax 17 gm PO DAILY PRN 07/02/18 17 gm (*)] Spironolactone [Aldactone 25 MG 12.5 mg PO DAILY 07/02/18 (*)] Torsemide [Demadex] 60 mg PO DAILY 07/02/18 Apixaban [Eliquis] 2.5 mg PO BID 09/23/18 Cyanocobalamin [Vitamin B12 (*)] 1,000 mcg PO DAILY 09/23/18 Metoprolol Succinate Xr [Toprol Xl 25 mg PO DAILY 09/23/18 25 mg (*)] Metoprolol Succinate Xr [Toprol Xl 50 mg PO DAILY 09/23/18 50 mg (*)] Nystatin Powder [Mycostatin Powder 1 fadia TP BID PRN 09/23/18 (RX)] Pantoprazole Sodium [Protonix 40mg 40 mg PO DAILY PRN 09/23/18 (*)] Medical Decision Making - Diagnostics Imaging Results: Imaging Impressions Head CT 09/23/18 10:36 Impression: 1. No acute fracture or intracranial hemorrhage. Sensitivity is minimally diminished by motion artifact. 2. Atrophy and moderate periventricular white matter disease. Findings discussed with Emergency Department physician, Silvio Oscar on 09/23/2018 , 11:43. Hip X-Ray 09/23/18 10:36 Impression: 1. Left total hip replacement remains in good position and alignment. No fracture seen. 2. Calcified fibroid suspected left pelvis. Imaging: Discussed imaging studies w/ call center recruiter Radiologist Differential Diagnosis: Left hip pain differential after trauma considered including but not limited to prosthetic dislocation, pelvic fracture, femoral fracture, hip contusion or hematoma. Consult/Admit Bed Type: [place] [id number] - Data Points Laboratory Results: Laboratory Results 09/23/18 10:30 09/23/18 10:30 09/23/18 09/23/18 09/23/18 10:30 10:30 10:30 WBC 14.26 10^3/uL H 10^3/uL (3.80-9.50) RBC 4.00 10^6/uL L 10^6/uL (4.18-5.33) Hgb 9.0 g/dL L g/dL (12.6-16.3) Hct 29.4 % L % (38.0-47.0) MCV 73.5 fL L fL (81.5-99.8) MCH 22.5 pg L pg (27.9-34.1) MCHC 30.6 g/dL L g/dL (32.4-36.7) RDW 17.5 % H % (11.5-15.2) Plt Count 287 10^3/uL 10^3/uL (150-400) MPV 11.3 fL fL (8.7-11.7) Neut % (Auto) 87.2 % H % (39.3-74.2) Lymph % (Auto) 4.6 % L % (15.0-45.0) [place] % (Auto) 7.4 % % (4.5-13.0) Eos % (Auto) 0.0 % L % (0.6-7.6) Baso % (Auto) 0.1 % L % (0.3-1.7) Nucleat RBC Rel Count 0.0 % % (0.0-0.2) Absolute Neuts (auto) 12.44 10^3/uL H 10^3/uL (1.70-6.50) Absolute Lymphs (auto) 0.66 10^3/uL L 10^3/uL (1.00-3.00) Absolute Monos (auto) 1.05 10^3/uL H 10^3/uL (0.30-0.80) Absolute Eos (auto) 0.00 10^3/uL L 10^3/uL (0.03-0.40) Absolute Basos (auto) 0.01 10^3/uL L 10^3/uL (0.02-0.10) Absolute Nucleated RBC 0.00 10^3/uL 10^3/uL (0-0.01) Immature Gran % 0.7 % % (0.0-1.1) Immature Gran # 0.10 10^3/uL 10^3/uL (0.00-0.10) PT 16.5 SEC H SEC (12.0-15.0) INR 1.31 H (0.83-1.16) APTT 32.0 SEC SEC (23.0-38.0) Sodium 132 mEq/L L mEq/L (135-145) Potassium 5.8 mEq/L H mEq/L (3.5-5.2) Chloride 97 mEq/L mEq/L (97-110) Carbon Dioxide 24 mEq/l mEq/l (22-31) Anion Gap 11 mEq/L mEq/L (6-14) BUN 103 mg/dL H* mg/dL (7-23) Creatinine 2.3 mg/dL H mg/dL (0.6-1.0) Estimated GFR 21 Glucose 163 mg/dL H mg/dL (70-100) Calcium 9.9 mg/dL mg/dL (8.5-10.4) Medications Given: Discontinued Medications Hydrocodone Bitart/Acetaminophen ([place] 10/325) 1 tab PO ONCE ONE Stop: 09/23/18 14:01 Last Admin: 09/23/18 13:50 Dose: 1 tab Sodium Chloride (Ns) 1,000 mls @ 0 mls/hr IV EDNOW ONE; Wide Open PRN Reason: Protocol Stop: 09/23/18 12:14 Last Admin: 09/23/18 12:28 Dose: 1,000 mls Departure - Departure Disposition: [facility] Acute Clinical Impression: Acute kidney injury Contusion of left hip Qualifiers: Encounter type: initial encounter Qualified Code(s): S70.02XA - Contusion of left hip, initial encounter Condition: Fair
[2018-09-23 11:51] LABS: PLATELET COUNT 287 10^3/uL (150-400)
[2018-09-23 12:07] LABS: INR 1.31 (0.83-1.16); PROTIME(PATIENT) 16.5 SEC (12.0-15.0)
[2018-09-23] MEDS ORDERED: NS 1,000 ML IV ONE (12:13)
[2018-09-23] MEDS ORDERED: ONDANSETRON 4 MG/2 ML VIAL IVP PRN (13:07)
[2018-09-23] MEDS ORDERED: ONDANSETRON DISINTEGRATING 4 MG TAB PO PRN (13:07)
[2018-09-23] MEDS ORDERED: ACETAMINOPHEN 325 MG TAB PO PRN (13:07)
--- NOTE | 2018-09-23 13:24 | PDGENHP ---
History and Physical - Chief Complaint Mechanical fall with injury - History of Present Illness HPI: 73 y/o female presents via EMS after sustaining a mechanical fall with injury today. She was getting a plate of salad and when she turned, she must have lost her balance because she fell into a nearby wall, injuring her left hip and hitting her head. She does not believe she slipped. No prodromal indicators. Denies lightheadedness, palpitations, chest pains, nausea. Left hip x-ray reveal her left total hip replacement (2017) remains in good position and in alignment, no fracture noted. Head CT reveal no acute fracture or intracranial hemorrhage. She is being admitted for further work-up and monitoring. Past Medical History 1. Diastolic CHF 2. Atrial fibrillation 3. Hypertension 4. Diabetes Type II 5. Asthma 6. VICENTA, on CPAP 7. Chronic pain, on continuous narcotics 8. Depression 9. Anxiety Past Surgical History 1. Carpal tunnel release 2. Colon resection 3. Herniorrhaphy 4. Left and right knee replacement 5. Oophorectomy 6. Right rotator cuff repair Social 1. Lives independently at [facility] 2. Denies smoking cigarettes. Does smoke cannabis. Denies etoh. History Information - Allergies/Home Medication List Allergies/Adverse Reactions: iodine Allergy (Severe, Verified 07/02/18 09:29) GRAVES DISEASE/RED SKIN lidocaine [From Lidoderm] Allergy (Verified 07/02/18 09:36) Rash pravastatin Allergy (Verified 07/02/18 09:36) CAN'T WALK Home Medications: Albuterol [Proventil Inhaler HFA (*)] 2 puffs IH Q6HRS PRN 06/25/17 [Last Taken 07/20/17] Betamethasone/Propylene Glyc [Betamethasone Dp Aug 0.05% Oin] 15 gm TP HS PRN [Last Taken 2 Weeks Ago ~07/07/17] Docusate Sodium [Colace 100 MG (*)] 200 mg PO HS PRN 06/25/17 [Last Taken ] FLUoxetine [Prozac 20 MG (*)] 20 mg PO DAILY 06/25/17 [Last Taken 09/23/18] Famotidine [Pepcid 20 MG (*)] 20 mg PO BID 06/25/17 [Last Taken 09/23/18] Levothyroxine [Synthroid 200 mcg (*)] 200 mcg PO DAILY06 06/25/17 [Last Taken ] Triamcinolone 0.1% [Triamcinolone 0.1% Cream (*)] 1 fadia TP BID PRN 06/25/17 [ Last Taken 2 Weeks Ago ~07/07/17] clonazePAM [Klonopin (*)] 0.5 mg PO HS 06/25/17 [Last Taken 09/22/18] ARIPiprazole [Abilify 2 mg (*)] 2 mg PO DAILY 07/21/17 [Last Taken 09/23/18] clonIDINE [Catapres (*)] 0.1 mg PO HS 07/21/17 [Last Taken 09/22/18] Loratadine [Claritin 10 mg] 10 mg PO DAILY 12/14/17 [Last Taken 09/23/18] Fluticasone/Salmeter 250/50Mcg [Advair 250/50 (*)] 1 puffs IH BID 01/02/18 [ Last Taken 09/22/18 21:00] Ipratropium/Albuterol [Duoneb (*)] 3 ml IH TID 01/02/18 [Last Taken 09/22/18 21: 00] Hydrocodone/Acetaminophen [[place] 7.5-325 Tablet] 1 each PO Q6 PRN 05/21/18 [ Last Taken 09/22/18 21:00] buPROPion XL [Wellbutrin 150mg XL] 150 mg PO DAILY 05/21/18 [Last Taken 09/23/18 ] Aspirin EC [Aspirin EC 81 mg (*)] 81 mg PO DAILY 07/02/18 [Last Taken 09/23/18] Bupropion HCl [Wellbutrin Xl] 300 mg PO DAILY 07/02/18 [Last Taken 09/23/18] Calcium Citrate W/Vit D [Citracal + D (OTC)] 315 mg PO DAILY 07/02/18 [Last Taken 09/23/18] Ergocalciferol [Vitamin D2 (*)] 50,000 unit PO MO 07/02/18 [Last Taken 09/22/18] Estradiol [Estrace Vaginal (*)] 1 fadia VG Q3D 07/02/18 [Last Taken Unknown] Herbals/Supplements -Info Only 1 ea PO DAILY 07/02/18 [Last Taken Unknown] Metolazone [Zaroxolyn] 2.5 mg PO Q2D PRN 07/02/18 [Last Taken Unknown] Polyethylene Glycol 3350 [Miralax 17 gm (*)] 17 gm PO DAILY PRN 07/02/18 [Last Taken Unknown] Spironolactone [Aldactone 25 MG (*)] 12.5 mg PO DAILY 07/02/18 [Last Taken 09/23] Torsemide [Demadex] 60 mg PO DAILY 07/02/18 [Last Taken 09/23/18] Apixaban [Eliquis] 2.5 mg PO BID 09/23/18 [Last Taken 09/23/18] Cyanocobalamin [Vitamin B12 (*)] 1,000 mcg PO DAILY 09/23/18 [Last Taken ] Metoprolol Succinate Xr [Toprol Xl 25 mg (*)] 25 mg PO DAILY 09/23/18 [Last Taken 09/23/18] Metoprolol Succinate Xr [Toprol Xl 50 mg (*)] 50 mg PO DAILY 09/23/18 [Last Taken 09/23/18] Nystatin Powder [Mycostatin Powder (RX)] 1 fadia TP BID PRN 09/23/18 [Last Taken Unknown] Pantoprazole Sodium [Protonix 40mg (*)] 40 mg PO DAILY PRN 09/23/18 [Last Taken Unknown] I have personally reviewed and updated: family history, medical history, social history, surgical history - Past Medical History atrial fibrillation, asthma, CHF, diabetes type 2, hypertension Additional medical history: Depression. Chronic pain - Surgical History Additional surgical history: Hip surgery - Family History Positive for: cancer, vascular disease, hypertension - Social History Smoking Status: Former smoker Alcohol Use: None Drug Use: Marijuana Review of Systems Review of Systems: ROS: 10pt was reviewed & negative except for what was stated in HPI & below Constitutional: Reports: recent injury EENMT: Reports: no symptoms Cardiac: Reports: no symptoms Respiratory: Reports: no symptoms Gastrointestinal: Reports: no symptoms Genitourinary: Reports: no symptoms Muscolosketal: Reports: joint pain, joint swelling (L hip), muscle pain (Right hand), muscle stiffness Skin: Reports: no symptoms Neurological: Reports: depressed Hematologic/Lymphatic: Reports: no symptoms Immunologic/Allergy: Reports: other (See allergy list) Physical Exam Physical Exam: Lab data and imaging were reviewed WBC: 14.26 RBC/H/H: 4.0/9.0/29.4 INR: 1.31 Na: 132 K: 5.8 BUN/Creatinine: 103/2.[address] and Hip x-ray: see HPI Temp Pulse Resp BP Pulse Ox 36.9 C 88 16 105/78 94 09/23/18 13:03 09/23/18 13:03 09/23/18 13:03 09/23/18 13:03 09/23/18 13:03 Constitutional: no apparent distress, uncomfortable Eyes: PERRL, anicteric sclera, EOMI Ears, Nose, Mouth, Throat: moist mucous membranes, hearing normal, ears appear normal, no oral mucosal ulcers Cardiovascular: no murmur, rub, or gallop, irregularly irregular, edema (Non- pitting pedal edema) Peripheral Pulses: 2+: dorsalis-pedis (R) (Radial 2+), dorsalis-pedis (L) ( Radial 2+) Respiratory: expiratory wheeze Gastrointestinal: normoactive bowel sounds, soft, non-tender abdomen, no palpable masses Genitourinary: no bladder fullness, no bladder tenderness Skin: other (Left posterior hip mild ecchymosis) Musculoskeletal: joint effusion, joint tenderness, pain with ROM (Difficulty flexing left knee, painful. +DF/PF, able to wiggle toes. Moderately edema to left hip area.) Neurologic: AAOx3, sensation intact bilaterally, CN II-XII Intact Psychiatric: interacting appropriately, not anxious, not encephalopathic, thought process linear Lymph, Heme, Immunologic: no cervical LAD, no supraclavicular LAD Lab Data & Imaging Review 09/23/18 10:30 09/23/18 10:30 WBC 14.26 10^3/uL (3.80-9.50) H 09/23/18 10:30 RBC 4.00 10^6/uL (4.18-5.33) L 09/23/18 10:30 Hgb 9.0 g/dL (12.6-16.3) L 09/23/18 10:30 Hct 29.4 % (38.0-47.0) L 09/23/18 10:30 MCV 73.5 fL (81.5-99.8) L 09/23/18 10:30 MCH 22.5 pg (27.9-34.1) L 09/23/18 10:30 MCHC 30.6 g/dL (32.4-36.7) L 09/23/18 10:30 RDW 17.5 % (11.5-15.2) H 09/23/18 10:30 Plt Count 287 10^3/uL (150-400) 09/23/18 10:30 MPV 11.3 fL (8.7-11.7) 09/23/18 10:30 Neut % (Auto) 87.2 % (39.3-74.2) H 09/23/18 10:30 Lymph % (Auto) 4.6 % (15.0-45.0) L 09/23/18 10:30 Day % (Auto) 7.4 % (4.5-13.0) 09/23/18 10:30 Eos % (Auto) 0.0 % (0.6-7.6) L 09/23/18 10:30 Baso % (Auto) 0.1 % (0.3-1.7) L 09/23/18 10:30 Nucleat RBC Rel Count 0.0 % (0.0-0.2) 09/23/18 10:30 Absolute Neuts (auto) 12.44 10^3/uL (1.70-6.50) H 09/23/18 10:30 Absolute Lymphs (auto) 0.66 10^3/uL (1.00-3.00) L 09/23/18 10:30 Absolute Monos (auto) 1.05 10^3/uL (0.30-0.80) H 09/23/18 10:30 Absolute Eos (auto) 0.00 10^3/uL (0.03-0.40) L 09/23/18 10:30 Absolute Basos (auto) 0.01 10^3/uL (0.02-0.10) L 09/23/18 10:30 Absolute Nucleated RBC 0.00 10^3/uL (0-0.01) 09/23/18 10:30 Immature Gran % 0.7 % (0.0-1.1) 09/23/18 10:30 Immature Gran # 0.10 10^3/uL (0.00-0.10) 09/23/18 10:30 PT 16.5 SEC (12.0-15.0) H 09/23/18 10:30 INR 1.31 (0.83-1.16) H 09/23/18 10:30 APTT 32.0 SEC (23.0-38.0) 09/23/18 10:30 Sodium 132 mEq/L (135-145) L 09/23/18 10:30 Potassium 5.8 mEq/L (3.5-5.2) H 09/23/18 10:30 Chloride 97 mEq/L (97-110) 09/23/18 10:30 Carbon Dioxide 24 mEq/l (22-31) 09/23/18 10:30 Anion Gap 11 mEq/L (6-14) 09/23/18 10:30 BUN 103 mg/dL (7-23) H* 09/23/18 10:30 Creatinine 2.3 mg/dL (0.6-1.0) H 09/23/18 10:30 Estimated GFR 21 09/23/18 10:30 Glucose 163 mg/dL (70-100) H 09/23/18 10:30 Calcium 9.9 mg/dL (8.5-10.4) 09/23/18 10:30 Assessment & Plan Plan: 73 y/o female with mechanical fall and injury, occurring today. 1. Mechanical fall with injury: Hip x-ray unremarkable. -CT w/o IV contrast to evaluate; hip is moderately edematous compared to right hip. Pain is 7/10 after receiving ketamine 60 mg in the field. Will receive a one time dose of [place] until home medications have been verified by pharmacy -Ice pack to area -OT to evaluate and treat -Right hand x-rays pending as she is c/o tenderness and pain with ROM 2. Acute on chronic renal failure: BUN/Cr 103/2.3 on admission, appears Cr 1.7 , 1.2 in 01/2018. She does not appear to be fluid overloaded -Holding Lisinopril and diuretics in setting of LUIS CARLOS -S/p 1L NS in ED -Stat repeat BMP; may need additional IVF -Checking UA and FEUrea -Consider nephrology consult in the AM if not improving 3. Hyperkalemia: 5.8. Asymptomatic but concerning. -Stat EKG -STAT repeat BMP -Possible Kayexalate and/or additional IVF -Cont tele monitoring -Bowel Regimen 4. A-Fib -Continue eliquis and ASA 5. COPD -Continue home advair and duonebs 6. Depression -Continue home wellbutrin, abilify 7. Diabetes: will hold home metformin and initiate ISS while in the hospital. Glucose checks TID before meals. 8. Diastolic CHF: recently saw Dr. Wooten in July. Echo was in May 2018 with LVEF 60%, severe bi-atrial enlargement, mild AI and MR with estimated PAS 44mmHg. Her Diltiazem was stopped. Demadex was decreased to 60 mg. -Holding all diuretics until renal function improves -Does not appear to be fluid overloaded 9. Hypertension: currently hypotensive. -Holding diuretics and metoprolol. Diet: NPO for now until CT scan of left hip results. If no fracture, may advanced diet to Cardiac. VTE ppx: DESIREsVera Code: DNR Dispo: Admit to inpatient
[2018-09-23] MEDS ORDERED: D50W 25 GM/50 ML SYR IVP PRN (13:25)
[2018-09-23] MEDS ORDERED: MAGNESIUM HYDROXIDE 30 ML UDCUP PO PRN (13:26)
[2018-09-23] MEDS ORDERED: POLYETHYLENE GLYCOL 3350 17 GM PKT PO PRN (13:26)
[2018-09-23] MEDS ORDERED: LACTULOSE 20 GM/30 ML UDCUP PO PRN (13:26)
[2018-09-23] MEDS ORDERED: BISACODYL 10 MG SUPP PR PRN (13:26)
[2018-09-23] MEDS ORDERED: HYDROCODONE/APAP 10/325 TAB PO ONE ×2 (13:33→14:00)
[2018-09-23] MEDS ORDERED: TRIAMCINOLONE 0.1% 15 GM CRTUBE TP PRN (14:24)
[2018-09-23] MEDS ORDERED: NYSTATIN POWDER 15 GM BTL TP PRN (14:24)
[2018-09-23] MEDS ORDERED: ALBUTEROL 60 PUFFS/8 GM MDI IH PRN (14:24)
[2018-09-23] MEDS ORDERED: BETAMETHASONE AUGMENTED 0.05% TP PRN (14:24)
[2018-09-23] MEDS ORDERED: PANTOPRAZOLE SODIUM 40 MG TAB PO PRN (14:24)
[2018-09-23] MEDS: IPRATROPIUM/ALBUTEROL 3 ML DEYVIAL IH SCH ×2 (16:16→21:26)
[2018-09-23] MEDS: HYDROCODONE/APAP 10/325 TAB PO PRN ×2 (17:23→23:37)
[2018-09-23] MEDS: INSULIN LISPRO 100 UNIT/ML SC SCH (17:42)
[2018-09-23] MEDS: NS 1,000 ML IV SCH (18:00)
[2018-09-23] MEDS: HYDROmorphONE/DILAUDID 1 MG/ML INJ IVP PRN ×2 (18:00→21:50)
--- NOTE | 2018-09-23 18:12 | HOSPPROG ---
Hospitalist Progress Note Assessment/Plan: Patient seen and evaluated; discussed with Alisha Rocha FIELD TECHNICIAN - I agree with her note 73F with dCHF p/w apparent mechanical fall with L hip pain; recent increases in her outpatient diuretics. PE: significant L hip edema Labs: Scr 2.3, K 5.8->5.1 XR: no fx A: 1. mechanical fall 2. hip pain with no fx seen on xr 3. LUIS CARLOS on CKD with hyperK 4. chronic dCHF P: 1. check CT hip 2. check Ulytes; empiric slow IVF, recheck BMP at mdnt and in am 3. hold diuretics, BP meds - may need to restart BB if tachy Objective: Vital Signs Temp Pulse Resp BP Pulse Ox 36.4 C 98 18 99/63 L 100 09/23/18 16:31 09/23/18 16:31 09/23/18 16:31 09/23/18 17:26 09/23/18 16:31 Laboratory Results 09/23/18 14:25 09/22/18 09/23/18 09/24/18 05:59 05:59 05:59 Output Total 400 Balance -400 PT 16.5 SEC (12.0-15.0) H 09/23/18 10:30 INR 1.31 (0.83-1.16) H 09/23/18 10:30 ICD10 Worksheet Patient Problems: Problems Problem Status Onset Acute kidney injury Acute Diuretics causing adverse effect in therapeutic use Acute Bradycardia Acute Afib Acute Fall Acute Acute renal insufficiency Acute Somnolence, daytime Acute Contusion of left hip Acute chronic disease mgmt/transitional care Acute Pneumonia Acute CHF (congestive heart failure) Acute Cough Acute Shortness of breath Acute Primary localized osteoarthritis of left hip Acute MRSA - Methicillin resistant Staphylococcus aureus infection Active Bronchitis Acute
[2018-09-23] MEDS ORDERED: APIXABAN 2.5 MG TAB PO SCH (21:00)
[2018-09-23] MEDS: SENNOSIDES/DOCUSATE SODIUM TAB PO SCH (21:01)
[2018-09-23] MEDS: clonazePAM 0.5 MG TAB PO SCH (21:01)
[2018-09-23] MEDS: FLUTICASONE/SALMETER 250/50MCG DISKUS IH SCH (21:27)
[2018-09-24] MEDS: HYDROmorphONE/DILAUDID 1 MG/ML INJ IVP PRN ×3 (02:18→15:54)
[2018-09-24] MEDS: LEVOTHYROXINE 200 MCG TAB PO SCH (05:32)
[2018-09-24] MEDS: NS 1,000 ML IV SCH ×2 (05:32→22:22)
[2018-09-24] MEDS: HYDROCODONE/APAP 10/325 TAB PO PRN (05:53)
[2018-09-24] MEDS: FAMOTIDINE 20 MG TAB PO SCH (08:33)
[2018-09-24] MEDS: CYANO/VITAMIN B12 1000 MCG TAB PO SCH (08:33)
[2018-09-24] MEDS: SENNOSIDES/DOCUSATE SODIUM TAB PO SCH ×2 (08:33→19:37)
[2018-09-24] MEDS: CETIRIZINE 10 MG TAB PO SCH (08:33)
[2018-09-24] MEDS: buPROPion XL 150 MG TAB PO SCH (08:33)
[2018-09-24] MEDS: CALCIUM CARB W/VIT D 500 MG TAB PO SCH (08:33)
[2018-09-24] MEDS: ARIPiprazole 2 MG TAB PO SCH (08:33)
[2018-09-24] MEDS: ASPIRIN EC 81 MG TAB PO SCH (08:33)
[2018-09-24] MEDS: IPRATROPIUM/ALBUTEROL 3 ML DEYVIAL IH SCH ×3 (08:45→20:43)
[2018-09-24] MEDS: FLUTICASONE/SALMETER 250/50MCG DISKUS IH SCH ×2 (08:47→20:43)
[2018-09-24] MEDS: INSULIN LISPRO 100 UNIT/ML SC SCH ×3 (08:52→18:32)
[2018-09-24] MEDS ORDERED: NON-FORMULARY NEW DRUG (Bupropion Hcl [Wellbutrin Xl] 300 MG) PO SCH (09:00)
[2018-09-24 09:11] LABS: PLATELET COUNT 160 10^3/uL (150-400)
--- NOTE | 2018-09-24 09:49 | HOSPPROG ---
Hospitalist Progress Note Assessment/Plan: 73F with mechanical fall with large L hip hematoma # mechanical fall - possibly d/t overdiuresis - PT/OT # L hip hematoma - Dr Rosas to evaluate today - quite painful - change norco to oxy, sched apap, dilaudid IV # ABLA - transfuse 2U PRBC # LUIS CARLOS on CKD (baseline about 1.6) - slight improvement with IVF - continue volume expansion; hold diuretics # hyperK - resolved # hypoNa - hypovolemic # a-fib - hold eliquis with large hematoma - restart metop at low dose (25mg, home is 75mg) # hypotension - hold other BP meds, diuretics # dCHF - compensated - hold diuretics # DM2 - not on meds # COPD - inhalers Subjective: hip pain better than yesterday but still severe; we discussed a transfusion today; she has been see by Dr Valdes previously and likes this gen surg group Objective: Vital Signs Temp Pulse Resp BP Pulse Ox 36.3 C 105 H 22 H 99/53 L 92 09/24/18 08:00 09/24/18 08:50 09/24/18 08:50 09/24/18 08:00 09/24/18 08:50 Laboratory Results 09/24/18 07:30 09/24/18 04:14 09/23/18 09/24/18 09/25/18 05:59 05:59 05:59 Intake Total 1152 Output Total 1600 Balance -448 PT 16.5 SEC (12.0-15.0) H 09/23/18 10:30 INR 1.31 (0.83-1.16) H 09/23/18 10:[address] reviewed - Physical Exam Constitutional: appears nourished Cardiovascular: no murmur, rub, or gallop, irregularly irregular Respiratory: no respiratory distress, no rales or rhonchi, clear to auscultation Gastrointestinal: normoactive bowel sounds, soft, non-tender abdomen, no palpable masses Musculoskeletal: other (L hip edema with some ecchymosis) ICD10 Worksheet Patient Problems: Problems Problem Status Onset Acute kidney injury Acute Diuretics causing adverse effect in therapeutic use Acute Bradycardia Acute Afib Acute Fall Acute Acute renal insufficiency Acute Somnolence, daytime Acute Contusion of left hip Acute chronic disease mgmt/transitional care Acute Pneumonia Acute CHF (congestive heart failure) Acute Cough Acute Shortness of breath Acute Primary localized osteoarthritis of left hip Acute MRSA - Methicillin resistant Staphylococcus aureus infection Active Bronchitis Acute
[2018-09-24] MEDS: METOPROLOL TARTRATE 25 MG TAB PO SCH ×2 (10:53→19:38)
[2018-09-24] MEDS: FLUoxetine 20 MG CAP PO SCH (10:53)
--- NOTE | 2018-09-24 12:05 | SOAPPROG ---
SOAP Progress Note Assessment/Plan: Assessment: SEEN IN CONSULTATION FOR LARGE LEFT HIP HEMATOMA AFTER A FALL/ NO DRAINAGE OR SKIN NECROSIS ALSO LARGE VENTRAL HERNIA NO NEED FOR DRAINAGE AT THIS TIME UNLESS INCREASING SIZE OR UNCONTROLLABLE PAIN Plan:OBSERVATION 09/24/18 12:03 Objective: Vital Signs Temp Pulse Resp BP Pulse Ox 36.6 C 101 H 18 103/60 98 09/24/18 11:54 09/24/18 11:54 09/24/18 11:54 09/24/18 11:54 09/24/18 11:54 Laboratory Results 09/24/18 07:30 09/24/18 04:14 09/23/18 09/24/18 09/25/18 05:59 05:59 05:59 Intake Total 1152 Output Total 1600 Balance -448 PT 16.5 SEC (12.0-15.0) H 09/23/18 10:30 INR 1.31 (0.83-1.16) H 09/23/18 10:30 ICD10 Worksheet Patient Problems: Problems Problem Status Onset Acute kidney injury Acute Contusion of left hip Acute MRSA - Methicillin resistant Staphylococcus aureus infection Active Acute renal insufficiency Acute Afib Acute Bradycardia Acute Bronchitis Acute CHF (congestive heart failure) Acute Cough Acute Diuretics causing adverse effect in therapeutic use Acute Fall Acute Pneumonia Acute Primary localized osteoarthritis of left hip Acute Shortness of breath Acute Somnolence, daytime Acute chronic disease mgmt/transitional care Acute
[2018-09-24] MEDS: oxyCODONE IR 5 MG TAB PO PRN ×3 (13:04→19:36)
--- NOTE | 2018-09-24 15:32 | ASMTCMCOM ---
CM Note CM Note Notes: Pt's chart reviewed for d/c planning. Pt is a 73 y/o female who presented to the ED after sustaining a mechanical fall with injury. Her medical hx includes COPD, CHF, diabetes, htn, depression and anxiety. Pt lives independently at [facility]. PT/OT have been ordered. PT is recommending SNF Rehab. OT recommending home vs home care. CM will follow. D/C Plan: SNF rehab vs HHC Date Signed: 09/24/2018 03:32 PM Electronically Signed By:Linda Valentine
--- NOTE | 2018-09-24 15:33 | ASMTLACE ---
MCKENNA Acuity / Level of Answers: Yes Care: Did the patient have an inpatient admission? Comorbidities - select Answers: Congestive heart failure all that apply Diabetes (uncontrolled or controlled) History of falls Mild liver or renal disease Other Notes: AFIB # of Emergency department Answers: 1-2 visits in the last 6 months Social determinants Answers: Mental health diagnosis (anxiety, depression, pers onality disorders, etc.) Score: 16 Date Signed: 09/24/2018 03:33 PM Electronically Signed By:Linda Valentine
[2018-09-24] MEDS: ACETAMINOPHEN 500 MG TAB PO SCH ×2 (15:54→22:21)
[2018-09-24] MEDS: clonazePAM 0.5 MG TAB PO SCH (21:50)
[2018-09-25] MEDS: HYDROmorphONE/DILAUDID 1 MG/ML INJ IVP PRN (00:56)
[2018-09-25 04:43] LABS: PLATELET COUNT 130 10^3/uL (150-400)
[2018-09-25] MEDS ORDERED: METOPROLOL TARTRATE 25 MG TAB PO SCH (05:25)
[2018-09-25] MEDS: LEVOTHYROXINE 200 MCG TAB PO SCH (06:14)
[2018-09-25] MEDS: oxyCODONE IR 5 MG TAB PO PRN ×4 (06:14→21:43)
[2018-09-25] MEDS: ARIPiprazole 2 MG TAB PO SCH (08:52)
[2018-09-25] MEDS: buPROPion XL 150 MG TAB PO SCH (08:52)
[2018-09-25] MEDS: SENNOSIDES/DOCUSATE SODIUM TAB PO SCH ×2 (08:52→20:24)
[2018-09-25] MEDS: CALCIUM CARB W/VIT D 500 MG TAB PO SCH (08:52)
[2018-09-25] MEDS: FAMOTIDINE 20 MG TAB PO SCH (08:52)
[2018-09-25] MEDS: CETIRIZINE 10 MG TAB PO SCH (08:52)
[2018-09-25] MEDS: ASPIRIN EC 81 MG TAB PO SCH (08:52)
[2018-09-25] MEDS: FLUoxetine 20 MG CAP PO SCH (08:53)
[2018-09-25] MEDS: CYANO/VITAMIN B12 1000 MCG TAB PO SCH (08:53)
[2018-09-25] MEDS: ACETAMINOPHEN 500 MG TAB PO SCH ×3 (08:53→20:24)
[2018-09-25] MEDS: INSULIN LISPRO 100 UNIT/ML SC SCH ×3 (08:53→17:34)
[2018-09-25] MEDS: IPRATROPIUM/ALBUTEROL 3 ML DEYVIAL IH SCH ×3 (09:01→21:17)
[2018-09-25] MEDS: FLUTICASONE/SALMETER 250/50MCG DISKUS IH SCH ×2 (09:01→21:18)
--- NOTE | 2018-09-25 10:36 | CPEKG ---
Test Reason : OPEN Blood Pressure : / mmHG Vent. Rate : 085 BPM Atrial Rate : 000 BPM P-R Int : 166 ms QRS Dur : 095 ms QT Int : 381 ms P-R-T Axes : 000 002 065 degrees QTc Int : 453 ms Atrial fibrillation Ventricular premature complex Probable anteroseptal infarct, old Minimal ST depression, anterolateral leads Confirmed by Boaz Lane ([id number]) on 09/25/2018 10:36:31 AM Referred By: Sarabjit Jaimes Confirmed By:Boaz Lane
[2018-09-25] MEDS: NS 1,000 ML IV SCH (13:42)
--- NOTE | 2018-09-25 13:46 | SOAPPROG ---
SOAP Progress Note Assessment/Plan: Assessment: SEEN IN CONSULTATION FOR LARGE LEFT HIP HEMATOMA AFTER A FALL/ NO DRAINAGE OR SKIN NECROSIS ALSO LARGE VENTRAL HERNIA NO NEED FOR DRAINAGE AT THIS TIME UNLESS INCREASING SIZE OR UNCONTROLLABLE PAIN Plan:OBSERVATION 09/24/18 12:03 09/25/18 13:45 stable with minimal change in pain/ hct stable/ left hip hematoma slightly largeer and more ecchymotic/ hct stable hernia no change Objective: Vital Signs Temp Pulse Resp BP Pulse Ox 36.7 C 104 H 18 128/81 H 96 09/25/18 12:00 09/25/18 12:00 09/25/18 12:00 09/25/18 12:00 09/25/18 12:00 Laboratory Results 09/25/18 03:48 09/25/18 03:48 09/24/18 09/25/18 09/26/18 05:59 05:59 05:59 Intake Total 1152 1965 Output Total 1600 770 Balance -448 1195 PT 16.5 SEC (12.0-15.0) H 09/23/18 10:30 INR 1.31 (0.83-1.16) H 09/23/18 10:30 ICD10 Worksheet Patient Problems: Problems Problem Status Onset Acute kidney injury Acute Contusion of left hip Acute MRSA - Methicillin resistant Staphylococcus aureus infection Active Acute renal insufficiency Acute Afib Acute Bradycardia Acute Bronchitis Acute CHF (congestive heart failure) Acute Cough Acute Diuretics causing adverse effect in therapeutic use Acute Fall Acute Pneumonia Acute Primary localized osteoarthritis of left hip Acute Shortness of breath Acute Somnolence, daytime Acute chronic disease mgmt/transitional care Acute
[2018-09-25] MEDS ORDERED: METOPROLOL SUCCINATE XR 50 MG TAB PO ONE (16:28)
--- NOTE | 2018-09-25 16:53 | HOSPPROG ---
Hospitalist Progress Note Assessment/Plan: 73F with mechanical fall with large L hip hematoma # mechanical fall - possibly d/t overdiuresis - PT/OT # L hip hematoma - likely non-op but enlarged today - quite painful - cont oxy, sched apap, stop dilaudid IV # ABLA - transfuse 2U PRBC # LUIS CARLOS on CKD (baseline about 1.6) - at baseline today # hyperK - resolved # hypoNa - hypovolemic # a-fib - [id number] - need to continue to hold eliquis with enlarging hematoma - restart metop at home dose # hypotension - will need to restart diuretics and clonidine soon # dCHF - compensated - cont to hold diuretics # DM2? - not on meds # COPD - inhalers Subjective: asking to be discharged; L hip still painful Objective: Vital Signs Temp Pulse Resp BP Pulse Ox 36.7 C 90 18 135/93 H 98 09/25/18 15:33 09/25/18 15:59 09/25/18 15:59 09/25/18 15:33 09/25/18 15:59 Laboratory Results 09/25/18 03:48 09/25/18 03:48 09/24/18 09/25/18 09/26/18 05:59 05:59 05:59 Intake Total 1152 1965 Output Total 1600 770 800 Balance -448 1195 -800 PT 16.5 SEC (12.0-15.0) H 09/23/18 10:30 INR 1.31 (0.83-1.16) H 09/23/18 10:30 - Physical Exam Constitutional: no apparent distress, appears nourished Cardiovascular: irregularly irregular, tachycardia Respiratory: no respiratory distress, no rales or rhonchi, clear to auscultation Gastrointestinal: normoactive bowel sounds, soft, non-tender abdomen, no palpable masses Musculoskeletal: other (L hip with significant ecchymosis and edema) ICD10 Worksheet Patient Problems: Problems Problem Status Onset Acute kidney injury Acute Diuretics causing adverse effect in therapeutic use Acute Bradycardia Acute Afib Acute Fall Acute Acute renal insufficiency Acute Somnolence, daytime Acute Contusion of left hip Acute chronic disease mgmt/transitional care Acute Pneumonia Acute CHF (congestive heart failure) Acute Cough Acute Shortness of breath Acute Primary localized osteoarthritis of left hip Acute MRSA - Methicillin resistant Staphylococcus aureus infection Active Bronchitis Acute
[2018-09-25] MEDS: clonazePAM 0.5 MG TAB PO SCH (20:24)
[2018-09-26 04:38] LABS: PLATELET COUNT 121 10^3/uL (150-400)
[2018-09-26] MEDS ORDERED: FUROSEMIDE 20 MG/2 ML VIAL IVP ONE ×4 (05:12→12:15)
[2018-09-26] MEDS: LEVOTHYROXINE 200 MCG TAB PO SCH (05:38)
[2018-09-26] MEDS: NS 1,000 ML IV SCH (05:39)
[2018-09-26] MEDS: oxyCODONE IR 5 MG TAB PO PRN ×4 (05:54→17:19)
[2018-09-26] MEDS: INSULIN LISPRO 100 UNIT/ML SC SCH ×3 (08:00→18:28)
[2018-09-26] MEDS ORDERED: ESTRADIOL 42.5 GM CRTUBE VG SCH (08:00)
[2018-09-26] MEDS: buPROPion XL 150 MG TAB PO SCH (08:20)
[2018-09-26] MEDS: METOPROLOL SUCCINATE XR 50 MG TAB PO SCH (08:21)
[2018-09-26] MEDS: CALCIUM CARB W/VIT D 500 MG TAB PO SCH (08:21)
[2018-09-26] MEDS: ARIPiprazole 2 MG TAB PO SCH (08:22)
[2018-09-26] MEDS: FLUoxetine 20 MG CAP PO SCH (08:22)
[2018-09-26] MEDS: SENNOSIDES/DOCUSATE SODIUM TAB PO SCH ×2 (08:22→20:43)
[2018-09-26] MEDS: CYANO/VITAMIN B12 1000 MCG TAB PO SCH (08:23)
[2018-09-26] MEDS: CETIRIZINE 10 MG TAB PO SCH (08:23)
[2018-09-26] MEDS: FAMOTIDINE 20 MG TAB PO SCH (08:23)
[2018-09-26] MEDS: ASPIRIN EC 81 MG TAB PO SCH (08:24)
[2018-09-26] MEDS: ACETAMINOPHEN 500 MG TAB PO SCH ×3 (08:24→22:19)
--- NOTE | 2018-09-26 08:55 | HOSPPROG ---
Hospitalist Progress Note Assessment/Plan: 73F with mechanical fall with large L hip hematoma. Has required 4 units of packed red blood cells. # mechanical fall - possibly d/t overdiuresis - PT/OT, currently recommending SNF # L hip hematoma - likely non-op but quite large; Dr. Rosas following - quite painful - cont oxy, sched apap, stop dilaudid IV # ABLA - s/p 4U PRBC # LUIS CARLOS on CKD (baseline about 1.6) - at baseline today # hyperK - worse again today, will give lasix after transfusions - will check Q6 today in follow after Lasix # hypoNa - hypovolemic # a-fib - [id number] - need to continue to hold eliquis with enlarging hematoma despite CVA risk - tachycardic today, follow after she gets metoprolol and transfusions # hypotension - will need to restart diuretics and clonidine at some point # dCHF - significant weight gain, some edema; will likely need to restart home diuretics tomorrow, may need more aggressive diuresis # DM2? - not on meds # COPD - inhalers # dispo - may need snf; lives at [facility] Subjective: Still complains of left hip pain, but better; eating well; no bowel movement for a few days Objective: Vital Signs Temp Pulse Resp BP Pulse Ox 36.9 C 94 20 118/68 97 09/26/18 04:00 09/26/18 04:00 09/26/18 04:00 09/26/18 04:00 09/26/18 04:00 Laboratory Results 09/26/18 03:34 09/26/18 03:34 09/25/18 09/26/18 09/27/18 05:59 05:59 05:59 Intake Total 1965 2100 Output Total 770 1450 Balance 1195 650 PT 16.5 SEC (12.0-15.0) H 09/23/18 10:30 INR 1.31 (0.83-1.16) H 09/23/18 10:30 High risk given ongoing need for transfusions and tachycardia - Physical Exam Constitutional: no apparent distress, appears nourished Cardiovascular: irregularly irregular, tachycardia, No systolic murmur, No diastolic murmur Respiratory: no respiratory distress, no rales or rhonchi, clear to auscultation Gastrointestinal: normoactive bowel sounds, soft, non-tender abdomen, no palpable masses Musculoskeletal: other (Left hip with significant edema, ecchymosis and tender to palpation) ICD10 Worksheet Patient Problems: Problems Problem Status Onset Acute kidney injury Acute Diuretics causing adverse effect in therapeutic use Acute Bradycardia Acute Afib Acute Fall Acute Acute renal insufficiency Acute Somnolence, daytime Acute Contusion of left hip Acute chronic disease mgmt/transitional care Acute Pneumonia Acute CHF (congestive heart failure) Acute Cough Acute Shortness of breath Acute Primary localized osteoarthritis of left hip Acute MRSA - Methicillin resistant Staphylococcus aureus infection Active Bronchitis Acute
[2018-09-26] MEDS ORDERED: ERGOCALCIFEROL 50,000 I.UNIT CAP PO SCH (09:00)
[2018-09-26] MEDS: IPRATROPIUM/ALBUTEROL 3 ML DEYVIAL IH SCH ×2 (09:47→14:42)
[2018-09-26] MEDS: FLUTICASONE/SALMETER 250/50MCG DISKUS IH SCH ×2 (09:47→21:31)
--- NOTE | 2018-09-26 10:30 | SOAPPROG ---
SOAP Progress Note Assessment/Plan: Assessment/Plan: 73 Y F s/p fall on eliquis c hip hematoma. also VH. Pain controlled. H&H largely stable compared to yesterday. Hematoma c ecchymosis. No skin necrosis. Pain tolerable. No sign of infection or drainage. Continue to plan for conservative management with observation unless too painful. Also can further eval VH in outpatient setting. 09/26/18 10:29 Objective: Vital Signs Temp Pulse Resp BP Pulse Ox 36.9 C 101 H 24 H 118/68 99 09/26/18 04:00 09/26/18 10:02 09/26/18 10:02 09/26/18 04:00 09/26/18 10:02 Laboratory Results 09/26/18 03:34 09/26/18 03:34 09/25/18 09/26/18 09/27/18 05:59 05:59 05:59 Intake Total 1965 2100 Output Total 770 1450 Balance 1195 650 PT 16.5 SEC (12.0-15.0) H 09/23/18 10:30 INR 1.31 (0.83-1.16) H 09/23/18 10:30 ICD10 Worksheet Patient Problems: Problems Problem Status Onset Acute kidney injury Acute Contusion of left hip Acute MRSA - Methicillin resistant Staphylococcus aureus infection Active Acute renal insufficiency Acute Afib Acute Bradycardia Acute Bronchitis Acute CHF (congestive heart failure) Acute Cough Acute Diuretics causing adverse effect in therapeutic use Acute Fall Acute Pneumonia Acute Primary localized osteoarthritis of left hip Acute Shortness of breath Acute Somnolence, daytime Acute chronic disease mgmt/transitional care Acute
--- NOTE | 2018-09-26 16:11 | ASMTCMCOM ---
CM Note CM Note Notes: Patient plan of care reviewed with Dr. Jaimes. 73 year old female with multiple co-morbities s/p mechanical fall with profound hematoma of left hip requiring 4 units of PRBC, Per therapies SNF recommendation is prevelant however patient adamantly refusing and will not discuss possibility with CM at this time. Plan: SNF or Home with [facility] Date Signed: 09/26/2018 04:10 PM Electronically Signed By:Tiara Hansen RN
[2018-09-26] MEDS: clonazePAM 0.5 MG TAB PO SCH (20:43)
[2018-09-27] MEDS: oxyCODONE IR 5 MG TAB PO PRN ×4 (04:36→22:03)
[2018-09-27] MEDS: IPRATROPIUM/ALBUTEROL 3 ML DEYVIAL IH SCH ×4 (05:14→20:40)
[2018-09-27 05:18] LABS: PLATELET COUNT 138 10^3/uL (150-400)
[2018-09-27] MEDS: LEVOTHYROXINE 200 MCG TAB PO SCH (05:39)
[2018-09-27] MEDS: buPROPion XL 150 MG TAB PO SCH (08:34)
[2018-09-27] MEDS: METOPROLOL SUCCINATE XR 50 MG TAB PO SCH (08:34)
[2018-09-27] MEDS: ARIPiprazole 2 MG TAB PO SCH (08:35)
[2018-09-27] MEDS: FLUoxetine 20 MG CAP PO SCH (08:35)
[2018-09-27] MEDS: CYANO/VITAMIN B12 1000 MCG TAB PO SCH (08:35)
[2018-09-27] MEDS: CALCIUM CARB W/VIT D 500 MG TAB PO SCH (08:35)
[2018-09-27] MEDS: FAMOTIDINE 20 MG TAB PO SCH (08:35)
[2018-09-27] MEDS: CETIRIZINE 10 MG TAB PO SCH (08:35)
[2018-09-27] MEDS: ASPIRIN EC 81 MG TAB PO SCH (08:36)
[2018-09-27] MEDS: SENNOSIDES/DOCUSATE SODIUM TAB PO SCH ×2 (08:43→20:55)
[2018-09-27] MEDS: INSULIN LISPRO 100 UNIT/ML SC SCH ×3 (08:43→16:53)
[2018-09-27] MEDS: ACETAMINOPHEN 500 MG TAB PO SCH ×4 (08:43→22:03)
[2018-09-27] MEDS: FLUTICASONE/SALMETER 250/50MCG DISKUS IH SCH ×2 (10:02→20:40)
--- NOTE | 2018-09-27 13:49 | HOSPPROG ---
Hospitalist Progress Note Assessment/Plan: #Mechanical fall - she prefers home PT over SNF #Chronic Diastolic CHF - significant weight gain in hospital, some edema -restart Demadex today to ensure lytes stable (Metolazone, Aldactone on hold) #Mild hyperK: improved on repeat, telemetry -holding Aldactone #L hip hematoma -total of 4 units # ABLA - s/p 4U PRBC (2 on 09/26) # LUIS CARLOS on CKD : Cr. stable 1.2 (baseline about 1.6) #Hyponatremia: initially hypovolemic, now volume overload #Atrial fibrillation [id number] -holding Eliquis with hematoma despite CVA risk #hypotension - resolved. #HTN: readd clonidine when needed # DM2? - not on meds # COPD - inhalers #Diet: cardiac #Disp: may be able to DC tomorrow if labs stable, with home care Subjective: pain at hematoma site less painful today Objective: Vital Signs Temp Pulse Resp BP Pulse Ox 36.6 C 117 H 16 149/87 H 99 09/27/18 11:04 09/27/18 11:04 09/27/18 11:04 09/27/18 11:04 09/27/18 11:04 Laboratory Results 09/27/18 03:34 09/27/18 12:50 09/26/18 09/27/18 09/28/18 05:59 05:59 05:59 Intake Total 2100 950 Output Total 1450 1650 150 Balance 650 -700 -150 PT 16.5 SEC (12.0-15.0) H 09/23/18 10:30 INR 1.31 (0.83-1.16) H 09/23/18 10:30 - Time Spent With Patient Time Spent with Patient: greater than 35 minutes Time Spent with Patient: Greater than 35 minutes spent on this patients care, greater than 50% of time spent counseling, educating, and coordinating care regarding the above mentioned plan. - Physical Exam Constitutional: other (ill-appearing) Ears, Nose, Mouth, Throat: moist mucous membranes Cardiovascular: regular rate and rhythym, edema (+1 leg edema) Respiratory: No inspiratory crackles Gastrointestinal: normoactive bowel sounds, soft, non-tender abdomen Genitourinary: No dodson in urethra Musculoskeletal: generalized weakness, other (left hip/thigh/buttock met) Neurologic: AAOx3, CN II-XII Intact Psychiatric: interacting appropriately ICD10 Worksheet Patient Problems: Problems Problem Status Onset MRSA - Methicillin resistant Staphylococcus aureus infection Active Acute kidney injury Acute Acute renal insufficiency Acute Afib Acute Bradycardia Acute Bronchitis Acute CHF (congestive heart failure) Acute Contusion of left hip Acute Cough Acute Diuretics causing adverse effect in therapeutic use Acute Fall Acute Pneumonia Acute Primary localized osteoarthritis of left hip Acute Shortness of breath Acute Somnolence, daytime Acute chronic disease mgmt/transitional care Acute
[2018-09-27] MEDS ORDERED: SPIRONOLACTONE 25 MG TAB PO SCH (14:45)
[2018-09-27] MEDS: TORSEMIDE 20 MG TAB PO SCH (15:01)
--- NOTE | 2018-09-27 16:20 | ASMTCMCOM ---
CM Note CM Note Notes: Pts case discussed in tx rounds. Pt reports that she is not interested in SNF at this time. CM called [facility] to inquire if she has a caser shoe parts. Pt reports that her nurse is Eve and her number is [phone]. CM called and left a msg. Pt reports that she is current w/ [facility]. CM to follow. Plan: [facility] with HH Date Signed: 09/27/2018 04:19 PM Electronically Signed By:CRISTIAN Ascencio
[2018-09-27] MEDS: clonazePAM 0.5 MG TAB PO SCH (20:55)
[2018-09-28] MEDS: LEVOTHYROXINE 200 MCG TAB PO SCH (06:08)
[2018-09-28] MEDS: INSULIN LISPRO 100 UNIT/ML SC SCH ×2 (07:40→12:18)
[2018-09-28] MEDS: buPROPion XL 150 MG TAB PO SCH (08:50)
[2018-09-28] MEDS: TORSEMIDE 20 MG TAB PO SCH (08:51)
[2018-09-28] MEDS: ASPIRIN EC 81 MG TAB PO SCH (08:52)
[2018-09-28] MEDS: CETIRIZINE 10 MG TAB PO SCH (08:52)
[2018-09-28] MEDS: FLUoxetine 20 MG CAP PO SCH (08:52)
[2018-09-28] MEDS: SENNOSIDES/DOCUSATE SODIUM TAB PO SCH (08:52)
[2018-09-28] MEDS: ARIPiprazole 2 MG TAB PO SCH (08:52)
[2018-09-28] MEDS: FAMOTIDINE 20 MG TAB PO SCH (08:53)
[2018-09-28] MEDS: CALCIUM CARB W/VIT D 500 MG TAB PO SCH (08:53)
[2018-09-28] MEDS: CYANO/VITAMIN B12 1000 MCG TAB PO SCH (08:53)
[2018-09-28] MEDS: METOPROLOL SUCCINATE XR 50 MG TAB PO SCH (08:53)
[2018-09-28] MEDS: ACETAMINOPHEN 500 MG TAB PO SCH (08:54)
[2018-09-28] MEDS: oxyCODONE IR 5 MG TAB PO PRN (08:55)
[2018-09-28] MEDS: IPRATROPIUM/ALBUTEROL 3 ML DEYVIAL IH SCH (09:27)
[2018-09-28] MEDS: FLUTICASONE/SALMETER 250/50MCG DISKUS IH SCH (09:27)
--- NOTE | 2018-09-28 10:18 | PDIAF ---
- Diagnosis Diagnosis: Mechanical fall, diastolic HF Code Status: Do Not Resuscitate - Medication Management Discharge Medications: electronically signed and located in the Home Medication List. - Orders Services needed: Registered Nurse, Physical Therapy, Occupational Therapy Isolation Type: None - Follow Up Care Current Providers and Referrals: Micheal Rosas MD [Medical Doctor] - (1-2 weeks) Patient,NotPresent [Unknown] - As per Instructions
--- NOTE | 2018-09-28 11:30 | ASDISCHSUM ---
Discharge Information Plan Status:Home with Home Health Medically Cleared to Leave:09/27/2018 Discharge Date:09/27/2018 CM D/C Disposition: ADT D/C Disposition: Projected Discharge Date:09/28/2018 11:00 AM Transportation at D/C: Discharge Delay Reason: Follow-Up Date:09/28/2018 11:00 AM Discharge Slot: Final Diagnosis: Placement Information Referral Type:*Home Health Care Services Referral ID:[id number] Provider Name:[facility] Address 1:[address] Phone Number: Address 2: Fax Number: City:[place] Selection Factors: State:[place] Patient Contact Information Contact Name:REA Relationship:Cousin Address: City: [facility] Phone: [facility] Code: Email: Financial Information Financial Class:Medicare Primary Plan Desc:MEDICARE IP PART B ONLY Primary Plan Number:[id number] Secondary Plan Desc:[place] Secondary Plan Number:[id number] Assessment Information LACE LACE Acuity / Level of Answers: Yes Care: Did the patient have an inpatient admission? Comorbidities - select Answers: Congestive heart failure all that apply Diabetes (uncontrolled or controlled) History of falls Mild liver or renal disease Other Notes: AFIB # of Emergency department Answers: 1-2 visits in the last 6 months Social determinants Answers: Mental health diagnosis (anxiety, depression, pers onality disorders, etc.) Score: 16 Date Signed: 09/24/2018 03:33 PM Electronically Signed By:Linda Valentine [facility] CM Progress Note CM Note CM Note Notes: Pt's chart reviewed for d/c planning. Pt is a 73 y/o female who presented to the ED after sustaining a mechanical fall with injury. Her medical hx includes COPD, CHF, diabetes, htn, depression and anxiety. Pt lives independently at [facility]. PT/OT have been ordered. PT is recommending SNF Rehab. OT recommending home vs home care. CM will follow. D/C Plan: SNF rehab vs HHC Date Signed: 09/24/2018 03:32 PM Electronically Signed By:Linda Valentine [facility] CM Progress Note CM Note CM Note Notes: Patient plan of care reviewed with Dr. Jaimes. 73 year old female with multiple co-morbities s/p mechanical fall with profound hematoma of left hip requiring 4 units of PRBC, Per therapies SNF recommendation is prevelant however patient adamantly refusing and will not discuss possibility with CM at this time. Plan: SNF or Home with HHC Date Signed: 09/26/2018 04:10 PM Electronically Signed By:Tiara Hansen RN [facility] CM Progress Note CM Note CM Note Notes: Pts case discussed in tx rounds. Pt reports that she is not interested in SNF at this time. CM called [facility] to inquire if she has a watch caser. Pt reports that her nurse is Eve and her number is [phone]. CM called and left a msg. Pt reports that she is current w/ [facility]. CM to follow. Plan: [facility] with HH Date Signed: 09/27/2018 04:19 PM Electronically Signed By:CRISTIAN Ascencio Case Management Discharge Plan Note Case Management Discharge Discharge Order Complete? Answers: Yes Patient to Obtain Answers: Independently Medications Transportation Arranged Answers: [facility] W/C Transport will Pick (Date 09/28/2018 12:30 PM & Time) EMTALA Complete Answers: No Case Management Transport Answers: Yes Form Complete Faxed Final Orders Answers: Yes Agency/Facility Transfer Answers: Yes Report Printed & Faxed to Receiving Agency Family Notified Answers: No Discharge Comments Notes: Pts case discussed w/ Dr. Waldron. has an [facility] watch caser and her name is Matilde Szymanski (P#: [phone]). CM notified Matilde that pt is being d/c'd. Pt is current w/ [facility]. DC orders sent. CM called [facility] to set up a w/c transport. notified Dharmesh Lino of the d/c. available for changes. Plan: [facility]; PT, OT, RN Intervention Information
[2018-09-28 11:41] VITALS: BP 135/99
--- NOTE | 2018-09-28 15:21 | PDDCSUM ---
Discharge Summary Discharge Summary: Date of Admission: 09/23/2018 Date of Discharge: 09/28/2018 Consults: Procedures: Followup: Hospital Course Problem List: #Mechanical fall - PT/OT consulted, patient prefers home PT over SNF #L hip hematoma -S/p total of 4 units PRBCs -Holding home Eliquis #Chronic Diastolic CHF - significant weight gain in hospital, some edema -restarted home Demadex and Aldactone with improvement #Mild hyperK: improved on repeat, telemetry # ABLA - s/p 4U PRBC (2 on 09/26), H/H remains stable upon discharge # LUIS CARLOS on CKD : Cr. stable 1.2 on day of discharge (baseline about 1.6) #Hyponatremia: initially hypovolemic, then volume overload - Na 132 at time of discharge #Atrial fibrillation [id number] -holding Eliquis with hematoma despite CVA risk as above #hypotension - resolved. #HTN: restarted clonidine when needed # DM2? - not on meds # COPD - inhalers Time spent on discharge was >35 minutes with >50% of time spent on patient education and counseling.
== END 2018-09-28 12:22 | disposition home health service (06) | DRG 605 ==
LOC: EDUNIT# → F2W 13:15
PROVIDERS: ADMIT Student in an Organized Health Care Education/Training Program; ATTEND Student in an Organized Health Care Education/Training Program
PROC: 30233N1 Transfusion of Nonautologous Red Blood Cells into Peripheral Vein, Percutaneous Approach (ICD-10-PCS; principal; 2018-09-24)
DX: S70.02XA Contusion of left hip, initial encounter (principal); N17.9 Acute kidney failure, unspecified; E87.1 Hypo-osmolality and hyponatremia; D62 Acute posthemorrhagic anemia; I13.0 Hypertensive heart and chronic kidney disease with heart failure and stage 1 through stage 4 chronic kidney disease, or unspecified chronic kidney disease; I50.32 Chronic diastolic (congestive) heart failure; N18.9 Chronic kidney disease, unspecified; E86.9 Volume depletion, unspecified; W19.XXXA Unspecified fall, initial encounter; Y92.128 Other place in nursing home as the place of occurrence of the external cause; E87.5 Hyperkalemia; I48.91 Unspecified atrial fibrillation; E11.9 Type 2 diabetes mellitus without complications; J44.9 Chronic obstructive pulmonary disease, unspecified; G47.33 Obstructive sleep apnea (adult) (pediatric); K43.9 Ventral hernia without obstruction or gangrene; Z66 Do not resuscitate; Z96.642 Presence of left artificial hip joint; Z79.01 Long term (current) use of anticoagulants; Z79.84 Long term (current) use of oral hypoglycemic drugs
CPT/HCPCS: 97116-GP; 97162-GP; 97165-GO; 97535-GO; J1170; J1815; J1940; J2405; P9016; P9021

== ENCOUNTER 2018-10-06 13:49 | Inpatient (IN) | payer MEDICAID, OTHER ==
[2018-10-06 14:19] LABS: PLATELET COUNT 341 10^3/uL (150-400)
[2018-10-06 14:29] LABS: INR 1.22 (0.83-1.16); PROTIME(PATIENT) 15.6 SEC (12.0-15.0)
[2018-10-06] MEDS ORDERED: HYDROmorphONE/DILAUDID 2 MG/ML INJ IVP ONE (14:51)
--- NOTE | 2018-10-06 15:00 | EDPHY ---
H & P Stated Complaint: [facility] FALL Time Seen by Provider: 10/06/18 13:52 HPI/ROS: CHIEF COMPLAINT: Fall onto left hip HISTORY OF PRESENT ILLNESS: 73-year-old female was admitted to the hospital beginning of September after a fall onto her left hip with a resultant soft tissue hematoma. Patient is on Eliquis. She was also noted to have acute kidney injury at that time. Her hospital stay was complicated by acute blood loss anemia requiring for unit transfusion. Patient was discharged on September 28. Today, the patient states that she rolled over in her bed and slipped out, landing onto her left hip. This occurred around 5:00 a.m. In the morning. She was able to crawl to a chair and then get back in bed. She now is reporting progressively worsening pain in the left hip as well as progressively worsening swelling. Patient denies any head injury, no pre-existing chest pain or shortness of breath. No syncope. No palpitations. No vomiting or diarrhea. No urinary complaints. REVIEW OF SYSTEMS: A comprehensive 10 system review of systems was reviewed and is otherwise negative aside from elements mentioned in the history of present illness and medical decision making. PAST MEDICAL HISTORY: Acute kidney injury, congestive heart failure, atrial fibrillation, on Eliquis. SOCIAL HISTORY: Currently lives at [facility]. Patient's [id number] , a cousin, who is on the [facility], Kieran Hawk called to inquire about the patient's status. His #[phone] VITAL SIGNS Reviewed by me. GENERAL: Well-developed, well-nourished, complaining of pain in her hip.. HEENT: Atraumatic. Eyes: No icterus, no injection. Mouth: Dry mucous membranes. No erythema or lesions. Neck: supple with no adenopathy. LUNGS: Clear to auscultation bilaterally, no wheezes, rhonchi or rales. CARDIAC: Irregularly irregular. ABDOMEN: Soft, patient has a midline hernia for which she wears a brace. Abdomen is nontender, nondistended. BACK: No CVA tenderness. EXTREMITIES: There is a large, tense, firm, tender hematoma over the left hip. Patient also has ecchymosis extending across the sacrum. Ecchymosis also extends down the patient's femur, and onto the tib-fib. Limited range of motion secondary to pain. NEURO: Alert and oriented, grossly nonfocal. SKIN: Warm and dry, no rash. PSYCHIATRIC: Normal mentation, no agitation. - Personal History Current Tetanus/Diphtheria Vaccine: Yes Current Tetanus Diphtheria and Acellular Pertussis (TDAP): Yes Tetanus Vaccine Date: >10 YRS - Medical/Surgical History Hx Asthma: Yes Hx Chronic Respiratory Disease: No Hx Diabetes: Yes Hx Cardiac Disease: Yes Hx Renal Disease: Yes Hx Cirrhosis: No Hx Alcoholism: No Hx HIV/AIDS: No Hx Splenectomy or Spleen Trauma: No Other PMH: Afib, DM2, asthma, renal failure, abdominal hernias, bilat knee replacements, ronny hip replacement, bilat carpal tunnel repair, Grave's disease, HTN, GERD, depression,hypothyroidism, VICENTA, - Social History Smoking Status: Former smoker Constitutional: Initial Vital Signs Temperature (C) 36.5 C 10/06/18 13:58 Heart Rate 103 H 10/06/18 13:58 Respiratory Rate 18 10/06/18 13:58 Blood Pressure 157/101 H 10/06/18 13:58 O2 Sat (%) 99 10/06/18 13:58 O2 Delivery Mode Nasal Cannula O2 (L/minute) 2 Allergies/Adverse Reactions: iodine Allergy (Severe, Verified 07/02/18 09:29) GRAVES DISEASE/RED SKIN lidocaine [From Lidoderm] Allergy (Verified 07/02/18 09:36) Rash pravastatin Allergy (Verified 07/02/18 09:36) CAN'T WALK Home Medications: Medication Instructions Recorded Albuterol [Proventil Inhaler HFA 2 puffs IH Q6HRS PRN 06/25/17 (*)] Betamethasone/Propylene Glyc 15 gm TP HS PRN 06/25/17 [Betamethasone Dp Aug 0.05% Oin] Docusate Sodium [Colace 100 MG (*)] 200 mg PO HS PRN 06/25/17 FLUoxetine [Prozac 20 MG (*)] 20 mg PO DAILY 06/25/17 Famotidine [Pepcid 20 MG (*)] 20 mg PO BID 06/25/17 Levothyroxine [Synthroid 200 mcg 200 mcg PO DAILY06 06/25/17 (*)] Triamcinolone 0.1% [Triamcinolone 1 fadia TP BID PRN 06/25/17 0.1% Cream (*)] clonazePAM [Klonopin (*)] 0.5 mg PO HS 06/25/17 ARIPiprazole [Abilify 2 mg (*)] 2 mg PO DAILY 07/21/17 clonIDINE [Catapres (*)] 0.1 mg PO HS 07/21/17 Loratadine [Claritin 10 mg] 10 mg PO DAILY 12/14/17 Fluticasone/Salmeter 250/50Mcg 1 puffs IH BID 01/02/18 [Advair 250/50 (*)] Ipratropium/Albuterol [Duoneb (*)] 3 ml IH TID 01/02/18 Acetaminophen [Tylenol 325mg (*)] 650 mg PO Q4HRS PRN tab 01/07/18 Hydrocodone/Acetaminophen [[place] 1 each PO Q6 PRN 05/21/18 7.5-325 Tablet] buPROPion XL [Wellbutrin 150mg XL] 150 mg PO DAILY 05/21/18 Aspirin EC [Aspirin EC 81 mg (*)] 81 mg PO DAILY 07/02/18 Bupropion HCl [Wellbutrin Xl] 300 mg PO DAILY 07/02/18 Calcium Citrate W/Vit D [Citracal 315 mg PO DAILY 07/02/18 + D] Ergocalciferol [Vitamin D2 (*)] 50,000 unit PO MO 07/02/18 Estradiol [Estrace Vaginal (*)] 1 fadia VG Q3D 07/02/18 Herbals/Supplements -Info Only 1 ea PO DAILY 07/02/18 Metolazone [Zaroxolyn] 2.5 mg PO Q2D PRN 07/02/18 Polyethylene Glycol 3350 [Miralax 17 gm PO DAILY PRN 07/02/18 17 gm (*)] Spironolactone [Aldactone 25 MG 12.5 mg PO DAILY 07/02/18 (*)] Torsemide [Demadex] 60 mg PO DAILY 07/02/18 Cyanocobalamin [Vitamin B12 (*)] 1,000 mcg PO DAILY 09/23/18 Metoprolol Succinate Xr [Toprol Xl 50 mg PO DAILY 09/23/18 50 mg (*)] Nystatin Powder [Mycostatin Powder] 1 fadia TP BID PRN 09/23/18 Pantoprazole Sodium [Protonix 40mg 40 mg PO DAILY PRN 09/23/18 (*)] Medical Decision Making - Diagnostics EKG Interpretation: 12-LEAD EKG: Please see the full report in [facility]. My interpretation: Atrial fibrillation Imaging Results: Imaging Impressions Hip X-Ray 10/06/18 14:01 Impression: Nothing acute identified. ED Course/Re-evaluation: Patient's CBC demonstrates hemoglobin and hematocrit of 12 and 39. Pelvis and left hip x-ray do not demonstrate any acute fracture. Patient did have a CT scan of the extremity without contrast given her creatinine of 1.6 in her history of acute kidney injury. She will be admitted to the hospital for hematoma, leg pain, inability to ambulate. Course was also discussed with Dr. Pablo Pat/as well as Dr. Kushal Ann, concerning the possibility the patient has Madisyn-Lavalia lesion. They will provide orthopedic consultation. Differential Diagnosis: Differential diagnoses for the patient's symptom complex was considered including but not limited to hematoma, contusion, fracture, dislocation. Consult/Admit Bed Type: Dr. Chi, med surg - Data Points Laboratory Results: Laboratory Results 10/06/18 14:00 10/06/18 14:00 10/06/18 10/06/18 10/06/18 14:07 14:00 14:00 WBC RBC Hgb Hct MCV MCH MCHC RDW Plt Count MPV Neut % (Auto) Lymph % (Auto) [place] % (Auto) Eos % (Auto) Baso % (Auto) Nucleat RBC Rel Count Absolute Neuts (auto) Absolute Lymphs (auto) Absolute Monos (auto) Absolute Eos (auto) Absolute Basos (auto) Absolute Nucleated RBC Immature Gran % Immature Gran # Platelet Estimate Polychromasia Hypochromasia Microcytic Cells Oval Macrocytes PT 15.6 SEC H SEC (12.0-15.0) INR 1.22 H (0.83-1.16) Sodium 136 mEq/L mEq/L (135-145) Potassium 4.6 mEq/L mEq/L (3.5-5.2) Chloride 103 mEq/L mEq/L (97-110) Carbon Dioxide 24 mEq/l mEq/l (22-31) Anion Gap 9 mEq/L mEq/L (6-14) BUN 48 mg/dL H mg/dL (7-23) Creatinine 1.6 mg/dL H mg/dL (0.6-1.0) Estimated GFR 32 Glucose 117 mg/dL H mg/dL (70-100) Calcium 10.2 mg/dL mg/dL (8.5-10.4) POC Troponin I 0.02 ng/mL ng/mL (0.00-0.08) 10/06/18 14:00 WBC 14.48 10^3/uL H 10^3/uL (3.80-9.50) RBC 4.62 10^6/uL 10^6/uL (4.18-5.33) Hgb 12.0 g/dL L g/dL (12.6-16.3) Hct 39.6 % % (38.0-47.0) MCV 85.7 fL fL (81.5-99.8) MCH 26.0 pg L pg (27.9-34.1) MCHC 30.3 g/dL L g/dL (32.4-36.7) RDW 23.4 % H % (11.5-15.2) Plt Count 341 10^3/uL 10^3/uL (150-400) MPV 10.7 fL fL (8.7-11.7) Neut % (Auto) 84.9 % H % (39.3-74.2) Lymph % (Auto) 4.6 % L % (15.0-45.0) [place] % (Auto) 9.5 % % (4.5-13.0) Eos % (Auto) 0.1 % L % (0.6-7.6) Baso % (Auto) 0.1 % L % (0.3-1.7) Nucleat RBC Rel Count 0.0 % % (0.0-0.2) Absolute Neuts (auto) 12.29 10^3/uL H 10^3/uL (1.70-6.50) Absolute Lymphs (auto) 0.66 10^3/uL L 10^3/uL (1.00-3.00) Absolute Monos (auto) 1.38 10^3/uL H 10^3/uL (0.30-0.80) Absolute Eos (auto) 0.01 10^3/uL L 10^3/uL (0.03-0.40) Absolute Basos (auto) 0.02 10^3/uL 10^3/uL (0.02-0.10) Absolute Nucleated RBC 0.00 10^3/uL 10^3/uL (0-0.01) Immature Gran % 0.8 % % (0.0-1.1) Immature Gran # 0.12 10^3/uL H 10^3/uL (0.00-0.10) Platelet Estimate ADEQUATE (ADEQ) Polychromasia 1+ H Hypochromasia 1+ H Microcytic Cells 1+ H Oval Macrocytes 1+ H PT INR Sodium Potassium Chloride Carbon Dioxide Anion Gap BUN Creatinine Estimated GFR Glucose Calcium POC Troponin I Medications Given: Discontinued Medications Hydromorphone HCl (Dilaudid) 0.5 mg IVP EDNOW ONE Stop: 10/06/18 14:52 Last Admin: 10/06/18 14:56 Dose: 0.5 mg Point of Care Test Results: Chemistry 10/06/18 14:07 POC Troponin I 0.02 ng/mL ng/mL (0.00-0.08) Departure - Departure Disposition: [facility] Inpatient Acute Clinical Impression: Hematoma, Unable to ambulate Contusion of left hip Qualifiers: Encounter type: initial encounter Qualified Code(s): S70.02XA - Contusion of left hip, initial encounter Condition: Good
--- NOTE | 2018-10-06 17:53 | SOAPPROG ---
SOAP Progress Note Assessment/Plan: Assessment: left hip/thigh hematoma Plan: recommend IR for aspiration and possible drain placement recommend against surgery at this time give concerns for infection in hip arthroplasty and recurrent bleeding ice compression wbat see full consult 10/06/18 17:51 Objective: Vital Signs Temp Pulse Resp BP Pulse Ox 36.5 C 91 16 163/97 H 94 10/06/18 17:29 10/06/18 17:29 10/06/18 17:29 10/06/18 17:29 10/06/18 17:29 PT 15.6 SEC (12.0-15.0) H 10/06/18 14:00 INR 1.22 (0.83-1.16) H 10/06/18 14:00 ICD10 Worksheet Patient Problems: Problems Problem Status Onset Contusion of left hip Acute Hematoma Acute Unable to ambulate Acute 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
--- NOTE | 2018-10-06 18:43 | GCON ---
[f rep st] CONSULTATION EMERGENCY ROOM CONSULT NOTE DATE OF CONSULTATION: 10/06/2018 CHIEF COMPLAINT: Left hip hematoma. HISTORY: This 73-year-old female had a left total hip arthroplasty about 2 years ago. She was recently admitted in early September and discharged on September 28 with a hematoma in the left hip from a fall complicated by blood- loss anemia. She had been improving until today when she fell out of bed, landing on her left hip. She is now complaining of worse pain and swelling in the left hip. She was seen in the ER and admitted for a left hip enlarging hematoma. Now, she complains of pain in left hip, excruciating pain and difficulty walking. REVIEW OF SYSTEMS: 10-point review of systems is reviewed and is otherwise negative other than above. PAST MEDICAL HISTORY: Acute kidney injury, congestive heart failure, atrial fibrillation, and she is on Eliquis for this. SOCIAL HISTORY: She lives at [facility]. ALLERGIES: Iodine, lidocaine, pravastatin. MEDICATIONS: Please see inpatient medication list. PAST SURGICAL HISTORY: A left total hip arthroplasty. PHYSICAL EXAMINATION: GENERAL: She is alert. She is oriented. She is appropriate. She does appear in mild distress. HEENT: Head is normocephalic and atraumatic. Eyes are equal and reactive. Mouth shows moist mucous membranes. LUNGS: Clear. HEART: Regular rhythm. ABDOMEN: Soft. BACK: Nontender. EXTREMITIES: Her upper extremities, she moves well. No areas of tenderness. Lower extremities with large, fairly tense hematoma over the left hip. She has ecchymosis over the sacrum and she has ecchymosis down the femur. Her knee is less tender. Her ankle is not tender. Her right lower extremity shows no gross tenderness. Good range of motion. Neurovascularly, she is intact. IMAGING: Her x-rays and CT scan show a hematoma above the fascia, overlying the left total hip arthroplasty. Her hip arthroplasty looks intact and appears stable. ASSESSMENT: Left thigh hematoma. PLAN: I discussed the nature of her condition and treatment options. I would not recommend surgery at this time. I would be concerned for opening this lesion up and creating a tract and a nidus for infection to infect her left total hip arthroplasty. Also, this would create a potential space and significant potential recurrence and bleeding into this area. Recommended considering Interventional Radiology for aspiration and potential drainage of this. Recommend ice and compression on this area. We will follow her along and see how she does clinically with this. I also did consult with Dr. Fine, who examined the x-rays, and he agrees there is nothing acute or wrong with the total hip arthroplasty. She can be weightbearing as tolerated. /[id number]/MODL MTDD
[2018-10-06] MEDS ORDERED: ACETAMINOPHEN 325 MG TAB PO PRN (19:18)
[2018-10-06] MEDS ORDERED: ONDANSETRON DISINTEGRATING 4 MG TAB PO PRN (19:18)
[2018-10-06] MEDS ORDERED: ONDANSETRON 4 MG/2 ML VIAL IVP PRN (19:18)
[2018-10-06] MEDS ORDERED: ALBUTEROL 60 PUFFS/8 GM MDI IH PRN (19:22)
[2018-10-06] MEDS ORDERED: BETAMETHASONE AUGMENTED 0.05% TP PRN (19:22)
[2018-10-06] MEDS ORDERED: POLYETHYLENE GLYCOL 3350 17 GM PKT PO PRN (19:22)
--- NOTE | 2018-10-06 19:38 | PDGENHP ---
<Anju Rocha - Last Filed: 10/06/18 20:02> History and Physical - Chief Complaint Mechanical fall - History of Present Illness HPI: This is is a 73 y/o female presenting to the emergency room after sustaining a fall to her left hip which had been replaced in 2017. Today, she rolled out of bed and landed on the hip. She tells me her top mattress is too big and curves over the edge so she misjudged where the edge of her bed was and rolled out. Denies lightheadedness, chest pains, palpitations, fever, chills. She has been recently admitted to [facility] in early September for falling onto her left hip and subsequently had a large hematoma and LUIS CARLOS. Her stay in the hospital was further complicated by acute blood loss anemia that required a transfusion. Today after sustaining another trauma to her left hip, a large hematoma is present and the pain is so significant, it is difficult for her to put weight on it. Pain is rated 5/10. She is being admitted for treatment. Past Medical History 1. Diastolic CHF 2. Atrial fibrillation 3. HTN 4. DM II 5. Asthma 6. VICENTA, on CPAP 7. Chronic pain, on continuous narcotics 8. Depression 9. Anxiety Past Surgical History 1. Carpal tunnel release 2. Colon resection 3. Herniorrhaphy 4. Left and right knee replacement 5. Oophorectomy 6. Right rotator cuff repair Social 1. Lives independently at [facility] 2. Denies smoking cigarettes. Does smoke cannabis. Casimiro etoh. History Information - Allergies/Home Medication List Allergies/Adverse Reactions: iodine Allergy (Severe, Verified 07/02/18 09:29) GRAVES DISEASE/RED SKIN lidocaine [From Lidoderm] Allergy (Verified 10/06/18 17:28) Rash pravastatin Allergy (Verified 07/02/18 09:36) CAN'T WALK Home Medications: Albuterol [Proventil Inhaler HFA (*)] 2 puffs IH Q6HRS PRN 06/25/17 [Last Taken 07/20/17] Betamethasone/Propylene Glyc [Betamethasone Dp Aug 0.05% Oin] 15 gm TP HS PRN [Last Taken 2 Weeks Ago ~07/07/17] Docusate Sodium [Colace 100 MG (*)] 200 mg PO HS PRN 06/25/17 [Last Taken ] FLUoxetine [Prozac 20 MG (*)] 20 mg PO DAILY 06/25/17 [Last Taken 09/23/18] Famotidine [Pepcid 20 MG (*)] 20 mg PO BID 06/25/17 [Last Taken 09/23/18] Levothyroxine [Synthroid 200 mcg (*)] 200 mcg PO DAILY06 06/25/17 [Last Taken ] Triamcinolone 0.1% [Triamcinolone 0.1% Cream (*)] 1 fadia TP BID PRN 06/25/17 [ Last Taken 2 Weeks Ago ~07/07/17] clonazePAM [Klonopin (*)] 0.5 mg PO HS 06/25/17 [Last Taken 09/22/18] ARIPiprazole [Abilify 2 mg (*)] 2 mg PO DAILY 07/21/17 [Last Taken 09/23/18] clonIDINE [Catapres (*)] 0.1 mg PO HS 07/21/17 [Last Taken 09/22/18] Loratadine [Claritin 10 mg] 10 mg PO DAILY 12/14/17 [Last Taken 09/23/18] Fluticasone/Salmeter 250/50Mcg [Advair 250/50 (*)] 1 puffs IH BID 01/02/18 [ Last Taken 09/22/18 21:00] Hydrocodone/Acetaminophen [Nichols 7.5-325 Tablet] 1 each PO Q6 PRN 05/21/18 [ Last Taken 09/22/18 21:00] buPROPion XL [Wellbutrin 150mg XL] 150 mg PO DAILY 05/21/18 [Last Taken 09/23/18 ] Aspirin EC [Aspirin EC 81 mg (*)] 81 mg PO DAILY 07/02/18 [Last Taken 09/23/18] Bupropion HCl [Wellbutrin Xl] 300 mg PO DAILY 07/02/18 [Last Taken 09/23/18] Calcium Citrate W/Vit D [Citracal + D] 315 mg PO DAILY 07/02/18 [Last Taken 09/10] Ergocalciferol [Vitamin D2 (*)] 50,000 unit PO MO 07/02/18 [Last Taken 09/22/18] Estradiol [Estrace Vaginal (*)] 1 fadia VG Q3D 07/02/18 [Last Taken Unknown] Herbals/Supplements -Info Only 1 ea PO DAILY 07/02/18 [Last Taken Unknown] Metolazone [Zaroxolyn] 2.5 - 5 mg PO Q2D PRN 07/02/18 [Last Taken Unknown] Polyethylene Glycol 3350 [Miralax 17 gm (*)] 17 gm PO BID PRN 07/02/18 [Last Taken Unknown] Spironolactone [Aldactone 25 MG (*)] 12.5 mg PO DAILY 07/02/18 [Last Taken 09/23] Cyanocobalamin [Vitamin B12 (*)] 1,000 mcg PO DAILY 09/23/18 [Last Taken ] Metoprolol Succinate Xr [Toprol Xl 50 mg (*)] 50 mg PO DAILY 09/23/18 [Last Taken 09/23/18] Nystatin Powder [Mycostatin Powder] 1 fadia TP BID PRN 09/23/18 [Last Taken Unknown] Pantoprazole Sodium [Protonix 40mg (*)] 40 mg PO DAILY 09/23/18 [Last Taken Unknown] Albuterol [Proventil Neb] 3 ml IH TID 10/06/18 [Last Taken Unknown] Apixaban [Eliquis] 2.5 mg PO BID 10/06/18 [Last Taken Unknown] Fluticasone Nasal [Flonase Nasal [place] (RX)] 2 sprays NASAL BID 10/06/18 [Last Taken Unknown] Torsemide [Demadex] 60 mg PO DAILY10 10/06/18 [Last Taken Unknown] I have personally reviewed and updated: family history, medical history, social history, surgical history - Past Medical History atrial fibrillation, asthma, CHF, diabetes type 2, hypertension Additional medical history: Depression. Chronic pain - Surgical History Additional surgical history: Hip surgery - Family History Positive for: cancer, vascular disease, hypertension - Social History Smoking Status: Former smoker Alcohol Use: None Drug Use: Marijuana Review of Systems Review of Systems: ROS: 10pt was reviewed & negative except for what was stated in HPI & below Physical Exam Physical Exam: Lab data and imaging were reviewed. Case discussed with admitting physician, Dr. Sirena Chi. WBC: 14.48 RBC/H/H: 4.62/12/39.6 INR: 1.22 BUN/Cr: 48/1.6 Hip x-ray/CT: Large hematoma within the subq space over the left greater trochanter, at risk for potential Casas-Pat lesion. Decreasing subq edema and hemorrhage within the proximal left thigh from the prior exam. Left hip hardware w/o complication or fracture. Temp Pulse Resp BP Pulse Ox 36.4 C 97 10 L 165/107 H 100 10/06/18 18:02 10/06/18 18:02 10/06/18 18:02 10/06/18 18:02 10/06/18 18:02 O2 (L/minute) 3 Constitutional: no apparent distress, appears nourished, uncomfortable Eyes: PERRL, anicteric sclera, EOMI Ears, Nose, Mouth, Throat: moist mucous membranes, hearing normal, ears appear normal, no oral mucosal ulcers Cardiovascular: regular rate and rhythym, no murmur, rub, or gallop, tachycardia Peripheral Pulses: 1+: dorsalis-pedis (R) (Radial 2+), dorsalis-pedis (L) ( Radial 2+) Respiratory: no respiratory distress, no rales or rhonchi, clear to auscultation Gastrointestinal: normoactive bowel sounds, soft, non-tender abdomen, no palpable masses Genitourinary: no bladder fullness, no bladder tenderness Skin: other (Significant hematoma spanning from lateral left side of leg, hip, and sacrum area) Musculoskeletal: joint effusion, joint tenderness, pain with ROM Neurologic: AAOx3, sensation intact bilaterally, CN II-XII Intact Psychiatric: interacting appropriately, not anxious, not encephalopathic, thought process linear Lymph, Heme, Immunologic: no cervical LAD, no supraclavicular LAD Lab Data & Imaging Review 10/06/18 19:45 10/06/18 14:00 WBC 14.48 10^3/uL (3.80-9.50) H 10/06/18 14:00 RBC 4.62 10^6/uL (4.18-5.33) 10/06/18 14:00 Hgb 12.0 g/dL (12.6-16.3) L 10/06/18 14:00 Hct 39.6 % (38.0-47.0) 10/06/18 14:00 MCV 85.7 fL (81.5-99.8) 10/06/18 14:00 MCH 26.0 pg (27.9-34.1) L 10/06/18 14:00 MCHC 30.3 g/dL (32.4-36.7) L 10/06/18 14:00 RDW 23.4 % (11.5-15.2) H 10/06/18 14:00 Plt Count 341 10^3/uL (150-400) 10/06/18 14:00 MPV 10.7 fL (8.7-11.7) 10/06/18 14:00 Neut % (Auto) 84.9 % (39.3-74.2) H 10/06/18 14:00 Lymph % (Auto) 4.6 % (15.0-45.0) L 10/06/18 14:00 [place] % (Auto) 9.5 % (4.5-13.0) 10/06/18 14:00 Eos % (Auto) 0.1 % (0.6-7.6) L 10/06/18 14:00 Baso % (Auto) 0.1 % (0.3-1.7) L 10/06/18 14:00 Nucleat RBC Rel Count 0.0 % (0.0-0.2) 10/06/18 14:00 Absolute Neuts (auto) 12.29 10^3/uL (1.70-6.50) H 10/06/18 14:00 Absolute Lymphs (auto) 0.66 10^3/uL (1.00-3.00) L 10/06/18 14:00 Absolute Monos (auto) 1.38 10^3/uL (0.30-0.80) H 10/06/18 14:00 Absolute Eos (auto) 0.01 10^3/uL (0.03-0.40) L 10/06/18 14:00 Absolute Basos (auto) 0.02 10^3/uL (0.02-0.10) 10/06/18 14:00 Absolute Nucleated RBC 0.00 10^3/uL (0-0.01) 10/06/18 14:00 Immature Gran % 0.8 % (0.0-1.1) 10/06/18 14:00 Immature Gran # 0.12 10^3/uL (0.00-0.10) H 10/06/18 14:00 Platelet Estimate ADEQUATE (ADEQ) 10/06/18 14:00 Polychromasia 1+ H 10/06/18 14:00 Hypochromasia 1+ H 10/06/18 14:00 Microcytic Cells 1+ H 10/06/18 14:00 Oval Macrocytes 1+ H 10/06/18 14:00 PT 15.6 SEC (12.0-15.0) H 10/06/18 14:00 INR 1.22 (0.83-1.16) H 10/06/18 14:00 Sodium 136 mEq/L (135-145) 10/06/18 14:00 Potassium 4.6 mEq/L (3.5-5.2) 10/06/18 14:00 Chloride 103 mEq/L (97-110) 10/06/18 14:00 Carbon Dioxide 24 mEq/l (22-31) 10/06/18 14:00 Anion Gap 9 mEq/L (6-14) 10/06/18 14:00 BUN 48 mg/dL (7-23) H 10/06/18 14:00 Creatinine 1.6 mg/dL (0.6-1.0) H 10/06/18 14:00 Estimated GFR 32 10/06/18 14:00 Glucose 117 mg/dL (70-100) H 10/06/18 14:00 Calcium 10.2 mg/dL (8.5-10.4) 10/06/18 14:00 POC Troponin I 0.02 ng/mL (0.00-0.08) 10/06/18 14:07 Patient ABO/Rh B POSITIVE 10/06/18 16:35 Antibody Screen NEGATIVE 10/06/18 16:35 Crossmatch IS Only See Detail 10/06/18 16:35 Assessment & Plan Plan: 73 y/o female sustained mechanical fall and injury to left hip with significant hematoma. 1. Left hip contusion: This is her second assault to her left hip. Her prior visit was complicated with acute blood loss and required transfusion. Per Dr. Pat, she is at risk for Casas-Pat lesion. -Ortho consulted and Dr. Pat evaluated pt. Read his note for further detail but to summarize: no surgery with concerns of introducing infection and/or blood into the joint space. -Would consider IR for possible aspiration and drain placement in AM -WBAT -Pain management PO/IVP PRN -Ice packs/compression with PAUL dressing/SCDs -Tranfuse 2U RBCs -Cycle H/H Q6H x 3 2. Mild LUIS CARLOS on CKD: BUN/Cr 48/1.6. She does not appear to be fluid overloaded. Holding diuretics for now. 3. A-Fib: holding eliquis for now. INR is 1.22. Continue ASA. 4. Diastolic CHF: Holding all diuretics until renal function improves. Does not appear to be fluid overloaded. 5. Hypertension: 165/107 BP currently. Continue metoprolol. 6. Diabetes: ISS while in hospital.Glucose checks TID before meals. Diet: Cardiac VTE ppx: SCDs Code: DNR Dispo: Admit to inpatient <Sirena Chi - Last Filed: 10/06/18 23:16> History and Physical - History of Present Illness Review of Systems Review of Systems: Physical Exam Physical Exam: Temp Pulse Resp BP Pulse Ox 36.4 C 83 18 171/109 H 92 10/06/18 20:00 10/06/18 20:43 10/06/18 20:43 10/06/18 20:00 10/06/18 20:43 O2 (L/minute) 1 Lab Data & Imaging Review 10/06/18 19:45 10/06/18 14:00 WBC 14.48 10^3/uL (3.80-9.50) H 10/06/18 14:00 RBC 4.62 10^6/uL (4.18-5.33) 10/06/18 14:00 Hgb 11.4 g/dL (12.6-16.3) L 10/06/18 19:45 Hct 37.1 % (38.0-47.0) L 10/06/18 19:45 MCV 85.7 fL (81.5-99.8) 10/06/18 14:00 MCH 26.0 pg (27.9-34.1) L 10/06/18 14:00 MCHC 30.3 g/dL (32.4-36.7) L 10/06/18 14:00 RDW 23.4 % (11.5-15.2) H 10/06/18 14:00 Plt Count 341 10^3/uL (150-400) 10/06/18 14:00 MPV 10.7 fL (8.7-11.7) 10/06/18 14:00 Neut % (Auto) 84.9 % (39.3-74.2) H 10/06/18 14:00 Lymph % (Auto) 4.6 % (15.0-45.0) L 10/06/18 14:00 [place] % (Auto) 9.5 % (4.5-13.0) 10/06/18 14:00 Eos % (Auto) 0.1 % (0.6-7.6) L 10/06/18 14:00 Baso % (Auto) 0.1 % (0.3-1.7) L 10/06/18 14:00 Nucleat RBC Rel Count 0.0 % (0.0-0.2) 10/06/18 14:00 Absolute Neuts (auto) 12.29 10^3/uL (1.70-6.50) H 10/06/18 14:00 Absolute Lymphs (auto) 0.66 10^3/uL (1.00-3.00) L 10/06/18 14:00 Absolute Monos (auto) 1.38 10^3/uL (0.30-0.80) H 10/06/18 14:00 Absolute Eos (auto) 0.01 10^3/uL (0.03-0.40) L 10/06/18 14:00 Absolute Basos (auto) 0.02 10^3/uL (0.02-0.10) 10/06/18 14:00 Absolute Nucleated RBC 0.00 10^3/uL (0-0.01) 10/06/18 14:00 Immature Gran % 0.8 % (0.0-1.1) 10/06/18 14:00 Immature Gran # 0.12 10^3/uL (0.00-0.10) H 10/06/18 14:00 Platelet Estimate ADEQUATE (ADEQ) 10/06/18 14:00 Polychromasia 1+ H 10/06/18 14:00 Hypochromasia 1+ H 10/06/18 14:00 Microcytic Cells 1+ H 10/06/18 14:00 Oval Macrocytes 1+ H 10/06/18 14:00 PT 15.6 SEC (12.0-15.0) H 10/06/18 14:00 INR 1.22 (0.83-1.16) H 10/06/18 14:00 Sodium 136 mEq/L (135-145) 10/06/18 14:00 Potassium 4.6 mEq/L (3.5-5.2) 10/06/18 14:00 Chloride 103 mEq/L (97-110) 10/06/18 14:00 Carbon Dioxide 24 mEq/l (22-31) 10/06/18 14:00 Anion Gap 9 mEq/L (6-14) 10/06/18 14:00 BUN 48 mg/dL (7-23) H 10/06/18 14:00 Creatinine 1.6 mg/dL (0.6-1.0) H 10/06/18 14:00 Estimated GFR 32 10/06/18 14:00 Glucose 117 mg/dL (70-100) H 10/06/18 14:00 POC Glucose 171 mg/dL (70-100) H 10/06/18 21:16 Calcium 10.2 mg/dL (8.5-10.4) 10/06/18 14:00 POC Troponin I 0.02 ng/mL (0.00-0.08) 10/06/18 14:07 Patient ABO/Rh B POSITIVE 10/06/18 16:35 Antibody Screen NEGATIVE 10/06/18 16:35 Crossmatch IS Only See Detail 10/06/18 16:35 Assessment & Plan Assessment: Contusion of left hip (Acute) Hematoma (Acute) Unable to ambulate (Acute) Plan: Chart reviewed. Case discussed with Alsiha Rocha NP. Agree with assessment and plan as outlined above.
[2018-10-06] MEDS ORDERED: D50W 25 GM/50 ML SYR IVP PRN (20:01)
[2018-10-06] MEDS: HYDROCODONE/APAP 10/325 TAB PO PRN (20:03)
[2018-10-06] MEDS: ALBUTEROL 3 ML DEYVIAL IH SCH (20:41)
[2018-10-06] MEDS: FLUTICASONE/SALMETER 250/50MCG DISKUS IH SCH (20:41)
[2018-10-06] MEDS: TRIAMCINOLONE 0.1% 15 GM CRTUBE TP PRN (20:50)
[2018-10-06] MEDS: FLUTICASONE NASAL 120 SPRAYS/16 GM MDI EACHNARE SCH (20:50)
[2018-10-06] MEDS: HYDROmorphONE/DILAUDID 1 MG/ML INJ IVP PRN (20:51)
[2018-10-06] MEDS: FAMOTIDINE 20 MG TAB PO SCH (20:51)
[2018-10-06] MEDS: clonazePAM 0.5 MG TAB PO SCH (20:51)
[2018-10-07] MEDS: HYDROCODONE/APAP 10/325 TAB PO PRN ×3 (03:23→21:10)
[2018-10-07 04:39] LABS: PLATELET COUNT 255 10^3/uL (150-400)
[2018-10-07] MEDS: HYDROmorphONE/DILAUDID 1 MG/ML INJ IVP PRN ×3 (05:51→16:50)
[2018-10-07] MEDS ORDERED: LEVOTHYROXINE 200 MCG TAB PO SCH (06:00)
[2018-10-07] MEDS: TRIAMCINOLONE 0.1% 15 GM CRTUBE TP PRN ×3 (08:24→21:15)
[2018-10-07] MEDS: CALCIUM CARB W/VIT D 500 MG TAB PO SCH (08:30)
[2018-10-07] MEDS: FLUoxetine 20 MG CAP PO SCH (08:30)
[2018-10-07] MEDS: ASPIRIN EC 81 MG TAB PO SCH (08:31)
[2018-10-07] MEDS: CETIRIZINE 10 MG TAB PO SCH (08:31)
[2018-10-07] MEDS: CYANO/VITAMIN B12 1000 MCG TAB PO SCH (08:31)
[2018-10-07] MEDS: PANTOPRAZOLE SODIUM 40 MG TAB PO SCH (08:31)
[2018-10-07] MEDS: buPROPion XL 150 MG TAB PO SCH (08:31)
[2018-10-07] MEDS: INSULIN LISPRO 100 UNIT/ML SC SCH ×3 (08:31→18:37)
[2018-10-07] MEDS: METOPROLOL SUCCINATE XR 50 MG TAB PO SCH (08:33)
[2018-10-07] MEDS: FLUTICASONE NASAL 120 SPRAYS/16 GM MDI EACHNARE SCH ×2 (08:37→21:12)
[2018-10-07] MEDS: ARIPiprazole 2 MG TAB PO SCH (08:44)
[2018-10-07] MEDS ORDERED: NON-FORMULARY NEW DRUG (Bupropion Hcl [Wellbutrin Xl] 300 MG) PO SCH (09:00)
[2018-10-07] MEDS: ALBUTEROL 3 ML DEYVIAL IH SCH ×3 (09:12→21:20)
[2018-10-07] MEDS: FLUTICASONE/SALMETER 250/50MCG DISKUS IH SCH ×2 (09:14→21:20)
--- NOTE | 2018-10-07 10:15 | PDMN ---
Medical Necessity Medical necessity: Pt meets IP criteria as of 10/06/2018 per and JILL LINARES ( Musculoskeletal Disease GRG); est los > 2 mn for ongoing tx and management of L hip contusion with blood loss anemia s/p fall with severe pain causing an inability to ambulate and complete ADL's at baseline, this is pt's second fall onto this hip in the last month; requiring pain management, IR consultation for possible aspiration/drain placement, blood transfusion, serial labs, and management of other conditions including LUIS CARLOS on CKD, afib, CHF, HTN and DM II.
--- NOTE | 2018-10-07 11:23 | SOAPPROG ---
SOAP Progress Note Assessment/Plan: Assessment: left hip/thigh hematoma Plan: recommend IR for aspiration and possible drain placement recommend against surgery at this time give concerns for infection in hip arthroplasty and recurrent bleeding ice compression wbat hematoma is similar in size clinically Subjective: pain over left trochanter Objective: Vital Signs Temp Pulse Resp BP Pulse Ox 36.5 C 102 H 20 132/110 H 95 10/07/18 11:12 10/07/18 11:12 10/07/18 11:12 10/07/18 11:12 10/07/18 11:12 Laboratory Results 10/07/18 07:55 10/07/18 02:54 10/06/18 10/07/18 10/08/18 05:59 05:59 05:59 Intake Total 750 Output Total 350 Balance 750 -350 PT 15.6 SEC (12.0-15.0) H 10/06/18 14:00 INR 1.22 (0.83-1.16) H 10/06/18 14:00 hematoma similar in size, moderately tender ICD10 Worksheet Patient Problems: Problems Problem Status Onset Contusion of left hip Acute Hematoma Acute Unable to ambulate Acute 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
--- NOTE | 2018-10-07 16:53 | HOSPPROG ---
Hospitalist Progress Note Assessment/Plan: #Mechanical Fall #Left Hip Hematoma #Acute on chronic Anemia -Hgb is stable. Hematoma has not expanded #LUIS CARLOS #dCHF #Afib #chronic AC #DMII Plan: we discussed options for IR aspiration and drain placement. The pt does not want this and wants to hold off Hematoma has not expanded. Will hold transfusion at this time. No transfusion has been given during this hospitalization Provide 1 L of NS Check urine studies Hold Pradaxa Hold Diuretic for now Pain mgm home meds cont inpatient care Subjective: some hip pain. Does not want IR intervention Objective: Vital Signs Temp Pulse Resp BP Pulse Ox 36.6 C 91 15 149/93 H 90 L 10/07/18 15:11 10/07/18 16:01 10/07/18 16:01 10/07/18 15:11 10/07/18 16:01 Laboratory Results 10/07/18 07:55 10/07/18 02:54 10/06/18 10/07/18 10/08/18 05:59 05:59 05:59 Intake Total 750 Output Total 350 Balance 750 -350 PT 15.6 SEC (12.0-15.0) H 10/06/18 14:00 INR 1.22 (0.83-1.16) H 10/06/18 14:00 - Physical Exam Constitutional: no apparent distress Eyes: PERRL, EOMI Ears, Nose, Mouth, Throat: moist mucous membranes, hearing normal Cardiovascular: regular rate and rhythym, No edema Respiratory: no respiratory distress, no rales or rhonchi, clear to auscultation Gastrointestinal: normoactive bowel sounds, soft, non-tender abdomen Skin: warm Musculoskeletal: generalized weakness Neurologic: AAOx3 Psychiatric: interacting appropriately, not anxious, not encephalopathic Lymph, Heme, Immunologic: No petechiae ICD10 Worksheet Patient Problems: Problems Problem Status Onset Contusion of left hip Acute Hematoma Acute Unable to ambulate Acute 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
[2018-10-07] MEDS ORDERED: NS 1,000 ML IV SCH (17:00)
--- NOTE | 2018-10-07 17:18 | ASMTCMCOM ---
CM Note CM Note Notes: 10/07/2018 Case Management Note Met w/pt to discuss d/c needs. Pt admitted after second fall with left hip hematoma making ambulation painful. PT recommending SNF. Pt lives independently at [facility]. Matilde Szymanski is dependency case manager [phone]. Pt has [facility] 3 x/week for 3 hour visits. Explained to pt that was not enough support given recent falls. [facility] provides OT and PT and 1 meal a day. Left for Matilde. After lengthy discussion pt agreed to referrals to [facility] and [facility]. Case Management d/c poc: SNF rehab pending acceptance. Case Management to follow. Date Signed: 10/07/2018 05:17 PM Electronically Signed By:Lisa Keys RN
--- NOTE | 2018-10-07 17:41 | ASMTCMCOM ---
CM Note CM Note Notes: 10/07/2018 Case Management Note Spoke with Matilde Szymanski. Pt has home health care through [facility]. RN only for med management. Case Management to send referral to increase services. Pt emergency contact is Kieran Perez [phone]. Pt resides at [facility]. ED note is incorrect. Case management d/c poc: to be determined. Date Signed: 10/07/2018 05:41 PM Electronically Signed By:Lisa Keys RN
[2018-10-07] MEDS: clonazePAM 0.5 MG TAB PO SCH (21:09)
[2018-10-07] MEDS: FAMOTIDINE 20 MG TAB PO SCH (21:10)
[2018-10-08] MEDS: HYDROmorphONE/DILAUDID 1 MG/ML INJ IVP PRN (00:29)
[2018-10-08 04:31] LABS: PLATELET COUNT 252 10^3/uL (150-400)
[2018-10-08] MEDS: HYDROCODONE/APAP 10/325 TAB PO PRN ×3 (05:48→18:38)
[2018-10-08] MEDS: LEVOTHYROXINE 100 MCG TAB PO SCH (05:48)
--- NOTE | 2018-10-08 08:03 | SOAPPROG ---
SOAP Progress Note Assessment/Plan: Assessment: left hip/thigh hematoma Plan: Hematoma appears stable she refused IR aspiration yesterday but is now considering it continue current management, recommend against surgery at this point She can follow up with myself or Dr. Ann 1 week after discharge call [phone] if questions 10/08/18 08:01 Subjective: pain improved Objective: Vital Signs Temp Pulse Resp BP Pulse Ox 36.3 C 90 15 151/101 H 92 10/08/18 07:28 10/08/18 07:28 10/08/18 07:28 10/08/18 07:28 10/08/18 07:28 Laboratory Results 10/08/18 03:55 10/08/18 03:55 10/07/18 10/08/18 10/09/18 05:59 05:59 05:59 Intake Total 750 1825 Output Total 1150 Balance 750 675 PT 15.6 SEC (12.0-15.0) H 10/06/18 14:00 INR 1.22 (0.83-1.16) H 10/06/18 14:00 left thigh hematoma feels similar in appearance ICD10 Worksheet Patient Problems: Problems Problem Status Onset Contusion of left hip Acute Hematoma Acute Unable to ambulate Acute 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
[2018-10-08] MEDS: CETIRIZINE 10 MG TAB PO SCH (08:48)
[2018-10-08] MEDS: ARIPiprazole 2 MG TAB PO SCH (08:48)
[2018-10-08] MEDS: CALCIUM CARB W/VIT D 500 MG TAB PO SCH (08:48)
[2018-10-08] MEDS: FLUoxetine 20 MG CAP PO SCH (08:48)
[2018-10-08] MEDS: CYANO/VITAMIN B12 1000 MCG TAB PO SCH (08:48)
[2018-10-08] MEDS: PANTOPRAZOLE SODIUM 40 MG TAB PO SCH (08:48)
[2018-10-08] MEDS: ASPIRIN EC 81 MG TAB PO SCH (08:48)
[2018-10-08] MEDS: METOPROLOL SUCCINATE XR 50 MG TAB PO SCH (08:48)
[2018-10-08] MEDS: buPROPion XL 150 MG TAB PO SCH (08:48)
[2018-10-08] MEDS: INSULIN LISPRO 100 UNIT/ML SC SCH ×3 (08:49→17:07)
[2018-10-08] MEDS: FLUTICASONE NASAL 120 SPRAYS/16 GM MDI EACHNARE SCH ×2 (08:49→21:53)
[2018-10-08] MEDS: ALBUTEROL 3 ML DEYVIAL IH SCH ×3 (08:54→21:30)
[2018-10-08] MEDS: FLUTICASONE/SALMETER 250/50MCG DISKUS IH SCH ×2 (08:56→21:31)
[2018-10-08] MEDS ORDERED: DOCUSATE SODIUM 100 MG CAP PO PRN (09:30)
[2018-10-08] MEDS ORDERED: hydrALAZINE 20 MG/ML VIAL IVP PRN (11:51)
[2018-10-08] MEDS ORDERED: METOPROLOL SUCCINATE XR 25 MG TAB PO ONE (12:00)
--- NOTE | 2018-10-08 15:11 | ASMTCMCOM ---
CM Note CM Note Notes: CM met with pt to provide education on recommendation for SNF. Pt was adament that she did not want to go to a SNF and wanted to go back to [facility] with [facility]. CM discussed safety concerns and high risk of falls/ readmission and continued to refuse referral to SNF. CM updated RN and MD. Pt is active with [facility] and also gets therapies through [facility] ([facility] CM to follow. Plan: PT/OT rec SNF; Pt wants to go home with [facility]. Date Signed: 10/08/2018 03:10 PM Electronically Signed By:CRISTIAN Ro
--- NOTE | 2018-10-08 15:19 | HOSPPROG ---
Hospitalist Progress Note Assessment/Plan: #Mechanical Fall #Left Hip Hematoma #Acute on chronic Anemia -Hgb is stable. Hematoma has not expanded #LUIS CARLOS, resolved, now back to baseline #dCHF #Afib #chronic AC, holding Pradaxa #DMII #HTN Plan: After further discussion she is open to the idea of IR aspiration and drain. Overall the hematoma appears to be stable and has not increased in size. She is tolerating the pain well and while quite larger, there does not appears to be a large mass effect. Will discuss with IR aspiration options and clinical indication. Hold Aspirin Will hold transfusion at this time. No transfusion has been given during this hospitalization Hold Pradaxa Increase Metoprolol, she says she takes a higher dose than we are providing. She does not want to start a second agent for her HTN at this time. Hydralazine PRN if she is agreeable to it. Hold Diuretic for now Pain mgm home meds cont inpatient care Subjective: no cp or sob. No n/v. tolerating hip pain. Ambulating with assistance Objective: Vital Signs Temp Pulse Resp BP Pulse Ox 36.2 C 95 13 183/110 H 99 10/08/18 11:45 10/08/18 11:45 10/08/18 11:45 10/08/18 11:45 10/08/18 11:45 Laboratory Results 10/08/18 03:55 10/08/18 03:55 10/07/18 10/08/18 10/09/18 05:59 05:59 05:59 Intake Total 750 1825 Output Total 1150 200 Balance 750 675 -200 PT 15.6 SEC (12.0-15.0) H 10/06/18 14:00 INR 1.22 (0.83-1.16) H 10/06/18 14:00 - Physical Exam Constitutional: no apparent distress Eyes: PERRL Ears, Nose, Mouth, Throat: moist mucous membranes, hearing normal Cardiovascular: regular rate and rhythym, No edema Respiratory: no respiratory distress, no rales or rhonchi Gastrointestinal: normoactive bowel sounds, soft, non-tender abdomen Genitourinary: no bladder fullness Skin: other (large left hip and buttock hematoma) Neurologic: AAOx3 Psychiatric: interacting appropriately, not anxious, not encephalopathic Lymph, Heme, Immunologic: No petechiae ICD10 Worksheet Patient Problems: Problems Problem Status Onset Contusion of left hip Acute Hematoma Acute Unable to ambulate Acute 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
--- NOTE | 2018-10-08 16:49 | PDHPUP ---
History & Physical Update H&P update statement: This history and physical update is based on an assessment of the patient which was completed after admission or registration (within 24 hours), but prior to the surgery/procedure. Left hip subcutaneous hematoma with significant tension and pain. Plan for US guided drain placement in an attempt to avoid surgical decompression/ evacuation. H&P update: H&P reviewed & patient examined, no change in patient's condition since H&P completed
--- NOTE | 2018-10-08 16:53 | PDRADPN ---
Radiology Procedure Note Date of Procedure: 10/08/18 Radiologist: Jaime Zaragoza Anesthesia: Local (Specify) Pre-op Diagnosis: Large left hip subcutaneous fluid hematoma Post-op Diagnosis: Large left hip subcutaneous fluid hematoma Indication: Possible Casas-Pat lesion with tension on skin Procedure: US guided drain placement Finding(s): 12 Fr drain placed. Complex, multiloculated hematoma has not completely liquified, making perc drainage difficult/not fully effective. Fenestration of dominant loculations with guidewire was performed to help maximally decompress. Discussed with primary team the need to continue to monitor output and if low with continued skin tension surgical evacuation/ drainage should be considered to avoid skin breakdown/necrosis. Irrigate drain with 10 mL NS TID. Please see separately dictated radiology report for full details. Inf/Abcess present in the surg proc area at time of surgery?: No Drains: Constavac
[2018-10-08] MEDS: TRIAMCINOLONE 0.1% 15 GM CRTUBE TP PRN ×2 (17:07→21:54)
[2018-10-08] MEDS: FAMOTIDINE 20 MG TAB PO SCH (21:53)
[2018-10-08] MEDS: clonazePAM 0.5 MG TAB PO SCH (21:53)
[2018-10-09] MEDS: HYDROCODONE/APAP 10/325 TAB PO PRN ×3 (02:13→18:36)
[2018-10-09 03:39] LABS: PLATELET COUNT 250 10^3/uL (150-400)
[2018-10-09] MEDS: LEVOTHYROXINE 100 MCG TAB PO SCH (05:22)
--- NOTE | 2018-10-09 08:42 | SOAPPROG ---
SOAP Progress Note Assessment/Plan: Assessment: left hip/thigh hematoma Plan: Hematoma appears stable- feels slightly softer than yesterday Had IR drain placed yesterday with minimal output As long as the hematoma remains stable, recommend no surgical intervention She can follow up with myself or Dr. Ann 1 week after discharge call [phone] if questions 10/08/18 08:01 10/09/18 08:40 Subjective: pain improved today Objective: Vital Signs Temp Pulse Resp BP Pulse Ox 36.7 C 92 20 180/95 H 99 10/09/18 08:00 10/09/18 08:00 10/09/18 08:00 10/09/18 08:00 10/09/18 08:00 Laboratory Results 10/09/18 03:25 10/09/18 03:25 10/08/18 10/09/18 10/10/18 05:59 05:59 05:59 Intake Total 1825 575 Output Total 1150 2890 Balance 675 -2315 PT 15.6 SEC (12.0-15.0) H 10/06/18 14:00 INR 1.22 (0.83-1.16) H 10/06/18 14:[address] thigh feels slightly softer than yesterday ICD10 Worksheet Patient Problems: Problems Problem Status Onset Contusion of left hip Acute Hematoma Acute Unable to ambulate Acute 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
[2018-10-09] MEDS: INSULIN LISPRO 100 UNIT/ML SC SCH ×3 (09:03→19:28)
[2018-10-09] MEDS: FLUoxetine 20 MG CAP PO SCH (09:11)
[2018-10-09] MEDS: METOPROLOL SUCCINATE XR 50 MG TAB PO SCH (09:11)
[2018-10-09] MEDS: CETIRIZINE 10 MG TAB PO SCH (09:11)
[2018-10-09] MEDS: PANTOPRAZOLE SODIUM 40 MG TAB PO SCH (09:11)
[2018-10-09] MEDS: CALCIUM CARB W/VIT D 500 MG TAB PO SCH (09:11)
[2018-10-09] MEDS: CYANO/VITAMIN B12 1000 MCG TAB PO SCH (09:11)
[2018-10-09] MEDS: ARIPiprazole 2 MG TAB PO SCH (09:11)
[2018-10-09] MEDS: buPROPion XL 150 MG TAB PO SCH (09:11)
[2018-10-09] MEDS: HYDROmorphONE/DILAUDID 1 MG/ML INJ IVP PRN ×2 (10:44→18:36)
[2018-10-09] MEDS: FLUTICASONE/SALMETER 250/50MCG DISKUS IH SCH ×2 (10:47→20:40)
[2018-10-09] MEDS: ALBUTEROL 3 ML DEYVIAL IH SCH ×3 (10:47→20:40)
[2018-10-09] MEDS: amLODIPine BESYLATE 5 MG TAB PO SCH (13:58)
[2018-10-09] MEDS: FLUTICASONE NASAL 120 SPRAYS/16 GM MDI EACHNARE SCH ×2 (14:01→20:47)
--- NOTE | 2018-10-09 14:53 | HOSPPROG ---
Hospitalist Progress Note Assessment/Plan: #Mechanical Fall #Left Hip Hematoma -s/p attempted aspiration, placement of drain with minimal output #Acute on chronic Anemia -Hgb is stable. Hematoma has not expanded #LUIS CARLOS, resolved, now back to baseline #dCHF #Afib #chronic AC, holding Pradaxa #DMII #HTN #Generalized Weakness, recurrent falls Plan: cont pain mgmt, symptom mgmt Hematoma is essentially unchanged. Drain is in place with minimal output. Ortho reccs no surgical intervention. IR reccs reconsideration of surgical evacuation if not significant drainage is accomplished. Will reevaluate tomorrow allowing the drain to be in for over 24 hours. Hold Aspirin Will hold transfusion at this time. No transfusion has been given during this hospitalization Hold Pradaxa cont Metoprolol Start Amlodipine Refusing Hydralazine PRN Hold Diuretic for now, Looks euvolemic home meds cont inpatient care Needs a SNF but she is refusing. CM is working with her. Subjective: still with elevated blood pressue. more pain to left hip today. Objective: Vital Signs Temp Pulse Resp BP Pulse Ox 35.8 C L 93 13 164/105 H 91 L 10/09/18 12:00 10/09/18 12:00 10/09/18 12:00 10/09/18 12:00 10/09/18 12:00 Laboratory Results 10/09/18 03:25 10/09/18 03:25 10/08/18 10/09/18 10/10/18 05:59 05:59 05:59 Intake Total 1825 575 350 Output Total 1150 2890 400 Balance 675 -2315 -50 PT 15.6 SEC (12.0-15.0) H 10/06/18 14:00 INR 1.22 (0.83-1.16) H 10/06/18 14:00 - Physical Exam Constitutional: no apparent distress Eyes: PERRL, EOMI Ears, Nose, Mouth, Throat: moist mucous membranes Cardiovascular: No edema Respiratory: no respiratory distress Gastrointestinal: normoactive bowel sounds, soft, non-tender abdomen Skin: warm Musculoskeletal: generalized weakness Neurologic: AAOx3 Psychiatric: interacting appropriately, not anxious, not encephalopathic ICD10 Worksheet Patient Problems: Problems Problem Status Onset Contusion of left hip Acute Hematoma Acute Unable to ambulate Acute 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
[2018-10-09] MEDS: clonazePAM 0.5 MG TAB PO SCH (22:18)
[2018-10-09] MEDS: FAMOTIDINE 20 MG TAB PO SCH (22:21)
[2018-10-09] MEDS: TRIAMCINOLONE 0.1% 15 GM CRTUBE TP PRN (23:06)
[2018-10-10] MEDS: HYDROmorphONE/DILAUDID 1 MG/ML INJ IVP PRN ×3 (00:19→08:35)
[2018-10-10] MEDS: HYDROCODONE/APAP 10/325 TAB PO PRN ×3 (00:21→16:46)
[2018-10-10] MEDS: TRIAMCINOLONE 0.1% 15 GM CRTUBE TP PRN (00:22)
[2018-10-10 04:17] LABS: PLATELET COUNT 235 10^3/uL (150-400)
[2018-10-10] MEDS: LEVOTHYROXINE 100 MCG TAB PO SCH (06:23)
[2018-10-10] MEDS: FLUTICASONE/SALMETER 250/50MCG DISKUS IH SCH ×2 (08:31→21:32)
[2018-10-10] MEDS: ALBUTEROL 3 ML DEYVIAL IH SCH ×3 (08:31→21:34)
[2018-10-10] MEDS: buPROPion XL 150 MG TAB PO SCH (08:39)
[2018-10-10] MEDS: METOPROLOL SUCCINATE XR 50 MG TAB PO SCH (08:39)
[2018-10-10] MEDS: CALCIUM CARB W/VIT D 500 MG TAB PO SCH (08:39)
[2018-10-10] MEDS: amLODIPine BESYLATE 5 MG TAB PO SCH (08:40)
[2018-10-10] MEDS: ARIPiprazole 2 MG TAB PO SCH (08:40)
[2018-10-10] MEDS: CETIRIZINE 10 MG TAB PO SCH (08:41)
[2018-10-10] MEDS: CYANO/VITAMIN B12 1000 MCG TAB PO SCH (08:41)
[2018-10-10] MEDS: FLUoxetine 20 MG CAP PO SCH (08:41)
[2018-10-10] MEDS: PANTOPRAZOLE SODIUM 40 MG TAB PO SCH (08:41)
[2018-10-10] MEDS ORDERED: ERGOCALCIFEROL 50,000 I.UNIT CAP PO SCH (09:00)
[2018-10-10] MEDS: FLUTICASONE NASAL 120 SPRAYS/16 GM MDI EACHNARE SCH ×2 (09:28→21:02)
[2018-10-10] MEDS: INSULIN LISPRO 100 UNIT/ML SC SCH ×3 (09:44→19:23)
--- NOTE | 2018-10-10 15:23 | HOSPPROG ---
Hospitalist Progress Note Assessment/Plan: 73yo F with AF on OAC, dCHF, T2DM recent hospital stay for fall and left hip hematoma presents with recurrence of the latter. 1. Left hip hematoma - s/p subcutaneous drain by IR 10/08, minimal output last 2 days - several loculations make drainage challenging - ortho not wanting to pursue surgical intervention given underlying prosthesis - keep drain in place for now - pain control 2. Chronic anemia: H/H at baseline - no indication for transfusion at this point 3. Mechanical fall: recurrent issue - PT/OT recommending SNF, patient refusing 4. Atrial fibrillation: rates ok - holding pradaxa 5. Chronic dCHF: compensated - cont metoprolol 6. HTN: BP still a bit high - added amlodipine 7. T2DM - home meds, SSI 8. Depression, anxiety - home meds VTE ppx: SCDs Code: DNR Dispo: Remain inpatient. Possibly dc tomorrow Subjective: Pain improved. Per RN, patient intermittently agitated, not folllowing bed/chair alarm and almost pulled out hip drain. Objective: Vital Signs Temp Pulse Resp BP Pulse Ox 36.3 C 110 H 18 175/113 H 93 10/10/18 12:00 10/10/18 12:00 10/10/18 12:00 10/10/18 12:00 10/10/18 12:00 Laboratory Results 10/10/18 03:25 10/09/18 03:25 10/09/18 10/10/18 10/11/18 05:59 05:59 05:59 Intake Total 575 1350 Output Total 2890 1282.5 1200 Balance -2315 67.5 -1200 PT 15.6 SEC (12.0-15.0) H 10/06/18 14:00 INR 1.22 (0.83-1.16) H 10/06/18 14:00 - Physical Exam Constitutional: no apparent distress, chronically ill appearing Eyes: PERRL, anicteric sclera Ears, Nose, Mouth, Throat: moist mucous membranes Cardiovascular: regular rate and rhythym, no murmur, rub, or gallop Respiratory: no respiratory distress (s), no rales or rhonchi, clear to auscultation Gastrointestinal: normoactive bowel sounds, soft, non-tender abdomen, no palpable masses Genitourinary: no bladder fullness, no bladder tenderness, no renal bruits Skin: no rashes or abrasions, no fluctuance, no induration Musculoskeletal: other (left hip indurated, drain in place with sanguinous fluid ) Neurologic: AAOx3 Psychiatric: interacting appropriately ICD10 Worksheet Patient Problems: Problems Problem Status Onset Contusion of left hip Acute Hematoma Acute Unable to ambulate Acute 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
--- NOTE | 2018-10-10 17:42 | SOAPPROG ---
SOAP Progress Note Assessment/Plan: Assessment: left hip/thigh hematoma Plan: Hematoma appears stable- pain improved IR drain minimal output As long as the hematoma remains stable, recommend no surgical intervention given total hip Her skin is viable and not threatened May d/c from hospital from my standpoint She can follow up with myself or Dr. Ann 1 week after discharge call [phone] if questions Subjective: pain improved Objective: Vital Signs Temp Pulse Resp BP Pulse Ox 36.3 C 93 18 175/113 H 99 10/10/18 12:00 10/10/18 17:03 10/10/18 17:03 10/10/18 12:00 10/10/18 17:03 Laboratory Results 10/10/18 03:25 10/09/18 03:25 10/09/18 10/10/18 10/11/18 05:59 05:59 05:59 Intake Total 575 1350 200 Output Total 2890 1282.5 1240 Balance -2315 67.5 -1040 PT 15.6 SEC (12.0-15.0) H 10/06/18 14:00 INR 1.22 (0.83-1.16) H 10/06/18 14:00 hematoma similar in size less tender ICD10 Worksheet Patient Problems: Problems Problem Status Onset Contusion of left hip Acute Hematoma Acute Unable to ambulate Acute 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
[2018-10-10] MEDS: clonazePAM 0.5 MG TAB PO SCH (21:01)
[2018-10-10] MEDS: FAMOTIDINE 20 MG TAB PO SCH (21:02)
[2018-10-11] MEDS: HYDROCODONE/APAP 10/325 TAB PO PRN (01:39)
[2018-10-11] MEDS: LEVOTHYROXINE 100 MCG TAB PO SCH (07:28)
[2018-10-11] MEDS: CALCIUM CARB W/VIT D 500 MG TAB PO SCH (09:05)
[2018-10-11] MEDS: buPROPion XL 150 MG TAB PO SCH (09:06)
[2018-10-11] MEDS: ARIPiprazole 2 MG TAB PO SCH (09:06)
[2018-10-11] MEDS: FLUoxetine 20 MG CAP PO SCH (09:06)
[2018-10-11] MEDS: PANTOPRAZOLE SODIUM 40 MG TAB PO SCH (09:06)
[2018-10-11] MEDS: METOPROLOL SUCCINATE XR 50 MG TAB PO SCH (09:06)
[2018-10-11] MEDS: CETIRIZINE 10 MG TAB PO SCH (09:06)
[2018-10-11] MEDS: amLODIPine BESYLATE 5 MG TAB PO SCH (09:07)
[2018-10-11] MEDS: CYANO/VITAMIN B12 1000 MCG TAB PO SCH (09:07)
[2018-10-11] MEDS: FLUTICASONE NASAL 120 SPRAYS/16 GM MDI EACHNARE SCH ×2 (09:08→20:52)
[2018-10-11] MEDS: FLUTICASONE/SALMETER 250/50MCG DISKUS IH SCH ×2 (09:13→21:09)
[2018-10-11] MEDS: ALBUTEROL 3 ML DEYVIAL IH SCH ×3 (09:13→21:09)
[2018-10-11] MEDS: INSULIN LISPRO 100 UNIT/ML SC SCH ×3 (10:40→18:40)
--- NOTE | 2018-10-11 12:19 | ASMTCMCOM ---
CM Note CM Note Notes: Pts case discussed w/ in tx rounds. CM met w/ pt for dispo planning. Pt reiterated that she is not interested in going to SNF. Pt will resume her services with [facility] once medically stable. CM to follow. Plan: [facility] with [facility]; PT, OT, RN, OILER AND GREASER, BUS AND TROLLEY INSPECTING DISPATCHER Date Signed: 10/11/2018 12:18 PM Electronically Signed By:CRISTIAN Ascencio
--- NOTE | 2018-10-11 15:52 | HOSPPROG ---
Hospitalist Progress Note Assessment/Plan: 73yo F with AF on OAC, dCHF, T2DM recent hospital stay for fall and left hip hematoma presents with recurrence of the latter. 1. Left hip hematoma - s/p subcutaneous drain by IR 10/08, minimal output last 2 days - remove drain today 10/11 - ortho not wanting to pursue surgical intervention given underlying prosthesis - pain control 2. Chronic anemia: H/H at baseline - no indication for transfusion at this point 3. Atrial fibrillation: Rates slightly creeping up this afternoon - restart diuretics (volume may be contributing), continue metoprolol - holding pradaxa 4. Mechanical fall: recurrent issue - PT/OT recommending SNF, patient refusing 5. Chronic dCHF: developing some pedal edema - restarting torsemide and julita, continue BB 6. HTN: BP still a bit high - cont amlodipine (added this admission) 7. T2DM - home meds, SSI 8. Depression, anxiety - home meds VTE ppx: SCDs Code: DNR Dispo: Remain inpatient. Monitor hip and h/h tomorrow morning after drain removal. Probable discharge in AM Subjective: Overall improving. Bearing weight on left hip. Walked halls twice today without difficulty. Drianed 65ml yesterday. No dizziness. Objective: Vital Signs Temp Pulse Resp BP Pulse Ox 36.4 C 130 H 16 147/99 H 90 L 10/11/18 11:17 10/11/18 15:10 10/11/18 11:17 10/11/18 11:17 10/11/18 15:10 Laboratory Results 10/11/18 03:40 10/09/18 03:25 10/10/18 10/11/18 10/12/18 05:59 05:59 05:59 Intake Total 1350 1880 560 Output Total 1282.5 2565 300 Balance 67.5 -685 260 PT 15.6 SEC (12.0-15.0) H 10/06/18 14:00 INR 1.22 (0.83-1.16) H 10/06/18 14:00 - Physical Exam Constitutional: no apparent distress, chronically ill appearing Eyes: PERRL, anicteric sclera Ears, Nose, Mouth, Throat: moist mucous membranes Cardiovascular: tachycardia, edema (trace at ankles) Respiratory: no respiratory distress, no rales or rhonchi, clear to auscultation Gastrointestinal: normoactive bowel sounds, soft, non-tender abdomen, no palpable masses Genitourinary: no bladder fullness, no bladder tenderness, no renal bruits Skin: induration (left lateral hip), other (drain in place with dark blood) Musculoskeletal: full muscle strength Neurologic: AAOx3 Psychiatric: interacting appropriately ICD10 Worksheet Patient Problems: Problems Problem Status Onset Contusion of left hip Acute Hematoma Acute Unable to ambulate Acute 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
[2018-10-11] MEDS: clonazePAM 0.5 MG TAB PO SCH (20:52)
[2018-10-11] MEDS: FAMOTIDINE 20 MG TAB PO SCH (20:52)
[2018-10-12] MEDS: HYDROCODONE/APAP 10/325 TAB PO PRN ×2 (01:23→10:59)
[2018-10-12] MEDS: LEVOTHYROXINE 100 MCG TAB PO SCH (06:05)
[2018-10-12] MEDS: METOPROLOL SUCCINATE XR 50 MG TAB PO SCH (07:59)
[2018-10-12] MEDS: buPROPion XL 150 MG TAB PO SCH (07:59)
[2018-10-12] MEDS: FLUoxetine 20 MG CAP PO SCH (08:01)
[2018-10-12] MEDS: PANTOPRAZOLE SODIUM 40 MG TAB PO SCH (08:02)
[2018-10-12] MEDS: CETIRIZINE 10 MG TAB PO SCH (08:02)
[2018-10-12] MEDS: ARIPiprazole 2 MG TAB PO SCH (08:02)
[2018-10-12] MEDS: amLODIPine BESYLATE 5 MG TAB PO SCH (08:02)
[2018-10-12] MEDS: CALCIUM CARB W/VIT D 500 MG TAB PO SCH (08:03)
[2018-10-12] MEDS: CYANO/VITAMIN B12 1000 MCG TAB PO SCH (08:03)
[2018-10-12] MEDS: FLUTICASONE NASAL 120 SPRAYS/16 GM MDI EACHNARE SCH (08:08)
[2018-10-12] MEDS: FLUTICASONE/SALMETER 250/50MCG DISKUS IH SCH (08:08)
[2018-10-12 08:14] VITALS: BP 155/102
[2018-10-12] MEDS: INSULIN LISPRO 100 UNIT/ML SC SCH (08:16)
[2018-10-12] MEDS ORDERED: SPIRONOLACTONE 25 MG TAB PO SCH (09:00)
--- NOTE | 2018-10-12 09:13 | PDIAF ---
- Diagnosis Code Status: Do Not Resuscitate - Medication Management Additional Medication Instructions: Do NOT take eliquis or aspirin until you follow up with your PCP and orthopedic surgery. Discharge Medications: electronically signed and located in the Home Medication List. PICC Care - Routine: N/A - Orders Services needed: Home Care, Registered Nurse, Certified Brim Edge Trimmer, Master Jammer Operator, Physical Therapy, Occupational Therapy Home Care Face to Face: I certify that this patient was under my care and that I had the required docu-ed-ausn encounter meeting the encounter requirements on the discharge day. My findings support the fact that the patient is homebound as defined in Home Care Face to Face Continued: CMS Chapter 7 Medicare Benefits Manual 30.1.1 , The condition of the patient is such that there exists a normal inability to leave home and consequently, leaving home would require a considerable and taxing effort. Isolation Type: None [place]: Not applicable Activity/Weight Bearing Restrictions: Weight bearing as tolerated. Range of motion as tolerated. Additional Instructions: You should continue to NOT take your Eliquis or aspirin. I have also stopped your metolazone (diuretic). Otherwise, continue taking your other medications. Please follow up with your primary care doctor in 1 week. Continue to ice your left thigh/hip if it is bothering you. FOLLOW UP W DR PAT OR DR ARANA IN ORTHO OFFICE 1 WEEK AFTER DISCHARGE. - Follow Up Care Current Providers and Referrals: Vic Nowak MD [Primary Care Provider] - As per Instructions Justo Pat MD [Medical Doctor] - follow up in 1 week
--- NOTE | 2018-10-12 09:13 | PDDCSUM ---
Discharge Summary Discharge Summary: Date of Admission: 10/06/2018 Date of Discharge: 10/12/2018 Consultants: orthopedic surgery, IR Procedures: 1. Left lateral hip subcutaneous drain placement Studies: left hip x-ray, left hip non-contrasted CT Discharge Diagnoses: 1. Large left subcutaneous hematoma over greater trochanter 2. Recurrent mechanical falls 3. Chronic anemia 4. Atrial fibrillation ([id number]) 5. Chronic dCHF 6. HTN 7. T2DM 8. Depression, anxiety Brief Hospital Course: 73yo F with AF on OAC, dCHF, T2DM, prior left total hip arthroplasty, recent hospital stay for fall and left hip hematoma presented after a fall. She was just discharged from this hospital after a fall with subsequent left hip hematoma. Her eliquis was held and she was transfused 4u PRBC during that admission. SNF was recommended at that time but she refused. She went home and fell again on her left hip leading to this hospitalization. CT of her hip revealed a very large subcutaneous left hip hematoma over her greater trochanter , at potential risk for Casas-Pat lesion. Orthopedic surgery was consulted for surgical drainage, however, they recommended against this due to concerns for creating a tract for infection of her hip arthroplasty. IR was consulted and placed a subcutaneous drain. However, the fluid collection was noted to be complex, multiloculated, and not completely liquified making percutaneous drainage not fully effective. Only about 100mL of blood was drained in total. The drain was removed prior to discharge. Her hemoglobin remained stable and she did not require blood transfusion. Again, therapy services recommended SNF however patient refused. Her home health care services were resumed. Her eliquis was continued to be held. Medications: Please refer to EMR for complete list. I have stopped her eliquis, aspirin, and metolazone. Otherwise, medications were continued. Follow Up Plan: 1. Follow up with Dr Pat or Dr Ann (ortho) in 1 week Physical Exam: Vitals reviewed, stable. Alert and oriented, rrr, lungs clear, abdomen soft, left lateral hip with induration that has improved, ecchymoses in dependent areas of left leg.
[2018-10-12] MEDS: ALBUTEROL 3 ML DEYVIAL IH SCH (09:23)
--- NOTE | 2018-10-12 09:39 | ASMTLACE ---
LACE Length of stay for Answers: 4-6 days current admission Acuity / Level of Answers: Yes Care: Did the patient have an inpatient admission? Comorbidities - select Answers: Congestive heart failure all that apply Diabetes (uncontrolled or controlled) Opioid dependence / Chronic pain Other Notes: AFib; HTN # of Emergency department Answers: 3-4 visits in the last 6 months Social determinants Answers: Mental health diagnosis (anxiety, depression, pers onality disorders, etc.) Score: 21 Date Signed: 10/12/2018 09:38 AM Electronically Signed By:CRISTIAN Ascencio
--- NOTE | 2018-10-12 09:41 | ASMTDCNOTE ---
Case Management Discharge Discharge Order Complete? Answers: Yes Patient to Obtain Answers: Independently Medications Transportation Arranged Answers: [facility] W/C Transport will Pick (Date 10/12/2018 12:00 PM & Time) EMTALA Complete Answers: No Case Management Transport Answers: No Form Complete Faxed Final Orders Answers: Yes Agency/Facility Transfer Answers: Yes Report Printed & Faxed to Receiving Agency Family Notified Answers: No Discharge Comments Notes: Pts case discussed w/ Dr. Ramirez. Pt is being d/c'd today. DC orders sent to [facility]. Pt will resume services w/ [facility] private duty caregivers. CM arranged transportation for pt through [facility] w/c medicaid. No other needs at this time. CM available for changes. Plan: [facility]; PT, OT, RN, COLLETER, AERONAUTICAL ENGINEER with [facility] caregivers Date Signed: 10/12/2018 09:41 AM Electronically Signed By:CRISTIAN Ascencio
--- NOTE | 2018-10-12 09:42 | ASDISCHSUM ---
Discharge Information Plan Status:Home with Home Health Medically Cleared to Leave:10/11/2018 Discharge Date:10/11/2018 CM D/C Disposition: ADT D/C Disposition:[id number] Projected Discharge Date:10/12/2018 11:00 AM Transportation at D/C: Discharge Delay Reason: Follow-Up Date:10/12/2018 11:00 AM Discharge Slot: Final Diagnosis: Placement Information Referral Type:*Alf/SNF Referral ID:-[id number] Provider Name: Address 1: Phone Number: Address 2: Fax Number: City: Selection Factors: State: Referral Type:*Home Health Care Services Referral ID:[id number] Provider Name:[facility] Address 1:[address] Phone Number: Address 2: Fax Number: [facility]:[place] Selection Factors: State:[place] Patient Contact Information Contact Name:REA Relationship:Cousin Address: City: Alternate Phone: [facility]/Zip Code: Email: Financial Information Financial Class:Medicaid Primary Plan Desc[place] Primary Plan Number:[id number] Secondary Plan Desc:MEDICARE IP PART B ONLY Secondary Plan Number:[id number] Assessment Information LACE LACE Length of stay for Answers: 4-6 days current admission Acuity / Level of Answers: Yes Care: Did the patient have an inpatient admission? Comorbidities - select Answers: Congestive heart failure all that apply Diabetes (uncontrolled or controlled) Opioid dependence / Chronic pain Other Notes: AFib; HTN # of Emergency department Answers: 3-4 visits in the last 6 months Social determinants Answers: Mental health diagnosis (anxiety, depression, pers onality disorders, etc.) Score: 21 Date Signed: 10/12/2018 09:38 AM Electronically Signed By:CRISTIAN Ascencio [facility] CM Progress Note CM Note CM Note Notes: 10/07/2018 Case Management Note Met w/pt to discuss d/c needs. Pt admitted after second fall with left hip hematoma making ambulation painful. PT recommending SNF. Pt lives independently at [facility]. Matilde Stephon is block and case maker [phone]. Pt has [facility] 3 x/week for 3 hour visits. Explained to pt that was not enough support given recent falls. [facility] provides OT and PT and 1 meal a day. Left VM for Matilde. After lengthy discussion pt agreed to referrals to [facility]. Case Management d/c poc: SNF rehab pending acceptance. Case Management to follow. Date Signed: 10/07/2018 05:17 PM Electronically Signed By:Lisa Keys RN [facility] Progress Note CM Note CM Note Notes: 10/07/2018 Case Management Note Spoke with Matilde Stephon. Pt has home health care through [facility]. RN only for med management. Case Management to send referral [facility]. Pt emergency contact is Kieran Perez [phone]. Pt resides at [facility]. ED note is incorrect. Case management d/c poc: to be determined. Date Signed: 10/07/2018 05:41 PM Electronically Signed By:Lisa Keys RN [facility] Progress Note CM Note CM Note Notes: CM met with pt to provide education on recommendation for SNF. Pt was adament that she did not want to go to a SNF and wanted to go back to [facility] with [facility]. CM discussed safety concerns and high risk of falls/ readmission and continued to refuse referral to SNF. CM updated RN and MD. Pt is active with [facility] and also gets therapies through [facility] ([facility]). CM to follow. Plan: PT/OT rec SNF; Pt wants to go home with [facility]. Date Signed: 10/08/2018 03:10 PM Electronically Signed By:CRISTIAN Ro [facility] Progress Note CM Note CM Note Notes: Pts case discussed w/ in tx rounds. CM met w/ pt for dispo planning. Pt reiterated that she is not interested in going to SNF. Pt will resume her services with [facility] once medically stable. CM to follow. Plan: [facility] with [facility]; PT, OT, RN, CHEMICAL EQUIPMENT SALES ENGINEER, QUANTITATIVE STRATEGY ANALYST Date Signed: 10/11/2018 12:18 PM Electronically Signed By:CRISTIAN Ascencio Case Management Discharge Plan Note Case Management Discharge Discharge Order Complete? Answers: Yes Patient to Obtain Answers: Independently Medications Transportation Arranged Answers: [facility] W[facility] Transport will Pick (Date 10/12/2018 12:00 PM & Time) ODALYS Complete Answers: No Case Management Transport Answers: No Form Complete Faxed Final Orders Answers: Yes Agency/Facility Transfer Answers: Yes Report Printed & Faxed to Receiving Agency Family Notified Answers: No Discharge Comments Notes: Pts case discussed w/ Dr. Ramirez. Pt is being d/c'd today. DC orders sent to [facility]. Pt will resume services w/ [facility] private duty caregivers. CM arranged transportation for pt through [facility] w/c medicaid. No other needs at this time. CM available for changes. Plan: [facility]; PT, OT, RN, CHEMICAL EQUIPMENT SALES ENGINEER, QUANTITATIVE STRATEGY ANALYST with [facility] caregivers Date Signed: 10/12/2018 09:41 AM Electronically Signed By:CRISTIAN Ascencio Intervention Information Intervention Type:*Incorrect Registration Date of Service:10/06/2018 09:44 AM Patient Type:Observation Staff Member:Yvrose Henley Hours: Discipline: Severity: Comment:
[2018-10-12] MEDS ORDERED: TORSEMIDE 20 MG TAB PO SCH (10:00)
== END 2018-10-12 11:00 | disposition home health service (06) | DRG 384 ==
LOC: EDUNIT# → F2W 17:45 → OBSVTOIN 19:20
PROVIDERS: ADMIT Hospitalist; ATTEND Internal Medicine
PROC: 0J9M30Z Drainage of Left Upper Leg Subcutaneous Tissue and Fascia with Drainage Device, Percutaneous Approach (ICD-10-PCS; principal; 2018-10-08)
DX: S70.02XA Contusion of left hip, initial encounter (principal); I50.32 Chronic diastolic (congestive) heart failure; I48.91 Unspecified atrial fibrillation; I11.0 Hypertensive heart disease with heart failure; E11.9 Type 2 diabetes mellitus without complications; D64.9 Anemia, unspecified; N17.9 Acute kidney failure, unspecified; F32.9 Major depressive disorder, single episode, unspecified; F41.9 Anxiety disorder, unspecified; J45.909 Unspecified asthma, uncomplicated; G47.33 Obstructive sleep apnea (adult) (pediatric); G89.29 Other chronic pain; Z79.01 Long term (current) use of anticoagulants; Z96.642 Presence of left artificial hip joint; Z96.653 Presence of artificial knee joint, bilateral; Z66 Do not resuscitate; W06.XXXA Fall from bed, initial encounter; Y92.013 Bedroom of single-family (private) house as the place of occurrence of the external cause
CPT/HCPCS: 84484-ER; 96374; 97116-GP; 97162-GP; 97165-GO; 97530-GO; 97535-GO; J0360; J1170; J1815; J7613

== ENCOUNTER 2018-11-15 13:32 | Inpatient (IN) | payer OTHER, MEDICAID ==
--- NOTE | 2018-11-15 13:46 | EDPHY ---
H & P Time Seen by Provider: 11/15/18 13:37 HPI/ROS: CHIEF COMPLAINT: Worsening CHF, lethargy HISTORY OF PRESENT ILLNESS: Patient was sent from the [facility] for 15 lb weight gain and oxygen saturation of 72%, likely worsening CHF. Over the past 2 weeks she has gained 14 lb. She feels more lethargic and just has generally decreased energy. Symptoms severe. Worse with any type of attempt to exert herself. Denies chest pain or fever or chills. Normal oral intake. No cough or hemoptysis. Does have bilateral lower extremity swelling. REVIEW OF SYSTEMS: Eye: no change in vision ENT: no sore throat Cardiac: no chest pain or syncope Pulmonary: HPI. Abdomen: no vomiting, diarrhea, abdominal pain Musculoskeletal: Bilateral leg swelling Skin: no rash Neuro: no headache Constitutional: no fever : no urinary symptoms A comprehensive 10 point review of systems is otherwise negative aside from elements mentioned in the history of present illness. PAST MEDICAL HISTORY: H&P dated 10/06/2018 personally reviewed includes diastolic CHF, atrial fibrillation, hypertension, diabetes, asthma, sleep apnea , chronic pain, depression and anxiety. Colon resection, bilateral knee replacements. Social history: Former smoker Temperature 36 degrees, O2 sat 90% on nasal cannula. General Appearance: Alert and conversant, cooperative. Eyes: No scleral icterus. ENT, Mouth: Normal mucous membranes. Respiratory: Decreased breath sounds at the bases, able to speak in full sentences on 2 L nasal cannula. Cardiovascular: Irregular rhythm Gastrointestinal: Abdomen is soft and non tender. Neurological: Alert, face symmetric, normal motor and sensory in extremities. Skin: Warm and dry, no rashes. Musculoskeletal: Bilateral peripheral edema. Psychiatric: Not agitated. Emergency Department course/MDM: Discussed with Dr. Clyde Wooten prior to patient arrival, at 1525. Cardiology is aware of her admission. Admission for worsening CHF, creatinine noted at 1.8. 1453: X-ray interpretation by Dr. Camacho and the actual chest x-ray personally reviewed by myself and Dr. Baker. At this point will hold off on antibiotic treatment in the emergency department. Clinically I think that pneumonia would still be less likely [place] [address] is noted. However BNP is greater than 42,000, does not have cough or fever. Smoking Status: Former smoker Constitutional: Initial Vital Signs Heart Rate 108 H 11/15/18 13:40 Respiratory Rate 22 H 11/15/18 13:40 Blood Pressure 163/126 H 11/15/18 13:40 O2 Sat (%) 93 11/15/18 13:40 O2 Delivery Mode Room Air Allergies/Adverse Reactions: iodine Allergy (Severe, Verified 11/15/18 13:44) GRAVES DISEASE/RED SKIN lidocaine [From Lidoderm] Allergy (Verified 11/15/18 13:44) Rash pravastatin Allergy (Verified 11/15/18 13:44) CAN'T WALK Home Medications: Medication Instructions Recorded Albuterol [Proventil Inhaler HFA 2 puffs IH Q6HRS PRN 06/25/17 (*)] Docusate Sodium [Colace 100 MG (*)] 200 mg PO DAILY 06/25/17 FLUoxetine [Prozac 20 MG (*)] 20 mg PO DAILY 06/25/17 Famotidine [Pepcid 20 MG (*)] 20 mg PO BID 06/25/17 Levothyroxine [Synthroid 200 mcg 200 mcg PO DAILY06 06/25/17 (*)] Triamcinolone 0.1% [Triamcinolone 1 fadia TP BID PRN 06/25/17 0.1% Cream (*)] clonazePAM [Klonopin (*)] 0.5 mg PO HS 06/25/17 ARIPiprazole [Abilify 2 mg (*)] 2 mg PO DAILY 07/21/17 clonIDINE [Catapres (*)] 0.1 mg PO HS 07/21/17 Loratadine [Claritin 10 mg] 10 mg PO DAILY 12/14/17 Fluticasone/Salmeter 250/50Mcg 1 puffs IH BID 01/02/18 [Advair 250/50 (*)] Acetaminophen [Tylenol 325mg (*)] 650 mg PO Q4HRS PRN tab 01/07/18 Hydrocodone/Acetaminophen [[place] 1 each PO Q6 PRN 05/21/18 7.5-325 Tablet] buPROPion XL [Wellbutrin 150mg XL] 150 mg PO DAILY 05/21/18 Bupropion HCl [Wellbutrin Xl] 300 mg PO DAILY 07/02/18 Ergocalciferol [Vitamin D2 (*)] 50,000 unit PO MO 07/02/18 Estradiol [Estrace Vaginal (*)] 1 fadia VG Q3D 07/02/18 Herbals/Supplements -Info Only 1 ea PO DAILY 07/02/18 Polyethylene Glycol 3350 [Miralax 17 gm PO HS 07/02/18 17 gm (*)] Spironolactone [Aldactone 25 MG 12.5 mg PO DAILY 07/02/18 (*)] Cyanocobalamin [Vitamin B12 (*)] 1,000 mcg PO DAILY 09/23/18 Metoprolol Succinate Xr [Toprol Xl 75 mg PO DAILY 09/23/18 50 mg (*)] Nystatin Powder [Mycostatin Powder] 1 fadia TP BID PRN 09/23/18 Albuterol [Proventil Neb] 3 ml IH TID 10/06/18 Fluticasone Nasal [Flonase Nasal 2 sprays NASAL BID 10/06/18 [place]] Torsemide [Demadex] 80 mg PO DAILY10 10/06/18 Ipratropium [Atrovent Hfa (*)] 1 puffs IH BID 11/15/18 Sennosides [Senna Lax] 1 - 2 tab PO DAILY PRN 11/15/18 Medical Decision Making - Diagnostics Imaging Results: Imaging Impressions Chest X-Ray 11/15/18 13:52 Impression: Retrocardiac infiltrate on the right suspicious for pneumonia. Marked cardiac enlargement. Consult/Admit Bed Type: [place] [address] - Data Points Laboratory Results: Laboratory Results 11/15/18 14:00 11/15/18 14:00 11/15/18 11/15/18 11/15/18 14:05 14:00 14:00 WBC 15.47 10^3/uL H 10^3/uL (3.80-9.50) RBC 5.09 10^6/uL 10^6/uL (4.18-5.33) Hgb 14.0 g/dL g/dL (12.6-16.3) Hct 44.5 % % (38.0-47.0) MCV 87.4 fL fL (81.5-99.8) MCH 27.5 pg L pg (27.9-34.1) MCHC 31.5 g/dL L g/dL (32.4-36.7) RDW 18.6 % H % (11.5-15.2) Plt Count 261 10^3/uL 10^3/uL (150-400) MPV 11.2 fL fL (8.7-11.7) Neut % (Auto) 85.3 % H % (39.3-74.2) Lymph % (Auto) 5.0 % L % (15.0-45.0) [place] % (Auto) 8.4 % % (4.5-13.0) Eos % (Auto) 0.1 % L % (0.6-7.6) Baso % (Auto) 0.2 % L % (0.3-1.7) Nucleat RBC Rel Count 0.0 % % (0.0-0.2) Absolute Neuts (auto) 13.19 10^3/uL H 10^3/uL (1.70-6.50) Absolute Lymphs (auto) 0.78 10^3/uL L 10^3/uL (1.00-3.00) Absolute Monos (auto) 1.30 10^3/uL H 10^3/uL (0.30-0.80) Absolute Eos (auto) 0.01 10^3/uL L 10^3/uL (0.03-0.40) Absolute Basos (auto) 0.03 10^3/uL 10^3/uL (0.02-0.10) Absolute Nucleated RBC 0.00 10^3/uL 10^3/uL (0-0.01) Immature Gran % 1.0 % % (0.0-1.1) Immature Gran # 0.16 10^3/uL H 10^3/uL (0.00-0.10) Sodium 136 mEq/L mEq/L (135-145) Potassium 3.6 mEq/L mEq/L (3.5-5.2) Chloride 100 mEq/L mEq/L (97-110) Carbon Dioxide 25 mEq/l mEq/l (22-31) Anion Gap 11 mEq/L mEq/L (6-14) BUN 52 mg/dL H mg/dL (7-23) Creatinine 1.8 mg/dL H mg/dL (0.6-1.0) Estimated GFR 28 Glucose 151 mg/dL H mg/dL (70-100) Calcium 9.8 mg/dL mg/dL (8.5-10.4) POC Troponin I 0.04 ng/mL ng/mL (0.00-0.08) NT-Pro-B Natriuret Pep 38939 pg/mL H pg/mL (0-125) Point of Care Test Results: Chemistry 11/15/18 14:05 POC Troponin I 0.04 ng/mL ng/mL (0.00-0.08) Departure - Departure Disposition: [facility] Inpatient Acute Clinical Impression: CHF (congestive heart failure) Qualifiers: Heart failure type: diastolic Heart failure chronicity: acute on chronic Qualified Code(s): I50.33 - Acute on chronic diastolic (congestive) heart failure Condition: Fair
[2018-11-15 14:10] LABS: PLATELET COUNT 261 10^3/uL (150-400)
--- NOTE | 2018-11-15 14:23 | GCON ---
[f rep st] CONSULTATION NEW CARDIOLOGY CONSULT/PATIENT VISIT NOTE DATE OF CONSULTATION: 11/15/2018 REASON FOR CONSULTATION: Worsening 10 pound weight gain despite increase in oral diuretics with hypo jose a, abdominal swelling, and shortness of breath. HISTORY OF PRESENT ILLNESS: The patient is a 73-year-old woman who I saw in the Cardiology Clinic to day and then referred to the ER for admission. She has the following cardiac medical problems: 1. Chronic diastolic heart failure. 2. Permanent atrial fibrillation. 3. Hyperlipidemia. 4. Previous CVA. 5. Sleep apnea on CPAP. 6. Chronic hypoxemia on nighttime oxygen only. 7. Hypertension. 8. Diabetes mellitus. 9. Chronic renal insufficiency with a creatinine of 1.8. 10. Chronic venous insufficiency. Her last Cardiolite stress test in November of 2016, demonstrated an LVEF of 64% with no ischemia. An e cho in May of 2018 demonstrated an LVEF of 60% with severe biatrial enlargement and mild aortic a nd mitral regurgitation. Lastly, a right heart catheterization and RV biopsy was done in May of 2018, which demonstrated a mean right atrial pressure of 8, PA pressure 39/17 with a mean pulmonary p ressure of 28 and a pulmonary capillary wedge pressure of 14. Her cardiac output and cardiac index w ere 3.1 and 1.9 L/minutes respectively. RV biopsies demonstrated no infiltrating process, such as am yloidosis. She has gained about 10 pounds in the last month. This is despite increasing her oral Demadex. Toda y, her pulse ox was 72% walking into clinic and only came up to 90% with increase in oxygen supplemen tation. She has gained another 10 pounds and feels her abdomen is quite swollen. She has more leg e ryan. She is short of breath at rest. She denies chest pain, PND, orthopnea, or syncope. CURRENT MEDICATIONS: Aldactone 12.5 mg per day, clonidine 0.1 mg q.h.s., Demadex 80 mg per day. Res t of medications are noncardiac. ALLERGIES: Iodine, Lidoderm, pravastatin, and statins. SOCIAL HISTORY: The patient lives by herself. She denies tobacco or alcohol use. FAMILY HISTORY: Unremarkable for premature coronary artery disease. REVIEW OF SYSTEMS: Patient reports no recent fevers, chills, or hemoptysis. She has no GI bleed sym ptoms, such as hematemesis, melena, or bright red blood per rectum. Rest of 10-point review of syste ms is negative. PHYSICAL EXAM: VITAL SIGNS: Afebrile, pulse 86 and irregularly irregular, blood pressure 116/82, re spirations 24, weight 70.2 kg. GENERAL: A tired-appearing woman in no acute distress without chest pain or using excess respiratory muscles. HEENT: Eyes: Pupils equal, reactive to light. ENT: Ora l mucosa with no cyanosis. NECK: Jugular venous pressure to 10 cm. Carotid pulses 2+ bilaterally w ith no obvious bruits. LUNGS: Clear to auscultation bilaterally without rales, rhonchi, or wheezing . HEART: Normal PMI. Irregularly irregular rhythm with 2/6 holosystolic murmur and no S3. ABDOMEN : Distended. Hepatosplenomegaly noted. No obvious guarding or ascites. EXTREMITIES: 1+ periphera l pulses, including femoral and pedal pulses. 2+ edema to the knees bilaterally. MUSCULOSKELETAL: No scoliosis. NEURO: Normal affect and mood. NECK: No nuchal rigidity. SKIN: No bleeding or cya nosis. LABORATORY: Sodium 140, potassium 4.3, chloride 102, bicarb 30, BUN 52, creatinine 1.9, glucose 172. NT proBNP level greater than 35,000. White count 9.2, hematocrit 42, platelets 240,000, MCV 86. IMPRESSION/RECOMMENDATIONS: 73-year-old woman with worsening weight gain and hypoxemia with acute on chronic diastolic heart failure and permanent atrial fibrillation and renal insufficiency. I am con cerned she is carrying a lot of fluid in her abdomen and has a lot of bowel edema and cannot absorb p ills anymore. PLAN: 1. Would recommend admitting to the hospitalist service. 2. Would stop her p.o. Demadex and give Lasix 80 mg IV x1 and then start on a Lasix drip at 20 mg/ho ur. 3. Would start on Zaroxolyn 5 mg p.o. b.i.d. 4. Would get an echo during this hospitalization. 5. Would consult Nephrology and Pulmonology services to help in this woman with complex medical prob lems. 6. The Cardiology service will follow along closely with you during her hospitalization. /[id number]/MODL
--- NOTE | 2018-11-15 14:34 | CPEKG ---
Test Reason : OPEN Blood Pressure : / mmHG Vent. Rate : 091 BPM Atrial Rate : 117 BPM P-R Int : 060 ms QRS Dur : 097 ms QT Int : 450 ms P-R-T Axes : 027 -17 196 degrees QTc Int : 554 ms Atrial fibrillation LVH with secondary repolarization abnormality Anterior Q waves, possibly due to LVH Prolonged QT interval Confirmed by Nancy Conway ([id number]) on 11/15/2018 2:33:44 PM Referred By: NANCY CONWAY Confirmed By:Nancy Conway
[2018-11-15] MEDS ORDERED: ONDANSETRON DISINTEGRATING 4 MG TAB PO PRN (15:52)
[2018-11-15] MEDS ORDERED: ONDANSETRON 4 MG/2 ML VIAL IVP PRN (15:52)
[2018-11-15] MEDS ORDERED: D50W 25 GM/50 ML SYR IVP PRN (16:02)
--- NOTE | 2018-11-15 16:32 | PDGENHP ---
History and Physical - Chief Complaint Rapid weight gain within 2 weeks - History of Present Illness 73 y/o female w/ hx of CHF, atrial fibrillation, HLD, VICENTA on CPAP, HTN, chronic venous insufficiency presented from [facility] d/t rapid weight gain (15+ lbs ) within 2 weeks, YEAGER and abdominal swelling. She reports no CP, palpitations, nausea, fever or chills. Endorses infrequent urination. Normal BMs. Upon presentation, she is fluid overloaded w/ 2+ pitting BLE edema, JVD, abdominal swelling and quite elevated BNP (42,200). Today is the highest it has been elevated compared to previous admissions. She is being admitted for treatment and monitoring. History Information - Allergies/Home Medication List Allergies/Adverse Reactions: iodine Allergy (Severe, Verified 11/15/18 13:44) GRAVES DISEASE/RED SKIN lidocaine [From Lidoderm] Allergy (Verified 11/15/18 13:44) Rash pravastatin Allergy (Verified 11/15/18 13:44) CAN'T WALK Home Medications: Albuterol [Proventil Inhaler HFA (*)] 2 puffs IH Q6HRS PRN 06/25/17 [Last Taken 07/20/17] Docusate Sodium [Colace 100 MG (*)] 200 mg PO DAILY 06/25/17 [Last Taken ] FLUoxetine [Prozac 20 MG (*)] 20 mg PO DAILY 06/25/17 [Last Taken 11/15/18] Famotidine [Pepcid 20 MG (*)] 20 mg PO BID 06/25/17 [Last Taken 11/15/18] Levothyroxine [Synthroid 200 mcg (*)] 200 mcg PO DAILY06 06/25/17 [Last Taken ] Triamcinolone 0.1% [Triamcinolone 0.1% Cream (*)] 1 fadia TP BID PRN 06/25/17 [ Last Taken 2 Weeks Ago ~07/07/17] clonazePAM [Klonopin (*)] 0.5 mg PO HS 06/25/17 [Last Taken 11/14/18] ARIPiprazole [Abilify 2 mg (*)] 2 mg PO DAILY 07/21/17 [Last Taken 11/15/18] clonIDINE [Catapres (*)] 0.1 mg PO HS 07/21/17 [Last Taken 11/14/18] Loratadine [Claritin 10 mg] 10 mg PO DAILY 12/14/17 [Last Taken 11/15/18] Fluticasone/Salmeter 250/50Mcg [Advair 250/50 (*)] 1 puffs IH BID 01/02/18 [ Last Taken 11/15/18] Hydrocodone/Acetaminophen [[place] 7.5-325 Tablet] 1 each PO Q6 PRN 05/21/18 [ Last Taken 11/15/18] buPROPion XL [Wellbutrin 150mg XL] 150 mg PO DAILY 05/21/18 [Last Taken 11/15/18 ] Bupropion HCl [Wellbutrin Xl] 300 mg PO DAILY 07/02/18 [Last Taken 11/15/18] Ergocalciferol [Vitamin D2 (*)] 50,000 unit PO MO 07/02/18 [Last Taken 11/14/18] Estradiol [Estrace Vaginal (*)] 1 fadia VG Q3D 07/02/18 [Last Taken Unknown] Herbals/Supplements -Info Only 1 ea PO DAILY 07/02/18 [Last Taken Unknown] Polyethylene Glycol 3350 [Miralax 17 gm (*)] 17 gm PO HS 07/02/18 [Last Taken ] Spironolactone [Aldactone 25 MG (*)] 12.5 mg PO DAILY 07/02/18 [Last Taken 11/15] Cyanocobalamin [Vitamin B12 (*)] 1,000 mcg PO DAILY 09/23/18 [Last Taken ] Metoprolol Succinate Xr [Toprol Xl 50 mg (*)] 75 mg PO DAILY 09/23/18 [Last Taken 11/15/18] Nystatin Powder [Mycostatin Powder] 1 fadia TP BID PRN 09/23/18 [Last Taken Unknown] Albuterol [Proventil Neb] 3 ml IH TID 10/06/18 [Last Taken 11/15/18] Fluticasone Nasal [Flonase Nasal [place]] 2 sprays NASAL BID 10/06/18 [Last Taken 11/15/18] Torsemide [Demadex] 80 mg PO DAILY10 10/06/18 [Last Taken 11/15/18] Ipratropium [Atrovent Hfa (*)] 1 puffs IH BID 11/15/18 [Last Taken 11/15/18] Sennosides [Senna Lax] 1 - 2 tab PO DAILY PRN 11/15/18 [Last Taken Unknown] I have personally reviewed and updated: family history, medical history, social history, surgical history - Past Medical History atrial fibrillation, asthma, CHF, diabetes type 2, hypertension Additional medical history: Depression. Chronic pain - Surgical History Additional surgical history: Hip surgery - Family History Positive for: cancer, vascular disease, hypertension - Social History Smoking Status: Former smoker Alcohol Use: None Drug Use: None Additional social history: Lives independently at [facility]. [facility] RN tends to her every week. Review of Systems Review of Systems: ROS: 10pt was reviewed & negative except for what was stated in HPI & below Physical Exam Physical Exam: Lab data and imaging were reviewed. WBC: 15.47 w/ left shift BUN/Cr: 52/1.8 BNP: 42,000 EKG: A-fib, sinus tachycardia CXR: Retrocardiac infiltrate on the right suspicious for pneumonia, marked cardiac enlargement Temp Pulse Resp BP Pulse Ox 36.3 C 97 14 174/126 H 100 11/15/18 16:15 11/15/18 16:15 11/15/18 16:15 11/15/18 16:15 11/15/18 16:15 O2 (L/minute) 2 Constitutional: obese, uncomfortable Eyes: PERRL, anicteric sclera, EOMI Ears, Nose, Mouth, Throat: moist mucous membranes, hearing normal, ears appear normal, no oral mucosal ulcers Cardiovascular: irregularly irregular, JVD, tachycardia, edema (2+ pitting BLE edema) Peripheral Pulses: 1+: dorsalis-pedis (R) (Radial 1+), dorsalis-pedis (L) ( Radial 1+) Respiratory: reduced air movement Gastrointestinal: soft, non-tender abdomen, no palpable masses, distension, other (Hypoactive BS) Genitourinary: no bladder fullness, no bladder tenderness Skin: warm, normal color, no rashes or abrasions, no fluctuance, no induration, No mottled Musculoskeletal: full muscle strength, no muscle tenderness, normal joint ROM, no joint effusions Neurologic: AAOx3, sensation intact bilaterally, CN II-XII Intact Psychiatric: interacting appropriately, not anxious, not encephalopathic, thought process linear Lymph, Heme, Immunologic: no cervical LAD, no supraclavicular LAD Lab Data & Imaging Review 11/15/18 14:00 11/15/18 14:00 WBC 15.47 10^3/uL (3.80-9.50) H 11/15/18 14:00 RBC 5.09 10^6/uL (4.18-5.33) 11/15/18 14:00 Hgb 14.0 g/dL (12.6-16.3) 11/15/18 14:00 Hct 44.5 % (38.0-47.0) 11/15/18 14:00 MCV 87.4 fL (81.5-99.8) 11/15/18 14:00 MCH 27.5 pg (27.9-34.1) L 11/15/18 14:00 MCHC 31.5 g/dL (32.4-36.7) L 11/15/18 14:00 RDW 18.6 % (11.5-15.2) H 11/15/18 14:00 Plt Count 261 10^3/uL (150-400) 11/15/18 14:00 MPV 11.2 fL (8.7-11.7) 11/15/18 14:00 Neut % (Auto) 85.3 % (39.3-74.2) H 11/15/18 14:00 Lymph % (Auto) 5.0 % (15.0-45.0) L 11/15/18 14:00 [place] % (Auto) 8.4 % (4.5-13.0) 11/15/18 14:00 Eos % (Auto) 0.1 % (0.6-7.6) L 11/15/18 14:00 Baso % (Auto) 0.2 % (0.3-1.7) L 11/15/18 14:00 Nucleat RBC Rel Count 0.0 % (0.0-0.2) 11/15/18 14:00 Absolute Neuts (auto) 13.19 10^3/uL (1.70-6.50) H 11/15/18 14:00 Absolute Lymphs (auto) 0.78 10^3/uL (1.00-3.00) L 11/15/18 14:00 Absolute Monos (auto) 1.30 10^3/uL (0.30-0.80) H 11/15/18 14:00 Absolute Eos (auto) 0.01 10^3/uL (0.03-0.40) L 11/15/18 14:00 Absolute Basos (auto) 0.03 10^3/uL (0.02-0.10) 11/15/18 14:00 Absolute Nucleated RBC 0.00 10^3/uL (0-0.01) 11/15/18 14:00 Immature Gran % 1.0 % (0.0-1.1) 11/15/18 14:00 Immature Gran # 0.16 10^3/uL (0.00-0.10) H 11/15/18 14:00 Sodium 136 mEq/L (135-145) 11/15/18 14:00 Potassium 3.6 mEq/L (3.5-5.2) 11/15/18 14:00 Chloride 100 mEq/L (97-110) 11/15/18 14:00 Carbon Dioxide 25 mEq/l (22-31) 11/15/18 14:00 Anion Gap 11 mEq/L (6-14) 11/15/18 14:00 BUN 52 mg/dL (7-23) H 11/15/18 14:00 Creatinine 1.8 mg/dL (0.6-1.0) H 11/15/18 14:00 Estimated GFR 28 11/15/18 14:00 Glucose 151 mg/dL (70-100) H 11/15/18 14:00 POC Glucose 132 mg/dL (70-100) H 11/15/18 16:24 Calcium 9.8 mg/dL (8.5-10.4) 11/15/18 14:00 POC Troponin I 0.04 ng/mL (0.00-0.08) 11/15/18 14:05 NT-Pro-B Natriuret Pep 52074 pg/mL (0-125) H 11/15/18 14:00 Assessment & Plan Plan: 73 y/o female w/hx of diastolic CHF, a-fib, diabetes II, HTN presents w/ suspected CHF exacerbation w/significant weight gain within a short period of time, dyspnea, BLE edema, abdominal distention, and JVD. Differential diagnoses include but not limited: CHF exacerbation, PNA, pleural effusion #Suspected congestive heart failure #Leukocytosis #A-fib #Diabetes #Chronic renal insufficiency Plan: -Cards consulting. Dr. Wooten will follow pt -Holding home torsemide, will receive one time IVP Lasix 80 mg + initiate Lasix drip 20 mg/hr. Will monitor renal function w/ CBC/CMP in AM. -Today's echo reveals reduced EF (33%) from previous echo in May 2018 of 60% -Recommended to initiate Zaroxolyn 5mg PO BID however not only will she be receiving furosemide, but dobutamine as well. Will hold off on zaroxolyn for now to avoid a hypotensive event. -Daily weights -CXR w/suspicious retrocardiac infiltrate on the right for PNA. I recognize she does have an elevated white count w/left shift however she is afebrile at presentation, denies fevers/chills/cough and for that reason, I will not give abx. It is possible the infiltrate is r/t her CHF exacerbation and her leukocytosis is acutely reactive and not infectious in nature. Continue to monitor closely. If her symptoms worsen (WBC persists, fevers, hemodynamically unstable), initiate abx for CAP. -ISS while in hospital, TID ACCU checks Diet: Cardiac VTE ppx: SCDs Code: Full Dispo: Admit to inpatient
[2018-11-15] MEDS ORDERED: SENNOSIDES 1 TAB PO PRN (16:52)
[2018-11-15] MEDS ORDERED: NYSTATIN POWDER 15 GM BTL TP PRN (16:52)
[2018-11-15] MEDS ORDERED: ALBUTEROL 60 PUFFS/8 GM MDI IH PRN (16:52)
[2018-11-15] MEDS ORDERED: TRIAMCINOLONE 0.1% 15 GM CRTUBE TP PRN (16:52)
--- NOTE | 2018-11-15 17:07 | HOSPPROG ---
Hospitalist Progress Note Assessment/Plan: 73 yo F w dCHF here w weight gain, edema, presumed chf exacerbation. elevated wbc and possible retrocardiac infiltrate noted. diurese, hold abx, eval results patient seen, examined, discused w [employer] natalio. agree w her plan as outlined Objective: Vital Signs Temp Pulse Resp BP Pulse Ox 36.3 C 97 14 174/126 H 100 11/15/18 16:15 11/15/18 16:15 11/15/18 16:15 11/15/18 16:15 11/15/18 16:15 ICD10 Worksheet Patient Problems: Problems Problem Status Onset CHF (congestive heart failure) Acute MRSA - Methicillin resistant Staphylococcus aureus infection Active Acute kidney injury Acute Acute renal insufficiency Acute Afib Acute Bradycardia Acute Bronchitis Acute Contusion of left hip Acute Cough Acute Diuretics causing adverse effect in therapeutic use Acute Fall Acute Hematoma Acute Pneumonia Acute Primary localized osteoarthritis of left hip Acute Shortness of breath Acute Somnolence, daytime Acute Unable to ambulate Acute chronic disease mgmt/transitional care Acute
[2018-11-15] MEDS ORDERED: FUROSEMIDE 100 MG/10 ML VIAL IVP ONE (17:10)
--- NOTE | 2018-11-15 17:37 | ECHO ---
[email or web address] [address] Main: [phone] Echocardiography Examination Transthoracic Name: KIMBERLI PICKARD MR#: [id number] Study Date: 11/15/2018 Study Time: 04:36 PM Date of : 1945 Age: 73 year(s) Height: 157.5 cm (62 in.) Weight: 70.76 kg (156 lb.) BSA: 1.72 m2 Gender: Female Examination: Echo Contrast: Image Quality: Adequate Rhythm: Atrial fibrillation Heart Rate: 120 bpm BP: 155 mmHg/119 mmHg Indication: CHF exacerbation, Rapid weight gain Procedure Staff Referring Physician: Scow Hand: Donnie Beckwith RDCS Reading Physician: Clyde Wooten MD Requesting Provider: Ordering Physician: Anju Rocha Indication: CHF exacerbation, Rapid weight gain Measurements Chambers AV/MV Label Value Normal Value Label Value Normal Value IVSd, 2D 1.1 cm (0.6cm - 1.1cm) AV PGmax 5 mmHg IVSd, MM 1.2 cm (0.6cm - 0.9cm) AV PGmean 3 mmHg LVDd, MM 4.8 cm (3.9cm - 5.3cm) AV Vmax 1.11 m/s LVDs, MM 3.8 cm (2cm - 3.8cm) SHYANNE (continuity eq. 1.1 cm2 LVEF, BP 33 % (55% - 70%) Vmax) LVOT PGmax 1 mmHg SHYANNE D (continuity eq. 1.1 cm2 LVOT PGmean 1 mmHg VTI) LVOT Vmax 0.49 m/s (0.7m/s - 1.1m/s) MR Vmax 4.3 m/s LVOT Vmean 0.33 m/s MR VTI 160 cm LVOTd 1.8 cm (1.8cm - 2cm) MV E' lateral 0.07 m/s LVPWd, 2D 1.3 cm MV E' mean 0.05 m/s LVPWd, MM 1.2 cm (0.6cm - 0.9cm) MV E' septal 0.03 m/s RVDd, 2D 2.3 cm (1.9cm - 3.8cm) MV E Vmax 0.76 m/s LA Volume, BP 169 ml (22ml - 52ml) MV E/E' lateral 10.4 LAESV index, BP 98.3 ml/m2 MV E/E' mean 15.2 Additional Vessels MV E/E' septal 27.8 (0.45 - 1.25) Label Value Normal Value TV/PV AoRoot, MM 3.6 cm (2.2cm - 3.7cm) Label Value Normal Value RA Pressure 5 mmHg Patient: KIMBERLI PICKARD Study Date: 11/15/2018 Page 1 of 3 04:36 PM RVSP 49 mmHg TR Pmax 44 mmHg TR Vmax 3.31 m/s PV PGmax 2 mmHg PV Vmax, Caliper 0.64 m/s (0.6m/s - 0.9m/s) Conclusions Left Ventricle: CONCLUSIONS:1)Moderately reduced LV systolic function with a LVEF of 30-35%.2)Moderate concentric LVH noted.3)Moderately reduced RV systolic function noted.4)Severe left atrial and moderate right atrial enlargement(s) noted.5)Aortic valve sclerosis without . Mild AI noted.6)Moderate MR without MV prolapse.7)Mild to moderate TR with estimated PAS =49mmHg consistent with mild to moderate pulmonary HTN. Findings Left Ventricle: Left ventricle is normal in size. CONCLUSIONS: 1)Moderately reduced LV systolic function with a LVEF of 30-35%. 2)Moderate concentric LVH noted. 3)Moderately reduced RV systolic function noted. 4)Severe left atrial and moderate right atrial enlargement(s) noted. 5)Aortic valve sclerosis without . Mild AI noted. 6)Moderate MR without MV prolapse. 7)Mild to moderate TR with estimated PAS =49mmHg consistent with mild to moderate pulmonary HTN. The ejection fraction, measured by Simpsons method, is 33 %. There is moderate concentric left ventricular hypertrophy. Unable to assess Diastolic Dysfunction due to atrial fibrillation/a flutter. There is spontaneous echo contrast, indicative of stasis in the left ventricle. Right Ventricle: Normal size right ventricle. Right ventricular systolic function is moderately reduced. Left Atrium: The left atrium is severely dilated. Right Atrium: The right atrium is moderately dilated. Mitral Valve: Moderate mitral regurgitation. Aortic Valve: Mild aortic regurgitation is present. There is no aortic stenosis. Aortic leaflets exhibit mild to moderate calcification. The aortic valve is trileaflet. Tricuspid Valve: Mild to moderate tricuspid regurgitation. Right Ventricular systolic pressure is measured at 49 mmHg. Pulmonary artery pressure moderately increased. Pulmonic Valve: Pulmonic leaflets are structurally normal. Aorta: The aorta is normal. The aortic root size in M-mode measures 3.6 cm. Aorta Measurements AoRoot, MM is 3.6 cm. Pericardium: Trivial pericardial effusion. Exam Details Procedure Ordered: Echo Procedure Status: Routine study Patient: KIMBERLI PICKARD Study Date: 11/15/2018 Page 2 of 3 04:36 PM Image Quality: Adequate Facility Location: Cardiac Echo 1 (No Signature Object) Patient: KIMBERLI PICKARD Study Date: 11/15/2018 Page 3 of 3 04:36 PM [id number]
[2018-11-15] MEDS: INSULIN LISPRO 100 UNIT/ML SC SCH (17:41)
[2018-11-15] MEDS ORDERED: ALTEPLASE 2 MG VIAL IVP PRN (17:42)
[2018-11-15] MEDS ORDERED: ALBUTEROL 3 ML DEYVIAL IH PRN (17:54)
[2018-11-15] MEDS: FUROSEMIDE 100 MG in D5W 100 ML IV SCH (18:37)
--- NOTE | 2018-11-15 18:51 | PDMN ---
Medical Necessity Medical necessity: Pt meets IP criteria per [employer] & MCG M-190; est los >2 mn for eval/tx of suspected CHF exacerbation w/dyspnea, significant weight gain & edema , as well as suspicious retrocardiac infiltratate & elevated wbc; admit for further monitoring, Cardiology consult & Lasix gtt; hx AFIB, diabetes, chronic renal insufficiency; per H&P & order 11/15/18
[2018-11-15] MEDS: clonazePAM 0.5 MG TAB PO SCH (20:22)
[2018-11-15] MEDS: POLYETHYLENE GLYCOL 3350 17 GM PKT PO SCH (20:23)
[2018-11-15] MEDS: FAMOTIDINE 20 MG TAB PO SCH (20:23)
[2018-11-15] MEDS: FLUTICASONE NASAL 120 SPRAYS/16 GM MDI NS SCH (20:24)
[2018-11-15] MEDS: FLUTICASONE/SALMETER 250/50MCG DISKUS IH SCH (21:12)
[2018-11-15] MEDS: IPRATROPIUM HFA INHALER IH SCH (21:12)
[2018-11-15] MEDS ORDERED: ALBUTEROL 3 ML DEYVIAL IH SCH (22:00)
[2018-11-15] MEDS: DOBUTamine/DEXTROSE 250 ML IV SCH (22:53)
[2018-11-16] MEDS: LEVOTHYROXINE 200 MCG TAB PO SCH (05:38)
[2018-11-16] MEDS: FUROSEMIDE 100 MG in D5W 100 ML IV SCH ×3 (05:40→18:16)
[2018-11-16] MEDS ORDERED: PROTOCOL POTASSIUM 1 DOSE MISC PRN (08:55)
--- NOTE | 2018-11-16 08:58 | PDCARPN ---
Cardiology Progress Note Assessment/Plan: Assessment: 1. Acute on Chronic Diastolic CHF 2. Permanent Afib 3. Chronic Renal Insufficiency with baseline Cr 1.8 4. VICENTA on CPAP 5. HTN 6. DM Plan: -Add Pottassium Chloride 40 meq daily -check serum Mg -Add metolazone 5 mg bid -Continue lasix gtt -Continue Dobutamine gtt -Will obtain echocardiogram -Daily weights and I/O's -Agree with plan for pulmonary and nephrology consults 11/16/18 08:56 Subjective: Mrs. Morgan feels better this AM, less SOB. Weight and Labs pending this AM. No events on Tele, remains in chronic Afib. Reviewed/Discussed With: multidisciplinary team Objective: Vital Signs (8 Hrs) Temp Pulse Resp BP Pulse Ox 11/16/18 07:31 36.4 C 82 14 156/105 H 100 11/16/18 04:00 36.4 C 82 16 144/87 H 100 Intake/Output (24 Hrs) 11/15/18 11/16/18 11/17/18 05:59 05:59 05:59 Intake Total 750 340.4 Output Total 575 325 Balance 175 15.4 Intake: Oral (ml) 750 IV Intake (ml) 50 IV Infused (ml) 290.4 DOBUTamine/DEXTROSE 250 50.4 ml @ Titrate IV CONT RICHIE Rx#:[id number] Furosemide 100 mg In D5w 240 100 ml @ 20 mls/hr IV CONT RICHIE Rx#:[id number] Output: Urine (ml) 575 325 Bedside Commode 475 325 Toilet 100 Other: Weight 69.7 kg Output Comment Bedside Commode + some in suction container from ext. cath, and some inc.in brief Number of Voids Bedside Commode 1 1 Incontinence 1 Toilet 1 Result Diagrams: 11/15/18 14:00 11/15/18 14:00 - Physical Exam Constitutional: no apparent distress ICD10 Worksheet Patient Problems: Problems Problem Status Onset CHF (congestive heart failure) Acute MRSA - Methicillin resistant Staphylococcus aureus infection Active Acute kidney injury Acute Acute renal insufficiency Acute Afib Acute Bradycardia Acute Bronchitis Acute Contusion of left hip Acute Cough Acute Diuretics causing adverse effect in therapeutic use Acute Fall Acute Hematoma Acute Pneumonia Acute Primary localized osteoarthritis of left hip Acute Shortness of breath Acute Somnolence, daytime Acute Unable to ambulate Acute chronic disease mgmt/transitional care Acute
[2018-11-16] MEDS ORDERED: NON-FORMULARY NEW DRUG (Bupropion Hcl [Wellbutrin Xl] 300 MG) PO SCH (09:00)
[2018-11-16] MEDS ORDERED: METOPROLOL SUCCINATE XR 50 MG TAB PO SCH (09:00)
[2018-11-16] MEDS ORDERED: METOLAZONE 5 MG TAB PO SCH (09:00)
[2018-11-16] MEDS ORDERED: Herbals/Supplements -Info Only PO SCH (09:00)
[2018-11-16] MEDS: INSULIN LISPRO 100 UNIT/ML SC SCH ×3 (09:01→17:19)
[2018-11-16] MEDS ORDERED: POTASSIUM CL 10 MEQ TAB PO ONE (09:16)
[2018-11-16 09:21] LABS: PLATELET COUNT 171 10^3/uL (150-400)
[2018-11-16] MEDS: FLUTICASONE/SALMETER 250/50MCG DISKUS IH SCH (10:26)
[2018-11-16] MEDS: IPRATROPIUM HFA INHALER IH SCH (10:26)
[2018-11-16] MEDS: FLUTICASONE NASAL 120 SPRAYS/16 GM MDI NS SCH ×2 (10:30→20:25)
[2018-11-16] MEDS: DOCUSATE SODIUM 100 MG CAP PO SCH (10:31)
[2018-11-16] MEDS: SPIRONOLACTONE 25 MG TAB PO SCH (10:31)
[2018-11-16] MEDS: buPROPion XL 150 MG TAB PO SCH (10:31)
[2018-11-16] MEDS: CETIRIZINE 10 MG TAB PO SCH (10:32)
[2018-11-16] MEDS: FLUoxetine 20 MG CAP PO SCH (10:32)
[2018-11-16] MEDS: CYANO/VITAMIN B12 1000 MCG TAB PO SCH (10:32)
[2018-11-16] MEDS: ARIPiprazole 2 MG TAB PO SCH (10:32)
[2018-11-16] MEDS: POTASSIUM CL 20 MEQ TAB PO SCH (11:19)
--- NOTE | 2018-11-16 11:36 | ASMTCMCOM ---
CM Note CM Note Notes: Pts case discussed in tx rounds. Pt is a 73 y/o female admitted for CHF and volume overload. PT and OT have been ordered and awaiting recommendations. Pt is current w/ [facility] and [facility]. 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 Updates sent to [facility]. CM to follow. Plan: TBD Date Signed: 11/16/2018 11:35 AM Electronically Signed By:CRISTIAN Ascencio
--- NOTE | 2018-11-16 11:55 | ASMTLACE ---
MCKENNA Acuity / Level of Answers: Yes Care: Did the patient have an inpatient admission? Comorbidities - select Answers: Congestive heart failure all that apply Diabetes (uncontrolled or controlled) Opioid dependence / Chronic pain Other Notes: AFib; HTN # of Emergency department Answers: 3-4 visits in the last 6 months Social determinants Answers: Mental health diagnosis (anxiety, depression, pers onality disorders, etc.) Score: 17 Date Signed: 11/16/2018 11:53 AM Electronically Signed By:Erika Saucedo
--- NOTE | 2018-11-16 12:19 | HOSPPROG ---
Hospitalist Progress Note Assessment/Plan: 73yo F with history of dCHF, afib, CKD here with CHF exacerbation found to have new decrement in ventricular function. #Acute decompensated biventricular CHF: LVEF 30%, previously normal. Also with mod RV dysfunction and symptoms are more right sided. - Lasix and dobutamine gtt per cards, follow I/Os and weights - Metolazone 5mg bid - Will need ischemic evaluation once more euvolemic #CKD: Variable baseline Cr 1.2-1.6, currently 1.6. - D/w renal team (Dr Mason) who will see - Renally dose meds #VICENTA: Non-compliant with CPAP. Uses nocturnal oxygen. #Pulmonary hypertension: RHC 06/2018 with mPA 28 and PCWP 14. - Plan to discuss with pulmonology team #Valvular heart disease: Moderate MR and TR noted on echo. #Permanent atrial fibrillation - Monitor rates while on dobutamine - She is not on anticoagulation (previously taken off for L hip hematoma and recurrent falls). Will re-address with patient and cardiology team. #Leukocytosis: Resolved. Do not clinically suspect infection. #Hypokalemia: Replete, monitor per protocol with diuresis. #Low TSH: Repeat as outpatient. #H/o lacunar infarct/CVA: She is not on antiplatelet agent or statin. #Depression: Continue home meds #Diabetes: SSI, ACHS glucose checks. #HTN: Monitor. #H/o chronic pain/fibromyalgia: Hydrocodone PRN. #Hypothyroidism: LT4 replacement. VTE ppx: Code: full Diet: low Na, 2L fluid restriction Dispo: Remain inpatient Subjective: Leg swelling much better than when she came in. Wants to walk around. No significant shortness of breath. No chest pain. Objective: Vital Signs Temp Pulse Resp BP Pulse Ox 36.4 C 110 H 14 156/105 H 95 11/16/18 07:31 11/16/18 10:09 11/16/18 07:31 11/16/18 07:31 11/16/18 10:09 Laboratory Results 11/16/18 08:38 11/16/18 08:29 11/15/18 11/16/18 11/17/18 05:59 05:59 05:59 Intake Total 750 340.4 Output Total 575 325 Balance 175 15.4 - Physical Exam Constitutional: no apparent distress Eyes: PERRL Ears, Nose, Mouth, Throat: moist mucous membranes, hearing normal, ears appear normal, no oral mucosal ulcers Cardiovascular: irregularly irregular, tachycardia, edema (3+ BLE) Respiratory: no respiratory distress, reduced air movement (bases), No expiratory wheeze, No inspiratory crackles, No rhonchi Gastrointestinal: normoactive bowel sounds, soft, non-tender abdomen, no palpable masses, distension Genitourinary: no bladder fullness, no bladder tenderness, no renal bruits Skin: no rashes or abrasions, no fluctuance, no induration Musculoskeletal: generalized weakness Neurologic: AAOx3 Psychiatric: interacting appropriately ICD10 Worksheet Patient Problems: Problems Problem Status Onset CHF (congestive heart failure) Acute MRSA - Methicillin resistant Staphylococcus aureus infection Active Acute kidney injury Acute Acute renal insufficiency Acute Afib Acute Bradycardia Acute Bronchitis Acute Contusion of left hip Acute Cough Acute Diuretics causing adverse effect in therapeutic use Acute Fall Acute Hematoma Acute Pneumonia Acute Primary localized osteoarthritis of left hip Acute Shortness of breath Acute Somnolence, daytime Acute Unable to ambulate Acute chronic disease mgmt/transitional care Acute
[2018-11-16] MEDS: METOLAZONE 5 MG TAB PO SCH (15:53)
[2018-11-16] MEDS: HYDROCODONE/APAP 10/325 TAB PO PRN ×2 (15:56→22:07)
--- NOTE | 2018-11-16 18:14 | WOCRNPDOC ---
WOCRN Advanced Assessment Note - Skin Integrity Problem, Advanced Assess Sacrum Pressure Injury Dressing Type: Mepilex Border Dressing Description: Clean/Dry, Intact Exudate Amount: None Integumentary Issue Intervention: Visualized Under Dressing Erin Wound Tissue: Blanching, Erythema Wound Bed Constitution: Red/Statham - Non Granular Tissue (100%) Wound Edges: Attached Site Measurement - Head-to-Toe Length X Width X Depth (cm): 1.5x0.4x0.1 ( several very small openings in a linear fashion from 12-6 oclock) Pressure Injury Stage: Stage 2 Pressure Injury Present on Admit: Yes Skin Integrity Problem Comment: Wound care will follow. Maciel MNACIA in room. Patient educated regarding offloading, pressure injury prevention and treatment. Patient would prefer to be able to ambulate independently. Explained need for chair alarm for safety.
[2018-11-16] MEDS: POLYETHYLENE GLYCOL 3350 17 GM PKT PO SCH (20:24)
[2018-11-16] MEDS: ACETAMINOPHEN 325 MG TAB PO PRN (20:24)
[2018-11-16] MEDS: clonazePAM 0.5 MG TAB PO SCH (20:25)
[2018-11-16] MEDS: FAMOTIDINE 20 MG TAB PO SCH (20:25)
[2018-11-17 05:40] LABS: PLATELET COUNT 166 10^3/uL (150-400)
[2018-11-17] MEDS: LEVOTHYROXINE 200 MCG TAB PO SCH (06:20)
[2018-11-17] MEDS: METOLAZONE 5 MG TAB PO SCH ×2 (06:20→15:11)
[2018-11-17] MEDS: DOBUTamine/DEXTROSE 250 ML IV SCH (06:20)
[2018-11-17] MEDS: FUROSEMIDE 100 MG in D5W 100 ML IV SCH ×4 (06:25→23:17)
[2018-11-17] MEDS: POTASSIUM CL 20 MEQ TAB PO SCH (08:20)
[2018-11-17] MEDS: INSULIN LISPRO 100 UNIT/ML SC SCH ×3 (08:20→17:16)
[2018-11-17] MEDS: buPROPion XL 150 MG TAB PO SCH (08:21)
[2018-11-17] MEDS: FLUoxetine 20 MG CAP PO SCH (08:21)
[2018-11-17] MEDS: ARIPiprazole 2 MG TAB PO SCH (08:21)
[2018-11-17] MEDS: CETIRIZINE 10 MG TAB PO SCH (08:22)
[2018-11-17] MEDS: CYANO/VITAMIN B12 1000 MCG TAB PO SCH (08:22)
[2018-11-17] MEDS: SPIRONOLACTONE 25 MG TAB PO SCH (08:22)
[2018-11-17] MEDS: DOCUSATE SODIUM 100 MG CAP PO SCH (08:22)
[2018-11-17] MEDS: FLUTICASONE NASAL 120 SPRAYS/16 GM MDI NS SCH ×2 (08:25→21:55)
--- NOTE | 2018-11-17 08:26 | HOSPPROG ---
Hospitalist Progress Note Assessment/Plan: 73yo F with history of dCHF, afib, CKD here with CHF exacerbation found to have new decrement in ventricular function. #Acute decompensated biventricular CHF: LVEF 30%, previously normal. Also with mod RV dysfunction and symptoms are more right sided. - Lasix and dobutamine gtt per cards, follow I/Os and weights - Metolazone 5mg bid - Will need ischemic evaluation once more euvolemic, d/w Dr Prather today #CKD: Variable baseline Cr 1.2-1.6, currently 1.6. - Renal consulted. Ordered US to eval kidneys - Renally dose meds #VICENTA: Non-compliant with CPAP. Uses nocturnal oxygen. #Pulmonary hypertension: RHC 06/2018 with mPA 28 and PCWP 14 (essentially normal ). RVSP 49 on echo this admission although decompensated at that time - D/w Dr Michel Ferrer who will see patient #Valvular heart disease: Moderate MR and TR noted on echo. #Permanent atrial fibrillation: Rates have been intermittently elevated while on dobutamine - Not on anticoagulation d/t history of falls with resultant bleeding/ trauma. Consider Watchman in future #Leukocytosis: Resolved. Do not clinically suspect infection. #Hypokalemia: Replete, monitor per protocol with diuresis. #Low TSH: Repeat as outpatient. #H/o lacunar infarct/CVA: She is not on antiplatelet agent or statin. #Depression: Continue home meds #Diabetes: SSI, ACHS glucose checks. #HTN: Monitor. #H/o chronic pain/fibromyalgia: Hydrocodone PRN. #Hypothyroidism: LT4 replacement. VTE ppx: SQH Code: full Diet: low Na, 2L fluid restriction Dispo: Remain inpatient Subjective: No new complaints. She is bored. Leg swelling better. Some shortness of breath when lying flat. Objective: Vital Signs Temp Pulse Resp BP Pulse Ox 36.2 C 98 20 145/98 H 99 11/17/18 03:47 11/17/18 04:00 11/17/18 04:00 11/17/18 03:47 11/17/18 04:00 Laboratory Results 11/17/18 05:25 11/17/18 05:25 11/16/18 11/17/18 11/18/18 05:59 05:59 05:59 Intake Total 750 1721.6 Output Total 575 3025 Balance 175 -1303.4 - Physical Exam Constitutional: no apparent distress Eyes: PERRL, anicteric sclera Ears, Nose, Mouth, Throat: moist mucous membranes, hearing normal, ears appear normal, no oral mucosal ulcers Cardiovascular: irregularly irregular, tachycardia, No edema Respiratory: no respiratory distress, no rales or rhonchi, No expiratory wheeze Gastrointestinal: normoactive bowel sounds, soft, non-tender abdomen, no palpable masses Genitourinary: no bladder fullness, no bladder tenderness, no renal bruits Skin: other (some changes c/w venous stasis in BLE) Musculoskeletal: full muscle strength Neurologic: AAOx3 Psychiatric: interacting appropriately ICD10 Worksheet Patient Problems: Problems Problem Status Onset CHF (congestive heart failure) Acute MRSA - Methicillin resistant Staphylococcus aureus infection Active Acute kidney injury Acute Acute renal insufficiency Acute Afib Acute Bradycardia Acute Bronchitis Acute Contusion of left hip Acute Cough Acute Diuretics causing adverse effect in therapeutic use Acute Fall Acute Hematoma Acute Pneumonia Acute Primary localized osteoarthritis of left hip Acute Shortness of breath Acute Somnolence, daytime Acute Unable to ambulate Acute chronic disease mgmt/transitional care Acute
--- NOTE | 2018-11-17 09:41 | WOCRNPDOC ---
WOCRN Advanced Assessment Note - Skin Integrity Problem, Advanced Assess Left Heel Dressing Type: Allevyn Life Exudate Amount: None Wound Bed Constitution: Scab Site Measurement - Head-to-Toe Length X Width X Depth (cm): 1x0.5xfissure Extremity Temperature: Warm Peripheral Edema Location & Description: 2+ BLE and feet. Skin Integrity Problem Comment: Fissure without surrounding erythema. Will treat with silvasorb and allevyn life and skin repair cream to lower extremities. No other areas of concern on feet. Keep legs elevated as much as possible. Wound care will sign off. Bilateral heels blanching.
[2018-11-17] MEDS: HYDROCODONE/APAP 10/325 TAB PO PRN ×3 (09:54→23:17)
--- NOTE | 2018-11-17 10:19 | GCON ---
[f rep st] CONSULTATION DATE OF CONSULTATION: 11/17/2018 REASON FOR CONSULTATION: Opinion regarding acute kidney injury in a patient with known chronic kidne y disease. HISTORY OF PRESENT ILLNESS: The patient is a very pleasant 73-year-old female with known stage 3 chr onic kidney disease, baseline serum creatinine of around 1 to1.6. She was in her usual state of heal th until recently when she began having increasing shortness of breath, cough with clear sputum produ ction, and fatigue. She was not having fevers, chills, nausea, vomiting, chest pain, hemoptysis, hem atemesis, epistaxis, abdominal pain, diarrhea, constipation, melena, hematochezia, blurry vision, tarsha ble vision, headache, orthopnea, paroxysmal nocturnal dyspnea, palpitations, or syncope. She was adm itted to the hospital on 11/15/2018, with congestive heart failure, she was initiated on dobutamine a nd continuous intravenous infusion of loop diuretics. Serum creatinine on admission was 1.8, now jennifer n to 1.6. We have been asked to see for her elevated serum creatinine. PAST MEDICAL HISTORY: Significant for: 1. Chronic kidney disease, stage 3. 2. Atrial fibrillation. 3. Diabetes mellitus, type 2. 4. Hypertension. 5. History of proteinuria. 6. Obstructive sleep apnea syndrome. 7. Asthma. 8. Graves disease. ALLERGIES: To radioactive iodine, statin, and Lidoderm. FAMILY HISTORY: Negative for renal disease, diabetes, or heart disease. SOCIAL HISTORY: She is unmarried. She has 1 child. 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 She quit smoking 1976. Does not use alcohol, IV, or recreational drugs, she says she does use occasional marijuana. She enjoys going out with her friends. She has no pets. CURRENT MEDICATIONS: Include: 1. Dobutamine continuous infusion. 2. Furosemide continuous infusion. 3. Hydrocodone. 4. Ipratropium. 5. Synthroid 200 mcg daily. 6. Metolazone 5 mg twice daily. 7. Zofran p.r.n. 8. Potassium chloride per protocol. 9. Spironolactone 12.5 mg daily. 10. Albuterol. 11. Abilify 2 mg daily. 12. Bupropion 450 mg daily. 13. Zyrtec. 14. Clonidine 0.1 mg at h.s. 15. Clonazepam 0.5 mg at bedtime. 16. Vitamin D 50,000 international units monthly. 17. Pepcid 20 mg at bedtime. REVIEW OF SYSTEMS: A complete 12-point review of systems was performed with the pertinent positives and negatives as per the previous sections. PHYSICAL EXAMINATION: VITAL SIGNS: Blood pressure 145/98, pulse 98, respirations 20, temperature 36 .2 degrees. Urine output 3 L over the course of the past 24 hours. GENERAL: She is sitting up in t he chair, eating her breakfast. She is alert, cooperative and is in no acute distress. HEENT: Pupi ls are reactive. Extraocular movements are intact. Mucous membranes are moist. NECK: She does hav e some JVD. No lymphadenopathy or thyromegaly. HEART: Irregularly irregular, slightly tachycardic in the high 90s to low 100s. No rub. No S3. She has a grade 1/6 systolic murmur. LUNGS: Positive for wheezes and rales throughout, worse in the bases. ABDOMEN: Bowel sounds are positive. Soft, n ontender, nondistended. No obvious organomegaly, masses, or bruits. EXTREMITIES: +2 edema. NEUROL OGIC: No asterixis. SKIN: Has dimpling of her skin in her lower extremities. LYMPH: No palpable lymphadenopathy or lymphedema. MUSCULOSKELETAL: No effusions or tenderness. LABORATORY: Serum sodium is 134, potassium 4.2, chloride 99, CO2 28, BUN 54, creatinine 1.6, glucose 99, calcium 9.1. AST 22, ALT 31, alkaline phosphatase 71, albumin 2.7. TSH 0.366. BNP was 42,200. WBC 7.4, hemoglobin 11.9, hematocrit 34, platelet count 166,000. On 11/15/2018, on admission, seru m creatinine was 1.8, on 10/09/2018, serum creatinine was 1.2, on 10/08/2018, 1.4, and approximately a year ago, serum creatinine was around 1.0. At that time on 01/04/2018, SPEP was done, which was ne gative. Her albumin to creatinine ratio was elevated at 7253.4. Her renal ultrasound that time show ed the right kidney to be 14 cm, left 12, with normal echogenicity and cortical thickness. Doppler u ltrasound at that time also showed patent renal arteries and veins bilaterally. IMPRESSION: 1. Chronic kidney disease, stage 3, serum creatinine at her baseline is in the 1 to 1.6 range. 2. Acute kidney injury due to congestive heart failure. Her echocardiogram from November of 2017, show ed an ejection fraction of 65% to 70%, her most recent echocardiogram on admission showed her ejectio n fraction had decreased to 30% to 35% with moderate left ventricular hypertrophy and a pulmonary art tiffany systolic pressure in the high 40s. I suspect her acute kidney injury is due to a decrease cardia c deficiency from both her chronic atrial fibrillation, as well as her worsening left ventricular fun ction with a declination of her ejection fraction from 70% to 35%. 3. Peripheral edema, improving on current therapies. 4. Congestive heart failure. 5. Shortness of breath. This is improving, she still does have quite a bit of fluid it sounds like in her lungs, as well as peripherally. 6. History of proteinuria, we will revisit that. 7. I do not think I would change any of her therapies at this point. Thank you for allowing me to participate in the care of your patient. If there are any questions, pl ease do not hesitate to contact us. We will be following along with you. /[id number]/MODL
--- NOTE | 2018-11-17 11:25 | ASMTCMCOM ---
CM Note CM Note Notes: Pts case discussed in tx rounds. PT is recommending HC. OT is recommending HC vs SNF. Pt will continue w/ her established services. CM called [facility] and pt is seen out of that branch. CM to follow. 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
--- NOTE | 2018-11-17 11:47 | PDCARPN ---
Cardiology Progress Note Assessment/Plan: Assessment: 1. Acute on Chronic Diastolic CHF 2. New onset systolic CHF with LVEF 30% 2. Permanent Afib 3. Chronic Renal Insufficiency with baseline Cr 1.8 4. VICENTA (admits to non compliance with CPAP 5. HTN 6. DM Plan: -Continue Dobutamine gtt and Lasix gtt -Will reasses this afternoon and consider stopping Dobutamine in the setting aFib with RVR -Continue Pottassium Chloride 40 meq daily -Continue metolazone 5 mg bid -She will need Left and Right Heart Cath prior to discharge in the setting of new systolic CHF -Daily weights and I/O's - 11/17/18 11:48 Subjective: Mrs. Morgan continues to feel sob at rest. She is neg 1.3L over the last 24 hours. Tele demonstrates Afib with rates primarily in the 110's. She remains on Dobutamine. No chest pain, dizziness, lightheadedness or syncope. Appreciate Medicine and Renal input. Reviewed/Discussed With: hospitalist, multidisciplinary team Time Spent with Patient: greater than 25 minutes Time Spent with Patient: Greater than 25 minutes spent on this patients care, greater than 50% of time spent counseling, educating, and coordinating care regarding the above mentioned plan. Objective: Vital Signs (8 Hrs) Temp Pulse Resp BP Pulse Ox 11/17/18 08:00 36.2 C 102 H 14 165/100 H 96 11/17/18 04:00 98 20 99 11/17/18 03:47 36.2 C 18 145/98 H 100 Intake/Output (24 Hrs) 11/16/18 11/17/18 11/18/18 05:59 05:59 05:59 Intake Total 750 1721.6 175 Output Total 575 3025 975 Balance 175 -1303.4 -800 Intake: Oral (ml) 750 750 175 IV Intake (ml) 50 IV Infused (ml) 921.6 DOBUTamine/DEXTROSE 250 201.6 ml @ Titrate IV CONT RICHIE Rx#:[id number] Furosemide 100 mg In D5w 720 100 ml @ 20 mls/hr IV CONT RICHIE Rx#:[id number] Output: Urine (ml) 575 3025 975 Bedside Commode 475 2325 500 Toilet 100 700 475 Other: Weight 69.7 kg 70.2 kg Output Comment Bedside Commode + some in suction container from ext. cath, and some inc.in brief Number of Voids Bedside Commode 1 1 Incontinence 1 1 1 Toilet 1 1 Number of Stools Toilet 1 1 Result Diagrams: 11/17/18 05:25 11/17/18 05:25 - Physical Exam Constitutional: obese, other (mild sob at rest. ) Ears, Nose, Mouth, Throat: moist mucous membranes Cardiovascular: irregularly irregular (rapid, irregular hr c/w afib with rvr ), other (2+ dense pitting edema to the knee bilaterally) Peripheral Pulses: 2+: carotid (R), carotid (L) Respiratory: reduced air movement (at bases bilat) Gastrointestinal: ascites Neurologic: AAOx3, CN II-XII grossly intact Psychiatric: cooperative, following commands ICD10 Worksheet Patient Problems: Problems Problem Status Onset CHF (congestive heart failure) Acute MRSA - Methicillin resistant Staphylococcus aureus infection Active Acute kidney injury Acute Acute renal insufficiency Acute Afib Acute Bradycardia Acute Bronchitis Acute Contusion of left hip Acute Cough Acute Diuretics causing adverse effect in therapeutic use Acute Fall Acute Hematoma Acute Pneumonia Acute Primary localized osteoarthritis of left hip Acute Shortness of breath Acute Somnolence, daytime Acute Unable to ambulate Acute chronic disease mgmt/transitional care Acute
[2018-11-17] MEDS: HEPARIN 5,000 UNIT/0.5 ML INJ SC SCH ×2 (14:37→21:54)
[2018-11-17] MEDS: clonazePAM 0.5 MG TAB PO SCH (21:54)
[2018-11-17] MEDS: FAMOTIDINE 20 MG TAB PO SCH (21:54)
[2018-11-17] MEDS: POLYETHYLENE GLYCOL 3350 17 GM PKT PO SCH (21:55)
[2018-11-18] MEDS: LEVOTHYROXINE 200 MCG TAB PO SCH (04:42)
[2018-11-18] MEDS: HEPARIN 5,000 UNIT/0.5 ML INJ SC SCH ×3 (04:42→20:39)
[2018-11-18] MEDS: METOLAZONE 5 MG TAB PO SCH ×2 (04:42→16:06)
[2018-11-18] MEDS: FUROSEMIDE 100 MG in D5W 100 ML IV SCH ×4 (04:43→22:35)
[2018-11-18 05:13] LABS: PLATELET COUNT 158 10^3/uL (150-400)
[2018-11-18] MEDS: FLUoxetine 20 MG CAP PO SCH (08:39)
[2018-11-18] MEDS: ARIPiprazole 2 MG TAB PO SCH (08:39)
[2018-11-18] MEDS: buPROPion XL 150 MG TAB PO SCH (08:39)
[2018-11-18] MEDS: POTASSIUM CL 20 MEQ TAB PO SCH (08:39)
[2018-11-18] MEDS: CYANO/VITAMIN B12 1000 MCG TAB PO SCH (08:39)
[2018-11-18] MEDS: CETIRIZINE 10 MG TAB PO SCH (08:39)
[2018-11-18] MEDS: DOCUSATE SODIUM 100 MG CAP PO SCH (08:39)
[2018-11-18] MEDS: INSULIN LISPRO 100 UNIT/ML SC SCH ×3 (08:40→18:17)
[2018-11-18] MEDS: FLUTICASONE NASAL 120 SPRAYS/16 GM MDI NS SCH ×2 (08:41→20:41)
[2018-11-18] MEDS: SPIRONOLACTONE 25 MG TAB PO SCH (08:45)
--- NOTE | 2018-11-18 09:05 | SOAPPROG ---
SOAP Progress Note Assessment/Plan: Assessment: LUIS CARLOS, likely due to decreased cardiac function. EF has decreased over past year from 65-70% to 30-35%. Creat better with dobutamine and diuresis A-fib, rate reasonable secondary hyperparathyroidism, will start low dose calcitriol nephrotic range proteinuria, may be contributing to edema will start low dose PAUL-I, does not have allergy per her report to me today hyperuricemia, asymptomatic at this point, but will need treatment eventually HTN, narrow pulse pressure this AM, will watch, SBP much lower than usual Plan: Low dose PAUL-I (renal US less than a year ago was negative for ADRIANNA or RVT) start calcitriol continue diuresis, suspect some of her edema is from proteinuria follow lytes vol etc.. 11/18/18 08:57 Subjective: tired today didn't sleep well no pain today appetite not great no cp, SOB seems better no nausea or vomiting energy poor today Objective: Vital Signs Temp Pulse Resp BP Pulse Ox 36.2 C 95 18 116/101 H 98 11/18/18 04:00 11/18/18 04:00 11/18/18 04:00 11/18/18 04:00 11/18/18 04:00 Laboratory Results 11/18/18 05:00 11/18/18 05:00 11/17/18 11/18/18 11/19/18 05:59 05:59 05:59 Intake Total 1721.6 1011 Output Total 3525 4350 Balance -1803.4 -3339 Physical Exam - Physical Exam General Appearance: alert Neck: normal inspection Respiratory: rales, wheezing Cardiac/Chest: systolic murmur, irregularly irregular Abdomen: normal bowel sounds, non-tender, soft Skin: warm/dry Extremities: swelling Neuro/Psych: alert, normal mood/affect, oriented x 3 ICD10 Worksheet Patient Problems: Problems Problem Status Onset CHF (congestive heart failure) Acute MRSA - Methicillin resistant Staphylococcus aureus infection Active Acute kidney injury Acute Acute renal insufficiency Acute Afib Acute Bradycardia Acute Bronchitis Acute Contusion of left hip Acute Cough Acute Diuretics causing adverse effect in therapeutic use Acute Fall Acute Hematoma Acute Pneumonia Acute Primary localized osteoarthritis of left hip Acute Shortness of breath Acute Somnolence, daytime Acute Unable to ambulate Acute chronic disease mgmt/transitional care Acute
--- NOTE | 2018-11-18 09:55 | PDCARPN ---
Cardiology Progress Note Assessment/Plan: Assessment: 1. Acute on Chronic Diastolic CHF 2. New onset systolic CHF with LVEF 30% 2. Permanent Afib now with RVR in 140's this AM 3. Chronic Renal Insufficiency with baseline Cr 1.8 4. VICENTA (admits to non compliance with CPAP 5. HTN 6. DM Plan: -D/C Dobutamine -D/C Clonodine (plan to titrate PAUL and BB in the setting of new onset systolic CHF) - Plan to add Aldactone 25 mg tomorrow if BP tolerates Coreg and low dose Lisinopril -Decrease KCl to 20 meq daily -Add Coreg 3.125 mg po bid -Agree with addition of Lisinopril 2.5 mg daily -Continue Lasix gtt -Continue metolazone 5 mg bid -NOTE: not on anticoagulation secondary to hx of traumatic fall with large hematoma formation while on Eliquis. I think her ongoing fall risk makes her not an appropriate candidate for anticoagulation. Would consider Watchman in the future. -Labwork: Check NT-BNP and Mg today. BMP tomorrow AM -Will need Left and Right Heart Cath prior to discharge in the setting of new onset of systolic CHF -Continue daily weights and I/O's -Will Follow 11/18/18 09:56 Subjective: Mrs. Morgan is feeling better this AM. Less SOB. She was negative 3.34 L yesterday and 1.8 L on 11/16. Weight on admission of 70.6 Kg, now 64.5. Edema has improved. Cr stable at 1.5 (baseline typically around 1.8). Mrs. Morgan remains in chronic Afib. Rates are much faster this AM in the 140' s. Will plan to discontinue Dobutamine. She denies complaints of palpitations, dizziness or syncope. No chest pain or pressure. Objective: Vital Signs (8 Hrs) Temp Pulse Resp BP Pulse Ox 11/18/18 08:00 36.7 C 126 H 12 152/108 H 97 11/18/18 04:00 36.2 C 95 18 116/101 H 98 Intake/Output (24 Hrs) 11/17/18 11/18/18 11/19/18 05:59 05:59 05:59 Intake Total 1721.6 1011 Output Total 352 4350 Balance -1803.4 -3339 Intake: Oral (ml) 750 475 IV Intake (ml) 50 IV Infused (ml) 921.6 536 DOBUTamine/DEXTROSE 250 201.6 80 ml @ Titrate IV CONT RICHIE Rx#:[id number] Furosemide 100 mg In D5w 720 456 100 ml @ 20 mls/hr IV CONT RICHIE Rx#:[id number] Output: Urine (ml) 3525 4350 Bedside Commode 2825 2675 Catheter 1000 Toilet 700 675 Other: Weight 70.2 kg 64.546 kg Number of Voids Bedside Commode 1 1 Incontinence 1 3 Toilet 1 1 Number of Stools Toilet 1 1 Result Diagrams: 11/18/18 05:00 11/18/18 05:00 - Physical Exam Constitutional: no apparent distress Ears, Nose, Mouth, Throat: moist mucous membranes Cardiovascular: no rubs, no gallops, systolic murmur, irregularly irregular, other (2+ pitting edema bilat from mid calf ) Respiratory: reduced air movement, other (course breath sounds at bases) Musculoskeletal: no muscular tenderness Neurologic: AAOx3, CN II-XII grossly intact Psychiatric: cooperative, interactive, following commands ICD10 Worksheet Patient Problems: Problems Problem Status Onset CHF (congestive heart failure) Acute MRSA - Methicillin resistant Staphylococcus aureus infection Active Acute kidney injury Acute Acute renal insufficiency Acute Afib Acute Bradycardia Acute Bronchitis Acute Contusion of left hip Acute Cough Acute Diuretics causing adverse effect in therapeutic use Acute Fall Acute Hematoma Acute Pneumonia Acute Primary localized osteoarthritis of left hip Acute Shortness of breath Acute Somnolence, daytime Acute Unable to ambulate Acute chronic disease mgmt/transitional care Acute
--- NOTE | 2018-11-18 10:00 | HOSPPROG ---
Hospitalist Progress Note Assessment/Plan: 73yo F with history of dCHF, afib, CKD here with CHF exacerbation found to have new decrement in ventricular function. #Acute decompensated biventricular CHF: LVEF 30%, previously normal. Also with mod RV dysfunction and symptoms are more right sided. - Cards stopped dobutamine. Cont lasix gtt, metolazone - Added lisinopril and coreg; may initiate julita tomorrow - Planning on left and right heart cath once more euvolemic #Atrial fibrillation with RVR: Rates remain elevated - Starting beta radha as above - Not on anticoagulation d/t history of falls with resultant bleeding/ trauma. Consider Watchman in future #CKD: Variable baseline Cr 1.2-1.6, currently 1.5. - Renal consulted. Ordered US to eval kidneys #VICENTA: Non-compliant with CPAP. Uses nocturnal oxygen. #Pulmonary hypertension: RHC 06/2018 with mPA 28 and PCWP 14 (essentially normal ). RVSP 49 on echo this admission although decompensated at that time - D/w Dr Michel Ferrer who will see patient #Valvular heart disease: Moderate MR and TR noted on echo. #Leukocytosis: Resolved. Do not clinically suspect infection. #Hypokalemia: Replete, monitor per protocol with diuresis. #Low TSH: Repeat as outpatient. #H/o lacunar infarct/CVA: She is not on antiplatelet agent or statin. #Depression: Continue home meds #Diabetes: SSI, ACHS glucose checks. #HTN: Monitor. Stopped home clonidine. #H/o chronic pain/fibromyalgia: Hydrocodone PRN. #Hypothyroidism: LT4 replacement. VTE ppx: SQH Code: full Diet: low Na, 2L fluid restriction Dispo: Remain inpatient Subjective: Having a little harder time breathing today than yesterday. Still with significant swelling in abdomen and legs but improved from admit. No chest pain. Objective: Vital Signs Temp Pulse Resp BP Pulse Ox 36.7 C 126 H 12 152/108 H 97 11/18/18 08:00 11/18/18 08:00 11/18/18 08:00 11/18/18 08:00 11/18/18 08:00 Laboratory Results 11/18/18 05:00 11/18/18 05:00 11/17/18 11/18/18 11/19/18 05:59 05:59 05:59 Intake Total 1721.6 1011 Output Total 5593 5775 Balance -2443.4 -5949 - Physical Exam Constitutional: no apparent distress, appears nourished, not in pain Eyes: PERRL, anicteric sclera, EOMI Ears, Nose, Mouth, Throat: moist mucous membranes, hearing normal, ears appear normal, no oral mucosal ulcers Cardiovascular: irregularly irregular, tachycardia, edema (3+ to bilateral knees ) Respiratory: no respiratory distress, no rales or rhonchi Gastrointestinal: normoactive bowel sounds, soft, non-tender abdomen, distension Genitourinary: no bladder fullness, no bladder tenderness, no renal bruits Skin: no rashes or abrasions, no fluctuance, no induration Musculoskeletal: generalized weakness Neurologic: AAOx3 Psychiatric: interacting appropriately ICD10 Worksheet Patient Problems: Problems Problem Status Onset CHF (congestive heart failure) Acute MRSA - Methicillin resistant Staphylococcus aureus infection Active Acute kidney injury Acute Acute renal insufficiency Acute Afib Acute Bradycardia Acute Bronchitis Acute Contusion of left hip Acute Cough Acute Diuretics causing adverse effect in therapeutic use Acute Fall Acute Hematoma Acute Pneumonia Acute Primary localized osteoarthritis of left hip Acute Shortness of breath Acute Somnolence, daytime Acute Unable to ambulate Acute chronic disease mgmt/transitional care Acute
[2018-11-18] MEDS: LISINOPRIL 2.5 MG TAB PO SCH (10:44)
[2018-11-18] MEDS: ESTRADIOL 42.5 GM CRTUBE VG SCH (11:23)
--- NOTE | 2018-11-18 11:36 | ASMTCMCOM ---
CM Note CM Note Notes: Pts case discussed in tx rounds. Pt will get a heart cath at some point during this hospitalization. Pt will d/c with [facility], PT, OT, RN along w/ private duty caregivers through [facility]. Anticipate d/c early to mid next week. CM to follow. Date Signed: 11/18/2018 11:36 AM Electronically Signed By:CRITSIAN Ascencio
[2018-11-18 11:38] LABS: HEPATITIS B CORE AB TOTAL NEGATIVE (NEGATIVE); HEPATITIS B SURFACE ANTIGEN NEGATIVE (NEGATIVE); HEPATITIS C ANTIBODY TOTAL NEGATIVE (NEGATIVE); HIV TYPE 1 AND 2 NEGATIVE (NEGATIVE)
[2018-11-18] MEDS: ACETAMINOPHEN 325 MG TAB PO PRN (14:10)
--- NOTE | 2018-11-18 16:02 | ASMTCMCOM ---
CM Note CM Note Notes: ADDENDUM: Palliative care order placed today d/t CHF. met with pt who requested palliative informational meeting with [facility] likely tomorrow or Wednesday before D/C. Referral sent to [facility]. Date Signed: 11/18/2018 04:02 PM Electronically Signed By:Monika Bah
--- NOTE | 2018-11-18 17:54 | GCON ---
[f rep st] CONSULTATION DATE OF CONSULTATION: 11/18/2018 REASON FOR CONSULTATION: Nocturnal hypoxemia, obstructive sleep apnea in a patient with chronic and acute congestive heart failure, pulmonary hypertension and multiple medical problems. HISTORY: The patient is a very pleasant 73-year-old. She has a complicated history including chroni c congestive heart failure secondary to diastolic dysfunction. This is associated with atrial fibril lation. She has systemic hypertension and chronic renal insufficiency. She has other medical proble ms as well. She was followed many years by Chi Nowak MD. He recently has left his practice. S he is followed by Dr. Wooten at [facility]. She has a history of known nocturnal hypoxemia. She has been on nighttime oxygen for many years. Th ere is a history of sleep apnea as well. I do not know all the details. Currently, however, after a sleep study a number years ago, she was placed on CPAP. She used this for quite some time. However , stopped CPAP after eye surgery. She was unable to get masks that would not leak into her eye. She apparently got her equipment previously from [employer]. She is interested about getting lindsey k on her CPAP at some point. On this admission, she has been diuresed. She is feeling better. She has lost significant weight. Cardiac echo previously showed normal left ventricular function. However, on this admission, left ve ntricular ejection fraction is 30% to 35%. She also has moderately reduced right ventricular functio n. Estimated pulmonary artery pressures are 49. Previously, these were lower. She does have modera te mitral regurgitation, moderate tricuspid regurgitation and left and right atrial enlargement. Rig ht heart catheterization in May 2018, showed a systolic pressure of 39. Pulmonary capillary wedg e pressure at that time was 14. Left ventricular ejection fraction at that time was 60%. Right vent ricular biopsies were essentially normal. There was no evidence of amyloidosis, sarcoidosis, or othe r than cardiac pathology. PAST MEDICAL HISTORY: Remarkable for issues as outlined above, including her chronic cardiac issues, chronic atrial fibrillation, congestive heart failure, systemic hypertension, a history of asthma, t ype 2 diabetes, depression, chronic pain, allergies, gastroesophageal reflux and constipation. HOME MEDICATIONS: Multiple and are as outlined in her hospital records. SOCIAL HISTORY: The patient cigarettes minimally in the past, in her 20s and 30s only. She is singl e, lives independently at [facility]. Alcohol is negative. FAMILY HISTORY: Noncontributory. REVIEW OF SYSTEMS: A 10-point review of systems is negative except as mentioned above. PHYSICAL EXAMINATION: GENERAL: A pleasant woman who is sitting on the side of her bed. She is in n o distress. VITAL SIGNS: Blood pressure is 145/100. Heart rate is 120 and irregular. Respiratory rate is 16. On room air, saturations are 99%. She is afebrile. HEENT: Unremarkable for lymphadeno berta or thyromegaly. There is no jugular venous distention that I can appreciate. Mucous membranes are moist. CHEST: Clear bilaterally. There are no rales, no wheezes, no rhonchi. The heart is ir regular and rapid. There is a systolic murmur, probable gallop? P2 is likely increased. ABDOMEN: Soft, nontender. Bowel sounds are present. EXTREMITIES: Remarkable for 1+ edema. NEUROLOGIC: Exa mination is nonfocal. Mentation is intact. LABORATORY: White blood cell count is 7500, hematocrit 40, platelets are normal. Chemistries show s odium of 133, potassium 4.2, BUN 57, with a creatinine of 1.5. Glucoses range between 100 and 200. BNP is 10,400. Albumin is 3.1. Liver function studies are normal. ASSESSMENT: 1. Nocturnal hypoxemia. The patient has carried this diagnosis for a long time and is on oxygen 2 L at night. This appears to be independent from her history of obstructive sleep apnea. 2. Obstructive sleep apnea. I do not know the severity of this. Her previous sleep study will be i nvestigated. She was on CPAP previously, but has not used this for quite a while secondary to mask i ntolerance. She apparently still does have her machine and an old mask; however, her equipment will need to be reassessed. She is interested in reinitiating CPAP. This can be done as an outpatient. 3. History of reactive airways disease. Presumably, this represents asthma. This appears to be und er good control. She is on albuterol, as well as Advair, which appears to be controlling her asthma. Spirometry will be needed. This could be done as an outpatient. 4. Congestive heart failure, with associated diastolic dysfunction and pulmonary hypertension. Hear t failure appears to be an increasing problem, as left ventricular ejection fraction has dropped sign ificantly since May of 2018. Pulmonary hypertension is present. This is likely secondary to an vular heart disease, as well as possibly nocturnal hypoxemia and sleep apnea. She has responded well to diuresis during this hospitalization. 5. History of multiple other medical problems as outlined above. PLAN AND RECOMMENDATIONS: I will be happy to follow the patient with you. Her previous sleep study and information regarding her sleep apnea will be obtained and reviewed. Apparently, she was followe d primarily in recent years by Dr. Nowak for this, not by a sleep physician. Outpatient followup will be arranged after her discharge. Much of her pulmonary workup, re-establishing treatment with C PAP/BiPAP, etc. will need to be done as an outpatient. Further plans and recommendations will be made based on her progress over the next several days. /[id number]/MODL
[2018-11-18] MEDS: HYDROCODONE/APAP 10/325 TAB PO PRN (18:27)
[2018-11-18] MEDS: CARVEDILOL 3.125 MG TAB PO SCH (18:27)
[2018-11-18] MEDS: FAMOTIDINE 20 MG TAB PO SCH (20:40)
[2018-11-18] MEDS: clonazePAM 0.5 MG TAB PO SCH (20:40)
[2018-11-18] MEDS: POLYETHYLENE GLYCOL 3350 17 GM PKT PO SCH (20:40)
[2018-11-19] MEDS: LEVOTHYROXINE 200 MCG TAB PO SCH (04:33)
[2018-11-19] MEDS: HEPARIN 5,000 UNIT/0.5 ML INJ SC SCH ×3 (04:33→20:48)
[2018-11-19] MEDS: FUROSEMIDE 100 MG in D5W 100 ML IV SCH (05:43)
[2018-11-19] MEDS: INSULIN LISPRO 100 UNIT/ML SC SCH ×3 (08:18→18:27)
[2018-11-19] MEDS: CYANO/VITAMIN B12 1000 MCG TAB PO SCH (08:18)
[2018-11-19] MEDS: buPROPion XL 150 MG TAB PO SCH (08:18)
[2018-11-19] MEDS: ARIPiprazole 2 MG TAB PO SCH (08:19)
[2018-11-19] MEDS: FLUoxetine 20 MG CAP PO SCH (08:19)
[2018-11-19] MEDS: CETIRIZINE 10 MG TAB PO SCH (08:19)
[2018-11-19] MEDS: LISINOPRIL 2.5 MG TAB PO SCH (08:19)
[2018-11-19] MEDS: CARVEDILOL 3.125 MG TAB PO SCH (08:20)
[2018-11-19] MEDS: METOLAZONE 5 MG TAB PO SCH (08:21)
[2018-11-19] MEDS: POTASSIUM CL 20 MEQ TAB PO SCH (08:21)
[2018-11-19] MEDS: SPIRONOLACTONE 25 MG TAB PO SCH (08:21)
[2018-11-19] MEDS: FLUTICASONE/SALMETER 250/50MCG DISKUS IH SCH (08:31)
--- NOTE | 2018-11-19 09:15 | PDCARPN ---
Cardiology Progress Note Assessment/Plan: Assessment: 1. Acute on Chronic Diastolic CHF 2. New onset systolic CHF with LVEF 30% 2. Permanent Afib now with RVR in 140's this AM 3. Chronic Renal Insufficiency with baseline Cr 1.8 4. VICENTA (admits to non compliance with CPAP 5. HTN 6. DM Plan: -Increase Coreg to 6.25 mg bid -Increase Lisinopril to 5 mg daily -Continue Aldactone 12.5 mg daily -Discontinue Lasix gtt -Add Lasix 40 mg IV bid -Decrease Metolazone to 5 mg daily -Continue KCL 20 meq daily -Plan for Left and Right Heart Cath potenially Wednesday -If Coronaries normal, will then discuss further management options for Afib with RVR as outlined above. -Continue to monitor I/O and daily weights -NOTE: not on anticoagulation secondary to hx of traumatic fall with large hematoma formation while on Eliquis. I think her ongoing fall risk makes her not an appropriate candidate for anticoagulation. Would consider Watchman in the future. -Will Follow 11/18/18 09:56 11/19/18 09:17 Subjective: Mrs. Morgan continues to diurese well. She is negative 1.13 L yesterday, 3.34 on November 17 and 1.8 L on November 16. Weight is down from 69.7 Kg on admit to 60.6 kg today. Admit Cr of 1.8, currently 1.6. BUN had gradually increased on admission from 52 to 60. She is feeling markedly better. SOB at rest has resolved. Current issues remain Afib with RVR. Will plan to titrate coreg. Would not use anti arrhythmic medications in the absence of anticoagulation. (She is not on anticoagulation secondary to hx of traumatic fall with large hematoma) With new onset of systolic heart failure with LVEF 30%, concerned decline in EF may be tachymediated. I have discussed with pt consideration of AV node ablation and pacemaker. Alternative option would be Watchman device and antiarrhythmic medication such as amiodarone. Mrs. Morgan will need LHC prior to consideration of AV node Ablation and pacer vs. Watchman and Medical therapy. Her Cr has remained elevated but stable , with hx of Chronic renal insufficiency with baseline Cr of 1.8. Discussed concern regarding renal function and LHC, would recommend avoiding LV gram and minimizing contrast. Mrs. Morgan BP remains suboptimally controlled. Titration of CHF meds should assist in improved BP control. Her only complaint today is of generalized pain. No fever, chills, sweats, nausea or vomiting . Reviewed/Discussed With: multidisciplinary team Objective: Vital Signs (8 Hrs) Temp Pulse Resp BP Pulse Ox 11/19/18 07:46 36.6 C 123 H 16 174/114 H 94 11/19/18 04:20 155/110 H 11/19/18 03:56 36.6 C 133 H 20 157/122 H 95 Intake/Output (24 Hrs) 11/18/18 11/19/18 11/20/18 05:59 05:59 05:59 Intake Total 1011 1470 Output Total 4350 2600 300 Balance -3339 -1130 -300 Intake: Oral (ml) 475 990 IV Infused (ml) 536 480 DOBUTamine/DEXTROSE 250 80 ml @ Titrate IV CONT RICHIE Rx#:[id number] Furosemide 100 mg In D5w 456 480 100 ml @ 20 mls/hr IV CONT RICHIE Rx#:[id number] Output: Urine (ml) 4350 2600 300 Bedside Commode 2675 2600 300 Catheter 1000 Toilet 675 Other: Weight 64.546 kg 60.6 kg Number of Voids Bedside Commode 1 1 Incontinence 3 1 1 Toilet 1 Number of Stools Bedside Commode 1 1 Toilet 1 Result Diagrams: 11/18/18 05:00 11/19/18 04:25 - Physical Exam Constitutional: no apparent distress Cardiovascular: irregularly irregular, other (2/6 systolic murmur at apex ) Respiratory: expiratory wheeze Gastrointestinal: normoactive bowel sounds, no tenderness Musculoskeletal: muscular tenderness Neurologic: AAOx3, CN II-XII grossly intact Psychiatric: cooperative, interactive, following commands ICD10 Worksheet Patient Problems: Problems Problem Status Onset CHF (congestive heart failure) Acute MRSA - Methicillin resistant Staphylococcus aureus infection Active Acute kidney injury Acute Acute renal insufficiency Acute Afib Acute Bradycardia Acute Bronchitis Acute Contusion of left hip Acute Cough Acute Diuretics causing adverse effect in therapeutic use Acute Fall Acute Hematoma Acute Pneumonia Acute Primary localized osteoarthritis of left hip Acute Shortness of breath Acute Somnolence, daytime Acute Unable to ambulate Acute chronic disease mgmt/transitional care Acute
[2018-11-19] MEDS ORDERED: LISINOPRIL 2.5 MG TAB PO ONE (10:30)
[2018-11-19] MEDS ORDERED: CARVEDILOL 3.125 MG TAB PO ONE (10:30)
[2018-11-19] MEDS: DOCUSATE SODIUM 100 MG CAP PO SCH (10:40)
[2018-11-19] MEDS: LISINOPRIL 5 MG TAB PO SCH ×2 (10:40→11:11)
[2018-11-19] MEDS: FLUTICASONE NASAL 120 SPRAYS/16 GM MDI NS SCH (10:44)
[2018-11-19] MEDS: FUROSEMIDE 40 MG/4 ML VIAL IVP SCH ×2 (10:46→16:22)
[2018-11-19] MEDS: HYDROCODONE/APAP 10/325 TAB PO PRN (11:04)
--- NOTE | 2018-11-19 13:28 | SOAPPROG ---
SOAP Progress Note Assessment/Plan: Assessment: LUIS CARLOS, likely due to decreased cardiac function. EF has decreased over past year from 65-70% to 30-35%. Possible R and L heart cath on Wednesday Creat better with dobutamine and diuresis A-fib, rate reasonable secondary hyperparathyroidism, will start low dose calcitriol nephrotic range proteinuria, may be contributing to edema will start low dose PAUL-I, does not have allergy per her report to me hyperuricemia, asymptomatic at this point, but will need treatment eventually HTN, narrow pulse pressure this AM, will watch, SBP much lower than usual Plan: Low dose PAUL-I (renal US less than a year ago was negative for ADRIANNA or RVT) start calcitriol continue diuresis, suspect some of her edema is from proteinuria follow lytes vol etc.. Possible cath on Wednesday11/18/18 08:57 11/19/18 13:24 Subjective: up to chair SOB overall better no cp nausea or vomiting wants to walk around, but has bed alarm on slept OK last night appetite seems to be improving energy better Objective: Vital Signs Temp Pulse Resp BP Pulse Ox 36.3 C 113 H 18 137/105 H 92 11/19/18 11:24 11/19/18 11:24 11/19/18 11:24 11/19/18 11:24 11/19/18 11:24 Laboratory Results 11/18/18 05:00 11/19/18 04:25 11/18/18 11/19/18 11/20/18 05:59 05:59 05:59 Intake Total 1011 1470 480 Output Total 4350 2600 625 Balance -3339 -1130 -145 Physical Exam - Physical Exam General Appearance: alert, thin Neck: normal inspection Respiratory: crackles, No rhonchi, No wheezing Cardiac/Chest: regular rate, rhythm, systolic murmur, No friction rub Abdomen: normal bowel sounds, non-tender Extremities: swelling (better) Neuro/Psych: alert, normal mood/affect, oriented x 3 ICD10 Worksheet Patient Problems: Problems Problem Status Onset CHF (congestive heart failure) Acute MRSA - Methicillin resistant Staphylococcus aureus infection Active Acute kidney injury Acute Acute renal insufficiency Acute Afib Acute Bradycardia Acute Bronchitis Acute Contusion of left hip Acute Cough Acute Diuretics causing adverse effect in therapeutic use Acute Fall Acute Hematoma Acute Pneumonia Acute Primary localized osteoarthritis of left hip Acute Shortness of breath Acute Somnolence, daytime Acute Unable to ambulate Acute chronic disease mgmt/transitional care Acute
--- NOTE | 2018-11-19 16:05 | HOSPPROG ---
Hospitalist Progress Note Assessment/Plan: 73yo F with history of dCHF, afib, CKD here with CHF exacerbation found to have new decrement in ventricular function. #Acute decompensated biventricular CHF: LVEF 30%, previously normal (? tachy mediated vs ischemia). Also with mod RV dysfunction and symptoms are more right sided. - Cards managing. Increasing coreg and lisinopril. Switching from lasix gtt to 40mg IV BID, decreasing metolazone - Planning on left and right heart cath once more euvolemic, possibly Wednesday #Atrial fibrillation with RVR: Rates remain elevated, asymptomatic - Increasing beta radha - Not on anticoagulation d/t history of falls with resultant bleeding/ trauma. Consider Watchman in future #CKD: Variable baseline Cr 1.2-1.6, currently 1.6. - Renal following #VICENTA: Non-compliant with CPAP. Uses nocturnal oxygen. #Pulmonary hypertension: RHC 06/2018 with mPA 28 and PCWP 14 (essentially normal ). RVSP 49 on echo this admission although decompensated at that time - Dr Michel burton. Will need outpatient VICENTA mgmt #Valvular heart disease: Moderate MR and TR noted on echo. #Leukocytosis: Resolved. Do not clinically suspect infection. #Hypokalemia: Replete, monitor per protocol with diuresis. #Low TSH: Repeat as outpatient. #H/o lacunar infarct/CVA: She is not on antiplatelet agent or statin. #Depression: Continue home meds #Diabetes: BG ok. SSI, ACHS glucose checks. #HTN: Monitor. Stopped home clonidine. #H/o chronic pain/fibromyalgia: Hydrocodone PRN. #Hypothyroidism: LT4 replacement. VTE ppx: SQH Code: full Diet: low Na, 2L fluid restriction Dispo: Remain inpatient Subjective: No new symptoms. No chest pain. Swelling about the same. HR consistent >120, denies symptoms associated wtih this. Objective: Vital Signs Temp Pulse Resp BP Pulse Ox 36.4 C 126 H 16 110/78 94 11/19/18 15:46 11/19/18 15:46 11/19/18 15:46 11/19/18 15:46 11/19/18 15:46 Laboratory Results 11/18/18 05:00 11/19/18 04:25 03/29/19 03/30/19 03/31/19 05:59 05:59 05:59 Intake Total 1011 1470 480 Output Total 5573 1120 685 [facility] -3339 -1130 -145 - Physical Exam Constitutional: no apparent distress, appears nourished, not in pain Eyes: PERRL, anicteric sclera, EOMI Ears, Nose, Mouth, Throat: moist mucous membranes, hearing normal, ears appear normal, no oral mucosal ulcers Cardiovascular: irregularly irregular, tachycardia, edema Respiratory: no respiratory distress, no rales or rhonchi, reduced air movement (bases) Gastrointestinal: normoactive bowel sounds, soft, non-tender abdomen, distension Genitourinary: no bladder fullness, no bladder tenderness, no renal bruits Skin: no rashes or abrasions, no fluctuance, no induration Musculoskeletal: full muscle strength, no muscle tenderness, normal joint ROM Neurologic: AAOx3 Psychiatric: interacting appropriately ICD10 Worksheet Patient Problems: Problems Problem Status Onset CHF (congestive heart failure) Acute MRSA - Methicillin resistant Staphylococcus aureus infection Active Acute kidney injury Acute Acute renal insufficiency Acute Afib Acute Bradycardia Acute Bronchitis Acute Contusion of left hip Acute Cough Acute Diuretics causing adverse effect in therapeutic use Acute Fall Acute Hematoma Acute Pneumonia Acute Primary localized osteoarthritis of left hip Acute Shortness of breath Acute Somnolence, daytime Acute Unable to ambulate Acute chronic disease mgmt/transitional care Acute
--- NOTE | 2018-11-19 18:06 | SOAPPROG ---
SOAP Progress Note Assessment/Plan: Assessment: History of nocturnal hypoxemia: On 2 L of oxygen at night at home. History of obstructive sleep apnea. Complete details regarding this are unclear. She has not been on CPAP for a number years but apparently does still have her machine at home. She no longer has a mask that is functional. CPAP probably does need to be restarted at home however this will be done as an outpatient. Congestive heart failure/diastolic dysfunction. Doing well with diuresis. Atrial fibrillation. Chronic. On subcu prophylactic heparin. Pulmonary artery hypertension: Likely secondary to valvular heart disease, possibly hypoxemia and sleep apnea contributing. Chronic renal insufficiency. Diabetes mellitus. On sliding scale insulin. Plan: Continue present care, continue diuresis. Continue oxygen at night. Outpatient follow-up in our office for VICENTA after discharge. Hopefully home soon. Subjective: Feels fairly well. Does have some all over body pain, chronic for her. Denies shortness of breath. No cough, no mucus, no chest pain. Objective: Vital Signs Temp Pulse Resp BP Pulse Ox 36.4 C 126 H 16 110/78 94 11/19/18 15:46 11/19/18 15:46 11/19/18 15:46 11/19/18 15:46 11/19/18 15:46 Laboratory Results 11/18/18 05:00 11/19/18 04:25 11/18/18 11/19/18 11/20/18 05:59 05:59 05:59 Intake Total 1011 1470 480 Output Total 4350 2600 625 Balance -3339 -1130 -145 Physical Exam - Physical Exam General Appearance: alert, no apparent distress, other (Up in chair) EENT: PERRL/EOMI, other (On room air. Saturations 94%) Neck: normal inspection (No obvious JVD) Respiratory: lungs clear, No rales, No rhonchi Cardiac/Chest: irregularly irregular (Heart rate approximately 110. ) Abdomen: normal bowel sounds, non-tender, soft Extremities: pedal edema (1+) Neuro/Psych: no motor/sensory deficits, No cognition abnormalities ICD10 Worksheet Patient Problems: Problems Problem Status Onset Acute kidney injury Acute Diuretics causing adverse effect in therapeutic use Acute Bradycardia Acute Afib Acute Fall Acute Acute renal insufficiency Acute Somnolence, daytime Acute Contusion of left hip Acute Hematoma Acute Unable to ambulate Acute chronic disease mgmt/transitional care Acute Pneumonia Acute CHF (congestive heart failure) Acute Cough Acute Shortness of breath Acute Primary localized osteoarthritis of left hip Acute MRSA - Methicillin resistant Staphylococcus aureus infection Active Bronchitis Acute
[2018-11-19] MEDS: CARVEDILOL 6.25 MG TAB PO SCH (18:27)
[2018-11-19] MEDS: POLYETHYLENE GLYCOL 3350 17 GM PKT PO SCH (20:49)
[2018-11-19] MEDS: FAMOTIDINE 20 MG TAB PO SCH (20:49)
[2018-11-19] MEDS: clonazePAM 0.5 MG TAB PO SCH (20:49)
[2018-11-20] MEDS: FLUTICASONE NASAL 120 SPRAYS/16 GM MDI NS SCH ×2 (03:15→11:11)
[2018-11-20] MEDS: LEVOTHYROXINE 200 MCG TAB PO SCH (05:17)
[2018-11-20] MEDS: HEPARIN 5,000 UNIT/0.5 ML INJ SC SCH ×3 (05:17→23:36)
[2018-11-20] MEDS: CYANO/VITAMIN B12 1000 MCG TAB PO SCH (08:24)
[2018-11-20] MEDS: LISINOPRIL 5 MG TAB PO SCH (08:24)
[2018-11-20] MEDS: buPROPion XL 150 MG TAB PO SCH (08:24)
[2018-11-20] MEDS: FLUoxetine 20 MG CAP PO SCH (08:24)
[2018-11-20] MEDS: CETIRIZINE 10 MG TAB PO SCH (08:25)
[2018-11-20] MEDS: DOCUSATE SODIUM 100 MG CAP PO SCH (08:25)
[2018-11-20] MEDS: ARIPiprazole 2 MG TAB PO SCH (08:25)
[2018-11-20] MEDS: CARVEDILOL 6.25 MG TAB PO SCH ×2 (08:25→18:38)
[2018-11-20] MEDS: INSULIN LISPRO 100 UNIT/ML SC SCH ×3 (09:31→19:34)
[2018-11-20] MEDS ORDERED: TEMAZEPAM 15 MG CAP PO PRN (10:05)
[2018-11-20] MEDS ORDERED: ASPIRIN EC 325 MG TAB PO ONE (10:05)
[2018-11-20] MEDS ORDERED: FAMOTIDINE 20 MG TAB PO ONE (10:05)
[2018-11-20] MEDS ORDERED: diphenhydrAMINE 25 MG CAP PO ONE (10:05)
[2018-11-20] MEDS ORDERED: DIAZEPAM 5 MG TAB PO ONE (10:05)
--- NOTE | 2018-11-20 10:16 | PDCARPN ---
Cardiology Progress Note Assessment/Plan: Assessment: 1. Acute on Chronic Diastolic CHF 2. New onset systolic CHF with LVEF 30% 2. Permanent Afib now with RVR in 160s this AM 3. Chronic Renal Insufficiency with baseline Cr 1.8 4. VICENTA (admits to non compliance with CPAP) - seen by Dr. Michel Ferrer. Plans for out pt eval to restart CPAP) 5. HTN 6. DM Plan: -Continue Coreg to 6.25 mg bid -Continue Lisinopril to 5 mg daily -Increase Aldactone 25 mg daily -Discontinue Lasix 40 mg IV bid -Discontinue Metolazone 5 mg daily -Discontinue KCL 20 meq daily -Start Demedex 60 mg PO daily (first dose now) -Continue KCL replacement protocol -Plan for Left and Right Heart Cath Wednesday -If Coronaries normal, plan for EP consult for AV node ablation and pacemaker -NPO after midnight -Continue to monitor I/O and daily weights -NOTE: not on anticoagulation secondary to hx of traumatic fall with large hematoma formation while on Eliquis. I think her ongoing fall risk makes her not an appropriate candidate for anticoagulation. Would consider Watchman in the future. -Will Follow 11/20/18 10:16 Subjective: Mrs. Morgan has no new complaints. Edema has signifcantly improved since admit. She is down over 10Kg since admission. Cr has increased to 1.7, was 1.6 yesterday and 1.5 earlier in the week. Baseline Cr around 1.8. Metolazone was stopped yesterday and Lasix gtt. With rising Cr and BUN will change back to oral Demadex 60 mg once daily. (Demedex dose on admit of 80 mg qd). Mrs. Morgan Afib rates have increased over the week. Earlier this week rates in the 110-120 range now in the 140-160's, despite discontinue dobutamine and titrating Coreg. She is not on anticoagulation secondary to hx of traumatic fall and significant hip hematoma; limiting use of anti arrhythmic medications or attempt at cardioverison. Plan is to pursue [facility] to assess cors tomorrow. If no flow limiting CAD, recommend EP consult for ablate and pace. Would consider Watchman in the future. IN the interim, will start low dose diltiazem gtt for improved rate control. I have reviewed the plan for Left and Right Heart Cath tomorrow with pt. Explained in detail plan for EP consult, AV node ablation and pacemaker. She asked that I contact her cousin in [place] to discuss with him; which I did. Explained in detail to him. She is her closest next of kin. Reviewed/Discussed With: hospitalist, multidisciplinary team Objective: Vital Signs (8 Hrs) Temp Pulse Resp BP Pulse Ox 11/20/18 08:25 140 H 11/20/18 07:43 36.3 C 110 H 18 152/113 H 95 11/20/18 04:00 36.6 C 132 H 15 169/135 H 96 Intake/Output (24 Hrs) 11/19/18 11/20/18 11/21/18 05:59 05:59 05:59 Intake Total 1470 1230 Output Total 2600 1825 300 Balance -1130 -595 -300 Intake: Oral (ml) 990 1150 IV Infused (ml) 480 80 Furosemide 100 mg In D5w 480 80 100 ml @ 20 mls/hr IV CONT RICHIE Rx#:[id number] Output: Urine (ml) 2600 1825 300 Bedside Commode 2600 1825 300 Other: Weight 60.6 kg 59.33 kg Number of Voids Bedside Commode 1 2 Incontinence 1 1 Number of Stools Bedside Commode 1 1 1 Result Diagrams: 11/18/18 05:00 11/20/18 04:55 - Physical Exam Ears, Nose, Mouth, Throat: moist mucous membranes Cardiovascular: systolic murmur, irregularly irregular, other (1+ ankle edema ) Peripheral Pulses: 2+: carotid (R), carotid (L) Respiratory: clear to auscultate bilat Neurologic: AAOx3, CN II-XII grossly intact Psychiatric: cooperative, interactive, following commands ICD10 Worksheet Patient Problems: Problems Problem Status Onset Acute kidney injury Acute Diuretics causing adverse effect in therapeutic use Acute Bradycardia Acute Afib Acute Fall Acute Acute renal insufficiency Acute Somnolence, daytime Acute Contusion of left hip Acute Hematoma Acute Unable to ambulate Acute chronic disease mgmt/transitional care Acute Pneumonia Acute CHF (congestive heart failure) Acute Cough Acute Shortness of breath Acute Primary localized osteoarthritis of left hip Acute MRSA - Methicillin resistant Staphylococcus aureus infection Active Bronchitis Acute
[2018-11-20] MEDS: POTASSIUM CL 20 MEQ TAB PO SCH (11:08)
[2018-11-20] MEDS: FUROSEMIDE 40 MG/4 ML VIAL IVP SCH (11:08)
[2018-11-20] MEDS: SPIRONOLACTONE 25 MG TAB PO SCH ×2 (11:09→11:11)
[2018-11-20] MEDS ORDERED: POTASSIUM CL 10 MEQ TAB PO ONE (11:10)
[2018-11-20] MEDS: TORSEMIDE 20 MG TAB PO SCH (11:11)
[2018-11-20] MEDS: DILTIAZEM HCL/D5W 125 ML IV SCH (11:22)
--- NOTE | 2018-11-20 12:45 | HOSPPROG ---
Hospitalist Progress Note Assessment/Plan: 73yo F with history of dCHF, afib, CKD here with CHF exacerbation found to have new decrement in ventricular function. #Acute decompensated biventricular CHF: LVEF 30%, previously normal (? tachy mediated vs ischemia). Also with mod RV dysfunction - Cards managing. Cont coreg and lisinopril, increasing aldactone - Stopping IV diuretics, started demedex 60mg qd - Planning on left and right heart cath tomorrow. If cors normal, will need EP consult #Atrial fibrillation with RVR: Rates remain elevated, asymptomatic - Beta radha as above - Not on anticoagulation d/t history of falls with resultant bleeding/ trauma. Consider Watchman in future #CKD: Variable baseline Cr 1.2-1.6, now slightly above at 1.7 - Renal following #VICENTA: Non-compliant with CPAP. Uses nocturnal oxygen. #Pulmonary hypertension: RHC 06/2018 with mPA 28 and PCWP 14 (essentially normal ). RVSP 49 on echo this admission although decompensated at that time - Dr Michel elias'd. Will need outpatient VICENTA mgmt #Valvular heart disease: Moderate MR and TR noted on echo. #Leukocytosis: Resolved. Do not clinically suspect infection. #Hypokalemia: Replete, monitor per protocol with diuresis. #Low TSH: Repeat as outpatient. #H/o lacunar infarct/CVA: She is not on antiplatelet agent or statin. #Depression: Continue home meds #Diabetes: BG ok. SSI, ACHS glucose checks. #HTN: Monitor. Stopped home clonidine. #H/o chronic pain/fibromyalgia: Hydrocodone PRN. #Hypothyroidism: LT4 replacement. VTE ppx: SQH Code: full Diet: low Na, 2L fluid restriction Dispo: Remain inpatient Subjective: She is bored. No new complaints. HR remains >120. Objective: Vital Signs Temp Pulse Resp BP Pulse Ox 36.3 C 114 H 13 146/115 H 98 11/20/18 11:32 11/20/18 11:32 11/20/18 11:32 11/20/18 11:32 11/20/18 11:32 Laboratory Results 11/18/18 05:00 11/20/18 04:55 11/19/18 11/20/18 11/21/18 05:59 05:59 05:59 Intake Total 1470 1230 Output Total 2600 1825 300 [facility] -1130 -595 -300 - Physical Exam Constitutional: no apparent distress Eyes: PERRL Ears, Nose, Mouth, Throat: moist mucous membranes Cardiovascular: irregularly irregular, tachycardia, edema (improving) Respiratory: no respiratory distress Gastrointestinal: normoactive bowel sounds, soft, non-tender abdomen, no palpable masses, distension Genitourinary: no bladder fullness, no bladder tenderness, no renal bruits Skin: no rashes or abrasions, no fluctuance, no induration Musculoskeletal: full muscle strength, no muscle tenderness, normal joint ROM Neurologic: AAOx3 Psychiatric: interacting appropriately ICD10 Worksheet Patient Problems: Problems Problem Status Onset CHF (congestive heart failure) Acute MRSA - Methicillin resistant Staphylococcus aureus infection Active Acute kidney injury Acute Acute renal insufficiency Acute Afib Acute Bradycardia Acute Bronchitis Acute Contusion of left hip Acute Cough Acute Diuretics causing adverse effect in therapeutic use Acute Fall Acute Hematoma Acute Pneumonia Acute Primary localized osteoarthritis of left hip Acute Shortness of breath Acute Somnolence, daytime Acute Unable to ambulate Acute chronic disease mgmt/transitional care Acute
--- NOTE | 2018-11-20 12:49 | SOAPPROG ---
SOAP Progress Note Assessment/Plan: Assessment: LUIS CARLOS, likely due to decreased cardiac function. EF has decreased over past year from 65-70% to 30-35%. Possible R and L heart cath on Wednesday Creat better with dobutamine and diuresis A-fib, rate reasonable secondary hyperparathyroidism, will start low dose calcitriol nephrotic range proteinuria, may be contributing to edema will start low dose PAUL-I, does not have allergy per her report to me hyperuricemia, asymptomatic at this point, but will need treatment eventually HTN, narrow pulse pressure this AM, will watch, SBP much lower than usual Plan: Low dose PAUL-I (renal US less than a year ago was negative for ADRIANNA or RVT) start calcitriol continue diuresis, suspect some of her edema is from proteinuria follow lytes vol etc.. Right and left heart cath planned for Wednesday. Counseled patient regarding the possibility of worsening kidney function from contrast, would use as little contrast as possible. Will continue to follow lytes vol and renal function 11/18/18 08:57 11/19/18 13:24 11/20/18 12:46 Subjective: up to chair SOB continues to improve no cp nausea or vomiting slept OK appetite OK spirits good Objective: Vital Signs Temp Pulse Resp BP Pulse Ox 36.3 C 114 H 13 146/115 H 98 11/20/18 11:32 11/20/18 11:32 11/20/18 11:32 11/20/18 11:32 11/20/18 11:32 Laboratory Results 11/18/18 05:00 11/20/18 04:55 11/19/18 11/20/18 11/21/18 05:59 05:59 05:59 Intake Total 1470 1230 Output Total 2600 1825 300 Balance -1130 -928 -300 Physical Exam - Physical Exam General Appearance: alert, thin Respiratory: rales, rhonchi, wheezing Cardiac/Chest: edema (edema improved), irregularly irregular Abdomen: normal bowel sounds, non-tender, soft Extremities: pedal edema Neuro/Psych: alert, normal mood/affect, oriented x 3 ICD10 Worksheet Patient Problems: Problems Problem Status Onset CHF (congestive heart failure) Acute MRSA - Methicillin resistant Staphylococcus aureus infection Active Acute kidney injury Acute Acute renal insufficiency Acute Afib Acute Bradycardia Acute Bronchitis Acute Contusion of left hip Acute Cough Acute Diuretics causing adverse effect in therapeutic use Acute Fall Acute Hematoma Acute Pneumonia Acute Primary localized osteoarthritis of left hip Acute Shortness of breath Acute Somnolence, daytime Acute Unable to ambulate Acute chronic disease mgmt/transitional care Acute
--- NOTE | 2018-11-20 16:47 | SOAPPROG ---
SOAP Progress Note Assessment/Plan: Assessment: History of nocturnal hypoxemia: On 2 L of oxygen at night at home. History of obstructive sleep apnea. Complete details regarding this are unclear. She has not been on CPAP for a number years but apparently does still have her machine at home. She no longer has a mask that is functional. CPAP probably does need to be restarted at home however this will be done as an outpatient. Congestive heart failure/diastolic dysfunction. Doing well with diuresis. Atrial fibrillation. Chronic. On subcu prophylactic heparin. Pulmonary artery hypertension: Likely secondary to valvular heart disease, possibly hypoxemia and sleep apnea contributing. Chronic renal insufficiency. Diabetes mellitus. On sliding scale insulin. Plan: Continue present care per Cardiology, continue diuresis. Continue oxygen at night. Outpatient follow-up in our office for VICENTA after discharge. Hopefully home soon. Subjective: No changes, doing well. No pain, no shortness of breath Objective: Vital Signs Temp Pulse Resp BP Pulse Ox 36.6 C 116 H 18 104/87 H 95 11/20/18 15:07 11/20/18 15:07 11/20/18 15:07 11/20/18 15:07 11/20/18 15:07 Laboratory Results 11/18/18 05:00 11/20/18 04:55 11/19/18 11/20/18 11/21/18 05:59 05:59 05:59 Intake Total 1470 1230 Output Total 2600 1825 300 Balance -1130 -762 -300 Physical Exam - Physical Exam General Appearance: alert, no apparent distress EENT: PERRL/EOMI, other (On room air) Neck: normal inspection Respiratory: lungs clear, No rales, No rhonchi Cardiac/Chest: irregularly irregular (Atrial fibrillation, 110) Abdomen: normal bowel sounds, non-tender, soft Skin: normal color, warm/dry Extremities: pedal edema (1+) Neuro/Psych: no motor/sensory deficits, No cognition abnormalities ICD10 Worksheet Patient Problems: Problems Problem Status Onset Acute kidney injury Acute Diuretics causing adverse effect in therapeutic use Acute Bradycardia Acute Afib Acute Fall Acute Acute renal insufficiency Acute Somnolence, daytime Acute Contusion of left hip Acute Hematoma Acute Unable to ambulate Acute chronic disease mgmt/transitional care Acute Pneumonia Acute CHF (congestive heart failure) Acute Cough Acute Shortness of breath Acute Primary localized osteoarthritis of left hip Acute MRSA - Methicillin resistant Staphylococcus aureus infection Active Bronchitis Acute
[2018-11-20] MEDS: FAMOTIDINE 20 MG TAB PO SCH (19:43)
[2018-11-20] MEDS: clonazePAM 0.5 MG TAB PO SCH (19:43)
[2018-11-20] MEDS: POLYETHYLENE GLYCOL 3350 17 GM PKT PO SCH (19:43)
[2018-11-20] MEDS: HYDROCODONE/APAP 10/325 TAB PO PRN (19:43)
[2018-11-21] MEDS: LEVOTHYROXINE 200 MCG TAB PO SCH (05:44)
[2018-11-21] MEDS: HEPARIN 5,000 UNIT/0.5 ML INJ SC SCH ×3 (05:44→20:39)
[2018-11-21 05:57] LABS: PLATELET COUNT 163 10^3/uL (150-400)
[2018-11-21 06:06] LABS: INR 1.09 (0.83-1.16); PROTIME(PATIENT) 13.7 SEC (12.0-15.0)
[2018-11-21] MEDS ORDERED: DIAZEPAM 5 MG TAB PO ONE (08:15)
[2018-11-21] MEDS ORDERED: ASPIRIN EC 325 MG TAB PO ONE (08:15)
[2018-11-21] MEDS ORDERED: FAMOTIDINE 20 MG TAB PO ONE (08:15)
[2018-11-21] MEDS ORDERED: diphenhydrAMINE 25 MG CAP PO ONE (08:15)
[2018-11-21] MEDS: FLUTICASONE NASAL 120 SPRAYS/16 GM MDI NS SCH ×2 (08:43)
[2018-11-21] MEDS: ESTRADIOL 42.5 GM CRTUBE VG SCH (08:45)
[2018-11-21] MEDS: INSULIN LISPRO 100 UNIT/ML SC SCH ×3 (08:45→19:19)
[2018-11-21] MEDS: CARVEDILOL 6.25 MG TAB PO SCH ×2 (08:48→18:07)
[2018-11-21] MEDS: buPROPion XL 150 MG TAB PO SCH (08:48)
[2018-11-21] MEDS: CETIRIZINE 10 MG TAB PO SCH (08:49)
[2018-11-21] MEDS: CYANO/VITAMIN B12 1000 MCG TAB PO SCH (08:49)
[2018-11-21] MEDS: ARIPiprazole 2 MG TAB PO SCH (08:50)
[2018-11-21] MEDS: HYDROCODONE/APAP 10/325 TAB PO PRN (08:50)
[2018-11-21] MEDS: DOCUSATE SODIUM 100 MG CAP PO SCH (08:50)
[2018-11-21] MEDS: SPIRONOLACTONE 25 MG TAB PO SCH (08:51)
[2018-11-21] MEDS: FLUoxetine 20 MG CAP PO SCH (08:51)
[2018-11-21] MEDS: DILTIAZEM HCL/D5W 125 ML IV SCH (08:55)
[2018-11-21] MEDS ORDERED: ERGOCALCIFEROL 50,000 I.UNIT CAP PO SCH (09:00)
[2018-11-21] MEDS: TORSEMIDE 20 MG TAB PO SCH (09:03)
[2018-11-21] MEDS ORDERED: POTASSIUM CL 20 MEQ TAB PO ONE (11:15)
[2018-11-21] MEDS: LISINOPRIL 5 MG TAB PO SCH (11:29)
--- NOTE | 2018-11-21 12:17 | PDPROPOC ---
Sedation Plan of Care Sedation Plan of Care: vital signs stable, mental status noted, patient educated of risks, benefits, alternatives, patient can tolerate sedation ASA Classification: ASA 2 Planned drugs: fentanyl, midazolam Mallampati Score: Class 2 Mallampati Reference Image: Patient passed 3-3-2 rule?: Yes
[2018-11-21] MEDS ORDERED: methylPREDNISolone SOD SUCC 125 MG/2 ML VIAL IVP ONE (12:21)
[2018-11-21] MEDS ORDERED: LIDOCAINE 1% 300 MG/30 ML SDV ONE (12:49)
[2018-11-21] MEDS ORDERED: fentaNYL 100 MCG/2 ML INJ ONE (12:49)
[2018-11-21] MEDS ORDERED: MIDAZOLAM 2 MG/2 ML VIAL ONE ×2 (12:49→12:50)
[2018-11-21] MEDS ORDERED: IOPAMIDOL (ISOVUE-370) 150 ML BTL IV ONE (12:50)
--- NOTE | 2018-11-21 13:04 | PDCARPN ---
Cardiology Progress Note Assessment/Plan: 73 y/o female sent from [facility] directly to [facility] ED on for admission because of decompensated CHF with hypoxia. Congestive Heart Failure: She has acute on chronic diastolic CHF and a new component of acute systolic CHF. Her clinical status has improved significantly since admission. Her weight is down by 10 kg in response to intravenous diuresis. BNP has decreased from 42,200 down to 10,400. - Is back on PO torsemide. Cardiomyopathy: An echocardiogram from earlier in her hospital stay demonstrated an LVEF of approximately 30% which is down from 60% in May of last year. She does not have a documented history of CAD and does not report symptoms consistent with angina. Previous nuclear stress testing was negative for evidence of ischemia or infarction. 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 - Cardiac catheterization/coronary angiography this afternoon for definitive assessment of CAD. - Will also perform right heart catheterization. Atrial Fibrillation: She has chronic atrial fibrillation. Rate control has been difficult for her I do not have details as to the exact reason (medication intolreances?). This has actually produced a tachycardia mediated cardiomyopathy. - Currently on IV diltiazem at 5mg/hr. Will try to convert to PO. - Long-term plan may be for pacemaker implantation and AV node ablation. Chronic Kidney Disease: Creat 1.7 to 1.9 during this admission. - Will minimize the amount of contrast used at cath. Hypertension: Adequately controlled. 11/21/18 13:02 Subjective: No complaints. Objective: Vital Signs (8 Hrs) Temp Pulse Resp BP Pulse Ox 11/21/18 11:28 36.7 C 85 16 138/89 H 96 11/21/18 08:55 112 H 11/21/18 07:28 36.4 C 102 H 18 120/97 H 100 Intake/Output (24 Hrs) 11/20/18 11/21/18 11/22/18 05:59 05:59 05:59 Intake Total 1230 1385 Output Total 1825 1650 Balance -595 -265 Intake: Oral (ml) 1150 1320 IV Infused (ml) 80 65 Diltiazem HCl/D5w 125 ml 65 @ Per Protocol IV CONT RICHIE Rx#:[id number] Furosemide 100 mg In D5w 80 100 ml @ 20 mls/hr IV CONT RICHIE Rx#:[id number] Output: Urine (ml) 1825 1650 Bedside Commode 1825 1650 Other: Weight 59.33 kg 59.602 kg Intake Quantity Yes Sufficient Number of Voids Bedside Commode 2 3 1 Incontinence 1 1 1 Number of Stools Bedside Commode 1 2 Result Diagrams: 11/21/18 05:40 11/21/18 05:40 - Physical Exam Constitutional: no apparent distress, other (chronically ill-appearing) Eyes: anicteric sclera Ears, Nose, Mouth, Throat: moist mucous membranes Cardiovascular: irregularly irregular Respiratory: clear to auscultate bilat Gastrointestinal: normoactive bowel sounds, no tenderness, no masses Skin: other (2+ edema) Neurologic: AAOx3 Psychiatric: not anxious ICD10 Worksheet Patient Problems: Problems Problem Status Onset Acute kidney injury Acute Diuretics causing adverse effect in therapeutic use Acute Bradycardia Acute Afib Acute Fall Acute Acute renal insufficiency Acute Somnolence, daytime Acute Contusion of left hip Acute Hematoma Acute Unable to ambulate Acute chronic disease mgmt/transitional care Acute Pneumonia Acute CHF (congestive heart failure) Acute Cough Acute Shortness of breath Acute Primary localized osteoarthritis of left hip Acute MRSA - Methicillin resistant Staphylococcus aureus infection Active Bronchitis Acute
[2018-11-21] MEDS ORDERED: BUPIVACAINE 0.5% 30 ML SDV ONE (13:07)
--- NOTE | 2018-11-21 14:35 | PDDXCAT ---
Diagnostic Cath Note - . Date: 11/21/18 Fishing Floats Assembler: Shahram Indication: other (Newly identified cardiomyopathy, CHF, and risk factors for CAD.) - Procedure Access: right groin Procedure: left heart catheterization, coronary angiography, right heart catheterization - Materials Left Heart Cath size: 5F Left Heart Cath materials: standard multipack (JL4, JR4, pigtail) Right Heart Cath size: 7F Right Heart Cath materials: PWP catheter - Findings-Left Heart Catheterization LM: Normal. LAD: Diffuse moderate atherosclerosis without flow-limiting stenosis. LCX: Diffuse mild to moderate irregularities. There is a large, multi-branched obtuse marginal containing a focal 80% stenosis in midportion of the major limb. RCA: Diffuse mild atherosclerosis. EDP: 19 mmHg LVEF: No LV-gram secondary to CKD. Wall motion: N/A - Findings-Right Heart Catheterization RA: 10 mmHg RV: 45/12 mmHg PA: 48/26/34 mmHg O2 sat 68.4% PAOP: 20 mmHg AO: 151/75/100 mmHg O2 sat 98.9% CO: 3.03 L/min CI: 1.88 L/min/sq mtr Complications: None Estimated blood loss: <50ml Closure method: Angioseal Assessment: 1) Coronary artery disease as described above. 2) Mild pulmonary hypertension. 3) Elevated PCWP and LVEDP (slightly worse than on cath in Jun 2018). Patient Problems: Problems Problem Status Onset CHF (congestive heart failure) Acute MRSA - Methicillin resistant Staphylococcus aureus infection Active Acute kidney injury Acute Acute renal insufficiency Acute Afib Acute Bradycardia Acute Bronchitis Acute Contusion of left hip Acute Cough Acute Diuretics causing adverse effect in therapeutic use Acute Fall Acute Hematoma Acute Pneumonia Acute Primary localized osteoarthritis of left hip Acute Shortness of breath Acute Somnolence, daytime Acute Unable to ambulate Acute chronic disease mgmt/transitional care Acute
--- NOTE | 2018-11-21 14:41 | SOAPPROG ---
SOAP Progress Note Assessment/Plan: Assessment/Plan: 73 y/o F with CKD III who presented with acute systolic CHF, LUIS CARLOS, and nephrotic syndrome. LUIS CARLOS -likely cardiorenal with EF 30-35% -continue diuresis with torsemide -Cr stable between 1.6-1.9 -at risk for KARTHIK, needs good blood sugar control and likely hold diuretic prior to contrast dose for cath -controlling rate per cardiology (afib) -keep MAP>65 -monitor UO -no acute indication for dialysis Nephrotic syndrome -6g proteinuria on spot -serologies pending however likely 2/2 to DM -started on PAUL -continue statin Hyperuricemia -asymptomatic -avoid NSAIDs BMD -started on low dose calcitriol -PTH, vitamin D as outpatient Will continue to follow, please contact if ?'s. #[phone]. 11/21/18 14:38 Subjective: No events overnight. Still making good UO. Possible cath soon. Objective: Vital Signs Temp Pulse Resp BP Pulse Ox 36.7 C 85 16 138/89 H 96 11/21/18 11:28 11/21/18 11:28 11/21/18 11:28 11/21/18 11:28 11/21/18 11:28 Laboratory Results 11/21/18 05:40 11/21/18 05:40 11/20/18 11/21/18 11/22/18 05:59 05:59 05:59 Intake Total 1230 1385 Output Total 1825 1650 Balance -595 -265 PT 13.7 SEC (12.0-15.0) 11/21/18 05:40 INR 1.09 (0.83-1.16) 11/21/18 05:40 Physical Exam - Physical Exam General Appearance: alert, no apparent distress EENT: PERRL/EOMI Neck: non-tender, supple Respiratory: decreased breath sounds Cardiac/Chest: edema, irregularly irregular Abdomen: normal bowel sounds, non-tender Skin: normal color, warm/dry Extremities: normal range of motion, pedal edema Neuro/Psych: alert, normal mood/affect, oriented x 3 ICD10 Worksheet Patient Problems: Problems Problem Status Onset CHF (congestive heart failure) Acute MRSA - Methicillin resistant Staphylococcus aureus infection Active Acute kidney injury Acute Acute renal insufficiency Acute Afib Acute Bradycardia Acute Bronchitis Acute Contusion of left hip Acute Cough Acute Diuretics causing adverse effect in therapeutic use Acute Fall Acute Hematoma Acute Pneumonia Acute Primary localized osteoarthritis of left hip Acute Shortness of breath Acute Somnolence, daytime Acute Unable to ambulate Acute chronic disease mgmt/transitional care Acute
--- NOTE | 2018-11-21 15:41 | HOSPPROG ---
Hospitalist Progress Note Assessment/Plan: 73yo F with history of dCHF, afib, CKD here with CHF exacerbation found to have new decrement in ventricular function. #Acute decompensated biventricular CHF: LVEF 30%, previously normal (? tachy mediated vs ischemia). Also with mod RV dysfunction - Cards managing. Cont coreg and aldactone, hold lisinopril with worsening renal fxn - Cont demedex 60 qd - RHC and LHC planned for this PM #Atrial fibrillation with RVR: Rates better. - Dilt gtt - Not on anticoagulation d/t history of falls with resultant bleeding/ trauma. Consider Watchman in future #CKD: Bump today Cr 1.9, b/l 1.4-1.6. At risk for contrast injury - Hold lisinopril today. Renal following, appreciate assistance #Diabetes: BG a touch high. Increase SSI, ACHS glucose checks. #VICENTA: Non-compliant with CPAP. Uses nocturnal oxygen. #Pulmonary hypertension: Dr Michel escobar Will need outpatient VICENTA mgmt #Valvular heart disease: Moderate MR and TR noted on echo. #Leukocytosis: Resolved. Do not clinically suspect infection. #Hypokalemia: Replete, monitor per protocol with diuresis. #Low TSH: Repeat as outpatient. #H/o lacunar infarct/CVA: She is not on antiplatelet agent or statin. #Depression: Continue home meds #HTN: Monitor. Stopped home clonidine. #H/o chronic pain/fibromyalgia: Hydrocodone PRN. #Hypothyroidism: LT4 replacement. VTE ppx: SQH Code: full Diet: low Na, 2L fluid restriction Dispo: Remain inpatient Subjective: No new symptoms. Anticipating cath later today. HR much better. Objective: Vital Signs Temp Pulse Resp BP Pulse Ox 36.7 C 85 16 138/89 H 96 11/21/18 11:28 11/21/18 11:28 11/21/18 11:28 11/21/18 11:28 11/21/18 11:28 Laboratory Results 11/21/18 05:40 11/21/18 05:40 11/20/18 11/21/18 11/22/18 05:59 05:59 05:59 Intake Total 1230 1385 100 Output Total 1825 1650 Balance -595 -265 100 PT 13.7 SEC (12.0-15.0) 11/21/18 05:40 INR 1.09 (0.83-1.16) 11/21/18 05:40 - Physical Exam Constitutional: no apparent distress, appears nourished, not in pain Eyes: PERRL, anicteric sclera, EOMI Ears, Nose, Mouth, Throat: moist mucous membranes, hearing normal, ears appear normal, no oral mucosal ulcers Cardiovascular: systolic murmur, irregularly irregular, tachycardia, edema ( improving) Respiratory: no respiratory distress, no rales or rhonchi, clear to auscultation Gastrointestinal: normoactive bowel sounds, soft, non-tender abdomen, no palpable masses Genitourinary: no bladder fullness, no bladder tenderness, no renal bruits Skin: no rashes or abrasions, no fluctuance, no induration Musculoskeletal: full muscle strength, no muscle tenderness, normal joint ROM Neurologic: AAOx3 Psychiatric: interacting appropriately ICD10 Worksheet Patient Problems: Problems Problem Status Onset CHF (congestive heart failure) Acute MRSA - Methicillin resistant Staphylococcus aureus infection Active Acute kidney injury Acute Acute renal insufficiency Acute Afib Acute Bradycardia Acute Bronchitis Acute Contusion of left hip Acute Cough Acute Diuretics causing adverse effect in therapeutic use Acute Fall Acute Hematoma Acute Pneumonia Acute Primary localized osteoarthritis of left hip Acute Shortness of breath Acute Somnolence, daytime Acute Unable to ambulate Acute chronic disease mgmt/transitional care Acute
[2018-11-21] MEDS: FAMOTIDINE 20 MG TAB PO SCH (20:40)
[2018-11-21] MEDS: clonazePAM 0.5 MG TAB PO SCH (20:40)
[2018-11-21] MEDS: POLYETHYLENE GLYCOL 3350 17 GM PKT PO SCH (20:53)
[2018-11-22] MEDS: DILTIAZEM HCL/D5W 125 ML IV SCH ×2 (00:43→12:19)
[2018-11-22] MEDS: FLUTICASONE NASAL 120 SPRAYS/16 GM MDI NS SCH ×3 (00:45→22:40)
[2018-11-22] MEDS: LEVOTHYROXINE 200 MCG TAB PO SCH (04:48)
[2018-11-22] MEDS: HEPARIN 5,000 UNIT/0.5 ML INJ SC SCH ×3 (04:48→20:52)
[2018-11-22] MEDS: ACETAMINOPHEN 325 MG TAB PO PRN (04:48)
[2018-11-22] MEDS: buPROPion XL 150 MG TAB PO SCH (08:13)
[2018-11-22] MEDS: CETIRIZINE 10 MG TAB PO SCH (08:13)
[2018-11-22] MEDS: ARIPiprazole 2 MG TAB PO SCH (08:13)
[2018-11-22] MEDS: DOCUSATE SODIUM 100 MG CAP PO SCH (08:14)
[2018-11-22] MEDS: HYDROCODONE/APAP 5/325 TAB PO PRN ×3 (08:15→23:18)
[2018-11-22] MEDS: CYANO/VITAMIN B12 1000 MCG TAB PO SCH (08:15)
[2018-11-22] MEDS: FLUoxetine 20 MG CAP PO SCH (08:16)
[2018-11-22] MEDS: SPIRONOLACTONE 25 MG TAB PO SCH (08:16)
[2018-11-22] MEDS: INSULIN LISPRO 100 UNIT/ML SC SCH ×3 (08:17→17:34)
[2018-11-22] MEDS: CARVEDILOL 6.25 MG TAB PO SCH ×2 (09:19→17:30)
[2018-11-22] MEDS: TORSEMIDE 20 MG TAB PO SCH (09:21)
--- NOTE | 2018-11-22 09:57 | PDCARCONS ---
Cardiology Consult Reason for Consult: ELECTROPHYSIOLOGY CONSULT requested by Dr Prather for management of longstanding persistent atrial fibrillation, tachy-mediated cardiomyopathy Chief Complaint: "I'm doing better" History of Present Illness: Ms Morgan is a very pleasant 73-year-old female with past medical history notable for longstanding persistent atrial fibrillation, dating back to at least 2012 based on available clinic ECGs. She is currently admitted with acutely decompensated systolic heart failure, and has required aggressive diuresis with inotrope support over the last few days since admission. She is currently being rate controlled with a combination of carvedilol orally and diltiazem through the IV, however the latter has had to be actively titrated due to relatively labile heart rates day versus night. Her available ECG data suggests atrial fibrillation dating back to at least 2012 , with all ECGs showing suboptimal rate control (she ranges either in the 50-60 versus in the 140-150 range throughout all available tracings). Historically, her cardiac imaging has suggested normal LV systolic function, as recently as May 2018 with ECHO showing LVEF 60%; most recent perfusion imaging in spring 2016 showed normal LVEF and normal perfusion pattern. At the time of this admission, echocardiography showed LVEF of 30%. She underwent workup with left heart catheterization, showing an 80% stenosis focally in an obtuse marginal branch; I have discussed this with Dr. Omalley, who, like me, thinks that this neither accounts for the degree of cardiomyopathy, nor is worth intervening upon, given that this is an anatomically complex vessel. Ms Morgan reports that both her breathing and her lower extremity edema are much improved over the last few days since admission. She states that she is okay with it whatever we think, but does request that I discussed her case with her cousin Kieran, who was involved in our discussion by speaker phone. I have offered her implantation of a biventricular pacemaker, coupled with AV node ablation, to get her more definitive rate control and thus lead to LV EF improvement. History Information - Allergies/Home Medication List Allergies/Adverse Reactions: iodine Allergy (Severe, Verified 11/15/18 13:44) GRAVES DISEASE/RED SKIN lidocaine [From Lidoderm] Allergy (Verified 11/15/18 13:44) Rash pravastatin Allergy (Verified 11/15/18 13:44) CAN'T WALK Home Medications: Albuterol [Proventil Inhaler HFA (*)] 2 puffs IH Q6HRS PRN 06/25/17 [Last Taken 07/20/17] Docusate Sodium [Colace 100 MG (*)] 200 mg PO DAILY 06/25/17 [Last Taken ] FLUoxetine [Prozac 20 MG (*)] 20 mg PO DAILY 06/25/17 [Last Taken 11/15/18] Famotidine [Pepcid 20 MG (*)] 20 mg PO BID 06/25/17 [Last Taken 11/15/18] Levothyroxine [Synthroid 200 mcg (*)] 200 mcg PO DAILY06 06/25/17 [Last Taken ] Triamcinolone 0.1% [Triamcinolone 0.1% Cream (*)] 1 fadia TP BID PRN 06/25/17 [ Last Taken 2 Weeks Ago ~07/07/17] clonazePAM [Klonopin (*)] 0.5 mg PO HS 06/25/17 [Last Taken 11/14/18] ARIPiprazole [Abilify 2 mg (*)] 2 mg PO DAILY 07/21/17 [Last Taken 11/15/18] clonIDINE [Catapres (*)] 0.1 mg PO HS 07/21/17 [Last Taken 11/14/18] Loratadine [Claritin 10 mg] 10 mg PO DAILY 12/14/17 [Last Taken 11/15/18] Fluticasone/Salmeter 250/50Mcg [Advair 250/50 (*)] 1 puffs IH BID 01/02/18 [ Last Taken 11/15/18] Hydrocodone/Acetaminophen [[place] 7.5-325 Tablet] 1 each PO Q6 PRN 05/21/18 [ Last Taken 11/15/18] buPROPion XL [Wellbutrin 150mg XL] 150 mg PO DAILY 05/21/18 [Last Taken 11/15/18 ] Bupropion HCl [Wellbutrin Xl] 300 mg PO DAILY 07/02/18 [Last Taken 11/15/18] Ergocalciferol [Vitamin D2 (*)] 50,000 unit PO MO 07/02/18 [Last Taken 11/14/18] Estradiol [Estrace Vaginal (*)] 1 fadia VG Q3D 07/02/18 [Last Taken Unknown] Herbals/Supplements -Info Only 1 ea PO DAILY 07/02/18 [Last Taken Unknown] Polyethylene Glycol 3350 [Miralax 17 gm (*)] 17 gm PO HS 07/02/18 [Last Taken ] Spironolactone [Aldactone 25 MG (*)] 12.5 mg PO DAILY 07/02/18 [Last Taken 11/15] Cyanocobalamin [Vitamin B12 (*)] 1,000 mcg PO DAILY 09/23/18 [Last Taken ] Metoprolol Succinate Xr [Toprol Xl 50 mg (*)] 75 mg PO DAILY 09/23/18 [Last Taken 11/15/18] Nystatin Powder [Mycostatin Powder] 1 fadia TP BID PRN 09/23/18 [Last Taken Unknown] Albuterol [Proventil Neb] 3 ml IH TID 10/06/18 [Last Taken 11/15/18] Fluticasone Nasal [Flonase Nasal [place]] 2 sprays NASAL BID 10/06/18 [Last Taken 11/15/18] Torsemide [Demadex] 80 mg PO DAILY10 10/06/18 [Last Taken 11/15/18] Ipratropium [Atrovent Hfa (*)] 1 puffs IH BID 11/15/18 [Last Taken 11/15/18] Sennosides [Senna Lax] 1 - 2 tab PO DAILY PRN 11/15/18 [Last Taken Unknown] Past Medical History: CKD - Past Medical History atrial fibrillation, diabetes type 2, TIA - Family History Additional family history: no sudden cardiac arrest - Social History Smoking Status: Former smoker Alcohol Use: None Drug Use: None Age [age] Years: [age] Sex: Female Congestive Heart Failure History: Yes Stroke/TIA/Thromboembolism History: Yes Diabetes Mellitus: Yes Physical Exam Physical Exam: Temp Pulse Resp BP Pulse Ox 36.7 C 104 H 16 139/85 H 98 11/22/18 07:49 11/22/18 09:19 11/22/18 07:49 11/22/18 09:19 11/22/18 07:49 O2 (L/minute) 1 Constitutional: no apparent distress Eyes: PERRL, anicteric sclera, EOMI Ears, Nose, Mouth, Throat: moist mucous membranes Cardiovascular: JVD, other (irregularly irregular, normal rate at rest on dilt gtt, no MRG) Respiratory: no respiratory distress, clear to auscultation Gastrointestinal: normoactive bowel sounds Skin: warm Musculoskeletal: other (2+ LE edema, clearly improved from recent based on extensive LE wrinkling) Neurologic: AAOx3 Psychiatric: interacting appropriately, not anxious, not encephalopathic Lab and Imaging 11/21/18 05:40 11/22/18 04:55 WBC 8.85 10^3/uL (3.80-9.50) 11/21/18 05:40 RBC 4.73 10^6/uL (4.18-5.33) 11/21/18 05:40 Hgb 12.7 g/dL (12.6-16.3) 11/21/18 05:40 Hct 40.1 % (38.0-47.0) 11/21/18 05:40 MCV 84.8 fL (81.5-99.8) 11/21/18 05:40 MCH 26.8 pg (27.9-34.1) L 11/21/18 05:40 MCHC 31.7 g/dL (32.4-36.7) L 11/21/18 05:40 RDW 17.6 % (11.5-15.2) H 11/21/18 05:40 Plt Count 163 10^3/uL (150-400) 11/21/18 05:40 MPV 10.4 fL (8.7-11.7) 11/21/18 05:40 Neut % (Auto) 79.6 % (39.3-74.2) H 11/21/18 05:40 Lymph % (Auto) 6.6 % (15.0-45.0) L 11/21/18 05:40 [place] % (Auto) 13.0 % (4.5-13.0) 11/21/18 05:40 Eos % (Auto) 0.0 % (0.6-7.6) L 11/21/18 05:40 Baso % (Auto) 0.1 % (0.3-1.7) L 11/21/18 05:40 Nucleat RBC Rel Count 0.0 % (0.0-0.2) 11/21/18 05:40 Absolute Neuts (auto) 7.04 10^3/uL (1.70-6.50) H 11/21/18 05:40 Absolute Lymphs (auto) 0.58 10^3/uL (1.00-3.00) L 11/21/18 05:40 Absolute Monos (auto) 1.15 10^3/uL (0.30-0.80) H 11/21/18 05:40 Absolute Eos (auto) 0.00 10^3/uL (0.03-0.40) L 11/21/18 05:40 Absolute Basos (auto) 0.01 10^3/uL (0.02-0.10) L 11/21/18 05:40 Absolute Nucleated RBC 0.00 10^3/uL (0-0.01) 11/21/18 05:40 Immature Gran % 0.7 % (0.0-1.1) 11/21/18 05:40 Immature Gran # 0.06 10^3/uL (0.00-0.10) 11/21/18 05:40 RBC/WBC/PLT Morphology TNP 11/21/18 05:40 Platelet Estimate TNP 11/21/18 05:40 PT 13.7 SEC (12.0-15.0) 11/21/18 05:40 INR 1.09 (0.83-1.16) 11/21/18 05:40 APTT 33.9 SEC (23.0-38.0) 11/21/18 05:40 Sodium 131 mEq/L (135-145) L 11/22/18 04:55 Potassium 4.5 mEq/L (3.5-5.2) 11/22/18 04:55 Chloride 94 mEq/L (97-110) L 11/22/18 04:55 Carbon Dioxide 27 mEq/l (22-31) 11/22/18 04:55 Anion Gap 10 mEq/L (6-14) 11/22/18 04:55 BUN 62 mg/dL (7-23) H 11/22/18 04:55 Creatinine 1.9 mg/dL (0.6-1.0) H 11/22/18 04:55 Estimated GFR 26 11/22/18 04:55 Glucose 209 mg/dL (70-100) H 11/22/18 04:55 POC Glucose 220 mg/dL (70-100) H 11/22/18 07:48 Uric Acid 12.9 mg/dL (2.5-6.8) H 11/17/18 05:25 Calcium 9.8 mg/dL (8.5-10.4) 11/22/18 04:55 Phosphorus 4.3 mg/dL (2.5-4.5) 11/22/18 04:55 Magnesium 2.2 mg/dL (1.6-2.3) 11/21/18 05:40 Total Bilirubin 0.7 mg/dL (0.1-1.4) 11/18/18 05:00 Conjugated Bilirubin 0.4 mg/dL (0.0-0.5) 11/17/18 05:25 Unconjugated Bilirubin 0.1 mg/dL (0.0-1.1) 11/17/18 05:25 AST 23 IU/L (14-46) 11/18/18 05:00 ALT 28 IU/L (9-52) 11/18/18 05:00 Alkaline Phosphatase 71 IU/L (38-126) 11/18/18 05:00 POC Troponin I 0.04 ng/mL (0.00-0.08) 11/15/18 14:05 NT-Pro-B Natriuret Pep 22764 pg/mL (0-125) H 11/18/18 12:20 Total Protein 5.9 g/dL (6.3-8.2) L 11/18/18 05:00 Total Protein (PEP) 5.8 g/dL (6.3-8.2) L 11/18/18 07:32 Albumin 3.2 g/dL (3.5-5.0) L 11/22/18 04:55 Albumin (PEP) 3.1 g/dL (3.4-4.7) L 11/18/18 07:32 Albumin/Globulin Ratio 1.14 11/18/18 07:32 Natmr-1-Mnzuesziy 0.4 g/dL (0.1-0.3) H 11/18/18 07:32 Gazjj-6-Vhofnrmkz 0.9 g/dL (0.6-1.0) 11/18/18 07:32 Beta Globulins 0.7 g/dL (0.7-1.2) 11/18/18 07:32 Gamma Globulins 0.7 g/dL (0.6-1.6) 11/18/18 07:32 M-Rl SEE IMPRESSION g/dL 11/18/18 07:32 PEP Impression Tyra TORIBIO MD 11/18/18 07:32 Triglycerides 190 mg/dL (35-135) H 11/21/18 05:40 Cholesterol 168 mg/dL (140-220) 11/21/18 05:40 Cholesterol Risk Factr 0.5 (0.2-1.0) 11/21/18 05:40 LDL Cholesterol, Calc 70 mg/dL (80-100) L 11/21/18 05:40 LDL Risk Factor 0.5 (0.2-1.0) 11/21/18 05:40 VLDL Cholesterol 38 mg/dL (8-25) H 11/21/18 05:40 Non-HDL Cholesterol 108 mg/dL (90-129) 11/21/18 05:40 HDL Cholesterol 60 mg/dL (40-85) 11/21/18 05:40 LDL/HDL Ratio 1.17 RATIO (1.00-3.22) 11/21/18 05:40 Cholesterol/HDL Ratio 2.80 RATIO (1.00-4.44) 11/21/18 05:40 25-OH Vitamin D Total 29.1 ng/mL (30.0-100.0) L 11/18/18 07:00 TSH 0.366 uIU/mL (0.465-4.680) L 11/15/18 17:45 PTH Intact 544.1 pg/mL (10.8-79.4) H 11/17/18 05:25 Ur Random Creatinine 11.6 mg/dL 11/17/18 11:20 U Random Total Protein 73 mg/dL (0-11) H 11/17/18 11:20 Ur Random Sodium 118 mEq/L (30-90) H 11/17/18 11:20 Ur Random Chloride 117 mEq/L 11/17/18 11:20 Ur Random Urea Nitrogn 131.0 mg/dL 11/17/18 11:20 Rheum Factor Semi-Quant 16.6 IU/L (<12.0) H 11/18/18 07:00 DILLAN Screen 0.50 UNITS (0-1.00) 11/17/18 05:25 Free [place] LC, Quant 3.47 mg/dL H 11/18/18 05:00 Free [place] LC, Quant 2.70 mg/dL H 11/18/18 05:00 Free [place]/Lambda Ratio 1.29 11/18/18 05:00 Hep Bs Antigen NEGATIVE (NEGATIVE) 11/18/18 07:00 Hep Bs Antibody NEGATIVE (NEGATIVE) 11/18/18 07:00 Hep B Core Total Ab NEGATIVE (NEGATIVE) 11/18/18 07:00 Hepatitis C Antibody NEGATIVE (NEGATIVE) 11/18/18 07:00 HIV 1&2 Antibody NEGATIVE (NEGATIVE) 11/18/18 07:00 EKG additional interpertation: Tele - see HPI A/P Assessment: A 73-year-old female with longstanding persistent atrial fibrillation, with difficulty with medical rate control. Now with tachy mediated cardiomyopathy. PMH is also notable for DM 2, CKD, history of CVA/TIA, not on anticoagulation despite chads 2 Vasc equals 6 due to recurrent falls. Today I had an extensive discussion with Ms Morgan as well as her cousin Kieran (on speakerphone), and have recommended implantation of Bi V pacemaker plus AV node ablation for definitive rate control. We discussed technical considerations, risks, postprocedure care in detail. They are interested in proceeding with this, and we will plan to get this done 4/3 afternoon. -hold heparin SQ starting tonight -NPO p MN Long-term, we will also need to address her stroke risk. She is not on anticoagulation due to recurrent falls. Once we have secured her systolic function recovery, I would like to work her up for Watchman implantation. Complex discussion, greater than 45 min, greater than 50% of the time dedicated patient education. Discussed with patient, family member by phone, Dr. Prather referring physician.
--- NOTE | 2018-11-22 12:15 | SOAPPROG ---
SOAP Progress Note Assessment/Plan: Assessment/Plan: 73 y/o F with CKD III who presented with acute systolic CHF, LUIS CARLOS, and nephrotic syndrome. LUIS CARLOS -likely cardiorenal with EF 30-35% -continue diuresis with torsemide -Cr stable between 1.6-1.9 -keep MAP>65 -monitor UO -planning for possible ablation and biV pacer per cardiology with future Watchman -no acute indication for dialysis Nephrotic syndrome -6g proteinuria on spot, -serologies negative to date -started on PAUL and tolerating -continue statin Hyperuricemia -asymptomatic -avoid NSAIDs BMD -started on low dose calcitriol -PTH, vitamin D as outpatient Will continue to follow, please contact if ?'s. #[phone]. 11/22/18 12:18 Subjective: Still doing ok. Long discussion with cardiology regarding possible plan. Objective: Vital Signs Temp Pulse Resp BP Pulse Ox 36.6 C 72 16 108/79 99 11/22/18 11:36 11/22/18 11:36 11/22/18 11:36 11/22/18 11:36 11/22/18 11:36 Laboratory Results 11/21/18 05:40 11/22/18 04:55 11/21/18 11/22/18 11/23/18 05:59 05:59 05:59 Intake Total 1385 673.5 560 Output Total 1650 100 675 Balance -265 573.5 -115 PT 13.7 SEC (12.0-15.0) 11/21/18 05:40 INR 1.09 (0.83-1.16) 11/21/18 05:40 Physical Exam - Physical Exam General Appearance: alert, mild distress EENT: PERRL/EOMI Neck: non-tender, supple Respiratory: decreased breath sounds, crackles Cardiac/Chest: edema, irregularly irregular Abdomen: non-tender, soft Skin: normal color, warm/dry Extremities: normal range of motion Neuro/Psych: alert, normal mood/affect, oriented x 3 ICD10 Worksheet Patient Problems: Problems Problem Status Onset CHF (congestive heart failure) Acute MRSA - Methicillin resistant Staphylococcus aureus infection Active Acute kidney injury Acute Acute renal insufficiency Acute Afib Acute Bradycardia Acute Bronchitis Acute Contusion of left hip Acute Cough Acute Diuretics causing adverse effect in therapeutic use Acute Fall Acute Hematoma Acute Pneumonia Acute Primary localized osteoarthritis of left hip Acute Shortness of breath Acute Somnolence, daytime Acute Unable to ambulate Acute chronic disease mgmt/transitional care Acute
--- NOTE | 2018-11-22 12:16 | ASMTCMCOM ---
CM Note CM Note Notes: CM met with patient during rounds. Patient is getting an abation and pace maker tomorrow. Update sent to [facility]. Patient will resume with home services when medical able to discharge. CM to follow. Plan: [facility] PT/OT/RN with Delma Navas Private Duty and Shola Moraes Plan:[facility]. Date Signed: 11/22/2018 12:15 PM Electronically Signed By:Lulu Garcia
--- NOTE | 2018-11-22 13:12 | HOSPPROG ---
Hospitalist Progress Note Assessment/Plan: 73yo F with history of dCHF, afib, CKD here with CHF exacerbation found to have new decrement in ventricular function. #Acute decompensated biventricular CHF: Likely tachy mediated. Wt down >10kgs. - Cards managing. Cont coreg, aldactone, torsemide. Hold lisinopril with worsening renal fxn #Atrial fibrillation with RVR: Rates better. [id number]. - Dilt gtt until procedure - EP consulted. Planning ablation and BiV pacemaker tomorrow - Not on anticoagulation d/t history of falls with resultant bleeding/ trauma. Considering Watchman in future #CKD: Bump in Cr 1.9, b/l 1.4-1.6. At risk for contrast injury - Hold lisinopril. Renal following, appreciate assistance #Diabetes: BG a touch high. Increased SSI 11/21, ACHS glucose checks. #VICENTA with pHTN: Non-compliant with CPAP. Uses nocturnal oxygen. Dr Michel escobar Will need outpatient VICENTA mgmt #Valvular heart disease: Moderate MR and TR noted on echo. #Hypokalemia: Replete, monitor per protocol with diuresis. #Low TSH: Repeat as outpatient. #H/o lacunar infarct/CVA: She is not on antiplatelet agent or statin. #Depression: Continue home meds #HTN: Monitor. Stopped home clonidine. #H/o chronic pain/fibromyalgia: Hydrocodone PRN. #Hypothyroidism: LT4 replacement. VTE ppx: SQH through this evening then hold for procedure Code: NPO at midnight Diet: low Na, 2L fluid restriction Dispo: Remain inpatient Subjective: Has a headache this morning. Better with norco. She discussed with EP, willing to proceed with ablation/pacemaker although she is very anxious. Objective: Vital Signs Temp Pulse Resp BP Pulse Ox 36.6 C 87 16 108/79 99 11/22/18 11:36 11/22/18 12:19 11/22/18 11:36 11/22/18 11:36 11/22/18 11:36 Laboratory Results 11/21/18 05:40 11/22/18 04:55 11/21/18 11/22/18 11/23/18 05:59 05:59 05:59 Intake Total 1385 673.5 576 Output Total 1650 100 675 Balance -265 573.5 -99 PT 13.7 SEC (12.0-15.0) 11/21/18 05:40 INR 1.09 (0.83-1.16) 11/21/18 05:40 - Physical Exam Constitutional: no apparent distress, appears nourished, not in pain Eyes: PERRL, anicteric sclera, EOMI Ears, Nose, Mouth, Throat: moist mucous membranes, hearing normal, ears appear normal, no oral mucosal ulcers Cardiovascular: irregularly irregular, tachycardia, edema (improved) Respiratory: no respiratory distress, no rales or rhonchi, clear to auscultation Gastrointestinal: normoactive bowel sounds, soft, non-tender abdomen, no palpable masses, distension Genitourinary: no bladder fullness, no bladder tenderness, no renal bruits Skin: no rashes or abrasions, no fluctuance, no induration Musculoskeletal: full muscle strength, no muscle tenderness, normal joint ROM Neurologic: AAOx3 Psychiatric: interacting appropriately ICD10 Worksheet Patient Problems: Problems Problem Status Onset CHF (congestive heart failure) Acute MRSA - Methicillin resistant Staphylococcus aureus infection Active Acute kidney injury Acute Acute renal insufficiency Acute Afib Acute Bradycardia Acute Bronchitis Acute Contusion of left hip Acute Cough Acute Diuretics causing adverse effect in therapeutic use Acute Fall Acute Hematoma Acute Pneumonia Acute Primary localized osteoarthritis of left hip Acute Shortness of breath Acute Somnolence, daytime Acute Unable to ambulate Acute chronic disease mgmt/transitional care Acute
[2018-11-22] MEDS ORDERED: DIAZEPAM 2 MG TAB PO ONE (14:16)
[2018-11-22] MEDS: FAMOTIDINE 20 MG TAB PO SCH (20:52)
[2018-11-22] MEDS: clonazePAM 0.5 MG TAB PO SCH (20:52)
[2018-11-22] MEDS: POLYETHYLENE GLYCOL 3350 17 GM PKT PO SCH (20:52)
[2018-11-23] MEDS: DILTIAZEM HCL/D5W 125 ML IV SCH (04:29)
[2018-11-23] MEDS: LEVOTHYROXINE 200 MCG TAB PO SCH (04:29)
[2018-11-23] MEDS: HYDROCODONE/APAP 5/325 TAB PO PRN ×2 (08:19→22:46)
[2018-11-23] MEDS: buPROPion XL 150 MG TAB PO SCH (08:20)
[2018-11-23] MEDS: CYANO/VITAMIN B12 1000 MCG TAB PO SCH (08:21)
[2018-11-23] MEDS: ARIPiprazole 2 MG TAB PO SCH (08:21)
[2018-11-23] MEDS: CETIRIZINE 10 MG TAB PO SCH (08:21)
[2018-11-23] MEDS: FLUoxetine 20 MG CAP PO SCH (08:22)
[2018-11-23] MEDS: SPIRONOLACTONE 25 MG TAB PO SCH (08:22)
[2018-11-23] MEDS: DOCUSATE SODIUM 100 MG CAP PO SCH (08:23)
[2018-11-23] MEDS: CARVEDILOL 6.25 MG TAB PO SCH ×2 (08:23→19:47)
[2018-11-23] MEDS ORDERED: POTASSIUM CL 10 MEQ TAB PO ONE (08:30)
--- NOTE | 2018-11-23 08:47 | SOAPPROG ---
SOAP Progress Note Assessment/Plan: Assessment: LUIS CARLOS, likely due to decreased cardiac function, recent increase probably due to contrast on Wednesday. EF has decreased over past year from 65-70% to 30-35%. R and L heart cath on Wednesday, 80% circ lesion and PAP 20 planning Bi-V pacer and ablation today Creat improved with dobutamine and diuresis A-fib, rate reasonable secondary hyperparathyroidism, low dose calcitriol nephrotic range proteinuria, may be contributing to edema will start low dose PAUL-I, does not have allergy per her report to me hyperuricemia, asymptomatic at this point, but will need treatment eventually HTN, better today Plan: Low dose PAUL-I (renal US less than a year ago was negative for ADRIANNA or RVT) started calcitriol continue diuresis, suspect some of her edema is from proteinuria follow lytes vol etc.. Right and left heart cath Wednesday. Counseled patient regarding the possibility of worsening kidney function from contrast, would use as little contrast as possible. Will continue to follow lytes vol and renal function ablation and bi-v pacer today 11/18/18 08:57 11/19/18 13:24 11/20/18 12:46 11/23/18 08:43 Subjective: spirits good feels OK slept fine getting up with assistance appetite good no cp, nausea or vomiting some SOB, but overall a little better Objective: Vital Signs Temp Pulse Resp BP Pulse Ox 36.3 C 88 12 147/91 H 97 11/23/18 07:34 11/23/18 07:34 11/23/18 07:34 11/23/18 07:34 11/23/18 07:34 Laboratory Results 11/23/18 04:30 11/23/18 04:30 11/22/18 11/23/18 11/24/18 05:59 05:59 05:59 Intake Total 673.5 1353 Output Total 100 1325 300 Balance 573.5 28 -300 PT 13.7 SEC (12.0-15.0) 11/21/18 05:40 INR 1.09 (0.83-1.16) 11/21/18 05:40 Physical Exam - Physical Exam General Appearance: alert, thin Neck: normal inspection Respiratory: rales, wheezing, No rhonchi Cardiac/Chest: edema, systolic murmur, irregularly irregular Abdomen: normal bowel sounds, non-tender, soft Extremities: swelling Neuro/Psych: alert, normal mood/affect, oriented x 3 ICD10 Worksheet Patient Problems: Problems Problem Status Onset CHF (congestive heart failure) Acute MRSA - Methicillin resistant Staphylococcus aureus infection Active Acute kidney injury Acute Acute renal insufficiency Acute Afib Acute Bradycardia Acute Bronchitis Acute Contusion of left hip Acute Cough Acute Diuretics causing adverse effect in therapeutic use Acute Fall Acute Hematoma Acute Pneumonia Acute Primary localized osteoarthritis of left hip Acute Shortness of breath Acute Somnolence, daytime Acute Unable to ambulate Acute chronic disease mgmt/transitional care Acute
[2018-11-23] MEDS: INSULIN LISPRO 100 UNIT/ML SC SCH ×3 (09:30→19:46)
[2018-11-23] MEDS: TORSEMIDE 20 MG TAB PO SCH (09:38)
[2018-11-23] MEDS: FLUTICASONE NASAL 120 SPRAYS/16 GM MDI NS SCH ×2 (09:41→19:46)
[2018-11-23] MEDS ORDERED: CALCITRIOL 0.25 MCG CAP PO SCH (12:00)
--- NOTE | 2018-11-23 12:57 | HOSPPROG ---
Hospitalist Progress Note Assessment/Plan: 73yo F with history of dCHF, afib, CKD here with CHF exacerbation found to have new decrement in ventricular function. #Acute decompensated biventricular CHF: Likely tachy mediated. Wt down >10kgs. - Cards managing. Cont coreg, aldactone, torsemide. Hold lisinopril with worsening renal fxn #Atrial fibrillation with RVR: Rates better. [id number]. - Dilt gtt until procedure - EP consulted. Planning ablation and BiV pacemaker today - Not on anticoagulation d/t history of falls with resultant bleeding/ trauma. Considering Watchman in future #CKD: Bump in Cr 1.9, b/l 1.4-1.6. At risk for contrast injury - Hold lisinopril. Renal following, appreciate assistance #Diabetes: SSI. ACHS glucose checks. #VICENTA with pHTN: Non-compliant with CPAP. Uses nocturnal oxygen. Dr Michel burton. Will need outpatient VICENTA mgmt #Valvular heart disease: Moderate MR and TR noted on echo. #Hypokalemia: Replete, monitor per protocol with diuresis. #Low TSH: Repeat as outpatient. #H/o lacunar infarct/CVA: She is not on antiplatelet agent or statin. #Depression: Continue home meds #HTN: Monitor. Stopped home clonidine. #H/o chronic pain/fibromyalgia: Hydrocodone PRN. #Hypothyroidism: LT4 replacement. VTE ppx: SCD's Diet: low Na, 2L fluid restriction Dispo: Remain inpatient Subjective: no cp or sob. no n/v. Awaiting procedure today Objective: Vital Signs Temp Pulse Resp BP Pulse Ox 36.3 C 76 12 127/78 H 98 11/23/18 12:08 11/23/18 12:08 11/23/18 12:08 11/23/18 12:08 11/23/18 12:08 Laboratory Results 11/23/18 04:30 11/23/18 04:30 11/22/18 11/23/18 11/24/18 05:59 05:59 05:59 Intake Total 673.5 1353 Output Total 100 1325 1075 Balance 573.5 28 -1075 PT 13.7 SEC (12.0-15.0) 11/21/18 05:40 INR 1.09 (0.83-1.16) 11/21/18 05:40 - Physical Exam Constitutional: no apparent distress Eyes: PERRL, EOMI Ears, Nose, Mouth, Throat: moist mucous membranes, hearing normal Cardiovascular: regular rate and rhythym Respiratory: no respiratory distress, no rales or rhonchi, clear to auscultation Gastrointestinal: normoactive bowel sounds, soft, non-tender abdomen Skin: warm Neurologic: AAOx3 Psychiatric: interacting appropriately, not anxious, not encephalopathic Lymph, Heme, Immunologic: No petechiae ICD10 Worksheet Patient Problems: Problems Problem Status Onset CHF (congestive heart failure) Acute MRSA - Methicillin resistant Staphylococcus aureus infection Active Acute kidney injury Acute Acute renal insufficiency Acute Afib Acute Bradycardia Acute Bronchitis Acute Contusion of left hip Acute Cough Acute Diuretics causing adverse effect in therapeutic use Acute Fall Acute Hematoma Acute Pneumonia Acute Primary localized osteoarthritis of left hip Acute Shortness of breath Acute Somnolence, daytime Acute Unable to ambulate Acute chronic disease mgmt/transitional care Acute
[2018-11-23] MEDS ORDERED: FAMOTIDINE 20 MG/NACL 50 ML IV ONE (14:15)
[2018-11-23] MEDS ORDERED: NS 1,000 ML IV ONE (14:15)
[2018-11-23] MEDS ORDERED: BACITRACIN IRRIGATION/NS 50,000 UNITS/1,000 ML BTL IRR ONE (14:15)
[2018-11-23] MEDS ORDERED: DIAZEPAM 5 MG TAB PO ONE (14:15)
[2018-11-23] MEDS ORDERED: methylPREDNISolone SOD SUCC 125 MG/2 ML VIAL IVP ONE (14:15)
[2018-11-23] MEDS ORDERED: ceFAZolin 2 GM/DEXTROSE 100 ML IV ONE (14:15)
[2018-11-23] MEDS ORDERED: methylPREDNISolone SOD SUCC 125 MG/2 ML VIAL ONE (14:20)
[2018-11-23] MEDS ORDERED: LIDOCAINE 1% 300 MG/30 ML SDV ONE (14:38)
[2018-11-23] MEDS ORDERED: BUPIVACAINE 0.75% 10 ML SDV ONE (14:39)
[2018-11-23] MEDS ORDERED: ACETAMINOPHEN 500 MG TAB PO PRN (14:40)
[2018-11-23] MEDS ORDERED: DEXAMETHASONE 4 MG/ML VIAL IVP PRN (14:40)
[2018-11-23] MEDS ORDERED: ALBUTEROL 3 ML DEYVIAL IH PRN (14:40)
[2018-11-23] MEDS ORDERED: fentaNYL 100 MCG/2 ML INJ IVP PRN ×2 (14:40→18:20)
[2018-11-23] MEDS ORDERED: HYDROmorphONE/DILAUDID 1 MG/ML INJ IVP PRN (14:40)
[2018-11-23] MEDS ORDERED: ONDANSETRON 4 MG/2 ML VIAL IVP PRN ×2 (14:40→18:20)
[2018-11-23] MEDS ORDERED: NALOXONE HCL 0.4 MG/ML INJ IVP PRN ×2 (14:40→18:20)
[2018-11-23] MEDS ORDERED: BUPIVACAINE 0.5% 30 ML SDV ONE (14:50)
[2018-11-23] MEDS ORDERED: PROPOFOL/EMULSION 500 MG/50 ML BOTTLE IV ONE ×3 (14:55→17:21)
[2018-11-23] MEDS ORDERED: HEPARIN 10,000 UNIT/10 ML MDV (1,000 UNIT/ML) ONE (15:45)
[2018-11-23] MEDS ORDERED: IOPAMIDOL (ISOVUE-300) 100 ML BTL ONE (16:28)
--- NOTE | 2018-11-23 16:48 | CPEKG ---
Test Reason : OPEN Blood Pressure : / mmHG Vent. Rate : 078 BPM Atrial Rate : 077 BPM P-R Int : 174 ms QRS Dur : 093 ms QT Int : 407 ms P-R-T Axes : 000 -17 101 degrees QTc Int : 464 ms Atrial fibrillation Anterior infarct, old Confirmed by Clyde Wooten ([id number]) on 11/23/2018 4:47:43 PM Referred By: Sudeep Baker Confirmed By:Clyde Wooten
[2018-11-23] MEDS ORDERED: OXYCODONE/APAP 5/325 TAB PO PRN (18:12)
--- NOTE | 2018-11-23 18:19 | POSTANESTH ---
Post Anesthetic Evaluation Cardiovascular Status: Normal, Stable Respiratory Status: Normal, Stable Level of Consciousness/Mental Status: Mildly Sleepy, Arousable Pain Control: Adequate, Prn Tx Ordered Nausea/Vomiting Control: Adequate, Prn Tx Ordered Complications Possibly Related to Anesthesia: None Noted
--- NOTE | 2018-11-23 18:20 | PDANEPAE ---
ANE History of Present Illness BiV Pacemaker ANE Past Medical History - Cardiovascular History Hx Hypertension: Yes Hx Arrhythmias: Yes Hx Chest Pain: No Hx Coronary Artery / Peripheral Vascular Disease: No Hx CHF / Valvular Disease: No Hx Palpitations: No Cardiovascular History Comment: AFIB - on Eliquis but stopped 5 days ago. Bridged with lovenox. Last dose of lovenox 07/20/17 at 4pm. - Pulmonary History Hx COPD: No Hx Asthma/Reactive Airway Disease: Yes Hx Recent Upper Respiratory Infection: No Hx Oxygen in Use at Home: Yes O2 in Use at Home (L/minute): 2 Hx Sleep Apnea: Yes - Neurologic History Hx Cerebrovascular Accident: Yes Hx Seizures: No Hx Dementia: No Neurologic History Comment: SPEACH - Endocrine History Hx Diabetes: Yes Endocrine History Comment: Type 2 Diabetes, Graves Disease - Renal History Hx Renal Disorders: No - Liver History Hx Hepatic Disorders: No - Neurological & Psychiatric Hx Hx Neurological and Psychiatric Disorders: Yes Neurological / Psychiatric History Comment: NEUROPATHY IN FEET - Cancer History Hx Cancer: No - Congenital Disorder History Hx Congenital Disorders: No - GI History Hx Gastrointestinal Disorders: Yes Gastrointestinal History Comment: REFLUX - Other Health History Other Health History: DRY SKIN,SWOLLEN LEGS - Chronic Pain History Chronic Pain: Yes - Surgical History Prior Surgeries: bilat knee replacements ANE Review of Systems Review of Systems: ANE Patient History - Allergies Allergies/Adverse Reactions: iodine Allergy (Severe, Verified 11/15/18 13:44) GRAVES DISEASE/RED SKIN lidocaine [From Lidoderm] Allergy (Verified 11/15/18 13:44) Rash pravastatin Allergy (Verified 11/15/18 13:44) CAN'T WALK - Home Medications Home Medications: Albuterol [Proventil Inhaler HFA (*)] 2 puffs IH Q6HRS PRN 06/25/17 [Last Taken 07/20/17] Docusate Sodium [Colace 100 MG (*)] 200 mg PO DAILY 06/25/17 [Last Taken ] FLUoxetine [Prozac 20 MG (*)] 20 mg PO DAILY 06/25/17 [Last Taken 11/15/18] Famotidine [Pepcid 20 MG (*)] 20 mg PO BID 06/25/17 [Last Taken 11/15/18] Levothyroxine [Synthroid 200 mcg (*)] 200 mcg PO DAILY06 06/25/17 [Last Taken ] Triamcinolone 0.1% [Triamcinolone 0.1% Cream (*)] 1 fadia TP BID PRN 06/25/17 [ Last Taken 2 Weeks Ago ~07/07/17] clonazePAM [Klonopin (*)] 0.5 mg PO HS 06/25/17 [Last Taken 11/14/18] ARIPiprazole [Abilify 2 mg (*)] 2 mg PO DAILY 07/21/17 [Last Taken 11/15/18] clonIDINE [Catapres (*)] 0.1 mg PO HS 07/21/17 [Last Taken 11/14/18] Loratadine [Claritin 10 mg] 10 mg PO DAILY 12/14/17 [Last Taken 11/15/18] Fluticasone/Salmeter 250/50Mcg [Advair 250/50 (*)] 1 puffs IH BID 01/02/18 [ Last Taken 11/15/18] Hydrocodone/Acetaminophen [Moroni 7.5-325 Tablet] 1 each PO Q6 PRN 05/21/18 [ Last Taken 11/15/18] buPROPion XL [Wellbutrin 150mg XL] 150 mg PO DAILY 05/21/18 [Last Taken 11/15/18 ] Bupropion HCl [Wellbutrin Xl] 300 mg PO DAILY 07/02/18 [Last Taken 11/15/18] Ergocalciferol [Vitamin D2 (*)] 50,000 unit PO MO 07/02/18 [Last Taken 11/14/18] Estradiol [Estrace Vaginal (*)] 1 fadia VG Q3D 07/02/18 [Last Taken Unknown] Herbals/Supplements -Info Only 1 ea PO DAILY 07/02/18 [Last Taken Unknown] Polyethylene Glycol 3350 [Miralax 17 gm (*)] 17 gm PO HS 07/02/18 [Last Taken ] Spironolactone [Aldactone 25 MG (*)] 12.5 mg PO DAILY 07/02/18 [Last Taken 11/15] Cyanocobalamin [Vitamin B12 (*)] 1,000 mcg PO DAILY 09/23/18 [Last Taken ] Metoprolol Succinate Xr [Toprol Xl 50 mg (*)] 75 mg PO DAILY 09/23/18 [Last Taken 11/15/18] Nystatin Powder [Mycostatin Powder] 1 fadia TP BID PRN 09/23/18 [Last Taken Unknown] Albuterol [Proventil Neb] 3 ml IH TID 10/06/18 [Last Taken 11/15/18] Fluticasone Nasal [Flonase Nasal Finley] 2 sprays NASAL BID 10/06/18 [Last Taken 11/15/18] Torsemide [Demadex] 80 mg PO DAILY10 10/06/18 [Last Taken 11/15/18] Ipratropium [Atrovent Hfa (*)] 1 puffs IH BID 11/15/18 [Last Taken 11/15/18] Sennosides [Senna Lax] 1 - 2 tab PO DAILY PRN 11/15/18 [Last Taken Unknown] - Smoking Hx Smoking Status: Former smoker - Alcohol Use Alcohol Use: None - Family Anes Hx Family Hx Anesthesia Complications: none ANE Labs/Vital Signs - Labs Result Diagrams: 11/23/18 04:30 11/23/18 04:30 - Vital Signs Blood Pressure: 127/78 Heart Rate: 76 Respiratory Rate: 12 O2 Sat (%): 98 Height: 160.02 cm Weight: 60.6 kg ANE Physical Exam - Airway Neck exam: FROM Mallampati Score: Class 2 Mouth exam: normal dental/mouth exam - Pulmonary Pulmonary: clear to auscultation - Cardiovascular Cardiovascular: regular rate and rhythym - ASA Status ASA Status: III ANE Anesthesia Plan Anesthesia Plan: GA with mask
--- NOTE | 2018-11-23 18:41 | EPPROC ---
Electrophysiology Procedure Note: Date: 11/23/18 Environmental Educator: Wong Jones MD Procedures: Implantation of biventricular pacemaker -15345, 46408 Ablation of the AV node -58588 Indications: 73-year-old female with longstanding persistent atrial fibrillation, difficulty with medical rate control, now with tachycardia mediated cardiomyopathy (LVEF down from 60% previously to 30% currently, with no reversible ischemia identified). Technique: Following informed consent, the patient was brought to the EP lab in a fasting nonsedated state, in atrial fibrillation rhythm. She was premedicated with a cocktail of Solu-Medrol, Benadryl, famotidine due to a history of IV contrast allergy. IV antibiotics were administered. IV sedation was provided by the anesthesiology service. The left anterior chest was prepped and draped in usual sterile fashion. Bupivacaine was infiltrated over the left DP groove. Cutdown was performed to the DP fascia and a subcutaneous pocket was fashioned. Under ultrasound guidance, vascular access was obtained x2 in the extrathoracic portion of the left subclavian vein. A 6 Macedonian short sheath and a 9 Macedonian Gilford CS sheath were inserted. A pacing lead was delivered to RV distal septal position and actively fixated. The lead was anchored to the underlying fascia using 2 nonabsorbable sutures around the retention sleeve. A 4 mm irrigated ablation catheter was inserted into the Gilford sheath, and was used to localize the his position (HV interval was measured at 56 milliseconds). The ablation catheter was then withdrawn to the level of the compact AV node, and RF ablation was performed at 25 w power. During RF ablation, junctional automaticity was observed, followed by complete AV block; the patient was thereafter paced via the newly implanted RV pacing lead through the rest of the case. The ablation catheter was used to engage the coronary sinus, and the Kimberley CS sheath was advanced over it. Occlusive venography of the coronary sinus revealed a mid size middle cardiac vein, a small and tortuous early posterolateral branch not amenable to PRIMARY SPECIAL EDUCATION TEACHER lead deployment, and a large valve of Vieussens, which precluded filling of the distal coronary sinus. Multiple attempts were made to cross the valve with the angiography catheter, but these were unsuccessful. The valve was able to be crossed with a coronary wire, and a glide cath was attempted to be advanced over this, but these attempts were also unsuccessful. A 2nd coronary wire was advanced past the valve of Vieussens, and this was able to be advanced into a large lateral branch of the CS. Due to difficulty advancing equipment over the wires passed the valve, the decision was made to engage the branch with a PRIMARY SPECIAL EDUCATION TEACHER lead without prior angiography. A PRIMARY SPECIAL EDUCATION TEACHER lead was able to be advanced to a mid ventricular position in this lateral branch. Pacing and sensing parameters were acceptable in this position, and diaphragm stimulation was not seen with high-output pacing in most of the available bipoles. The delivery sheath was slit, and the PRIMARY SPECIAL EDUCATION TEACHER lead demonstrated stable position; it was anchored to the underlying fascia using 2 nonabsorbable sutures around the retention sleeve. The 2 pacing leads were connected to the pulse generator; the atrial port was plugged. The system was placed in pocket and a stay suture was applied to the can. The pocket was irrigated with antibiotic solution and D Stat hemostatic matrix was injected. The incision was closed in layers using resorbable sutures , and dressed with Steri-Strips. Final fluoroscopy showed stable system position, and no evidence of pneumothorax. The patient tolerated the procedure well. Pulse generator: [facility] [id number], SN [id number], implant 11/23/18 VVIR 80-120 RA port plugged RV lead:SJM [id number], SN [id number], implant 11/23/18 paced, 0.5V@0.5ms, 610ohms LV lead: SJM [id number], SN [id number] paced, 1.5V@0.5ms (M3-D4), 790ohms EBL: Minimal Complications: None Plan: Bedrest 6 hr postprocedure Chest x-ray and interrogation in a.m. Keep incision dry for 2 weeks Left upper extremity restrictions for 1 month No anticoagulation for 2 days Continue medical regimen for CHF, stop diltiazem. Patient Problems: Problems Problem Status Onset CHF (congestive heart failure) Acute MRSA - Methicillin resistant Staphylococcus aureus infection Active Acute kidney injury Acute Acute renal insufficiency Acute Afib Acute Bradycardia Acute Bronchitis Acute Contusion of left hip Acute Cough Acute Diuretics causing adverse effect in therapeutic use Acute Fall Acute Hematoma Acute Pneumonia Acute Primary localized osteoarthritis of left hip Acute Shortness of breath Acute Somnolence, daytime Acute Unable to ambulate Acute chronic disease mgmt/transitional care Acute
[2018-11-23] MEDS: POLYETHYLENE GLYCOL 3350 17 GM PKT PO SCH (19:47)
[2018-11-23] MEDS: clonazePAM 0.5 MG TAB PO SCH (19:47)
[2018-11-23] MEDS: FAMOTIDINE 20 MG TAB PO SCH (19:47)
[2018-11-24] MEDS: LEVOTHYROXINE 200 MCG TAB PO SCH (05:03)
[2018-11-24 05:40] LABS: PLATELET COUNT 198 10^3/uL (150-400)
[2018-11-24] MEDS: buPROPion XL 150 MG TAB PO SCH (08:34)
[2018-11-24] MEDS: CYANO/VITAMIN B12 1000 MCG TAB PO SCH (08:35)
[2018-11-24] MEDS: FLUoxetine 20 MG CAP PO SCH (08:36)
[2018-11-24] MEDS: CETIRIZINE 10 MG TAB PO SCH (08:36)
[2018-11-24] MEDS: ARIPiprazole 2 MG TAB PO SCH (08:36)
[2018-11-24] MEDS: HYDROCODONE/APAP 5/325 TAB PO PRN ×2 (08:41→09:53)
[2018-11-24] MEDS: INSULIN LISPRO 100 UNIT/ML SC SCH ×2 (08:42→12:39)
[2018-11-24] MEDS: CARVEDILOL 6.25 MG TAB PO SCH (08:42)
[2018-11-24] MEDS: TORSEMIDE 20 MG TAB PO SCH (09:43)
[2018-11-24] MEDS: DOCUSATE SODIUM 100 MG CAP PO SCH (09:44)
[2018-11-24] MEDS: SPIRONOLACTONE 25 MG TAB PO SCH (09:44)
[2018-11-24] MEDS: FLUTICASONE NASAL 120 SPRAYS/16 GM MDI NS SCH (09:54)
--- NOTE | 2018-11-24 10:03 | PDCARPN ---
Cardiology Progress Note Assessment/Plan: 73 y/o female sent from [facility] directly to [facility] ED on for admission because of decompensated CHF with hypoxia. Congestive Heart Failure: She has acute on chronic diastolic CHF and a new component of acute systolic CHF. Her clinical status has improved significantly since admission. Her weight is down by 10 kg in response to intravenous diuresis. BNP has decreased from 42,200 down to 10,400. - Continue PO torsemide. Cardiomyopathy: An echocardiogram from earlier in her hospital stay demonstrated an LVEF of approximately 30% which is down from 60% in May of last year. Cardiac cath on 11/21 demonstrated diffuse, mild atherosclerosis and a focal high-grade lesion in the mid to distal portion of an obtuse marginal branch. This degree of CAD does not account for the reduction in her LV systolic function over the past 6 months. Therefore, her cardiomyopathy is confirmed to a nonischemic, tachycardia-mediated cardiomyopathy related to her A -fib. - Resume lisinopril once her renal function is deemed to be stable following the contrast load from yesterday's bi-ventricular pacer implant and AV node ablation. Atrial Fibrillation: She has chronic atrial fibrillation with a history of difficult rate control. She is now s/p bi-ventricular pacer and AV node ablation. Pacing at 80 bpm. Systemic anticoagulation has been deferred due to falls. - Will likely be referred to our structural heart disease clinic to be considered for a Watchman left atrial appendage occlusion device. Chronic Kidney Disease: Creat 1.7 to 1.9 during this admission. - Continue to monitor after yesterday's contrast exposure. Hypertension: Suboptimally controlled. - Will increase carvedilol. - As above, resume lisinopril when renal function is stable. Coronary Artery Disease: CAD as described above. PCI of the OM branch was deferred since she does not report anginal symptoms and has had prior normal Lexiscan nuclear stress test. A lipid panel from 11/21/18 demonstrated a total cholesterol of 168 with HDL 60, LDL 70, and triglycerides of 190. Will focus on secondary prevention. - Can discuss possibly starting low-dose statin therapy at a future office appointment. Disposition: She is stable from a cardiac standpoint. Hopefully can be discharged soon. - Instruction has been sent to the [facility] nurse for her usual american history teacher (Dr. Wooten) to contact the patient and arrange for an incision check, followup with Dr. Wooten, and enrollment in pacemaker followup clinic. 11/24/18 10:41 Subjective: No complaints. Objective: Vital Signs (8 Hrs) Temp Pulse Resp BP Pulse Ox 11/24/18 07:38 36.3 C 83 12 172/116 H 97 11/24/18 05:00 36.4 C 80 18 164/99 H 98 Intake/Output (24 Hrs) 11/23/18 11/24/18 11/25/18 05:59 05:59 05:59 Intake Total 1353 550 Output Total 1325 1475 625 Balance 28 0 -217 Intake: Oral (ml) 1166 250 IV Intake (ml) 300 IV Infused (ml) 187 Diltiazem HCl/D5w 125 ml 187 @ Per Protocol IV CONT RICHIE Rx#:[id number] Output: Urine (ml) 1325 1475 625 Bedpan 400 Bedside Commode 750 300 Catheter 75 Toilet 500 775 625 Other: Weight 60.6 kg 60.6 kg 58.967 kg Output Comment Toilet unsure when output is from Number of Voids Bedside Commode 1 1 Incontinence 3 Toilet 1 2 Result Diagrams: 11/24/18 05:14 11/24/18 05:14 - Physical Exam Constitutional: no apparent distress Eyes: anicteric sclera Ears, Nose, Mouth, Throat: moist mucous membranes Cardiovascular: regular rate and rhythm, no murmurs Respiratory: clear to auscultate bilat Gastrointestinal: normoactive bowel sounds, no tenderness, no masses Skin: no edema Neurologic: AAOx3 Psychiatric: not anxious ICD10 Worksheet Patient Problems: Problems Problem Status Onset CHF (congestive heart failure) Acute MRSA - Methicillin resistant Staphylococcus aureus infection Active Acute kidney injury Acute Acute renal insufficiency Acute Afib Acute Bradycardia Acute Bronchitis Acute Contusion of left hip Acute Cough Acute Diuretics causing adverse effect in therapeutic use Acute Fall Acute Hematoma Acute Pneumonia Acute Primary localized osteoarthritis of left hip Acute Shortness of breath Acute Somnolence, daytime Acute Unable to ambulate Acute chronic disease mgmt/transitional care Acute
[2018-11-24] MEDS: ESTRADIOL 42.5 GM CRTUBE VG SCH (11:43)
[2018-11-24] MEDS ORDERED: TORSEMIDE 20 MG TAB PO SCH (12:21)
--- NOTE | 2018-11-24 12:27 | CPEKG ---
Test Reason : OPEN Blood Pressure : / mmHG Vent. Rate : 080 BPM Atrial Rate : 080 BPM P-R Int : 039 ms QRS Dur : 099 ms QT Int : 413 ms P-R-T Axes : 113 -80 083 degrees QTc Int : 477 ms Afib/flutter and ventricular-paced rhythm Confirmed by Clyde Wooten ([id number]) on 11/24/2018 12:26:33 PM Referred By: Sudeep Baker Confirmed By:Clyde Wooten
[2018-11-24 12:28] VITALS: BP 147/90
--- NOTE | 2018-11-24 12:33 | CPEKG ---
Test Reason : OPEN Blood Pressure : / mmHG Vent. Rate : 080 BPM Atrial Rate : 119 BPM P-R Int : 067 ms QRS Dur : 115 ms QT Int : 414 ms P-R-T Axes : 000 265 064 degrees QTc Int : 478 ms Afib/flut and V-paced complexes Confirmed by Clyde Wooten ([id number]) on 11/24/2018 12:32:57 PM Referred By: Sudeep Baker Confirmed By:Clyde Wooten
--- NOTE | 2018-11-24 12:34 | PDDCSUM ---
Discharge Summary Discharge Summary: HPI/HOSPITAL COURSE: 73yo F with history of dCHF, afib, CKD here with CHF exacerbation found to have new decrement in ventricular function. She had persistent afib and her cardiomyopathy was felt to be tachycardia related. She has Biventricular pacemaker and AV node ablation on 11/23 and is doing better at this time. She has been cleared by cardiology. F/U: with Cards and EP as arranged DDX: #Acute decompensated biventricular CHF: Likely tachy mediated. Wt down >10kgs. - Cards managing. Cont coreg, aldactone, torsemide. Hold lisinopril with worsening renal fxn. Torsemide will be decreased slightly today. #Atrial fibrillation with RVR: Rates better. [id number]. - Dilt gtt until procedures per above and was stopped after - Not on anticoagulation d/t history of falls with resultant bleeding/ trauma. Considering Watchman in future #CKD: Bump in Cr 1.9, b/l 1.4-1.6. At risk for contrast injury - Hold lisinopril. Cr. has been stable at 1.9. Will need to be rechecked in an op setting. #Diabetes: SSI. ACHS glucose checks. #VICENTA with pHTN: Non-compliant with CPAP. Uses nocturnal oxygen. Dr Michel escobar Will need outpatient VICENTA mgmt and this can be arranged on follow up #Valvular heart disease: Moderate MR and TR noted on echo. #Hypokalemia: Replaced #Low TSH: Repeat as outpatient. #H/o lacunar infarct/CVA: She is not on antiplatelet agent or statin. #Depression: Continue home meds #HTN: Monitor. was a little elevated on discharge. Clonidine restarted. Meds per above #H/o chronic pain/fibromyalgia: Hydrocodone PRN. #Hypothyroidism: LT4 replacement. Exam: NAD AAOX3 RRR CTA B S/NT/ND MEDS: SEE MED REC TOTAL TIME SPENT ON D/C IS 40 MINS
--- NOTE | 2018-11-24 12:35 | PDIAF ---
- Diagnosis Diagnosis: AFIB Code Status: Full Code - Medication Management Discharge Medications: electronically signed and located in the Home Medication List. - Orders Services needed: Home Care, Registered Nurse, Certified Laboratory Chemical Assistant, Physical Therapy, Occupational Therapy Home Care Face to Face: I certify that this patient was under my care and that I had the required [id number] encounter meeting the encounter requirements on the discharge day. My findings support the fact that the patient is homebound as defined in Home Care Face to Face Continued: CMS Chapter 7 Medicare Benefits Manual 30.1.1 , The condition of the patient is such that there exists a normal inability to leave home and consequently, leaving home would require a considerable and taxing effort. Isolation Type: None Diet Recommendation: fluid restriction (use comment for amount) (2 liter) Diet Texture: Regular Texture Diet Additional Instructions: Wound care: Bedsore (Pressure injury) care: You have a stage 2 pressure injury (also known as a bedsore) on the very lowest part of your back (the sacrum.) To help heal this wound and avoid further injury please do the followin. Reposition yourself frequently, at least every 15 minutes when sitting. Try to stand for at least 3 min every hour so that the tissues fully reperfuse with blood. We recommend sitting on an air cushion. Please never use a doughnut. 2. When youre in bed, try to rest on your side as much as possible, and change position every two hours (for example, turn or tilt from your right side toward your left).~ If you sleep on a sleep number or medical bed, keep the head of the bed below 30 degrees and keep all pressure off your low back for at least 5 minutes at least every two hours.~ 3. As needed, you may use Calazime, dimethicone moisture barrier cream, or any ucqr-gss-swxrpmr diaper rash cream to help prevent or treat a moisture- related rash to your bottom area and buttocks. Please contact [facility] outpatient [facility] for an appointment, at , If your wounds re/open or dont improve, or if you have any further questions or concerns. Change the dressing to your tailbone every 3 days and prn. 1. Clean with soap and water and pat dry. 2. Apply wound gel to any open areas 3. Cover with a Mepilex Border Sacrum Maciel McClish RN WC Team Follow [facility] Wong Jones WednesdayDecember 21 at 10:45 AM [facility] BMP Date: 11/28/18 (RESULTS TO CARDIOLOGY) - Follow Up Care Current Providers and Referrals: NONE *PRIMARY CARE P,. [Unknown] - As per Instructions
--- NOTE | 2018-11-24 14:05 | SOAPPROG ---
SOAP Progress Note Assessment/Plan: Assessment: LUIS CARLOS, likely due to decreased cardiac function, recent increase probably due to contrast on Wednesday. EF has decreased over past year from 65-70% to 30-35%. R and L heart cath on Wednesday, 80% circ lesion and PAP 20 planning Bi-V pacer and ablation today Creat improved with dobutamine and diuresis A-fib, resolved after ablation and Bi-V pacer secondary hyperparathyroidism, low dose calcitriol nephrotic range proteinuria, may be contributing to edema will start low dose PAUL-I, does not have allergy per her report to me hyperuricemia, asymptomatic at this point, but will need treatment eventually HTN, better today Plan: Low dose PAUL-I (renal US less than a year ago was negative for ADRIANNA or RVT) started calcitriol continue diuresis, suspect some of her edema is from proteinuria follow lytes vol etc.. Right and left heart cath Wednesday. Results reviewed Will continue to follow lytes vol and renal function ablation and bi-v pacer 11/23/18 OK for dismissal from renal standpoint FU with renal as needed, suspect will continue to see more improvement in her renal function over the next several weeks 11/18/18 08:57 11/19/18 13:24 11/20/18 12:46 11/23/18 08:43 11/24/18 14:02 Subjective: up to chair feels better no cp nausea or vomiting spirits good Objective: Vital Signs Temp Pulse Resp BP Pulse Ox 36.3 C 80 16 147/90 H 99 11/24/18 12:00 11/24/18 12:00 11/24/18 12:00 11/24/18 12:00 11/24/18 12:00 Laboratory Results 11/24/18 05:14 11/24/18 05:14 11/23/18 11/24/18 11/25/18 05:59 05:59 05:59 Intake Total 1353 550 150 Output Total 1325 1475 950 Balance 28 -925 -800 PT 13.7 SEC (12.0-15.0) 11/21/18 05:40 INR 1.09 (0.83-1.16) 11/21/18 05:40 Physical Exam - Physical Exam General Appearance: alert Neck: normal inspection Respiratory: No rhonchi, No wheezing Cardiac/Chest: edema, systolic murmur Abdomen: normal bowel sounds, non-tender, soft Extremities: pedal edema Neuro/Psych: alert, normal mood/affect, oriented x 3 ICD10 Worksheet Patient Problems: Problems Problem Status Onset CHF (congestive heart failure) Acute MRSA - Methicillin resistant Staphylococcus aureus infection Active Acute kidney injury Acute Acute renal insufficiency Acute Afib Acute Bradycardia Acute Bronchitis Acute Contusion of left hip Acute Cough Acute Diuretics causing adverse effect in therapeutic use Acute Fall Acute Hematoma Acute Pneumonia Acute Primary localized osteoarthritis of left hip Acute Shortness of breath Acute Somnolence, daytime Acute Unable to ambulate Acute chronic disease mgmt/transitional care Acute
[2018-11-24] MEDS ORDERED: hydrALAZINE 10 MG TAB PO SCH (16:00)
--- NOTE | 2018-11-24 16:16 | ASDISCHSUM ---
Discharge Information Plan Status:Home with Home Health Medically Cleared to Leave:11/24/2018 Discharge Date:11/24/2018 D/C Disposition:Home Health Service ADT D/C Disposition:Home, Routine, Self-Care Projected Discharge Date:11/21/2018 11:00 AM Transportation at D/C: Discharge Delay Reason: Follow-Up Date:11/21/2018 11:00 AM Discharge Slot: Final Diagnosis: Placement Information Referral Type:*Home Health Care Services Referral ID:[id number] Provider Name:[facility] Address 1:[address] [place] Phone Number: Address 2: Fax Number: [facility]:[place] Selection Factors: State:[place] Referral Type:Palliative Care Referral ID:[id number] Provider Name:[facility] Address 1:[address] Phone Number: Address 2: Fax Number: [facility]:[place] Selection Factors: State:[place] Patient Contact Information Contact Name:REA Relationship:Cousin Address: City: Alternate Phone: State/Zip Code: Email: Financial Information Financial Class:Medicare Primary Plan Desc:MEDICARE IP PART B ONLY Primary Plan Number:[id number] Secondary Plan Desc:MED[place] Secondary Plan Number:[id number] Assessment Information [facility] CM Progress Note CM Note CM Note Notes: Pts case discussed in tx rounds. Pt is a 73 y/o female admitted for CHF and volume overload. PT and OT have been ordered and awaiting recommendations. Pt is current w/ [facility] and [facility]. 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 Updates sent to [facility]. CM to follow. Plan: TBD Date Signed: 11/16/2018 11:35 AM Electronically Signed By:CRISTIAN Ascencio LACE MCKENNA Acuity / Level of Answers: Yes Care: Did the patient have an inpatient admission? Comorbidities - select Answers: Congestive heart failure all that apply Diabetes (uncontrolled or controlled) Opioid dependence / Chronic pain Other Notes: AFib; HTN # of Emergency department Answers: 3-4 visits in the last 6 months Social determinants Answers: Mental health diagnosis (anxiety, depression, pers onality disorders, etc.) Score: 17 Date Signed: 11/16/2018 11:53 AM Electronically Signed By:Erika Saucedo [facility] CM Progress Note CM Note CM Note Notes: Pts case discussed in tx rounds. PT is recommending HC. OT is recommending HC vs SNF. Pt will continue w/ her established services. CM called [facility] and pt is seen out of that branch. CM to follow. Plan: [facility]; PT, OT, RN, CONTRACTING SUPPORT SPECIALIST with [facility] Date Signed: 11/17/2018 11:25 AM Electronically Signed By:CRISTIAN Ascencio [facility] CM Progress Note CM Note CM Note Notes: Pts case discussed in tx rounds. Pt will get a heart cath at some point during this hospitalization. Pt will d/c with [facility], PT, OT, RN along w/ private duty caregivers through [facility]. Anticipate d/c early to mid next week. CM to follow. Date Signed: 11/18/2018 11:36 AM Electronically Signed By:CRISTIAN Ascencio [facility] Progress Note CM Note CM Note Notes: ADDENDUM: Palliative care order placed today d/t [facility] met with pt who requested palliative informational meeting with [facility]ell tomorrow or Wednesday before D/C. Referral sent to Shola. Date Signed: 11/18/2018 04:02 PM Electronically Signed By:Monika Bah [facility] CM Progress Note CM Note CM Note Notes: CM met with patient during rounds. Patient is getting an abation and pace maker tomorrow. Update sent to [facility]. Patient will resume with home services when medical able to discharge. CM to follow. Plan: [facility] PT/OT/RN with Del[facility] Navas Private Duty and [facility] Moraes Plan:[facility]. Date Signed: 11/22/2018 12:15 PM Electronically Signed By:Lulu Garcia Case Management Discharge Plan Note Case Management Discharge Discharge Order Complete? Answers: Yes Patient to Obtain Answers: Independently Medications Transportation Arranged Answers: Family/Friends Faxed Final Orders Answers: Yes Notes: [facility] and [facility] Palliative Agency/Facility Transfer Answers: Yes Notes: [facility] and Report Printed & Faxed to [facility] Receiving [facility] Discharge Comments Notes: 11/24/2018 Case Management Note Faxed final orders to [facility] and [facility] via [employer]. Pt has arranged for friend to transport to [facility] to get meds and then home. Phone call to [facility], pt lives in independent living. Pt has case managers through [facility]. See previous admission case management notes for details. Case Management d/c poc: [facility] Unskilled care with [facility]. Date Signed: 11/24/2018 04:15 PM Electronically Signed By:Lisa Keys RN Intervention Information
--- NOTE | 2018-11-24 16:16 | ASMTDCNOTE ---
Case Management Discharge Discharge Order Complete? Answers: Yes Patient to Obtain Answers: Independently Medications Transportation Arranged Answers: Family/Friends Faxed Final Orders Answers: Yes Notes: [facility] and [facility] Palliative Agency/Facility Transfer Answers: Yes Notes: [facility] and Report Printed & Faxed to [facility] Palliative Receiving Agency Discharge Comments Notes: 11/24/2018 Case Management Note Faxed final orders to [facility] and [facility] via [employer]. Pt has arranged for friend to transport to [facility] to get meds and then home. Phone call to [facility] [place], pt lives in independent living. Pt has case managers through [facility]. See previous admission case management notes for details. Case Management d/c poc: [facility] Unskilled care with [facility]. Date Signed: 11/24/2018 04:15 PM Electronically Signed By:Lisa Keys RN
[2018-11-24] MEDS ORDERED: CARVEDILOL 6.25 MG TAB PO SCH (18:00)
== END 2018-11-24 17:05 | disposition home or self-care (01) | DRG 222 ==
LOC: F2W 16:02 → F3N 11-24 16:23 → F2W 11-24 16:26
PROVIDERS: ADMIT Internal Medicine; ATTEND Internal Medicine
PROC: 02HV33Z Insertion of Infusion Device into Superior Vena Cava, Percutaneous Approach (ICD-10-PCS; 2018-11-20)
PROC: 4A023N8 Measurement of Cardiac Sampling and Pressure, Bilateral, Percutaneous Approach (ICD-10-PCS; 2018-11-21)
PROC: B2111ZZ Fluoroscopy of Multiple Coronary Arteries using Low Osmolar Contrast (ICD-10-PCS; 2018-11-21)
PROC: 02580ZZ Destruction of Conduction Mechanism, Open Approach (ICD-10-PCS; principal; 2018-11-23)
PROC: 02H63KZ Insertion of Defibrillator Lead into Right Atrium, Percutaneous Approach (ICD-10-PCS; principal; 2018-11-23)
PROC: 0JH609Z Insertion of Cardiac Resynchronization Defibrillator Pulse Generator into Chest Subcutaneous Tissue and Fascia, Open Approach (ICD-10-PCS; principal; 2018-11-23)
PROC: 02HK3KZ Insertion of Defibrillator Lead into Right Ventricle, Percutaneous Approach (ICD-10-PCS; principal; 2018-11-23)
DX: I13.0 Hypertensive heart and chronic kidney disease with heart failure and stage 1 through stage 4 chronic kidney disease, or unspecified chronic kidney disease (principal); I50.43 Acute on chronic combined systolic (congestive) and diastolic (congestive) heart failure; N18.3 Chronic kidney disease, stage 3 (moderate); I48.1 Persistent atrial fibrillation; N17.9 Acute kidney failure, unspecified; E11.22 Type 2 diabetes mellitus with diabetic chronic kidney disease; E87.6 Hypokalemia; E79.0 Hyperuricemia without signs of inflammatory arthritis and tophaceous disease; I27.20 Pulmonary hypertension, unspecified; G47.33 Obstructive sleep apnea (adult) (pediatric); F32.9 Major depressive disorder, single episode, unspecified; G89.29 Other chronic pain; E03.9 Hypothyroidism, unspecified; I08.1 Rheumatic disorders of both mitral and tricuspid valves; E78.5 Hyperlipidemia, unspecified; Z87.891 Personal history of nicotine dependence; Z96.653 Presence of artificial knee joint, bilateral; Z86.73 Personal history of transient ischemic attack (TIA), and cerebral infarction without residual deficits; Z79.4 Long term (current) use of insulin; Z91.81 History of falling
CPT/HCPCS: 84484-ER; 86704-90; 92507-GN; 92523-GN; 97110-GO; 97110-GP; 97116-GP; 97161-GP; 97166-GO; 97530-GO; 97530-GP; 97535-GO; A4649; C1751; C1769; C1898; C1900; C2621; C2630; G0472; J0690; J1200; J1250; J1644; J1815; J1940; J2250; J2704; J2930; J2997; J3010; Q9967

== ENCOUNTER 2018-11-25 14:49 | Emergency (ER) | payer OTHER, MEDICAID ==
--- NOTE | 2018-11-25 15:33 | EDPHY ---
H & P Time Seen by Provider: 11/25/18 14:58 HPI/ROS: HPI SNF placement. 73-year-old female by ambulance. This patient was admitted to our hospital from November 15 and discharged November 24 for diastolic heart failure. The hospitalist service tried to [place] but the patient did not want this done. They then made every effort to set her up with the care she required at her current residence which is [facility]. The home health care company center back to the emergency department today stating that they cannot provide her with the care she needs a report multiple falls and they feel that she is unsafe at [facility]. On my evaluation of the patient she does not have any complaints. Case management is aware of this patient and is currently working with [facility] to figure out a management plan. ROS: Constitutional: No fever, no chills. As above. Eyes: No discharge. No changes in vision. ENT: No sore throat. No nasal congestion or rhinorrhea. Respiratory: No cough. No shortness of breath. Cardiac: No chest pain, no palpitations. Gastrointestinal: No abdominal pain, no vomiting, no diarrhea. Genitourinary: No hematuria. No dysuria or increased frequency with urination. Musculoskeletal: No back pain. No neck pain. No myalgias or arthralgias. Skin: No rashes. Neurological: No headache. No focal weakness or altered sensation. Past medical history: Atrial fibrillation, type 2 diabetes, asthma, renal failure, abdominal hernias, bilateral knee replacements, bilateral hip replacements, bilateral carpal tunnel surgery, has a pacemaker, Graves disease, hypertension, GERD, depression, hypothyroidism, osteoarthritis. Social history: Nonsmoker. She is currently here by herself. No alcohol. As above. Physical Exam: General Appearance: Alert, no distress. This patient is responding to questions appropriately and in full sentences. This patient appears generally well-hydrated and well-nourished. Head: Normocephalic atraumatic. Eyes: Pupils equal and round no pallor or injection. No lid edema, erythema or injection. Respiratory: There are no retractions, lungs are clear to auscultation anteriorly with good air movement bilaterally. Cardiovascular: Irregular rhythm. No murmur appreciated. Gastrointestinal: Abdomen is distended, this is her habitus. Abdomen is soft and nontender, no masses, bowel sounds normal. No focal tenderness at McBurney' s point. No Mccray sign. Neurological: Motor sensory function is grossly intact. Cranial nerves are normal. Cerebellar function is normal. Skin: Warm and dry, no rashes. Musculoskeletal: Neck is supple and nontender. No midline cervical, thoracic, lumbar tenderness on palpation. Extremities are symmetrical. All joints range without pain or impingement. Psychiatric: No agitation. No depression. Database: EKG: Imaging: Procedures: Emergency department course: Triage vital signs reviewed and are normal. Case Khushboo holland, is currently working with [facility] to figure out a management plan for this patient. 4:30 p.m., case management is trying to arrange direct transfer to a [place] facility from the emergency department. This will depend on Medicare status. 5:50 p.m., spoke with case Kuhshboo holland, who has been helping me with this case. We are unable to find placement at a [place] facility. The patient has been cleared to return to [facility]. Case management has spoken with [facility] as well as her home healthcare nurse to arrange for higher level of care. Case management has also set motion plans for transfer to a [place] facility when available. The patient feels comfortable going home to [facility]. She is aware of her care plan. All of her questions were answered. Return to emergency department precautions reviewed with her. She was discharged from the emergency department in good condition by transport arranged through case management. Differential Diagnosis: The differential diagnosis on this patient includes but is not limited to failure to thrive, needs placement at [place]. This represents a partial list of diagnoses considered. These considerations are based on history, physical exam, past history, reassessment and diagnostic testing. Smoking Status: Former smoker Constitutional: Initial Vital Signs Temperature (C) 36.9 C 11/25/18 15:00 Heart Rate 79 11/25/18 15:00 Respiratory Rate 16 11/25/18 15:00 Blood Pressure 116/78 11/25/18 15:00 O2 Sat (%) 94 11/25/18 15:00 O2 Delivery Mode Room Air Allergies/Adverse Reactions: iodine Allergy (Severe, Verified 11/25/18 15:18) GRAVES DISEASE/RED SKIN lidocaine [From Lidoderm] Allergy (Verified 11/25/18 15:18) Rash pravastatin Allergy (Verified 11/25/18 15:18) CAN'T WALK Home Medications: Medication Instructions Recorded Albuterol [Proventil Inhaler HFA 2 puffs IH Q6HRS PRN 06/25/17 (*)] Docusate Sodium [Colace 100 MG (*)] 200 mg PO DAILY 06/25/17 FLUoxetine [Prozac 20 MG (*)] 20 mg PO DAILY 06/25/17 Famotidine [Pepcid 20 MG (*)] 20 mg PO BID 06/25/17 Levothyroxine [Synthroid 200 mcg 200 mcg PO DAILY06 06/25/17 (*)] Triamcinolone 0.1% [Triamcinolone 1 fadia TP BID PRN 06/25/17 0.1% Cream (*)] clonazePAM [Klonopin (*)] 0.5 mg PO HS 06/25/17 ARIPiprazole [Abilify 2 mg (*)] 2 mg PO DAILY 07/21/17 clonIDINE [Catapres (*)] 0.1 mg PO HS 07/21/17 Loratadine [Claritin 10 mg] 10 mg PO DAILY 12/14/17 Fluticasone/Salmeter 250/50Mcg 1 puffs IH BID 01/02/18 [Advair 250/50 (*)] Acetaminophen [Tylenol 325mg (*)] 650 mg PO Q4HRS PRN tab 01/07/18 Hydrocodone/Acetaminophen [[place] 1 each PO Q6 PRN 05/21/18 7.5-325 Tablet] buPROPion XL [Wellbutrin 150mg XL] 150 mg PO DAILY 05/21/18 Bupropion HCl [Wellbutrin Xl] 300 mg PO DAILY 07/02/18 Ergocalciferol [Vitamin D2 (*)] 50,000 unit PO MO 07/02/18 Estradiol [Estrace Vaginal (*)] 1 fadia VG Q3D 07/02/18 Herbals/Supplements -Info Only 1 ea PO DAILY 07/02/18 Polyethylene Glycol 3350 [Miralax 17 gm PO HS 07/02/18 17 gm (*)] Spironolactone [Aldactone 25 MG 12.5 mg PO DAILY 07/02/18 (*)] Cyanocobalamin [Vitamin B12 (*)] 1,000 mcg PO DAILY 09/23/18 Nystatin Powder [Mycostatin Powder] 1 fadia TP BID PRN 09/23/18 Albuterol [Proventil Neb] 3 ml IH TID 10/06/18 Fluticasone Nasal [Flonase Nasal 2 sprays NASAL BID 10/06/18 [place]] Ipratropium [Atrovent Hfa (*)] 1 puffs IH BID 11/15/18 Sennosides [Senna Lax] 1 - 2 tab PO DAILY PRN 11/15/18 Carvedilol [Coreg (*)] 12.5 mg PO BIDMEAL #120 tab 11/24/18 Torsemide [Demadex] 40 mg PO DAILY AT 10AM #60 tab 11/24/18 hydrALAZINE [Apresoline 10 mg (*)] 20 mg PO TID #120 tab 11/24/18 Departure - Departure Disposition: Home, Routine, Self-Care Clinical Impression: Failure to thrive in adult Condition: Good Instructions: Failure to Thrive in Older Adults (ED) Additional Instructions: Read and follow provided instructions. Follow-up with your primary care physician on Wednesday or Wednesday of next week for re-evaluation. Continue taking your as prescribed. Return to the emergency department for worsening symptoms or other serious concerns. Referrals: NONE *PRIMARY CARE P,. [Primary Care Provider] - As per Instructions
[2018-11-25 18:20] VITALS: BP 119/77
--- NOTE | 2018-11-25 23:13 | ASMTCMCOM ---
CM Note CM Note Notes: Late Entry: Reviewed chart. Pt presented to the Emergency Department via EMS "looking for placement in a SNF." History includes diastolic heart failure, afib, PPM, CKD, cardiomyopathy, tachycardia, AV node ablation, diabetes, VICENTA, valvular heart disease, decreased TSH, CVA, depression, HTN. Pt is single and lives at [facility] in [place]. Per hospital records pt was admitted on 11/15/18 for diastolic heart failure. She was discharged yesterday 11/24/18 following placement of a PPM. Per prior CM notes, hospital staff recommended pt discharge to a SNF. Pt repeatedly refused and was discharged home with [facility] (RN services), [facility] (unskilled care), [facility] and [facility] services. Call placed to Laura at [facility] to discuss reason for transfer to ED today. Per Laura, pt was seen by Eve Hewitt, a [facility] RN today. Eve expressed concerns regarding the pt's safety at home, given two reported falls by the pt. Eve called Korin with [facility]. Per Eve, she was advised to send the pt to [facility] ED for assistance with SNF placement. Call placed to Korin with [facility]. Spoke with Michelle Andrew . Per Korin Martinez spoke with the pt today and suggested the pt contact her [facility] piano case maker, Matilde Szymanski to discuss current concerns and to request extra help from [facility]. Per [facility], it is unclear if the pt reached out to her piano case maker for assistance with placement. Met with pt. Pt confirmed she refused rehab upon discharge yesterday, stating she's "been feeling pretty good overall." The pt reports "sliding or falling off of the couch twice last night." She states she called EMS for assistance getting up both times, because "the staff at [facility] couldn't assist her," given her arm restrictions from the pacemaker placement. The pt states the home care nurse called EMS because of safety concerns and suggested the pt go to a SNF. The pt denies any complaints today. She states she "would ideally like to return home, but would be open to a short stay at a SNF." Spoke with pt's RN, Devante. CM requested Devante complete a functional assessment of pt's mobility to assess for safety concerns. Update provided to Dr. Higuera. Per Dr. Higuera, the pt denies complaints or concerns and has no medical indication for admission to the hospital at this time. Call placed to Altagracia, [employer] of , to discuss pt case. CM reached out to [employer] to check pt's insurance benefits. CM confirmed pt only has Medicare Part B (outpatient) and Medicaid. Met with pt, update provided. Pt only eligible for custodial rehab placement (30 day stay) secondary to benefits. Pt informed admission to the hospital would be required for completion of [facility] ULTC 100 paperwork. Pt refusing 30 day rehab stay. Pt agreeable to short stay, but does not feel she needs a month of rehab. Call placed to Ke at [facility] in [place] (pt's first choice for facilities). Ke ran a benefit check for short stay rehab; pt denied secondary to Medciare Part B and Medicaid. Ke concurs, pt will need a 30 day Medicaid stay to access her benefits. Update provided to pt. Pt continues to refuse 30 day stay placement. Update provided to Devante. Per Devante, pt mobilized safely utilizing her walker, with no signs of weakness or instability. The "pt moved independently and required no assistance." Pt requesting to discharge home. This CM discussed other community resources with pt. Call placed to [facility] for Patricia for new referral. Call placed to [facility] for Estephanie for new referral. CM offered pt Meals on Wheels through [employer]. Pt agreeable. [facility] for Meals on Wheels [place] office . Call placed to [facility]; spoke with Noa. Increased care requested. Per Noa, [facility] will send Suzette (pt's caregiver) on Wednesday11/26/18 for 4-6 hrs of care. Noa will alert office of need for increased services. [facility] to reach out to Matilde on Wednesday for approval. Call placed to pt's piano case maker Matilde Szymanski [facility] requesting further assistance with possible medical respite, rehab or an increase in pt's services. Call placed to Michelle with [facility]. Michelle and Korin to follow up with pt on Wednesday11/28/18. Call placed to Simon with [facility] - CM requested resumption of services for Wednesday11/26/18. Call placed to [facility], spoke with Pérez Santiago. Update provided. Several questions asked of CM regarding reason for pt's return to her residence - Dharmesh Lino reluctant to accept. Plan of care discussed. Dharmesh Lino informed of CM's inability to place pt at a short stay rehab facility and pt's desire to return home. Updates provided to BLANCHE Low, Dr. Higuera and Altagracia. Pt to discharge home with the above plan of care. Pt in agreement with plan. Call placed to [place] for Medicaid transportation. Pt requesting cab ride home. [place] cancelled; [employer] called. CM available for any further issues or concerns. Date Signed: 11/25/2018 11:12 PM Electronically Signed By:Khushboo Parra RN
== END 2018-11-25 18:21 | disposition home or self-care (01) ==
LOC: EDUNIT#
DX: R62.7 Adult failure to thrive (principal)

== ENCOUNTER 2018-12-05 10:28 | Emergency (ER) | payer OTHER, MEDICAID ==
--- NOTE | 2018-12-05 10:52 | EDPHY ---
H & P Stated Complaint: edema Time Seen by Provider: 12/05/18 10:41 HPI/ROS: CHIEF COMPLAINT: "I gained 10 lb overnight" HISTORY OF PRESENT ILLNESS: 73-year-old female history of CHF, atrial fibrillation, chronic kidney disease, recently discharged from [facility] with CHF exacerbation was weighing herself as part of her morning routine morning routine, noticed a 10 lb weight gain since yesterday. She contacted [facility] and they recommend she come to the ER. She denies any complaints of pain. Specifically, she denies chest pain, leg pain, she denies dyspnea, back pain, syncope, near syncope. REVIEW OF SYSTEMS: 10 systems reviewed and negative with the exception of the elements mentioned in the history of present illness PAST MEDICAL & SURGICAL HISTORY: CHF. Atrial fibrillation. Chronic kidney disease. Chronic bilateral lower extremity edema right lower greater than left. SOCIAL HISTORY: Nonsmoker. Lives by herself. Notes no difficulty in caring for self. PHYSICAL EXAM (Prior to examination, patient consented to physical exam, hands were washed and my usual and customary physical exam procedures followed) 1) GENERAL: Well-developed, well-nourished, alert and oriented. Appears to be in no acute distress. Observed ambulating by herself with stable steady gait. Not appear grossly volume overloaded. 2) HEAD: Normocephalic, atraumatic 3) HEENT: Pupils equal, round, reactive to light bilaterally. Sclera anicteric. 4) NECK: Full range of motion, no meningeal signs. 5) LUNGS: Clear auscultation bilaterally, no wheezes, no rhonchi, no retractions. 6) HEART: Regular rate and rhythm, no murmur, no heave, no gallop. 7) ABDOMEN: No guarding, no rebound, no focal tenderness, negative McBurney's, negative Mccray's, negative Rovsing's, negative peritoneal sign, 8) MUSCULOSKELETAL: Bilateral pitting edema, right greater than left. No tenderness. No discoloration. DP PT pulses present and brisk. 9) BACK: No CVA tenderness, no midline vertebral tenderness, no fluctuance, no step-off, no obvious trauma, no visual or palpable abnormality. 10) SKIN: No rash, no petechiae. 11) Psychiatric: Patient is oriented X 3, there is no agitation. DIFFERENTIAL DIAGNOSIS: In no particular order including but not limited to CHF exacerbation, acute kidney disease, fluid overload - Personal History Tetanus Vaccine Date: >10 YRS - Medical/Surgical History Hx Asthma: Yes Hx Chronic Respiratory Disease: No Hx Diabetes: Yes Hx Cardiac Disease: Yes Hx Renal Disease: Yes Hx Cirrhosis: No Hx Alcoholism: No Hx HIV/AIDS: No Hx Splenectomy or Spleen Trauma: No Other PMH: Afib, DM2, asthma, renal failure, abdominal hernias, bilat knee replacements, ronny hip replacement, bilat carpal tunnel repair, Grave's disease, HTN, GERD, depression,hypothyroidism, VICENTA, - Social History Smoking Status: Former smoker Constitutional: Initial Vital Signs Temperature (C) 36.6 C 12/05/18 10:33 Heart Rate 80 12/05/18 10:33 Respiratory Rate 16 12/05/18 10:33 Blood Pressure 158/100 H 12/05/18 10:33 O2 Sat (%) 99 12/05/18 10:33 O2 Delivery Mode Room Air Allergies/Adverse Reactions: iodine Allergy (Severe, Verified 12/05/18 10:33) GRAVES DISEASE/RED SKIN lidocaine [From Lidoderm] Allergy (Verified 12/05/18 10:33) Rash pravastatin Allergy (Verified 12/05/18 10:33) CAN'T WALK Home Medications: Medication Instructions Recorded Albuterol [Proventil Inhaler HFA 2 puffs IH Q6HRS PRN 06/25/17 (*)] Docusate Sodium [Colace 100 MG (*)] 200 mg PO DAILY 06/25/17 FLUoxetine [Prozac 20 MG (*)] 20 mg PO DAILY 06/25/17 Famotidine [Pepcid 20 MG (*)] 20 mg PO BID 06/25/17 Levothyroxine [Synthroid 200 mcg 200 mcg PO DAILY06 06/25/17 (*)] Triamcinolone 0.1% [Triamcinolone 1 fadia TP BID PRN 06/25/17 0.1% Cream (*)] clonazePAM [Klonopin (*)] 0.5 mg PO HS 06/25/17 ARIPiprazole [Abilify 2 mg (*)] 2 mg PO DAILY 07/21/17 clonIDINE [Catapres (*)] 0.1 mg PO HS 07/21/17 Loratadine [Claritin 10 mg] 10 mg PO DAILY 12/14/17 Fluticasone/Salmeter 250/50Mcg 1 puffs IH BID 01/02/18 [Advair 250/50 (*)] Acetaminophen [Tylenol 325mg (*)] 650 mg PO Q4HRS PRN tab 01/07/18 Hydrocodone/Acetaminophen [[place] 1 each PO Q6 PRN 05/21/18 7.5-325 Tablet] buPROPion XL [Wellbutrin 150mg XL] 150 mg PO DAILY 05/21/18 Bupropion HCl [Wellbutrin Xl] 300 mg PO DAILY 07/02/18 Ergocalciferol [Vitamin D2 (*)] 50,000 unit PO MO 07/02/18 Estradiol [Estrace Vaginal (*)] 1 fadia VG Q3D 07/02/18 Herbals/Supplements -Info Only 1 ea PO DAILY 07/02/18 Polyethylene Glycol 3350 [Miralax 17 gm PO HS 07/02/18 17 gm (*)] Spironolactone [Aldactone 25 MG 12.5 mg PO DAILY 07/02/18 (*)] Cyanocobalamin [Vitamin B12 (*)] 1,000 mcg PO DAILY 09/23/18 Nystatin Powder [Mycostatin Powder] 1 fadia TP BID PRN 09/23/18 Albuterol [Proventil Neb] 3 ml IH TID 10/06/18 Fluticasone Nasal [Flonase Nasal 2 sprays NASAL BID 10/06/18 [place]] Ipratropium [Atrovent Hfa (*)] 1 puffs IH BID 11/15/18 Sennosides [Senna Lax] 1 - 2 tab PO DAILY PRN 11/15/18 Carvedilol [Coreg (*)] 12.5 mg PO BIDMEAL #120 tab 11/24/18 Torsemide [Demadex] 40 mg PO DAILY AT 10AM #60 tab 11/24/18 hydrALAZINE [Apresoline 10 mg (*)] 20 mg PO TID #120 tab 11/24/18 Medical Decision Making - Diagnostics Imaging Results: Imaging Impressions Chest X-Ray 12/05/18 10:49 Impression: 1. Mild prominent interstitial markings at the lung bases with cardiomegaly suggestive of dependent edema/fluid overload. ED Course/Re-evaluation: 12:01 p.m.: Re-evaluation with serial exams. Old medical records reviewed. Reviewed with patient her chest x-ray which shows mild dependent edema. Her creatinine is improved verses November 24 where had a level of 1.9 compared to 1.5 today. BNP is improved verses 11/18/2018 where she had a level of 10,400 versus today at 4220 12:15 p.m.: Consultation with Cardiology DON Downs who recommends no just when the patient's medications at this time she has already on torsemide. She did recommend patient call the office in the morning and report her weight and keep her appointment in [address] Clyde Morris. - Data Points Laboratory Results: Laboratory Results 12/05/18 10:59 12/05/18 10:59 12/05/18 12/05/18 10:59 10:59 WBC 8.64 10^3/uL 10^3/uL (3.80-9.50) RBC 4.52 10^6/uL 10^6/uL (4.18-5.33) Hgb 12.5 g/dL L g/dL (12.6-16.3) Hct 39.9 % % (38.0-47.0) MCV 88.3 fL fL (81.5-99.8) MCH 27.7 pg L pg (27.9-34.1) MCHC 31.3 g/dL L g/dL (32.4-36.7) RDW 16.8 % H % (11.5-15.2) Plt Count 189 10^3/uL 10^3/uL (150-400) MPV 10.4 fL fL (8.7-11.7) Neut % (Auto) 86.8 % H % (39.3-74.2) Lymph % (Auto) 5.4 % L % (15.0-45.0) [place] % (Auto) 7.2 % % (4.5-13.0) Eos % (Auto) 0.0 % L % (0.6-7.6) Baso % (Auto) 0.0 % L % (0.3-1.7) Nucleat RBC Rel Count 0.0 % % (0.0-0.2) Absolute Neuts (auto) 7.50 10^3/uL H 10^3/uL (1.70-6.50) Absolute Lymphs (auto) 0.47 10^3/uL L 10^3/uL (1.00-3.00) Absolute Monos (auto) 0.62 10^3/uL 10^3/uL (0.30-0.80) Absolute Eos (auto) 0.00 10^3/uL L 10^3/uL (0.03-0.40) Absolute Basos (auto) 0.00 10^3/uL L 10^3/uL (0.02-0.10) Absolute Nucleated RBC 0.00 10^3/uL 10^3/uL (0-0.01) Immature Gran % 0.6 % % (0.0-1.1) Immature Gran # 0.05 10^3/uL 10^3/uL (0.00-0.10) RBC/WBC/PLT Morphology TNP Platelet Estimate TNP Sodium 137 mEq/L mEq/L (135-145) Potassium 4.6 mEq/L mEq/L (3.5-5.2) Chloride 106 mEq/L mEq/L (97-110) Carbon Dioxide 26 mEq/l mEq/l (22-31) Anion Gap 5 mEq/L L mEq/L (6-14) BUN 48 mg/dL H mg/dL (7-23) Creatinine 1.5 mg/dL H mg/dL (0.6-1.0) Estimated GFR 34 Glucose 125 mg/dL H mg/dL (70-100) Calcium 9.7 mg/dL mg/dL (8.5-10.4) NT-Pro-B Natriuret Pep 4220 pg/mL H pg/mL (0-125) Departure - Departure Disposition: Home, Routine, Self-Care Clinical Impression: CHF (congestive heart failure) Qualifiers: Heart failure type: unspecified Heart failure chronicity: chronic Qualified Code(s): I50.9 - Heart failure, unspecified Condition: Good Instructions: Heart Failure (ED) Additional Instructions: Return to the ER if you develop chest pain, shortness of breath, dizziness, or any other symptoms that concern you. Referrals: [facility] [Provider Group] - As per Instructions (Keep your appointment this Wednesday with Dr. Morris. Take your weight in the morning and call Homer Zinitix in the morning to report this weight.)
[2018-12-05 11:09] LABS: PLATELET COUNT 189 10^3/uL (150-400)
[2018-12-05 12:35] VITALS: BP 146/92
--- NOTE | 2018-12-05 13:49 | CPEKG ---
Test Reason : OPEN Blood Pressure : / mmHG Vent. Rate : 080 BPM Atrial Rate : 111 BPM P-R Int : 231 ms QRS Dur : 119 ms QT Int : 410 ms P-R-T Axes : 000 229 059 degrees QTc Int : 473 ms Afib/flutter and ventricular-paced rhythm Confirmed by Ananth Winter ([id number]) on 12/05/2018 1:49:04 PM Referred By: Ananth Winter Confirmed By:Ananth Winter
--- NOTE | 2018-12-05 16:50 | ASDISCHSUM ---
Discharge Information Plan Status:Home with No Needs Medically Cleared to Leave: Discharge Date:12/05/2018 12:35 PM CM D/C Disposition:Home, Routine, Self-Care ADT D/C Disposition:Home, Routine, Self-Care Projected Discharge Date:12/05/2018 12:35 PM Transportation at D/C:None or Unknown Discharge Delay Reason: Follow-Up Date:12/05/2018 12:35 PM Discharge Slot: Final Diagnosis: Placement Information Patient Contact Information Contact Name:REA Relationship:Cousin Address: City: [facility] Phone: [facility]/Zip Code: Email: Financial Information Financial Class:Medicare Primary Plan Desc:MEDICARE OUTPATIENT Primary Plan Number:[id number] Secondary Plan Desc:MEDICAID HEALTH FIRST [place] OP Secondary Plan Number:[id number] Assessment Information Intervention Information Intervention Type:Post Acute Communication Date of Service:12/05/2018 04:44 PM Patient Type:Emergency Room Staff Member:BLANCHE Reed Sharon Hours:0.25 Discipline:Second Language Tutor Severity: Comment:Received a call from Korin Sarmiento ([phone]) w/[facility]-PCP. [facility] ed on pt's situation. Reviewed chart. Pt lives at [facility] and is set up w/[facility], [facility], [facility], [place] (did outpatient referral ever happen?), etc . Today pt was assessed, cardiology consulted and pt was d/c'd home to delia duvall her apt w/Dr Wooten on Wed. Pt also has an apt w/her PCP Dr Nowak on . CM called Korin back and relayed pt's DC plan.
== END 2018-12-05 12:35 | disposition home or self-care (01) ==
DX: I50.9 Heart failure, unspecified (principal); N18.3 Chronic kidney disease, stage 3 (moderate); I48.1 Persistent atrial fibrillation; E11.22 Type 2 diabetes mellitus with diabetic chronic kidney disease